=== PATIENT | female | born 1950 | race Hispanic/Latino ===

== ENCOUNTER 2018-02-08 16:35 | Emergency (ER) | payer MEDICARE, OTHER ==
[2018-02-08 16:35] VITALS: BMI 27.4
[2018-02-08] MEDS ORDERED: Albuterol-Ipratrop 3 mg / 0.5 (3 ml) UD IH STA (16:59)
--- NOTE | 2018-02-08 18:57 | ED PDOC ---
Arrival/HPI - General Chief Complaint: Shortness Of Breath Time Seen by Provider: 02/08/18 16:46 Historian: Patient - History of Present Illness Narrative History of Present Illness (Text): 02/08/18 18:57 67yo female with Past medical history of Asthma, seizure and legal blind who was bib by her environmental studies faculty member for complaint of wheezing and cough. the respiratory care program director noted history of sensation al allergy that consist of cough. States she was on Sammie until recently when the PMD stopped the medication to see how she will do without it. The respiratory care program director states she started wheezing 2days ago. States she uses Nebulizer at home and she started wheezing while she was at her daycare today. She came to Emergency department from the daycare. She denies fever, chills, nausea, vomiting, abdominal pain, sick contact. she is not steroid dependent. Never admitted for Asthma and never intubated. Past Medical History - Provider Review Nursing Documentation Reviewed: Yes - Infectious Disease Hx of Infectious Diseases: None - Tetanus Immunization Tetanus Immunization: Unknown - Cardiac Hx Cardiac Disorders: Yes Hx Hypertension: Yes - Pulmonary Hx Respiratory Disorders: Yes Hx Asthma: Yes Hx Chronic Obstructive Pulmonary Disease (COPD): Yes - Neurological Hx Neurological Disorder: Yes Hx Seizures: Yes - HEENT Hx HEENT Disorder: Yes Hx Blind: Yes - Renal Hx Renal Disorder: No - Endocrine/Metabolic Hx Endocrine Disorders: No - Hematological/Oncological Hx Blood Disorders: No - Integumentary Hx Dermatological Disorder: No - Musculoskeletal/Rheumatological Hx Falls: No - Gastrointestinal Hx Gastrointestinal Disorders: Yes Hx Gastroesophageal Reflux: Yes - Genitourinary/Gynecological Hx Genitourinary Disorders: Yes Hx Incontinence: Yes - Psychiatric Hx Psychophysiologic Disorder: Yes Hx Anxiety: Yes Hx Depression: Yes Hx Substance Use: No - Past Surgical History Past Surgical History: Unable to Obtain - Suicidal Assessment Feels Threatened In Home Enviroment: No Family/Social History - Physician Review Nursing Documentation Reviewed: Yes Family/Social History: Unknown Family HX Smoking Status: Never Smoked Hx Alcohol Use: No Hx Substance Use: No Allergies/Home Meds Allergies/Adverse Reactions: Allergies carbamazepine [From Tegretol] Allergy (Verified 02/08/18 16:41) SHORTNESS OF BREATH Home Medications: Home Meds Medication Instructions Recorded Confirmed Albuterol 0.083% [Albuterol 0.083%] 2.5 mg INH Q8 12/16/13 02/08/18 Budesonide [Budesonide] 0.5 mg INH BID 12/16/13 02/08/18 Clonazepam [Clonazepam] 0.5 mg PO Q12 12/16/13 02/08/18 Escitalopram [Lexapro] 10 mg PO DAILY 12/16/13 02/08/18 Fexofenadine Hydrochloride 180 mg PO DAILY 12/16/13 02/08/18 [Fexofenadine] Gabapentin [Gabapentin] 300 mg PO Q12 12/16/13 02/08/18 Omeprazole [Omeprazole] 10 mg PO DAILY 12/16/13 02/08/18 Divalproex [Depakote ER(ONCE 500 mg PO DAILY 02/08/18 02/08/18 DAILY)] Review of Systems - Physician Review All systems were reviewed & negative as marked: Yes - Review of Systems Constitutional: Normal Eyes: Normal ENT: Normal Respiratory: Cough, Wheezing. absent: SOB, Sputum Cardiovascular: Normal Gastrointestinal: Normal Genitourinary Female: Normal Musculoskeletal: Normal Skin: Normal Neurological: Normal Endocrine: Normal Hemo/Lymphatic: Normal Psychiatric: Normal Physical Exam Vital Signs Reviewed: Yes Vital Signs Temp Pulse Resp BP Pulse Ox 02/08/18 19:23 98.2 F 77 16 127/64 97 02/08/18 17:13 16 02/08/18 17:06 71 18 70 L Temperature: Afebrile Blood Pressure: Normal Pulse: Regular Respiratory Rate: Normal Appearance: Positive for: Well-Appearing, Non-Toxic, Comfortable Pain Distress: None Mental Status: Positive for: Alert and Oriented X 3 - Systems Exam Head: Present: Atraumatic, Normocephalic Pupils: Present: PERRL Extroacular Muscles: Present: EOMI Conjunctiva: Present: Normal Mouth: Present: Moist Mucous Membranes Neck: Present: Normal Range of Motion Respiratory/Chest: Present: Clear to Auscultation, Good Air Exchange, Wheezes ( Diffuse expiratory wheeze at the bases). No: Respiratory Distress, Accessory Muscle Use, Decreased Breath Sounds, Rales, Retracting, Rhonchi Cardiovascular: Present: Regular Rate and Rhythm, Normal S1, S2. No: Murmurs Abdomen: No: Tenderness, Distention, Peritoneal Signs Back: Present: Normal Inspection Upper Extremity: Present: Normal Inspection. No: Cyanosis, Edema Lower Extremity: Present: Normal Inspection. No: Edema Neurological: Present: GCS=15, CN II-XII Intact, Speech Normal Skin: Present: Warm, Dry, Normal Color. No: Rashes Psychiatric: Present: Alert, Oriented x 3, Normal Insight, Normal Concentration Medical Decision Making ED Course and Treatment: 02/09/18 00:26 PT was comfortable in Emergency department. On re evaluation her lung was CTA b /l. she was talking in full sentence and ambulatory without distress. She was DC home with Prednisone and Tessalon perles. Referred to her PMD - Medication Orders Current Medication Orders: Discontinued Medications Albuterol/Ipratropium (Duoneb 3 Mg/0.5 Mg (3 Ml) Ud) 3 ml IH Q15M STA Stop: 02/08/18 17:00 Last Admin: 02/08/18 17:42 Dose: 3 ml Prednisone (Prednisone Tab) 40 mg PO STAT STA Stop: 02/08/18 17:07 Last Admin: 02/08/18 17:42 Dose: 40 mg Disposition/Present on Arrival - Present on Arrival Any Indicators Present on Arrival: No History of DVT/PE: No History of Uncontrolled Diabetes: No Urinary Catheter: No History of Decub. Ulcer: No History Surgical Site Infection Following: None - Disposition Have Diagnosis and Disposition been Completed?: Yes Diagnosis: Acute asthma Disposition: HOME/ ROUTINE Disposition Time: 19:15 Patient Plan: Discharge Condition: IMPROVED Discharge Instructions (ExitCare): Asthma in Adults Additional Instructions: Follow up with your Doctor Return to Emergency department for any new or worsening symptoms Prescriptions: Benzonatate [Tessalon Perle] 100 mg PO TID #20 capsule predniSONE [Prednisone] 20 mg PO DAILY #4 tab Referrals: Sierra NEELY,Arabella Kessler MD [Primary Care Provider] - Follow up with primary Forms: [email or web address] (Kinyarwanda)
[2018-02-08 19:20] VITALS: RESP 16
[2018-02-08 19:23] VITALS: BP 127/64; PULSE 77; TEMP 98.2; O2SAT 97
== END 2018-02-08 19:30 | disposition home or self-care (01) ==
LOC: ED 16:35
DX: J45.909 Unspecified asthma, uncomplicated (principal)

== ENCOUNTER 2018-05-16 13:50 | Inpatient (IN) | payer MEDICARE, OTHER ==
[2018-05-16 14:09] VITALS: BMI 43.6
--- NOTE | 2018-05-16 14:37 | ED PDOC ---
Arrival/HPI - General Chief Complaint: Abnormal Skin Integrity Time Seen by Provider: 05/16/18 14:00 Historian: Patient, Caregiver, Fdc - History of Present Illness Narrative History of Present Illness (Text): 05/16/18 14:36 This 67 yo female with Past medical history of Asthma, seizure and legal blind who was bib by her industrial real estate agent for complaint of b/l lower leg cellulitis x 2 weeks. Caregiver stated patient developed a small kan skin infection x 2 weeks. Caregiver stated patient was taken to [facility] ED who Dx. cellulitis, and patient Rx. Augmentin. Patient followed up with her PMD x 7 days ago. PMD prescribed patient Bactrim DS, and Keflex, and recommended to have patient see [facility]. Patient was sent to Dr. Linda Mackenzie, associate professor of physics, who recommended patient/caregiver to come to [facility] for IV antibiotic for leg cellulitis, and failure out-patient treatment. Denies other complains. Caregiver stated patient had a negative Venous Doppler x 2 weeks ago. Time/Duration: Other (see hpi) Context: Home Past Medical History - Provider Review Nursing Documentation Reviewed: Yes - Infectious Disease Hx of Infectious Diseases: None - Tetanus Immunization Tetanus Immunization: Unknown - Reproductive Menopause: Yes - Cardiac Hx Cardiac Disorders: Yes Hx Hypertension: Yes - Pulmonary Hx Respiratory Disorders: Yes Hx Asthma: Yes Hx Chronic Obstructive Pulmonary Disease (COPD): Yes - Neurological Hx Neurological Disorder: Yes Hx Seizures: Yes - HEENT Hx HEENT Disorder: Yes Hx Blind: Yes - Renal Hx Renal Disorder: No - Endocrine/Metabolic Hx Endocrine Disorders: No - Hematological/Oncological Hx Blood Disorders: No - Integumentary Hx Dermatological Disorder: No - Musculoskeletal/Rheumatological Hx Falls: No - Gastrointestinal Hx Gastrointestinal Disorders: Yes Hx Gastroesophageal Reflux: Yes - Genitourinary/Gynecological Hx Genitourinary Disorders: Yes Hx Incontinence: Yes - Psychiatric Hx Psychophysiologic Disorder: Yes Hx Anxiety: Yes Hx Depression: Yes Hx Substance Use: No - Past Surgical History Past Surgical History: Unable to Obtain - Suicidal Assessment Feels Threatened In Home Enviroment: No Family/Social History - Physician Review Nursing Documentation Reviewed: Yes Family/Social History: Other (noncontributory) Smoking Status: Never Smoked Hx Alcohol Use: No Hx Substance Use: No Allergies/Home Meds Allergies/Adverse Reactions: Allergies carbamazepine [From Tegretol] Allergy (Verified 05/16/18 14:22) SHORTNESS OF BREATH Home Medications: Home Meds Medication Instructions Recorded Confirmed Albuterol 0.083% [Albuterol 0.083%] 2.5 mg INH Q8 12/16/13 05/16/18 Escitalopram [Lexapro] 10 mg PO DAILY 12/16/13 05/16/18 Divalproex [Depakote ER(ONCE 500 mg PO BID 02/08/18 05/16/18 DAILY)] Budesonide [Pulmicort Respules] 0.5 mg IH BID 05/16/18 05/16/18 Cephalexin [cephalexin] 500 mg PO BID 05/16/18 05/16/18 Clonazepam [Klonopin] 1 mg PO BID 05/16/18 05/16/18 Gabapentin [Neurontin] 300 mg PO TID 05/16/18 05/16/18 Levetiracetam [Keppra] 1,000 mg PO BID 05/16/18 05/16/18 Sulfamethoxazole/Trimethoprim 1 tab PO BID 05/16/18 05/16/18 [Bactrim DS 800 mg-160 mg] Review of Systems - Review of Systems Constitutional: Normal. absent: Fatigue, Weight Change, Fevers, Night Sweats Eyes: Normal ENT: Normal Respiratory: Normal. absent: SOB, Cough Cardiovascular: Normal. absent: Chest Pain, Palpitations Gastrointestinal: Normal. absent: Abdominal Pain, Nausea, Vomiting Genitourinary Female: Normal Musculoskeletal: Normal Skin: Cellulitis Neurological: Normal Endocrine: Normal Hemo/Lymphatic: Normal Psychiatric: Normal Physical Exam Vital Signs Temp Pulse Resp BP Pulse Ox 05/16/18 14:16 97.8 F 81 18 106/47 L 100 Temperature: Afebrile Blood Pressure: Normal Pulse: Regular Respiratory Rate: Normal Appearance: Positive for: Well-Appearing, Non-Toxic, Comfortable Pain Distress: None - Systems Exam Head: Present: Atraumatic, Normocephalic Pupils: Present: PERRL Extroacular Muscles: Present: EOMI Conjunctiva: Present: Normal Mouth: Present: Moist Mucous Membranes Neck: Present: Normal Range of Motion Respiratory/Chest: Present: Clear to Auscultation, Good Air Exchange. No: Respiratory Distress, Accessory Muscle Use Cardiovascular: Present: Regular Rate and Rhythm, Normal S1, S2. No: Murmurs Abdomen: No: Tenderness, Distention, Peritoneal Signs Back: Present: Normal Inspection Upper Extremity: Present: Normal Inspection. No: Cyanosis, Edema Lower Extremity: Present: NORMAL PULSES, Normal ROM, Erythema, Temperature Abnormalties, Neurovascularly Intact, Capillary Refill < 2 s, Other ((+) right lower leg worse than left). No: Edema, CALF TENDERNESS, Cyanosis, Yony's Sign , Tenderness, Swelling, Deformity Neurological: Present: GCS=15, CN II-XII Intact, Speech Normal, Motor Func Grossly Intact, Normal Sensory Function, Normal Cerebellar Funct, Gait Normal Skin: Present: Warm, Dry, Normal Color. No: Rashes Psychiatric: Present: Alert, Normal Insight, Normal Concentration Medical Decision Making ED Course and Treatment: 05/16/18 16:[address] Horn, medical service regarding Hx. of lower leg cellulitis. Patient fell out-patient treatment, worsening of cellulitis. We reviewed labs, and associate professor of physics recommendation for admission. He agreed with plan for admission. Re-evaluation Time: 16:41 Reassessment Condition: Re-examined, Improving,but remains with symptoms - Lab Interpretations Lab Results: 05/16/18 14:30 05/16/18 14:30 Lab Results 05/16/18 14:30: Sodium 138, Chloride 103, Potassium 4.7, Carbon Dioxide 24, Anion Gap 15, BUN 22 H, Creatinine 1.3 H, Est GFR ( Amer) 49, Est GFR ( Non-Af Amer) 41, Random Glucose 98, Calcium 8.2 L, Phosphorus 4.0, Magnesium 2.2 , Total Bilirubin 0.4, AST 30, ALT 42, Alkaline Phosphatase 65, Lactate Dehydrogenase 457, Total Creatine Kinase 41, Troponin I < 0.01, NT-Pro-B Natriuret Pep 664 H, Total Protein 6.3, Albumin 3.4, Globulin 2.9, Albumin/ Globulin Ratio 1.2 05/16/18 14:30: pO2 74 H, VBG pH 7.38, VBG pCO2 42.0, VBG HCO3 24.8, VBG Total CO2 26.1, VBG O2 Sat (Calc) 96.5 H, VBG Base Excess -0.4 L, VBG Potassium 4.7, Sodium 136.0, Chloride 105.0, Glucose 95, Lactate 1.7, FiO2 21.0, Venous Blood Potassium 4.7 05/16/18 14:30: PT 12.1, INR 1.06, APTT 30.0 05/16/18 14:30: WBC 5.6, RBC 3.44 L, Hgb 10.3 L, Hct 31.2 L, MCV 90.7, MCH 29.9 , MCHC 33.0, RDW 14.7 H, Plt Count 187, MPV 10.5, Gran % 59.7, Lymph % (Auto) 18.1 L, [place] % (Auto) 17.2 H, Eos % (Auto) 4.6, Baso % (Auto) 0.4, Gran # 3.36, Lymph # (Auto) 1.0 L, [place] # (Auto) 1.0 H, Eos # (Auto) 0.3, Baso # (Auto) 0.02 , ESR 37 H I have reviewed the lab results: Yes Interpretation: No sign. chg./baseline - RAD Interpretation Narrative RAD Interpretations (Text): 05/16/18 15:55 Patient Name / ID : TA DAMICO / [id number] Exam Date : 05/16/2018 15:06:17 ( Approved ) Study Comment : Sex / Age : F / 67Y Creator : Adrián Harkins MD Dictator : Adrián Harkins MD Government Affairs Specialist : Courtesy Van Driver : Adrián Harkins MD Approver2 : Report Date : 05/16/2018 15:20:44 My Comment : Date of service: 05/16/2018 HISTORY: admission COMPARISON: 12/16/2013 FINDINGS: LUNGS: No active pulmonary disease. PLEURA: No significant pleural effusion identified, no pneumothorax apparent. CARDIOVASCULAR: Normal. OSSEOUS STRUCTURES: No significant abnormalities. VISUALIZED UPPER ABDOMEN: Normal. OTHER FINDINGS: None. IMPRESSION: No active disease. Radiology Orders: 05/16/18 14:45 CHEST PORTABLE [RAD] Stat 05/16/18 14:50 DUPLEX LOWER EXTRM VEIN BILAT [US] Stat - Medication Orders Current Medication Orders: Discontinued Medications Sodium Chloride (Sodium Chloride 0.9%) 500 mls @ 999 mls/hr IV .Q31M STA Stop: 05/16/18 15:20 Last Admin: 05/16/18 15:19 Dose: 999 mls/hr eMAR Start Stop Document 05/16/18 15:19 [facility] (Rec: 05/16/18 15:19 [facility] [id number]) Intravenous Solution Start Date 05/16/18 Start Time 15:19 End Date 05/16/18 End time 15:50 Total Infusion Time 31 Vancomycin HCl (Vancomycin 1gm) 1 gm in 250 mls @ 167 mls/hr IVPB STAT STA PRN Reason: Protocol Stop: 05/16/18 16:18 Piperacillin Sod/Tazobactam Sod (Zosyn 4.5 Gm In Ns 100ml) 4.5 gm in 100 mls @ 200 mls/hr IVPB STAT STA PRN Reason: Protocol Stop: 05/16/18 15:14 Last Admin: 05/16/18 15:17 Dose: 200 mls/hr eMAR Start Stop Document 05/16/18 15:17 [facility] (Rec: 05/16/18 15:17 [facility] [id number]) Intravenous Solution Start Date 05/16/18 Start Time 15:17 End Date 05/16/18 End time 15:20 Total Infusion Time 3 Disposition/Present on Arrival - Present on Arrival Any Indicators Present on Arrival: No History of DVT/PE: No History of Uncontrolled Diabetes: No Urinary Catheter: No History of Decub. Ulcer: No History Surgical Site Infection Following: None - Disposition Have Diagnosis and Disposition been Completed?: Yes Diagnosis: Cellulitis, Failure of outpatient treatment Disposition: HOSPITALIZED Disposition Time: 16:43 Patient Plan: Admission Condition: STABLE Discharge Instructions (ExitCare): Cellulitis (ED) Referrals: Sierra NEELY,Arabella Kessler MD [Primary Care Provider] - Follow up with primary Forms: [employer] (Romanian)
[2018-05-16] MEDS ORDERED: Piperacill/Tazo 4.5gm in NS 4.5 GM/100 ML BAG IVPB STA (14:45)
[2018-05-16] MEDS ORDERED: Vancomycin 1gm in NS 250ml 1 GM/250 ML BAG IVPB STA (14:49)
[2018-05-16] MEDS ORDERED: Sodium Chloride 0.9% 500 ML IV STA (14:50)
[2018-05-16 14:58] LABS: VENOUS BLOOD GAS BASE EXCESS -0.4 mmol/L (0.0-2.0); VENOUS BLOOD GAS PO2 74 mm/Hg (30-55); VENOUS BLOOD PH 7.38 (7.32-7.43)
[2018-05-16 14:59] LABS: BASO # 0.02 K/mm3 (0.0-2.0); BASO % 0.4 % (0.0-3.0); EOS # 0.3 (0.0-0.7); EOS % 4.6 % (1.5-5.0); GRAN # 3.36 (1.4-6.5); GRAN % 59.7 % (50.0-68.0); HEMOGLOBIN 10.3 g/dL (12.0-16.0); LYMPH % 18.1 % (22.0-35.0); MEAN CELL VOLUME 90.7 fl (80.0-105.0); MEAN CORPUSCULAR HEMOGLOBIN 29.9 pg (25.0-35.0); MEAN PLATELET VOLUME 10.5 fl (7.0-11.0); MONO % 17.2 % (1.0-6.0); RBC 3.44 10^6/uL (3.5-6.1); RED CELL DISTRIBUTION WIDTH 14.7 % (11.5-14.5); WHITE BLOOD COUNT 5.6 10^3/ul (4.5-11.0)
[2018-05-16 15:11] LABS: ALB/GLOB RATIO 1.2 (1.1-1.8); ALBUMIN 3.4 g/dL (3.0-4.8); ALT/SGPT 42 U/L (7-56); AST/SGOT 30 U/L (14-36); BLOOD UREA NITROGEN 22 mg/dL (7-21); CALCIUM 8.2 mg/dL (8.4-10.5); GFR AFRICAN-AMERICAN 49; GFR NON-AFRICAN AMERICAN 41
[2018-05-16 15:21] LABS: B-TYPE NATRIURETIC PEPTIDE 664 pg/mL (0-450); TROPONIN I < 0.01 ng/mL
--- NOTE | 2018-05-16 15:22 | RAD ---
Date of service: 05/16/2018 HISTORY: admission COMPARISON: 12/16/2013 FINDINGS: LUNGS: No active pulmonary disease. PLEURA: No significant pleural effusion identified, no pneumothorax apparent. CARDIOVASCULAR: Normal. OSSEOUS STRUCTURES: No significant abnormalities. VISUALIZED UPPER ABDOMEN: Normal. OTHER FINDINGS: None. IMPRESSION: No active disease.
[2018-05-16 15:28] LABS: INR 1.06 (0.93-1.08); PROTHROMBIN TIME 12.1 SECONDS (9.4-12.5)
[2018-05-16] MEDS ORDERED: Sodium Chloride 0.9% 1,000 ML IV SCH (17:15)
--- NOTE | 2018-05-16 17:41 | CP.PCM.HP ---
<Joel Gan - Last Filed: 05/16/18 18:21> History of Present Illness - History of Present Illness History of Present Illness: Joel Gan DO PGY-1, Systems Manager Medicine History and Physical 67 y o female PMhx asthma, seizure, legally blind, autism, mood disorder, who presented to the ED brought in by her caregiver for b/l lower leg cellulitis that has been occurring for 2 weeks. Caregiver states that she noticed the area appear warm and erythematous on the R anterior and posterior kan. Caregiver brought pt to [facility] ED who diagnosed her with cellulitis and prescribed Bactrim PO x 7 d. On day 5 of therapy, caregiver brought pt to PCP stating that cellulitis was not improving. PCP agreed with this as per caregiver and placed pt on additional 7 day course of Bactrim and added Keflex for therapy. Caregiver states that cellultis spread to other anterior kan, and both sides had cellulitis migrating down to ankles and up to knees over the past several days. Caregiver was concerned about this and thus brought pt to ED today. States that pt has been having decreased PO intake for the last week and a half. States pt has been having watery, non-bloody diarrhea for several days, was given Immodium with relief at home, no reported liquid stools in the past 24 hrs. Caregiver was unable to take pt's temperature at home. Denies pt having chest pain, shortness of breath, nausea, vomiting, urinary complaints, or other symptoms. Unable to obtain ROS from patient, but pt appears in pain with movement of both lower extremities. PMhx: asthma, seizure, legally blind, autism, mood disorder, HTN PSurgHx: none Allergies: Carbamezepine (reaction unknown as per caregiver) Meds: Escitalopram 10 mg daily, Valsartan 40 mg daily, Clonazepam 1 mg daily, Clonazepam 0.5 mg daily, Montelukast 10 mg daily, Divalproex 500 mg bid, Levetiracetam 100 mg bid, Budesonide inhaler 0.5/2ml neb bid, Gabapentin 300 mg tid, Albuterol 2.5/3 ml solution q 8 h Family hx: unknown Social hx: denies smoking, alcohol or illicit drug use Present on Admission - Present on Admission Any Indicators Present on Admission: No Review of Systems - Constitutional Constitutional: As Per HPI - Integumentary Integumentary: Erythema, Swelling, Unusual Bruising Past Patient History - Infectious Disease Hx of Infectious Diseases: None - Tetanus Immunizations Tetanus Immunization: Unknown - Past Social History Smoking Status: Never Smoked - CARDIAC Hx Cardiac Disorders: Yes Hx Hypertension: Yes - PULMONARY Hx Respiratory Disorders: Yes Hx Asthma: Yes Hx Chronic Obstructive Pulmonary Disease (COPD): Yes - NEUROLOGICAL Hx Neurological Disorder: Yes Hx Seizures: Yes - HEENT Hx HEENT Problems: Yes Hx Blind: Yes - RENAL Hx Chronic Kidney Disease: No - ENDOCRINE/METABOLIC Hx Endocrine Disorders: No - HEMATOLOGICAL/ONCOLOGICAL Hx Blood Disorders: No - INTEGUMENTARY Hx Dermatological Problems: No - MUSCULOSKELETAL/RHEUMATOLOGICAL Hx Falls: No - GASTROINTESTINAL Hx Gastrointestinal Disorders: Yes Hx Gastroesophageal Reflux: Yes - GENITOURINARY/GYNECOLOGICAL Hx Genitourinary Disorders: Yes Hx Incontinence: Yes - PSYCHIATRIC Hx Psychophysiologic Disorder: Yes Hx Anxiety: Yes Hx Depression: Yes Hx Substance Use: No - SURGICAL HISTORY Hx Surgeries: No Meds Home Medications: Home Medication List Medication Instructions Recorded Confirmed Type Heparin 5,000 units SC Q8 vial 05/18/18 Rx Ondansetron [Zofran Inj] 4 mg IVP Q6H PRN vial 05/18/18 Rx Pantoprazole [Protonix EC Tab] 40 mg PO DAILY ect 05/18/18 Rx Vancomycin [Vancomycin Inj] 1.5 gm IVPB DAILY vial 05/18/18 Rx Allergies/Adverse Reactions: Allergies Allergy/AdvReac Type Severity Reaction Status Date / Time carbamazepine [From Tegretol] Allergy SHORTNESS Verified 05/16/18 17:58 OF BREATH Physical Exam - Constitutional Appears: No Acute Distress, Chronically Ill - Head Exam Head Exam: ATRAUMATIC, NORMAL INSPECTION, NORMOCEPHALIC - Eye Exam Eye Exam: EOMI, Normal appearance, PERRL - ENT Exam ENT Exam: Mucous Membranes Moist, TM's Normal Bilaterally - Neck Exam Neck exam: Positive for: Full Rom, Normal Inspection - Respiratory Exam Respiratory Exam: Clear to Auscultation Bilateral, NORMAL BREATHING PATTERN - Cardiovascular Exam Cardiovascular Exam: REGULAR RHYTHM, +S1, +S2 - GI/Abdominal Exam GI & Abdominal Exam: Normal Bowel Sounds, Soft Additional comments: Non-tender, non-distended - Extremities Exam Extremities exam: Positive for: normal capillary refill, tenderness, pedal pulses present Additional comments: Non-pitting edema b/l; erythematous and warm to palpation of anterior and posterior shins b/l, extending down to ankles and to patient's knees; no fluid- filled vesicles noted on exam - Back Exam Back exam: FULL ROM, NORMAL INSPECTION - Neurological Exam Neurological exam: Alert, CN II-XII Intact, Oriented x3 - Psychiatric Exam Psychiatric exam: Normal Affect, Normal Mood - Skin Skin Exam: Warm Additional comments: As noted in extremity exam; Petechiae present on upper R thigh and R lower back Results - Vital Signs Recent Vital Signs: Last Vital Signs Temp 97.8 F 05/16/18 14:16 Pulse 79 05/16/18 16:30 Resp 18 05/16/18 16:30 BP 118/70 05/16/18 16:30 Pulse Ox 97 05/16/18 16:30 - Labs Result Diagrams: 05/16/18 14:30 05/16/18 14:30 Assessment & Plan - Assessment and Plan (Free Text) Assessment: 67 y o female PMhx asthma, HTN, seizure, legally blind, autism, mood disorder, who was brought in to the ED by her caregiver for b/l lower leg cellulitis and failure of outpatient antibiotic treatment. Plan: Cellulitis/Failure of outpatient antibiotic therapy Vanco/zosyn for broad-spectrum coverage, renally dosed due to low GFR WBC wnl, continue to trend Pt afebrile, VSS Lactate wnl IVF: 0.9% NaCl @ 100 cc/hr Pending urine and blood cxs Pending procalcitonin, CRP Regular diet ID consulted, recs appreciated LE doppler study neg for DVT b/l Pt may need further imaging if clinical status does not improve Elevated Cr Cr 1.3 on admission Pt not having any decreased urine output as per caregiver Continue to trend Hx HTN C/w valsartan 40 mg daily Hx seizures C/w Keppra, divalproex C/w neurontin Hx unspecified mood disorder C/w escitalopram, clonazepam Hx asthma C/w montelukast, albuterol, budesonide GI/DVT ppx: Protonix PO daily, Heparin 5000 U q 8 h Pt seen, examined with, and plan d/w Dr. Horn, attending Joel Gan DO PGY-1, Systems Manager Pager #[phone] <Deann Horn - Last Filed: 05/19/18 11:26> Results - Vital Signs Recent Vital Signs: Last Vital Signs Temp 97.3 F L 05/18/18 22:00 Pulse 67 05/18/18 22:00 Resp 18 05/18/18 22:00 BP 121/72 05/18/18 22:00 Pulse Ox 94 L 05/18/18 22:00 - Labs Result Diagrams: 05/18/18 06:00 05/18/18 05:30 Attending/Attestation - Attestation I have personally seen and examined this patient.: Yes I have fully participated in the care of the patient.: Yes I have reviewed all pertinent clinical information: Yes Notes (Text): 05/19/18 11:18 Medical record note made by the resident after discussion with my direction and input after the patient was personally seen and examined by me. I have reviewed the chart and agree that the record accurately reflects by personal performance of the history, physical exam, data review, and medical decision-making, in the course for the patient. I have also personally directed the plan of care. 67 yrs old female PMhx asthma, HTN, seizure, legally blind, autism, mood disorder, who was brought in to the ED by her caregiver for b/l lower leg cellulitis and failure of outpatient antibiotic treatment.We will start patient on IV antibiotics vancomycin and zosyn. We will follow up cultures.We will get ID evaluation. 05/19/18 11:26
--- NOTE | 2018-05-16 18:05 | CP.PCM.CON ---
History of Present Illness - History of Present Illness History of Present Illness: Infectious Disease Consultation: May 16, 2018 67 yo female with history of Asthma, Seizures, Legal Blindness, and Autism presenting with two week history of worsening bilateral leg edema and cellulitis. 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 The patient first started with blister in the anterior left lower leg as per the patient's adult daycare coordinator. The patient currently has +2-3 edema of both legs. The patient is unable to give any history. The patient has been on Augmentin, Bactrim BS, and Keflex. PMHx: Asthma, Seizures, Legal Blindness, COPD, CAD, HTN, and Autism PSHx: none given Allergies: Carbamazepine Social Hx: No tobacco, EtOH, or illicit drug use Active Medications Albuterol Sulfate (Albuterol 0.083% Inhal Brittney (2.5 Mg/3 Ml) Ud) 2.5 mg INH Q8 [facility] Budesonide (Pulmicort Respules) 0.5 mg IH BID AN[facility] Clonazepam (Klonopin) 1 mg PO BID [facility] PRN Reason: Protocol Divalproex Sodium (Depakote Er(Once Daily)) 500 mg PO BID [facility] PRN Reason: Protocol Escitalopram Oxalate (Lexapro) 10 mg PO DAILY [facility] Gabapentin (Neurontin) 300 mg PO TID [facility] PRN Reason: Protocol Heparin Sodium (Porcine) (Heparin) 5,000 units SC Q8 AN[facility] PRN Reason: Protocol Piperacillin Sod/Tazobactam Sod (Zosyn 3.375 In Ns 100ml) 100 mls @ 200 mls/hr IVPB Q6 [facility] PRN Reason: Protocol Stop: 05/17/18 06:29 Sodium Chloride (Sodium Chloride 0.9%) 1,000 mls @ 100 mls/hr IV .Q10H [facility] Vancomycin HCl 1.5 gm/ Sodium (Chloride) 500 mls @ 167 mls/hr IVPB DAILY [facility] Levetiracetam (Keppra) 1,000 mg PO BID ANNE MARIE Family Hx: Unable to Obtain ROS: Unable to Obtain Past Patient History - Infectious Disease Hx of Infectious Diseases: None - Tetanus Immunizations Tetanus Immunization: Unknown - Past Social History Smoking Status: Never Smoked - CARDIAC Hx Cardiac Disorders: Yes Hx Hypertension: Yes - PULMONARY Hx Respiratory Disorders: Yes Hx Asthma: Yes Hx Chronic Obstructive Pulmonary Disease (COPD): Yes - NEUROLOGICAL Hx Neurological Disorder: Yes Hx Seizures: Yes - HEENT Hx HEENT Problems: Yes Hx Blind: Yes - RENAL Hx Chronic Kidney Disease: No - ENDOCRINE/METABOLIC Hx Endocrine Disorders: No - HEMATOLOGICAL/ONCOLOGICAL Hx Blood Disorders: No - INTEGUMENTARY Hx Dermatological Problems: No - MUSCULOSKELETAL/RHEUMATOLOGICAL Hx Falls: No - GASTROINTESTINAL Hx Gastrointestinal Disorders: Yes Hx Gastroesophageal Reflux: Yes - GENITOURINARY/GYNECOLOGICAL Hx Genitourinary Disorders: Yes Hx Incontinence: Yes - PSYCHIATRIC Hx Psychophysiologic Disorder: Yes Hx Anxiety: Yes Hx Depression: Yes Hx Substance Use: No - SURGICAL HISTORY Hx Surgeries: No Meds Allergies/Adverse Reactions: Allergies Allergy/AdvReac Type Severity Reaction Status Date / Time carbamazepine [From Tegretol] Allergy SHORTNESS Verified 05/16/18 17:58 OF BREATH - Medications Medications: Current Medications Albuterol Sulfate (Albuterol 0.083% Inhal Brittney (2.5 Mg/3 Ml) Ud) 2.5 mg INH Q8 ANNE MARIE Budesonide (Pulmicort Respules) 0.5 mg IH BID ANNE MARIE Clonazepam (Klonopin) 1 mg PO BID ANNE [facility]IE PRN Reason: Protocol Divalproex Sodium (Depakote Er(Once Daily)) 500 mg PO BID AN[facility] MARIE PRN Reason: Protocol Escitalopram Oxalate (Lexapro) 10 mg PO DAILY AN[facility] Gabapentin (Neurontin) 300 mg PO TID ANNE MARIE PRN Reason: Protocol Heparin Sodium (Porcine) (Heparin) 5,000 units SC Q8 ANNE MARIE PRN Reason: Protocol Piperacillin Sod/Tazobactam Sod (Zosyn 3.375 In Ns 100ml) 100 mls @ 200 mls/hr IVPB Q6 ANNE MARIE PRN Reason: Protocol Stop: 05/17/18 06:29 Sodium Chloride (Sodium Chloride 0.9%) 1,000 mls @ 100 mls/hr IV .Q10H [facility] Levetiracetam (Keppra) 1,000 mg PO BID ANNE MARIE Vancomycin HCl (Vancomycin Inj) 1,500 mg 15 mg/kg (1500 mg) IVPB DAILY ANNE MARIE PRN Reason: Protocol Physical Exam - Constitutional Appears: Non-toxic, No Acute Distress, Chronically Ill - Head Exam Head Exam: ATRAUMATIC, NORMOCEPHALIC - Eye Exam Eye Exam: EOMI, PERRL Pupil Exam: NORMAL ACCOMODATION, PERRL - ENT Exam ENT Exam: Mucous Membranes Moist, Normal External Ear Exam, TM's Normal Bilaterally - Neck Exam Neck exam: Positive for: Full Rom, Normal Inspection - Respiratory Exam Respiratory Exam: Clear to Auscultation Bilateral, NORMAL BREATHING PATTERN. absent: Rales, Rhonchi, Wheezes - Cardiovascular Exam Cardiovascular Exam: REGULAR RHYTHM, RRR, +S1, +S2 - GI/Abdominal Exam GI & Abdominal Exam: Normal Bowel Sounds, Soft. absent: Distended, Tenderness - Extremities Exam Extremities exam: Positive for: full ROM, normal inspection - Neurological Exam Neurological exam: Alert, CN II-XII Intact, Oriented x3 - Psychiatric Exam Additional comments: Autism - Skin Skin Exam: Erythema, Warm Additional comments: +2-3 edema of the bilateral legs with erythema of the legs below the knees. The patient has sloughing of the skin of the left lower leg. Results - Vital Signs Recent Vital Signs: Last Vital Signs Temp 97.8 F 05/16/18 14:16 Pulse 79 05/16/18 16:30 Resp 18 05/16/18 16:30 BP 118/70 05/16/18 16:30 Pulse Ox 97 05/16/18 16:30 - Labs Result Diagrams: 05/16/18 14:30 05/16/18 14:30 Assessment & Plan - Assessment and Plan (Free Text) Assessment: 67 yo female with bilateral leg edema and erythema with left leg worse than right. The patient has Autism and adult daycare coordinator gives the patient's history. Started on IV Vancomycin and Zosyn for antibiotic care. Supportive care. Can check ESR and C-reactive protein. Difficult to assess patient as she has no understanding of medical issues before her. Currently Afebrile and without leukocytosis. Case discussed with Dr. Horn Thank you for allowing me to participate in the care of the patient, we will follow with you.
[2018-05-16] MEDS: Divalproex 500 mg ER (ONCE DAILY formulation) PO SCH (19:02)
[2018-05-16] MEDS: Sodium Chloride 0.9% 1,000 ML IV SCH (19:04)
[2018-05-16] MEDS: Albuterol 0.083% Inhal Sol (2.5 mg/3 mL) UD INH SCH ×2 (19:22→22:00)
[2018-05-16] MEDS: Budesonide 0.5 mg/2 ml Inhal Susp UD IH SCH (19:22)
--- NOTE | 2018-05-16 19:55 | CARD ---
APPROVED REPORT Date of service: 05/16/2018 EKG Measurement Heart [id number] [id number] <Conclusion> Normal sinus rhythm Low voltage QRS Borderline ECG
[2018-05-16] MEDS ORDERED: Piperacillin/Tazobact 3.375 gm 100 ML IVPB SCH (22:00)
[2018-05-16] MEDS: Piperacillin/Tazobact 2.25gm 2.25 GM/100 ML BAG IVPB SCH (23:20)
[2018-05-16] MEDS ORDERED: Pneumococcal 23-Valent Vaccine IM ONE (23:43)
[2018-05-17] MEDS: Piperacillin/Tazobact 2.25gm 2.25 GM/100 ML BAG IVPB SCH (06:35)
[2018-05-17] MEDS: Albuterol 0.083% Inhal Sol (2.5 mg/3 mL) UD INH SCH ×3 (07:35→19:51)
[2018-05-17] MEDS: Budesonide 0.5 mg/2 ml Inhal Susp UD IH SCH ×3 (07:35→19:52)
[2018-05-17 08:27] LABS: ALB/GLOB RATIO 1.1 (1.1-1.8); CALCIUM 8.3 mg/dL (8.4-10.5)
[2018-05-17 08:45] LABS: BASO # 0.02 K/mm3 (0.0-2.0); BASO % 0.4 % (0.0-3.0); EOS # 0.3 (0.0-0.7); EOS % 5.7 % (1.5-5.0); GRAN # 2.99 (1.4-6.5); GRAN % 54.8 % (50.0-68.0); HEMOGLOBIN 9.9 g/dL (12.0-16.0); LYMPH # 1.2 (1.2-3.4); LYMPH % 21.1 % (22.0-35.0); MEAN CELL VOLUME 91.2 fl (80.0-105.0); MEAN CORPUSCULAR HEMOGLOBIN 30.1 pg (25.0-35.0); MEAN PLATELET VOLUME 10.2 fl (7.0-11.0); RBC 3.29 10^6/uL (3.5-6.1); RED CELL DISTRIBUTION WIDTH 14.6 % (11.5-14.5); WHITE BLOOD COUNT 5.5 10^3/ul (4.5-11.0)
[2018-05-17] MEDS ORDERED: Vancomycin 500 mg Inj IVPB SCH (10:00)
[2018-05-17] MEDS: Sodium Chloride 0.9% 1,000 ML IV SCH (10:26)
[2018-05-17] MEDS: Pantoprazole 40 mg EC Tab PO SCH (10:27)
[2018-05-17] MEDS: Divalproex 500 mg ER (ONCE DAILY formulation) PO SCH ×3 (10:27→19:52)
[2018-05-17] MEDS: Vancomycin 1.5 GM in Sodium Chloride 0.9% 500 ML IVPB SCH (10:28)
--- NOTE | 2018-05-17 14:07 | CP.PCM.PN ---
<Joel Gan - Last Filed: 05/17/18 14:04> Subjective - Date & Time of Evaluation Date of Evaluation: 05/17/18 Time of Evaluation: 09:45 - Subjective Subjective: Joel Gan DO PGY-1, Surgical Assistant Medicine Progress Note Pt seen and examined at bedside. Unable to obtain review of systems, pt unaware of why she is here in the hospital. States she has no pain in her legs b/l. States she slept well last night. Appears comfortable on exam, asks when she can have lunch. Objective - Vital Signs/Intake and Output Vital Signs (last 24 hours): Temp Pulse Resp BP Pulse Ox 97.8 F 78 18 120/76 97 05/16/18 23:18 05/16/18 23:18 05/16/18 23:18 05/16/18 23:18 05/16/18 17:52 Intake and Output: 05/17/18 05/17/18 06:59 18:59 Intake Total 1620 Balance 1620 - Medications Medications: Current Medications Albuterol Sulfate (Albuterol 0.083% Inhal Brittney (2.5 Mg/3 Ml) Ud) 2.5 mg INH Q8 ANNE MARIE Last Admin: 05/17/18 07:35 Dose: 2.5 mg Budesonide (Pulmicort Respules) 0.5 mg IH BID ANNE MARIE Last Admin: 05/17/18 07:35 Dose: 0.5 mg Clonazepam (Klonopin) 1 mg PO BID ANNE MARIE PRN Reason: Protocol Last Admin: 05/17/18 10:27 Dose: 1 mg Divalproex Sodium (Depakote Er(Once Daily)) 500 mg PO BID ANNE MARIE PRN Reason: Protocol Last Admin: 05/17/18 10:27 Dose: 500 mg Escitalopram Oxalate (Lexapro) 10 mg PO DAILY ANNE MARIE Last Admin: 05/17/18 10:27 Dose: 10 mg Gabapentin (Neurontin) 300 mg PO TID ANNE MARIE PRN Reason: Protocol Last Admin: 05/17/18 10:27 Dose: 300 mg Heparin Sodium (Porcine) (Heparin) 5,000 units SC Q8 ANNE MARIE PRN Reason: Protocol Last Admin: 05/17/18 06:35 Dose: 5,000 units Sodium Chloride (Sodium Chloride 0.9%) 1,000 mls @ 100 mls/hr IV .Q10H ANNE MARIE Last Admin: 05/17/18 10:26 Dose: 100 mls/hr Vancomycin HCl 1.5 gm/ Sodium (Chloride) 500 mls @ 167 mls/hr IVPB DAILY [facility] Last Admin: 05/17/18 10:28 Dose: 167 mls/hr Levetiracetam (Keppra) 1,000 mg PO BID [facility] Last Admin: 05/17/18 10:27 Dose: 1,000 mg Pantoprazole Sodium (Protonix Ec Tab) 40 mg PO DAILY [facility] Last Admin: 05/17/18 10:27 Dose: 40 mg - Labs Labs: 05/17/18 08:30 05/17/18 07:30 PT 12.1 SECONDS (9.4-12.5) 05/16/18 14:30 INR 1.06 (0.93-1.08) 05/16/18 14:30 APTT 30.0 Seconds (25.1-36.5) 05/16/18 14:30 - Constitutional Appears: Non-toxic, No Acute Distress - Head Exam Head Exam: ATRAUMATIC, NORMAL INSPECTION, NORMOCEPHALIC - Eye Exam Eye Exam: EOMI, Normal appearance, PERRL - ENT Exam ENT Exam: Mucous Membranes Moist, Normal Oropharynx - Neck Exam Neck Exam: Full ROM, Normal Inspection - Respiratory Exam Respiratory Exam: Clear to Ausculation Bilateral, NORMAL BREATHING PATTERN - Cardiovascular Exam Cardiovascular Exam: REGULAR RHYTHM, +S1, +S2 - GI/Abdominal Exam GI & Abdominal Exam: Soft, Normal Bowel Sounds - Extremities Exam Extremities Exam: Full ROM, Normal Capillary Refill, Normal Inspection Additional comments: Improving erythema b/l on L lower legs, no tenderness to palpation - Neurological Exam Neurological Exam: Alert, Awake Additional comments: Oriented x2 - Psychiatric Exam Psychiatric exam: Normal Affect, Normal Mood - Skin Skin Exam: Dry, Intact, Normal Color, Warm Assessment and Plan - Assessment and Plan (Free Text) Assessment: 67 y o female PMhx asthma, HTN, seizure, legally blind, autism, mood disorder, who was brought in to the ED by her caregiver for b/l lower leg cellulitis and failure of outpatient antibiotic treatment. Plan: Cellulitis/Failure of outpatient antibiotic therapy Vanco/zosyn for broad-spectrum coverage, renally dosed due to low GFR WBC wnl, continue to trend Pt afebrile, VSS Lactate wnl IVF: 0.9% NaCl @ 100 cc/hr Pending urine and blood cxs Procalcitonin low, CRP elevated Regular diet ID consulted, recs appreciated LE doppler study neg for DVT b/l Pt may need further imaging if clinical status does not improve Elevated Cr Cr stable Pt not having any decreased urine output Continue to trend Hx HTN C/w valsartan 40 mg daily Hx seizures C/w Keppra, divalproex C/w neurontin Hx unspecified mood disorder C/w escitalopram, clonazepam Hx asthma C/w montelukast, albuterol, budesonide GI/DVT ppx: Protonix PO daily, Heparin 5000 U q 8 h Pt seen, examined with, and plan d/w Dr. Horn, attending Joel Gan DO PGY-1, Surgical Assistant Pager #[phone] <Deann Horn - Last Filed: 05/19/18 11:29> Objective - Vital Signs/Intake and Output Vital Signs (last 24 hours): Temp Pulse Resp BP Pulse Ox 97.3 F L 67 18 121/72 94 L 05/18/18 22:00 05/18/18 22:00 05/18/18 22:00 05/18/18 22:00 05/18/18 22:00 Intake and Output: 05/19/18 05/19/18 06:59 18:59 Intake Total 240 Balance 240 - Medications Medications: Current Medications Albuterol Sulfate (Albuterol 0.083% Inhal Brittney (2.5 Mg/3 Ml) Ud) 2.5 mg INH 0730 ,1530,2330 AN[facility]IE Last Admin: 05/19/18 07:28 Dose: Not Given Budesonide (Pulmicort Respules) 0.5 mg IH BIDRESP ANNE MARIE Last Admin: 05/19/18 07:28 Dose: Not Given Clonazepam (Klonopin) 1 mg PO BID ANNE MARIE PRN Reason: Protocol Last Admin: 05/19/18 10:18 Dose: 1 mg Divalproex Sodium (Depakote Er(Once Daily)) 500 mg PO BID ANNE MARIE PRN Reason: Protocol Last Admin: 05/19/18 10:18 Dose: 500 mg Escitalopram Oxalate (Lexapro) 10 mg PO DAILY ANNE [facility]IE Last Admin: 05/19/18 10:18 Dose: 10 mg Gabapentin (Neurontin) 300 mg PO TID ANNE MARIE PRN Reason: Protocol Last Admin: 05/19/18 10:19 Dose: 300 mg Heparin Sodium (Porcine) (Heparin) 5,000 units SC Q8 ANNE MARIE PRN Reason: Protocol Last Admin: 05/19/18 06:13 Dose: Not Given Vancomycin HCl 1.5 gm/ Sodium (Chloride) 500 mls @ 167 mls/hr IVPB DAILY [facility] Last Admin: 05/19/18 10:20 Dose: 167 mls/hr Levetiracetam (Keppra) 1,000 mg PO BID [facility] Last Admin: 05/19/18 10:19 Dose: 1,000 mg Ondansetron HCl (Zofran Inj) 4 mg IVP Q6H PRN PRN Reason: Nausea/Vomiting Last Admin: 05/17/18 18:47 Dose: 4 mg Pantoprazole Sodium (Protonix Ec Tab) 40 mg PO DAILY [facility] Last Admin: 05/19/18 10:19 Dose: 40 mg - Labs Labs: 05/18/18 06:00 05/18/18 05:30 PT 12.1 SECONDS (9.4-12.5) 05/16/18 14:30 INR 1.06 (0.93-1.08) 05/16/18 14:30 APTT 30.0 Seconds (25.1-36.5) 05/16/18 14:30 Attending/Attestation - Attestation I have personally seen and examined this patient.: Yes I have fully participated in the care of the patient.: Yes I have reviewed all pertinent clinical information, including history, physical exam and plan: Yes Notes (Text): 05/19/18 11:27 Medical record note made by the resident after discussion with my direction and input after the patient was personally seen and examined by me. I have reviewed the chart and agree that the record accurately reflects by personal performance of the history, physical exam, data review, and medical decision-making, in the course for the patient. I have also personally directed the plan of care. Patient is afebrile, redness and swelling of leg is improving.Patient cultures are negative for any growth. Continue IV vancomycin and zosyn as per ID. HTN. Blood pressure is stable. DVT Prophylaxis with lovenox.
--- NOTE | 2018-05-17 15:28 | US ---
HISTORY: Leg pain and swelling. Evaluate for DVT PHYSICIAN(S): Dawood Strange MD. TECHNIQUE: Duplex sonography and color-flow Doppler with graded compression were used to evaluate the deep venous systems of both lower extremities. The exam is very limited by body habitus and edema P FINDINGS: The visualized deep venous systems of both lower extremities are sonographically normal and compressible. Normal wave forms and augmentation are seen. There is no sonographic evidence for deep venous thrombosis in the visualized segments of both lower extremities. IMPRESSION: No sonographic evidence for deep venous thrombosis in the visualized segments of both lower extremities. Very limited study.
[2018-05-17] MEDS ORDERED: Divalproex 500 mg ER (ONCE DAILY formulation) PO ONE (18:23)
--- NOTE | 2018-05-17 18:31 | CP.PCM.PN ---
Subjective - Date & Time of Evaluation Date of Evaluation: 05/17/18 Time of Evaluation: 17:00 - Subjective Subjective: Infectious Disease Follow Up: May 17, 2018 67 yo female with history of Asthma, Seizures, Legal Blindness, and Autism presenting with two week history of worsening bilateral leg edema and cellulitis. 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 The patient first started with blister in the anterior left lower leg as per the patient's director regulatory compliance. The patient currently has +2-3 edema of both legs. The patient is unable to give any history. The patient has been on Augmentin, Bactrim BS, and Keflex. On Zosyn and IV Vancomycin. Lower extremities appear to be slowly improving. Objective - Vital Signs/Intake and Output Vital Signs (last 24 hours): Temp Pulse Resp BP Pulse Ox 97.6 F 91 H 21 96/69 L 96 05/17/18 14:00 05/17/18 14:00 05/17/18 14:00 05/17/18 14:00 05/17/18 14:00 Intake and Output: 05/17/18 05/17/18 06:59 18:59 Intake Total 1620 Balance 1620 - Medications Medications: Current Medications Albuterol Sulfate (Albuterol 0.083% Inhal Brittney (2.5 Mg/3 Ml) Ud) 2.5 mg INH Q8 [facility] Last Admin: 05/17/18 16:00 Dose: 2.5 mg Budesonide (Pulmicort Respules) 0.5 mg IH BID [facility] Last Admin: 05/17/18 16:01 Dose: Not Given Clonazepam (Klonopin) 1 mg PO BID ANNE MARIE PRN Reason: Protocol Last Admin: 05/17/18 17:52 Dose: 1 mg Divalproex Sodium (Depakote Er(Once Daily)) 500 mg PO BID ANNE MARIE PRN Reason: Protocol Last Admin: 05/17/18 17:52 Dose: 500 mg Escitalopram Oxalate (Lexapro) 10 mg PO DAILY [facility] Last Admin: 05/17/18 10:27 Dose: 10 mg Gabapentin (Neurontin) 300 mg PO TID ANNE MARIE PRN Reason: Protocol Last Admin: 05/17/18 17:52 Dose: 300 mg Heparin Sodium (Porcine) (Heparin) 5,000 units SC Q8 ANNE MARIE PRN Reason: Protocol Last Admin: 05/17/18 15:04 Dose: 5,000 units Sodium Chloride (Sodium Chloride 0.9%) 1,000 mls @ 100 mls/hr IV .Q10H [facility] Last Admin: 05/17/18 10:26 Dose: 100 mls/hr Vancomycin HCl 1.5 gm/ Sodium (Chloride) 500 mls @ 167 mls/hr IVPB DAILY [facility] Last Admin: 05/17/18 10:28 Dose: 167 mls/hr Levetiracetam (Keppra) 1,000 mg PO BID [facility] Last Admin: 05/17/18 17:52 Dose: 1,000 mg Ondansetron HCl (Zofran Inj) 4 mg IVP Q6H PRN PRN Reason: Nausea/Vomiting Pantoprazole Sodium (Protonix Ec Tab) 40 mg PO DAILY [facility] Last Admin: 05/17/18 10:27 Dose: 40 mg - Labs Labs: 05/17/18 08:30 05/17/18 07:30 PT 12.1 SECONDS (9.4-12.5) 05/16/18 14:30 INR 1.06 (0.93-1.08) 05/16/18 14:30 APTT 30.0 Seconds (25.1-36.5) 05/16/18 14:30 - Constitutional Appears: Non-toxic, No Acute Distress, Chronically Ill - Head Exam Head Exam: ATRAUMATIC, NORMOCEPHALIC - Eye Exam Eye Exam: EOMI, PERRL Pupil Exam: NORMAL ACCOMODATION, PERRL - ENT Exam ENT Exam: Mucous Membranes Moist, Normal External Ear Exam, TM's Normal Bilaterally - Neck Exam Neck Exam: Full ROM, Normal Inspection - Respiratory Exam Respiratory Exam: Clear to Ausculation Bilateral, NORMAL BREATHING PATTERN. absent: Rales, Rhonchi, Wheezes - Cardiovascular Exam Cardiovascular Exam: REGULAR RHYTHM, RRR, +S1, +S2 - GI/Abdominal Exam GI & Abdominal Exam: Soft, Normal Bowel Sounds. absent: Distended, Tenderness - Extremities Exam Extremities Exam: Full ROM, Normal Inspection - Neurological Exam Neurological Exam: Alert, Awake, CN II-XII Intact, Oriented x3 - Psychiatric Exam Additional comments: Autism - Skin Skin Exam: Erythema, Warm Additional comments: +2-3 edema of the bilateral legs with erythema of the legs below the knees. The patient has sloughing of the skin of the left lower leg. Assessment and Plan - Assessment and Plan (Free Text) Assessment: 67 yo female with bilateral leg edema and erythema with left leg worse than right. The patient has Autism and director regulatory compliance gives the patient's history. Started on IV Vancomycin and Zosyn for antibiotic care. Supportive care. Can check ESR and C-reactive protein. Difficult to assess patient as she has no understanding of medical issues before her. Currently Afebrile and without leukocytosis. Lower leg appear to be improved compared to yesterday. Case discussed with Dr. Horn Thank you for allowing me to participate in the care of the patient, we will follow with you.
--- NOTE | 2018-05-17 19:00 | CARD ---
APPROVED REPORT Date of service: 05/17/2018 EXAM: Two-dimensional and M-mode echocardiogram with Doppler and color Doppler. INDICATION Chest Pain LVFX 2D DIMENSIONS Left Atrium (2D)3.8 (1.6-4.0cm)IVSd0.9 (0.7-1.1cm) LVDd4.5 (3.9-5.9cm)PWd1.0 (0.7-1.1cm) LVDs2.7 (2.5-4.0cm)FS (%) 39.2 % LVEF (%)69.8 (>50%) M-Mode DIMENSIONS Aortic Root2.80 (2.2-3.7cm)Aortic Cusp Exc.1.60 (1.5-2.0cm) Aortic Valve AoV Peak Ggtkdrsy024.0cm/Rosalva Peak GR.16mmHg Mitral Valve MV E Xqpsdelm81.7cm/sMV A Mgckfbvu00.0cm/sE/A ratio1.3 TDI Lateral E' Peak V17.40cm/sMedial E' Peak V12.50cm/sE/Lateral E'5.7 E/Medial E'8.0 Pulmonary Valve PV Peak Aryemvsg60.5cm/sPV Peak Grad.3mmHg Tricuspid Valve TR Peak Wggltrqg885tu/sRAP [id number] Peak Gr.31mmHg [id number] LEFT VENTRICLE The left ventricle is normal size. There is normal left ventricular wall thickness. The left ventricular function is normal. The left ventricular ejection fraction is within the normal range. There is normal LV segmental wall motion. Transmitral Doppler flow pattern is Grade II-pseudonormal filling dynamics. RIGHT VENTRICLE The right ventricle is normal size. There is normal right ventricular wall thickness. The right ventricular systolic function is normal. ATRIA The left atrium size is normal. The right atrium size is normal. AORTIC VALVE The aortic valve is not well visualized. No aortic regurgitation is present. There is no aortic valvular stenosis. MITRAL VALVE The mitral valve is not well visualized. There is no mitral valve regurgitation noted. There is no mitral valve stenosis. TRICUSPID VALVE The tricuspid valve is normal in structure. There is mild tricuspid regurgitation. There is mild pulmonary hypertension. PULMONIC VALVE The pulmonary valve is normal in structure. There is no pulmonic valvular regurgitation. GREAT VESSELS The aortic root is normal in size. PERICARDIAL EFFUSION There is no pericardial effusion. <Conclusion> The left ventricle is normal size. There is normal left ventricular wall thickness. The left ventricular function is normal. The left ventricular ejection fraction is within the normal range. There is normal LV segmental wall motion. There is mild tricuspid regurgitation. There is mild pulmonary hypertension.
[2018-05-17] MEDS ORDERED: levETIRAcetam Solution 100 MG/ML BOTTLE PO ONE (20:04)
[2018-05-18] MEDS: Albuterol 0.083% Inhal Sol (2.5 mg/3 mL) UD INH SCH ×3 (01:23→13:18)
[2018-05-18 06:47] LABS: ALBUMIN 3.1 g/dL (3.0-4.8); CALCIUM 8.3 mg/dL (8.4-10.5)
[2018-05-18 07:11] LABS: BASO # 0.03 K/mm3 (0.0-2.0); BASO % 0.6 % (0.0-3.0); EOS # 0.3 (0.0-0.7); EOS % 6.1 % (1.5-5.0); GRAN # 2.12 (1.4-6.5); GRAN % 44.3 % (50.0-68.0); LYMPH # 1.6 (1.2-3.4); LYMPH % 33.3 % (22.0-35.0); MEAN CELL VOLUME 92.6 fl (80.0-105.0); MEAN CORPUSCULAR HEMOGLOBIN 29.7 pg (25.0-35.0); MEAN CORPUSCULAR HGB CONC 32.1 g/dl (31.0-37.0); MEAN PLATELET VOLUME 10.4 fl (7.0-11.0); MONO # 0.8 (0.1-0.6); MONO % 15.7 % (1.0-6.0); RBC 3.37 10^6/uL (3.5-6.1); RED CELL DISTRIBUTION WIDTH 14.9 % (11.5-14.5); WHITE BLOOD COUNT 4.8 10^3/ul (4.5-11.0)
[2018-05-18] MEDS: Budesonide 0.5 mg/2 ml Inhal Susp UD IH SCH (07:32)
[2018-05-18] MEDS: Vancomycin 1.5 GM in Sodium Chloride 0.9% 500 ML IVPB SCH (09:25)
[2018-05-18] MEDS: Divalproex 500 mg ER (ONCE DAILY formulation) PO SCH ×2 (09:25→18:38)
[2018-05-18] MEDS: Pantoprazole 40 mg EC Tab PO SCH (09:26)
[2018-05-18] MEDS: Piperacillin/Tazobact 3.375 gm 100 ML IVPB SCH ×2 (14:24→18:38)
--- NOTE | 2018-05-18 15:29 | CP.PCM.PN ---
Subjective - Date & Time of Evaluation Date of Evaluation: 05/18/18 Time of Evaluation: 14:30 - Subjective Subjective: Infectious Disease Follow Up: May 18, 2018 67 yo female with history of Asthma, Seizures, Legal Blindness, and Autism presenting with two week history of worsening bilateral leg edema and cellulitis. The patient was seen by several doctors including her PMD and insurance collector. The patient first started with blister in the anterior left lower leg as per the patient's artificial plastic eye maker. The patient currently has +2-3 edema of both legs. The patient is unable to give any history. The patient has been on Augmentin, Bactrim BS, and Keflex. On Zosyn and IV Vancomycin. Lower extremities appear to be slowly improving. Erythema has significantly improved. Edema is the same. Objective - Vital Signs/Intake and Output Vital Signs (last 24 hours): Temp Pulse Resp BP Pulse Ox 98.5 F 68 20 131/76 98 05/18/18 06:00 05/18/18 06:00 05/18/18 06:00 05/18/18 06:00 05/18/18 06:00 Intake and Output: 05/18/18 05/18/18 06:59 18:59 Intake Total 300 Balance 300 - Medications Medications: Current Medications Albuterol Sulfate (Albuterol 0.083% Inhal Brittney (2.5 Mg/3 Ml) Ud) 2.5 mg INH Q8 ANNE MARIE Last Admin: 05/18/18 13:18 Dose: Not Given Budesonide (Pulmicort Respules) 0.5 mg IH BID ANNE MARIE Last Admin: 05/18/18 07:32 Dose: 0.5 mg Clonazepam (Klonopin) 1 mg PO BID ANNE MARIE PRN Reason: Protocol Last Admin: 05/18/18 09:26 Dose: 1 mg Divalproex Sodium (Depakote Er(Once Daily)) 500 mg PO BID ANNE MARIE PRN Reason: Protocol Last Admin: 05/18/18 09:25 Dose: 500 mg Escitalopram Oxalate (Lexapro) 10 mg PO DAILY AN[facility] MARIE Last Admin: 05/18/18 09:25 Dose: 10 mg Gabapentin (Neurontin) 300 mg PO TID ANNE MARIE PRN Reason: Protocol Last Admin: 05/18/18 14:05 Dose: 300 mg Heparin Sodium (Porcine) (Heparin) 5,000 units SC Q8 ANNE MARIE PRN Reason: Protocol Last Admin: 05/18/18 14:25 Dose: 5,000 units Sodium Chloride (Sodium Chloride 0.9%) 1,000 mls @ 100 mls/hr IV .Q10H ANNE MARIE Last Admin: 05/17/18 10:26 Dose: 100 mls/hr Vancomycin HCl 1.5 gm/ Sodium (Chloride) 500 mls @ 167 mls/hr IVPB DAILY ANNE MARIE Last Admin: 05/18/18 09:25 Dose: 167 mls/hr Piperacillin Sod/Tazobactam Sod (Zosyn 3.375 In Ns 100ml) 100 mls @ 200 mls/hr IVPB Q6 ANNE MARIE PRN Reason: Protocol Stop: 05/18/18 18:29 Last Admin: 05/18/18 14:24 Dose: 200 mls/hr Levetiracetam (Keppra) 1,000 mg PO BID [facility] Last Admin: 05/18/18 09:26 Dose: 1,000 mg Ondansetron HCl (Zofran Inj) 4 mg IVP Q6H PRN PRN Reason: Nausea/Vomiting Last Admin: 05/17/18 18:47 Dose: 4 mg Pantoprazole Sodium (Protonix Ec Tab) 40 mg PO DAILY [facility] Last Admin: 05/18/18 09:26 Dose: 40 mg - Labs Labs: 05/18/18 06:00 05/18/18 05:30 PT 12.1 SECONDS (9.4-12.5) 05/16/18 14:30 INR 1.06 (0.93-1.08) 05/16/18 14:30 APTT 30.0 Seconds (25.1-36.5) 05/16/18 14:30 - Constitutional Appears: Non-toxic, No Acute Distress, Chronically Ill - Head Exam Head Exam: ATRAUMATIC, NORMOCEPHALIC - Eye Exam Eye Exam: EOMI, PERRL Pupil Exam: NORMAL ACCOMODATION, PERRL - ENT Exam ENT Exam: Mucous Membranes Moist, Normal External Ear Exam, TM's Normal Bilaterally - Neck Exam Neck Exam: Full ROM, Normal Inspection - Respiratory Exam Respiratory Exam: Clear to Ausculation Bilateral, NORMAL BREATHING PATTERN. absent: Rales, Rhonchi, Wheezes - Cardiovascular Exam Cardiovascular Exam: REGULAR RHYTHM, RRR, +S1, +S2 - GI/Abdominal Exam GI & Abdominal Exam: Soft, Normal Bowel Sounds. absent: Distended, Tenderness - Extremities Exam Extremities Exam: Full ROM, Normal Inspection - Neurological Exam Neurological Exam: Alert, Awake, CN II-XII Intact, Oriented x3 - Psychiatric Exam Psychiatric exam: Agitated Additional comments: Autism - Skin Skin Exam: Warm Additional comments: +2-3 edema of the bilateral legs with erythema of the legs below the knees. The patient has sloughing of the skin of the left lower leg. Assessment and Plan - Assessment and Plan (Free Text) Assessment: 67 yo female with bilateral leg edema and erythema with left leg worse than right. The patient has Autism and artificial plastic eye maker gives the patient's history. Started on IV Vancomycin and Zosyn for antibiotic care. Supportive care. Can check ESR and C-reactive protein. Difficult to assess patient as she has no understanding of medical issues before her. Currently Afebrile and without leukocytosis. Lower leg erythema has improved compared to admission although edema is the same. Case discussed with Dr. Horn Thank you for allowing me to participate in the care of the patient, we will follow with you.
[2018-05-18] MEDS ORDERED: Albuterol 0.083% Inhal Sol (2.5 mg/3 mL) UD INH SCH (15:47)
[2018-05-18] MEDS ORDERED: Budesonide 0.5 mg/2 ml Inhal Susp UD IH SCH (15:47)
[2018-05-18 16:35] VITALS: RESP 18
[2018-05-18] MEDS ORDERED: Divalproex 500 mg ER (ONCE DAILY formulation) PO ONE (18:23)
[2018-05-18] MEDS ORDERED: levETIRAcetam Solution 100 MG/ML BOTTLE PO ONE (18:24)
--- NOTE | 2018-05-18 19:45 | CP.PCM.PN ---
<Joel Gan - Last Filed: 05/18/18 19:42> Subjective - Date & Time of Evaluation Date of Evaluation: 05/18/18 Time of Evaluation: 11:05 - Subjective Subjective: Joel Gan DO PGY-1, [employer] Medicine Progress Note Pt seen and examined at bedside. Pt not reporting pain in her legs b/l. Denies any acute complaints. Asking when she is going to have lunch. Objective - Vital Signs/Intake and Output Vital Signs (last 24 hours): Temp Pulse Resp BP Pulse Ox 98.0 F 79 18 125/62 96 05/18/18 14:00 05/18/18 14:00 05/18/18 14:00 05/18/18 14:00 05/18/18 14:00 - Medications Medications: Current Medications Albuterol Sulfate (Albuterol 0.083% Inhal Brittney (2.5 Mg/3 Ml) Ud) 2.5 mg INH 0730 ,1530,2330 ANNE MARIE Budesonide (Pulmicort Respules) 0.5 mg IH BIDRESP ANNE MARIE Clonazepam (Klonopin) 1 mg PO BID [facility] MAR[facility] PRN Reason: Protocol Last Admin: 05/18/18 18:50 Dose: 1 mg Divalproex Sodium (Depakote Er(Once Daily)) 500 mg PO BID AN[facility] MARIE PRN Reason: Protocol Last Admin: 05/18/18 18:38 Dose: 500 mg Escitalopram Oxalate (Lexapro) 10 mg PO DAILY [facility] MARIE Last Admin: 05/18/18 09:25 Dose: 10 mg Gabapentin (Neurontin) 300 mg PO TID ANNE MARIE PRN Reason: Protocol Last Admin: 05/18/18 18:39 Dose: 300 mg Heparin Sodium (Porcine) (Heparin) 5,000 units SC Q8 ANNE MARIE PRN Reason: Protocol Last Admin: 05/18/18 14:25 Dose: 5,000 units Sodium Chloride (Sodium Chloride 0.9%) 1,000 mls @ 100 mls/hr IV .Q10H ANNE MARIE Last Admin: 05/17/18 10:26 Dose: 100 mls/hr Vancomycin HCl 1.5 gm/ Sodium (Chloride) 500 mls @ 167 mls/hr IVPB DAILY ANNE MARIE Last Admin: 05/18/18 09:25 Dose: 167 mls/hr Levetiracetam (Keppra) 1,000 mg PO BID ANNE MAREI Last Admin: 05/18/18 18:38 Dose: 1,000 mg Ondansetron HCl (Zofran Inj) 4 mg IVP Q6H PRN PRN Reason: Nausea/Vomiting Last Admin: 05/17/18 18:47 Dose: 4 mg Pantoprazole Sodium (Protonix Ec Tab) 40 mg PO DAILY [facility] Last Admin: 05/18/18 09:26 Dose: 40 mg - Labs Labs: 05/18/18 06:00 05/18/18 05:30 PT 12.1 SECONDS (9.4-12.5) 05/16/18 14:30 INR 1.06 (0.93-1.08) 05/16/18 14:30 APTT 30.0 Seconds (25.1-36.5) 05/16/18 14:30 - Constitutional Appears: Well, Non-toxic, No Acute Distress - Head Exam Head Exam: ATRAUMATIC, NORMAL INSPECTION, NORMOCEPHALIC - Eye Exam Eye Exam: EOMI, Normal appearance - ENT Exam ENT Exam: Mucous Membranes Moist, Normal Oropharynx - Neck Exam Neck Exam: Full ROM, Normal Inspection - Respiratory Exam Respiratory Exam: Clear to Ausculation Bilateral, NORMAL BREATHING PATTERN - Cardiovascular Exam Cardiovascular Exam: REGULAR RHYTHM, +S1, +S2 - GI/Abdominal Exam GI & Abdominal Exam: Soft, Normal Bowel Sounds - Extremities Exam Extremities Exam: Full ROM, Normal Capillary Refill, Normal Inspection Additional comments: Decreased erythema in lower extremities b/l - Neurological Exam Neurological Exam: Alert, Awake - Psychiatric Exam Psychiatric exam: Normal Affect, Normal Mood - Skin Skin Exam: Dry, Intact, Normal Color, Warm Assessment and Plan - Assessment and Plan (Free Text) Assessment: 67 y o female PMhx asthma, HTN, seizure, legally blind, autism, mood disorder, who was brought in to the ED by her caregiver for b/l lower leg cellulitis and failure of outpatient antibiotic treatment. Plan: Cellulitis/Failure of outpatient antibiotic therapy Vanco for broad-spectrum coverage, renally dosed due to low GFR Zosyn d/c'd as per ID WBC wnl, continue to trend Pt afebrile, VSS Lactate wnl IVF: 0.9% NaCl @ 100 cc/hr Pending urine and blood cxs Procalcitonin low, CRP elevated Regular diet ID consulted, recs appreciated LE doppler study neg for DVT b/l Erythema improving Elevated Cr Cr stable Pt not having any decreased urine output Continue to trend Hx HTN C/w valsartan 40 mg daily Hx seizures C/w Keppra, divalproex C/w neurontin Hx unspecified mood disorder C/w escitalopram, clonazepam Hx asthma C/w montelukast, albuterol, budesonide GI/DVT ppx: Protonix PO daily, Heparin 5000 U q 8 h Dispo: Pt accepted to TCU, to begin on 05/19/18 Pt seen, examined with, and plan d/w Dr. Horn, attending Joel Gan DO PGY-1, [employer] Pager #[phone] <Deann Horn - Last Filed: 05/19/18 11:33> Objective - Vital Signs/Intake and Output Vital Signs (last 24 hours): Temp Pulse Resp BP Pulse Ox 97.3 F L 67 18 121/72 94 L 05/18/18 22:00 05/18/18 22:00 05/18/18 22:00 05/18/18 22:00 05/18/18 22:00 Intake and Output: 05/19/18 05/19/18 06:59 18:59 Intake Total 240 Balance 240 - Medications Medications: Current Medications Albuterol Sulfate (Albuterol 0.083% Inhal Brittney (2.5 Mg/3 Ml) Ud) 2.5 mg INH 0730 ,1530,2330 ANNE MARIE Last Admin: 05/19/18 07:28 Dose: Not Given Budesonide (Pulmicort Respules) 0.5 mg IH BIDRESP ANNE MARIE Last Admin: 05/19/18 07:28 Dose: Not Given Clonazepam (Klonopin) 1 mg PO BID ANNE MARIE PRN Reason: Protocol Last Admin: 05/19/18 10:18 Dose: 1 mg Divalproex Sodium (Depakote Er(Once Daily)) 500 mg PO BID ANNE MARIE PRN Reason: Protocol Last Admin: 05/19/18 10:18 Dose: 500 mg Escitalopram Oxalate (Lexapro) 10 mg PO DAILY [facility] MARIE Last Admin: 05/19/18 10:18 Dose: 10 mg Gabapentin (Neurontin) 300 mg PO TID ANNE MARIE PRN Reason: Protocol Last Admin: 05/19/18 10:19 Dose: 300 mg Heparin Sodium (Porcine) (Heparin) 5,000 units SC Q8 ANNE MARIE PRN Reason: Protocol Last Admin: 05/19/18 06:13 Dose: Not Given Vancomycin HCl 1.5 gm/ Sodium (Chloride) 500 mls @ 167 mls/hr IVPB DAILY [facility] Last Admin: 05/19/18 10:20 Dose: 167 mls/hr Levetiracetam (Keppra) 1,000 mg PO BID [facility] Last Admin: 05/19/18 10:19 Dose: 1,000 mg Ondansetron HCl (Zofran Inj) 4 mg IVP Q6H PRN PRN Reason: Nausea/Vomiting Last Admin: 05/17/18 18:47 Dose: 4 mg Pantoprazole Sodium (Protonix Ec Tab) 40 mg PO DAILY [facility] Last Admin: 05/19/18 10:19 Dose: 40 mg - Labs Labs: 05/18/18 06:00 05/18/18 05:30 PT 12.1 SECONDS (9.4-12.5) 05/16/18 14:30 INR 1.06 (0.93-1.08) 05/16/18 14:30 APTT 30.0 Seconds (25.1-36.5) 05/16/18 14:30 Attending/Attestation - Attestation I have personally seen and examined this patient.: Yes I have fully participated in the care of the patient.: Yes I have reviewed all pertinent clinical information, including history, physical exam and plan: Yes Notes (Text): 05/19/18 11:31 Medical record note made by the resident after discussion with my direction and input after the patient was personally seen and examined by me. I have reviewed the chart and agree that the record accurately reflects by personal performance of the history, physical exam, data review, and medical decision-making, in the course for the patient. I have also personally directed the plan of care. 67 yrs old female PMhx asthma, HTN, seizure, legally blind, autism, mood disorder, who was brought in to the ED by her caregiver for b/l lower leg cellulitis and failure of outpatient antibiotic treatment, patient has been treated with IV antibiotics vancomycin and zosyn.Redness and swelling has improved. Case was discussed with ID, we will stop zosyn, we will continue IV vancomycin.As this patient has failed out patient Bactrim and Keflex, will need IV vancomycin for full treatment of cellulitis as per ID.TCU evaluation is requested.
[2018-05-18 22:31] VITALS: BP 121/72; PULSE 67; TEMP 97.3; O2SAT 94
[2018-05-19] MEDS: Divalproex 500 mg ER (ONCE DAILY formulation) PO SCH (10:18)
[2018-05-19] MEDS: Pantoprazole 40 mg EC Tab PO SCH (10:19)
[2018-05-19] MEDS: Vancomycin 1.5 GM in Sodium Chloride 0.9% 500 ML IVPB SCH (10:20)
--- NOTE | 2018-05-19 11:06 | CP.PCM.DIS ---
<Nestor Morel - Last Filed: 05/19/18 11:39> Provider - Provider Date of Admission: 05/16/18 16:38 Attending physician: Deann Horn MD Primary care physician: Arabella Esquivel MD Consults: Infectious Disease - Dr. Mccray Time Spent in preparation of Discharge (in minutes): 40 Diagnosis - Discharge Diagnosis (1) Cellulitis Status: Acute (2) CKD (chronic kidney disease) stage 3, GFR 30-59 ml/min Status: Acute (3) HTN (hypertension) Status: Acute (4) Seizure Status: Acute (5) Mood disorder Status: Acute (6) Asthma Status: Acute Hospital Course - Lab Results Lab Results: Most Recent Lab Values WBC 4.8 10^3/ul (4.5-11.0) 05/18/18 06:00 RBC 3.37 10^6/uL (3.5-6.1) L 05/18/18 06:00 Hgb 10.0 g/dL (12.0-16.0) L 05/18/18 06:00 Hct 31.2 % (36.0-48.0) L 05/18/18 06:00 MCV 92.6 fl (80.0-105.0) 05/18/18 06:00 MCH 29.7 pg (25.0-35.0) 05/18/18 06:00 MCHC 32.1 g/dl (31.0-37.0) 05/18/18 06:00 RDW 14.9 % (11.5-14.5) H 05/18/18 06:00 Plt Count 170 10^3/uL (120.0-450.0) 05/18/18 06:00 MPV 10.4 fl (7.0-11.0) 05/18/18 06:00 Gran % 44.3 % (50.0-68.0) L 05/18/18 06:00 Lymph % (Auto) 33.3 % (22.0-35.0) 05/18/18 06:00 Brule % (Auto) 15.7 % (1.0-6.0) H 05/18/18 06:00 Eos % (Auto) 6.1 % (1.5-5.0) H 05/18/18 06:00 Baso % (Auto) 0.6 % (0.0-3.0) 05/18/18 06:00 Gran # 2.12 (1.4-6.5) 05/18/18 06:00 Lymph # (Auto) 1.6 (1.2-3.4) 05/18/18 06:00 Brule # (Auto) 0.8 (0.1-0.6) H 05/18/18 06:00 Eos # (Auto) 0.3 (0.0-0.7) 05/18/18 06:00 Baso # (Auto) 0.03 K/mm3 (0.0-2.0) 05/18/18 06:00 ESR 37 mm/hr (0.0-20.0) H 05/16/18 14:30 PT 12.1 SECONDS (9.4-12.5) 05/16/18 14:30 INR 1.06 (0.93-1.08) 05/16/18 14:30 APTT 30.0 Seconds (25.1-36.5) 05/16/18 14:30 pO2 74 mm/Hg (30-55) H 05/16/18 14:30 VBG pH 7.38 (7.32-7.43) 05/16/18 14:30 VBG pCO2 42.0 (40-60) 05/16/18 14:30 VBG HCO3 24.8 mmol/l (21-28) 05/16/18 14:30 VBG Total CO2 26.1 mmol.L (22-28) 05/16/18 14:30 VBG O2 Sat (Calc) 96.5 % (40-65) H 05/16/18 14:30 VBG Base Excess -0.4 mmol/L (0.0-2.0) L 05/16/18 14:30 VBG Potassium 4.7 mmol/L (3.6-5.2) 05/16/18 14:30 Sodium 136.0 mmol/L (132-148) 05/16/18 14:30 Chloride 105.0 mmol/L (98-107) 05/16/18 14:30 Glucose 95 mg/dl (65-105) 05/16/18 14:30 Lactate 1.7 mmol/L (0.7-2.1) 05/16/18 14:30 FiO2 21.0 % 05/16/18 14:30 Sodium 145 mmol/L (132-148) 05/18/18 05:30 Potassium 4.9 mmol/L (3.6-5.0) 05/18/18 05:30 Chloride 111 mmol/L (98-107) H 05/18/18 05:30 Carbon Dioxide 24 mmol/L (21-33) 05/18/18 05:30 Anion Gap 14 (10-20) 05/18/18 05:30 BUN 15 mg/dL (7-21) 05/18/18 05:30 Creatinine 1.1 mg/dl (0.7-1.2) 05/18/18 05:30 Est GFR ( Amer) 60 05/18/18 05:30 Est GFR (Non-Af Amer) 50 05/18/18 05:30 Random Glucose 69 mg/dL (70-110) L 05/18/18 05:30 Calcium 8.3 mg/dL (8.4-10.5) L 05/18/18 05:30 Phosphorus 4.0 mg/dL (2.5-4.5) 05/16/18 14:30 Magnesium 2.2 mg/dL (1.7-2.2) 05/16/18 14:30 Total Bilirubin 0.3 mg/dL (0.2-1.3) 05/18/18 05:30 AST 31 U/L (14-36) 05/18/18 05:30 ALT 35 U/L (7-56) 05/18/18 05:30 Alkaline Phosphatase 72 U/L (38-126) 05/18/18 05:30 Lactate Dehydrogenase 457 U/L (333-699) 05/16/18 14:30 Total Creatine Kinase 41 U/L (35-230) 05/16/18 14:30 Troponin I < 0.01 ng/mL 05/16/18 14:30 C-React Prot High Sens > 15.00 mg/L (1.00-3.00) H 05/16/18 14:30 NT-Pro-B Natriuret Pep 664 pg/mL (0-450) H 05/16/18 14:30 Total Protein 6.2 g/dL (5.8-8.3) 05/18/18 05:30 Albumin 3.1 g/dL (3.0-4.8) 05/18/18 05:30 Globulin 3.0 gm/dL 05/18/18 05:30 Albumin/Globulin Ratio 1.0 (1.1-1.8) L 05/18/18 05:30 Procalcitonin 0.15 NG/ML (0.19-0.49) L 05/16/18 14:30 Venous Blood Potassium 4.7 mmol/L (3.6-5.2) 05/16/18 14:30 - Hospital Course Hospital Course: Nestor Morel DO - 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 Prior to presentation at [facility] on 05/16, Caregiver brought pt to [facility] ED who diagnosed her with cellulitis and prescribed Bactrim PO x 7 d. On day 5 of therapy, caregiver brought pt to PCP stating that cellulitis was not improving. PCP agreed with this as per caregiver and placed pt on additional 7 day course of Bactrim and added Keflex for therapy. Upon presentation in ED caregiver stated that cellulitis had spread to both legs, and pt. has had decreased PO intake. Given failure of outpt therapy, pt. was admitted for infectious disease evaluation. ID started pt. on vancomycin and zosyn at renal dosing given CKD/low GFR. Throughout her hospital course, patient appeared to remain at mental baseline; no acute events reported throughout hospital course. She has remained afebrile, VSS, WBC stable. LE Doppler study was unremarkable She was noted to have an elevated CRP, and a increase pro-BNP. Her Cr was elevated 0.1 from baseline on admission however unremarkable otherwise. She has tolerated IV Abx well. Pt's HTN was controlled w / valsartan 40 QD, Seizure hx was adressed w/ home keppra and depakote, Hx of ashtma was mainted w/ home montelukast, and PRN albuterol/ budesonide. Pt. was seen and evaluated this morning. She appeared to be at baseline. Was not indicating any issue at time of evaluation; only asking about lunch. Pt. to be transferred to tcu as per PT eval for deconditioning/ unsteadiness on feet as well as IV Abx. Pt. is stable for transfer at this time. - Date & Time of H&P Date of H&P: 05/16/18 Time of H&P: 19:42 Discharge Exam - Head Exam Head Exam: ATRAUMATIC, NORMAL INSPECTION, NORMOCEPHALIC - Eye Exam Eye Exam: EOMI, Normal appearance - ENT Exam ENT Exam: Mucous Membranes Moist, Normal Oropharynx - Neck Exam Neck exam: Full Rom, Normal Inspection - Respiratory Exam Respiratory Exam: Clear to PA & Lateral, NORMAL BREATHING PATTERN - Cardiovascular Exam Cardiovascular Exam: REGULAR RHYTHM, +S1, +S2 - GI/Abdominal Exam GI & Abdominal Exam: Normal Bowel Sounds, Soft. absent: Tenderness - Extremities Exam Additional comments: BL LE erythema erythema w/o discharge or excoriation appreciated around Anterior /posterior shins. - Neurological Exam Neurological exam: Alert - Psychiatric Exam Additional comments: At baseline - Skin Skin Exam: Dry, Warm Discharge Plan - Follow Up Plan Condition: GOOD Disposition: REHAB FACILITY/REHAB UNIT Instructions: Autism Spectrum Disorder, Preventing Falls in the Older Adult, Swelling, Cellulitis (Skin Infection), Adult (DC), Cellulitis (DC) Additional Instructions: Please follow guidelines of TCU Continue with Vancomycin for antibiotics, discontinue Zosyn Referrals: Sierra NEELY,Arabella Kessler MD [Primary Care Provider] - Vipul Mccray MD [Staff Provider] - <Deann Horn - Last Filed: 05/20/18 12:04> Provider - Provider Date of Admission: 05/16/18 16:38 Attending physician: Deann Horn MD Primary care physician: Arabella Esquivel MD Hospital Course - Lab Results Lab Results: Most Recent Lab Values WBC 4.8 10^3/ul (4.5-11.0) 05/18/18 06:00 RBC 3.37 10^6/uL (3.5-6.1) L 05/18/18 06:00 Hgb 10.0 g/dL (12.0-16.0) L 05/18/18 06:00 Hct 31.2 % (36.0-48.0) L 05/18/18 06:00 MCV 92.6 fl (80.0-105.0) 05/18/18 06:00 MCH 29.7 pg (25.0-35.0) 05/18/18 06:00 MCHC 32.1 g/dl (31.0-37.0) 05/18/18 06:00 RDW 14.9 % (11.5-14.5) H 05/18/18 06:00 Plt Count 170 10^3/uL (120.0-450.0) 05/18/18 06:00 MPV 10.4 fl (7.0-11.0) 05/18/18 06:00 Gran % 44.3 % (50.0-68.0) L 05/18/18 06:00 Lymph % (Auto) 33.3 % (22.0-35.0) 05/18/18 06:00 Brule % (Auto) 15.7 % (1.0-6.0) H 05/18/18 06:00 Eos % (Auto) 6.1 % (1.5-5.0) H 05/18/18 06:00 Baso % (Auto) 0.6 % (0.0-3.0) 05/18/18 06:00 Gran # 2.12 (1.4-6.5) 05/18/18 06:00 Lymph # (Auto) 1.6 (1.2-3.4) 05/18/18 06:00 Brule # (Auto) 0.8 (0.1-0.6) H 05/18/18 06:00 Eos # (Auto) 0.3 (0.0-0.7) 05/18/18 06:00 Baso # (Auto) 0.03 K/mm3 (0.0-2.0) 05/18/18 06:00 ESR 37 mm/hr (0.0-20.0) H 05/16/18 14:30 PT 12.1 SECONDS (9.4-12.5) 05/16/18 14:30 INR 1.06 (0.93-1.08) 05/16/18 14:30 APTT 30.0 Seconds (25.1-36.5) 05/16/18 14:30 pO2 74 mm/Hg (30-55) H 05/16/18 14:30 VBG pH 7.38 (7.32-7.43) 05/16/18 14:30 VBG pCO2 42.0 (40-60) 05/16/18 14:30 VBG HCO3 24.8 mmol/l (21-28) 05/16/18 14:30 VBG Total CO2 26.1 mmol.L (22-28) 05/16/18 14:30 VBG O2 Sat (Calc) 96.5 % (40-65) H 05/16/18 14:30 VBG Base Excess -0.4 mmol/L (0.0-2.0) L 05/16/18 14:30 VBG Potassium 4.7 mmol/L (3.6-5.2) 05/16/18 14:30 Sodium 136.0 mmol/L (132-148) 05/16/18 14:30 Chloride 105.0 mmol/L (98-107) 05/16/18 14:30 Glucose 95 mg/dl (65-105) 05/16/18 14:30 Lactate 1.7 mmol/L (0.7-2.1) 05/16/18 14:30 FiO2 21.0 % 05/16/18 14:30 Sodium 145 mmol/L (132-148) 05/18/18 05:30 Potassium 4.9 mmol/L (3.6-5.0) 05/18/18 05:30 Chloride 111 mmol/L (98-107) H 05/18/18 05:30 Carbon Dioxide 24 mmol/L (21-33) 05/18/18 05:30 Anion Gap 14 (10-20) 05/18/18 05:30 BUN 15 mg/dL (7-21) 05/18/18 05:30 Creatinine 1.1 mg/dl (0.7-1.2) 05/18/18 05:30 Est GFR ( Amer) 60 05/18/18 05:30 Est GFR (Non-Af Amer) 50 05/18/18 05:30 Random Glucose 69 mg/dL (70-110) L 05/18/18 05:30 Calcium 8.3 mg/dL (8.4-10.5) L 05/18/18 05:30 Phosphorus 4.0 mg/dL (2.5-4.5) 05/16/18 14:30 Magnesium 2.2 mg/dL (1.7-2.2) 05/16/18 14:30 Total Bilirubin 0.3 mg/dL (0.2-1.3) 05/18/18 05:30 AST 31 U/L (14-36) 05/18/18 05:30 ALT 35 U/L (7-56) 05/18/18 05:30 Alkaline Phosphatase 72 U/L (38-126) 05/18/18 05:30 Lactate Dehydrogenase 457 U/L (333-699) 05/16/18 14:30 Total Creatine Kinase 41 U/L (35-230) 05/16/18 14:30 Troponin I < 0.01 ng/mL 05/16/18 14:30 C-React Prot High Sens > 15.00 mg/L (1.00-3.00) H 05/16/18 14:30 NT-Pro-B Natriuret Pep 664 pg/mL (0-450) H 05/16/18 14:30 Total Protein 6.2 g/dL (5.8-8.3) 05/18/18 05:30 Albumin 3.1 g/dL (3.0-4.8) 05/18/18 05:30 Globulin 3.0 gm/dL 05/18/18 05:30 Albumin/Globulin Ratio 1.0 (1.1-1.8) L 05/18/18 05:30 Procalcitonin 0.15 NG/ML (0.19-0.49) L 05/16/18 14:30 Venous Blood Potassium 4.7 mmol/L (3.6-5.2) 05/16/18 14:30 Attending/Attestation - Attestation I have personally seen and examined this patient.: Yes I have fully participated in the care of the patient.: Yes I have reviewed all pertinent clinical information, including history, physical exam and plan: Yes Notes (Text): 05/20/18 12:03 Medical record note made by the resident after discussion with my direction and input after the patient was personally seen and examined by me. I have reviewed the chart and agree that the record accurately reflects by personal performance of the history, physical exam, data review, and medical decision-making, in the course for the patient. I have also personally directed the plan of care. 67 yrs old female with PMh pf asthma, HTN, seizure, legally blind, autism, mood disorder, who was brought in to the ED by her caregiver for bilateral lower leg cellulitis and failure of outpatient antibiotic treatment, patient has been treated with IV antibiotics vancomycin and zosyn.Redness and swelling has improved. Case was discussed with ID, we will stop zosyn, we will continue IV vancomycin.As this patient has failed out patient Bactrim and Keflex, will need IV vancomycin for full treatment of cellulitis as per ID.Patient will be discharged and will be transfered to TCU.
--- NOTE | 2018-05-19 17:36 | CP.PCM.PN ---
Subjective - Date & Time of Evaluation Date of Evaluation: 05/19/18 Time of Evaluation: 09:45 - Subjective Subjective: Infectious Disease Follow Up: May 19, 2018 67 yo female with history of Asthma, Seizures, Legal Blindness, and Autism presenting with two week history of worsening bilateral leg edema and cellulitis. The patient was seen by several doctors including her PMD and cardiac monitor technician. The patient first started with blister in the anterior left lower leg as per the patient's screen printing paster. The patient currently has +2-3 edema of both legs. The patient is unable to give any history. The patient has been on Augmentin, Bactrim BS, and Keflex. On Zosyn and IV Vancomycin. Lower extremities appear to be slowly improving. Erythema has significantly improved. Edema is the same. Patient unable to care for herself in any capacity. For transfer to TCU. Objective - Vital Signs/Intake and Output Vital Signs (last 24 hours): Temp Pulse Resp BP Pulse Ox 97.3 F L 67 18 121/72 94 L 05/18/18 22:00 05/18/18 22:00 05/18/18 22:00 05/18/18 22:00 05/18/18 22:00 Intake and Output: 05/19/18 05/19/18 06:59 18:59 Intake Total 240 Balance 240 - Labs Labs: 05/18/18 06:00 05/18/18 05:30 PT 12.1 SECONDS (9.4-12.5) 05/16/18 14:30 INR 1.06 (0.93-1.08) 05/16/18 14:30 APTT 30.0 Seconds (25.1-36.5) 05/16/18 14:30 - Constitutional Appears: Non-toxic, No Acute Distress, Chronically Ill - Head Exam Head Exam: ATRAUMATIC, NORMOCEPHALIC - Eye Exam Eye Exam: EOMI, PERRL Pupil Exam: NORMAL ACCOMODATION, PERRL - ENT Exam ENT Exam: Mucous Membranes Moist, Normal External Ear Exam, TM's Normal Bilaterally - Neck Exam Neck Exam: Full ROM, Normal Inspection - Respiratory Exam Respiratory Exam: Clear to Ausculation Bilateral, NORMAL BREATHING PATTERN. absent: Rales, Rhonchi, Wheezes - Cardiovascular Exam Cardiovascular Exam: REGULAR RHYTHM, RRR, +S1, +S2 - GI/Abdominal Exam GI & Abdominal Exam: Soft, Normal Bowel Sounds. absent: Distended, Tenderness - Extremities Exam Extremities Exam: Full ROM, Normal Inspection - Neurological Exam Neurological Exam: Alert, Awake, CN II-XII Intact, Oriented x3 - Psychiatric Exam Psychiatric exam: Agitated Additional comments: Autism - Skin Skin Exam: Warm Additional comments: +2-3 edema of the bilateral legs with erythema of the legs below the knees. The patient has sloughing of the skin of the left lower leg. Assessment and Plan - Assessment and Plan (Free Text) Assessment: 67 yo female with bilateral leg edema and erythema with left leg worse than right. The patient has Autism and screen printing paster gives the patient's history. Started on IV Vancomycin and Zosyn for antibiotic care. Supportive care. Can check ESR and C-reactive protein. Difficult to assess patient as she has no understanding of medical issues before her. Currently Afebrile and without leukocytosis. Lower leg erythema has improved and is mostly resolved compared to admission although edema remains the same. Case discussed with Dr. Horn. For transfer to TCU. Thank you for allowing me to participate in the care of the patient, we will follow with you.
== END 2018-05-19 12:12 | DRG 603 ==
LOC: ED 13:50 → ERH 16:38 → 5RSO 18:16
PROVIDERS: ADMIT Internal Medicine; ATTEND Internal Medicine
DX: L03.116 Cellulitis of left lower limb (principal); F84.0 Autistic disorder; L03.115 Cellulitis of right lower limb; N18.3 Chronic kidney disease, stage 3 (moderate); I12.9 Hypertensive chronic kidney disease with stage 1 through stage 4 chronic kidney disease, or unspecified chronic kidney disease; H54.8 Legal blindness, as defined in USA; I25.10 Atherosclerotic heart disease of native coronary artery without angina pectoris; J44.9 Chronic obstructive pulmonary disease, unspecified; F39 Unspecified mood [affective] disorder; Z79.899 Other long term (current) drug therapy; R56.9 Unspecified convulsions

== ENCOUNTER 2018-05-19 12:17 | Inpatient (IN) | payer OTHER ==
[2018-05-19] MEDS: Albuterol 0.083% Inhal Sol (2.5 mg/3 mL) UD INH SCH (13:16)
[2018-05-19] MEDS: Divalproex 500 mg DR(BID formulation) PO SCH (17:55)
[2018-05-19] MEDS: Budesonide 0.5 mg/2 ml Inhal Susp UD IH SCH (19:29)
[2018-05-19 20:44] VITALS: BMI 48.7
[2018-05-19] MEDS ORDERED: Pneumococcal 23-Valent Vaccine IM ONE (20:44)
[2018-05-20] MEDS: Albuterol 0.083% Inhal Sol (2.5 mg/3 mL) UD INH SCH ×5 (01:34→19:45)
[2018-05-20] MEDS: Pantoprazole 40 mg EC Tab PO SCH ×2 (05:32→09:08)
[2018-05-20] MEDS: Vancomycin 1.5 GM in Sodium Chloride 0.9% 500 ML IVPB SCH (05:32)
[2018-05-20] MEDS ORDERED: Vancomycin 1 g Inj IVPB SCH (06:00)
[2018-05-20] MEDS: Budesonide 0.5 mg/2 ml Inhal Susp UD IH SCH ×2 (07:14→19:35)
[2018-05-20] MEDS: Divalproex 500 mg DR(BID formulation) PO SCH ×2 (09:08→17:01)
--- NOTE | 2018-05-20 13:36 | CP.PCM.CON ---
History of Present Illness - History of Present Illness History of Present Illness: Infectious Disease Consultation/Follow Up: May 20, 2018 67 yo female with history of Asthma, Seizures, Legal Blindness, and Autism presenting with two week history of worsening bilateral leg edema and cellulitis. The patient was seen by several doctors including her PMD and broaching machine set up operator. The patient first started with blister in the anterior left lower leg as per the patient's production control analyst. The patient currently has +2-3 edema of both legs. The patient is unable to give any history. The patient has been on Augmentin, Bactrim BS, and Keflex. On Zosyn and IV Vancomycin. Lower extremities appear to be slowly improving. Erythema has significantly improved. Edema is the same. Patient unable to care for herself in any capacity. Transfered to TCU. PMHx: Asthma, Seizures, Legal Blindness, COPD, CAD, HTN, and Autism PSHx: none given Allergies: Carbamazepine Social Hx: No tobacco, EtOH, or illicit drug use Family Hx: Unable to Obtain ROS: Unable to Obtain Active Medications Albuterol Sulfate (Albuterol 0.083% Inhal Brittney (2.5 Mg/3 Ml) Ud) 2.5 mg INH Q8 ANNE MARIE PRN Reason: Protocol Last Admin: 05/20/18 07:14 Dose: 2.5 mg Budesonide (Pulmicort Respules) 0.5 mg IH BIDRESP ANNE MARIE PRN Reason: Protocol Last Admin: 05/20/18 07:14 Dose: 0.5 mg Clonazepam (Klonopin) 1 mg PO BID ANNE MARIE PRN Reason: Protocol Last Admin: 05/20/18 09:08 Dose: 1 mg Divalproex Sodium (Depakote Dr(*Bid*)) 500 mg PO BID ANNE MARIE PRN Reason: Protocol Last Admin: 05/20/18 09:08 Dose: 500 mg Escitalopram Oxalate (Lexapro) 10 mg PO DAILY ANNE MARIE PRN Reason: Protocol Last Admin: 05/20/18 09:08 Dose: 10 mg Gabapentin (Neurontin) 300 mg PO TID ANNE MARIE PRN Reason: Protocol Last Admin: 05/20/18 09:09 Dose: 300 mg Heparin Sodium (Porcine) (Heparin) 5,000 units SC Q8 ANNE MARIE PRN Reason: Protocol Last Admin: 05/20/18 05:31 Dose: 5,000 units Vancomycin HCl 1.5 gm/ Sodium (Chloride) 500 mls @ 167 mls/hr IVPB 0600 ANNE MARIE Last Admin: 05/20/18 05:32 Dose: 167 mls/hr Levetiracetam (Keppra) 1,000 mg PO BID ANNE MARIE PRN Reason: Protocol Last Admin: 05/20/18 09:08 Dose: 1,000 mg Ondansetron HCl (Zofran Inj) 4 mg IVP Q6H PRN; Protocol PRN Reason: Nausea/Vomiting Pantoprazole Sodium (Protonix Ec Tab) 40 mg PO DAILY ANNE MARIE PRN Reason: Protocol Last Admin: 05/20/18 09:08 Dose: 40 mg Past Patient History - Infectious Disease Hx of Infectious Diseases: None - Tetanus Immunizations Tetanus Immunization: Unknown - Past Social History Smoking Status: Never Smoked - CARDIAC Hx Cardiac Disorders: Yes Hx Hypercholesterolemia: Yes Hx Hypertension: Yes - PULMONARY Hx Chronic Obstructive Pulmonary Disease (COPD): Yes - NEUROLOGICAL Hx Neurological Disorder: Yes (NEUROPATHY) Hx Seizures: Yes - HEENT Hx HEENT Problems: Yes Hx Blind: Yes - RENAL Hx Chronic Kidney Disease: No - ENDOCRINE/METABOLIC Hx Endocrine Disorders: No - HEMATOLOGICAL/ONCOLOGICAL Hx Blood Disorders: No - INTEGUMENTARY Hx Dermatological Problems: Yes Other/Comment: 05-16-18 BILATERAL LEG CELLULITIS,REDNESS,WARMTH SWELLING UP TO HER RIGHT THIGH WITH SLIGHT HEMATOMA. - MUSCULOSKELETAL/RHEUMATOLOGICAL Hx Falls: No - GASTROINTESTINAL Hx Gastrointestinal Disorders: Yes (reflux) - GENITOURINARY/GYNECOLOGICAL Hx Reproductive Disorders: No - PSYCHIATRIC Hx Psychophysiologic Disorder: Yes Hx Anxiety: Yes Hx Depression: Yes Hx Substance Use: No - SURGICAL HISTORY Hx Surgeries: No Meds Allergies/Adverse Reactions: Allergies Allergy/AdvReac Type Severity Reaction Status Date / Time carbamazepine [From Tegretol] Allergy SHORTNESS Verified 05/19/18 12:31 OF BREATH - Medications Medications: Current Medications Albuterol Sulfate (Albuterol 0.083% Inhal Brittney (2.5 Mg/3 Ml) Ud) 2.5 mg INH Q8 ANNE MARIE PRN Reason: Protocol Last Admin: 05/20/18 07:14 Dose: 2.5 mg Budesonide (Pulmicort Respules) 0.5 mg IH BIDRESP ANNE MARIE PRN Reason: Protocol Last Admin: 05/20/18 07:14 Dose: 0.5 mg Clonazepam (Klonopin) 1 mg PO BID ANNE MARIE PRN Reason: Protocol Last Admin: 05/20/18 09:08 Dose: 1 mg Divalproex Sodium (Depakote Dr(*Bid*)) 500 mg PO BID ANNE MARIE PRN Reason: Protocol Last Admin: 05/20/18 09:08 Dose: 500 mg Escitalopram Oxalate (Lexapro) 10 mg PO DAILY ANNE MARIE PRN Reason: Protocol Last Admin: 05/20/18 09:08 Dose: 10 mg Gabapentin (Neurontin) 300 mg PO TID ANNE MARIE PRN Reason: Protocol Last Admin: 05/20/18 09:09 Dose: 300 mg Heparin Sodium (Porcine) (Heparin) 5,000 units SC Q8 ANNE MARIE PRN Reason: Protocol Last Admin: 05/20/18 05:31 Dose: 5,000 units Vancomycin HCl 1.5 gm/ Sodium (Chloride) 500 mls @ 167 mls/hr IVPB 0600 [facility] Last Admin: 05/20/18 05:32 Dose: 167 mls/hr Levetiracetam (Keppra) 1,000 mg PO BID [facility] PRN Reason: Protocol Last Admin: 05/20/18 09:08 Dose: 1,000 mg Ondansetron HCl (Zofran Inj) 4 mg IVP Q6H PRN; Protocol PRN Reason: Nausea/Vomiting Pantoprazole Sodium (Protonix Ec Tab) 40 mg PO DAILY [facility] PRN Reason: Protocol Last Admin: 05/20/18 09:08 Dose: 40 mg Physical Exam - Constitutional Appears: Non-toxic, No Acute Distress, Chronically Ill - Head Exam Head Exam: ATRAUMATIC, NORMOCEPHALIC - Eye Exam Eye Exam: EOMI, PERRL Pupil Exam: NORMAL ACCOMODATION, PERRL - ENT Exam ENT Exam: Mucous Membranes Moist, Normal External Ear Exam, TM's Normal Bilaterally - Neck Exam Neck exam: Positive for: Full Rom, Normal Inspection - Respiratory Exam Respiratory Exam: Clear to Auscultation Bilateral, NORMAL BREATHING PATTERN. absent: Rales, Rhonchi, Wheezes - Cardiovascular Exam Cardiovascular Exam: REGULAR RHYTHM, RRR, +S1, +S2 - GI/Abdominal Exam GI & Abdominal Exam: Normal Bowel Sounds, Soft. absent: Distended, Tenderness - Extremities Exam Extremities exam: Positive for: joint swelling, pedal edema Additional comments: +2-3 edema of the bilateral legs with erythema of the legs below the knees. The patient has sloughing of the skin of the left lower leg. - Neurological Exam Neurological exam: Alert, CN II-XII Intact Additional comments: Autism. Limited Mental Exam. - Psychiatric Exam Psychiatric exam: Agitated Additional comments: Autism - Skin Skin Exam: Warm Additional comments: +2-3 edema of the bilateral legs with erythema of the legs below the knees. The patient has sloughing of the skin of the left lower leg. Results - Vital Signs Recent Vital Signs: Last Vital Signs Temp 97 F L 05/19/18 20:33 Pulse 76 05/19/18 20:33 Resp 20 05/19/18 20:33 BP 143/72 05/19/18 20:33 Pulse Ox Assessment & Plan - Assessment and Plan (Free Text) Assessment: 67 yo female with bilateral leg edema and erythema with left leg worse than right. The patient has Autism and production control analyst gives the patient's history. Started on IV Vancomycin and Zosyn for antibiotic care. Supportive care. Can check ESR and C-reactive protein. Difficult to assess patient as she has no understanding of medical issues before her. Currently Afebrile and without leukocytosis. Lower leg erythema has improved and is mostly resolved compared to admission although edema remains the same. Case discussed with Dr. Horn. Transfered to TCU. Continue on IV Vancomycin alone for 10-14 day course of therapy. Thank you for allowing me to participate in the care of the patient, we will follow with you.
--- NOTE | 2018-05-20 16:40 | CP.PCM.HP ---
<Nestor Morel - Last Filed: 05/20/18 16:37> History of Present Illness - History of Present Illness History of Present Illness: 67 F w/ pmh asthma, seizure, legally blind, autism, mood disorder, presented to [facility] ED on 05/16, brought in by caregiver for worsening of b/l lower leg cellulitis worsening x2 weeks. Prior to presentation at [facility] on 05/16, Caregiver brought pt to [facility] ED who diagnosed her with cellulitis and prescribed Bactrim PO x 7 d. On day 5 of therapy, caregiver brought pt to PCP stating that cellulitis was not improving. PCP agreed with this as per caregiver and placed pt on additional 7 day course of Bactrim and added Keflex for therapy. Upon presentation in ED caregiver stated that cellulitis had spread to both legs, and pt. has had decreased PO intake. Given failure of outpt therapy, pt. was admitted for infectious disease evaluation. ID started pt. on vancomycin and zosyn at renal dosing given CKD/low GFR. Throughout her hospital course, patient appeared to remain at mental baseline; no acute events reported throughout hospital course. She has remained afebrile, VSS, WBC stable. LE Doppler study was unremarkable She was noted to have an elevated CRP, and a increase pro-BNP. Her Cr was elevated 0.1 from baseline on admission however unremarkable otherwise. She has tolerated IV Abx well. Pt's HTN was controlled w / valsartan 40 QD, Seizure hx was adressed w/ home keppra and depakote, Hx of ashtma was mainted w/ home montelukast, and PRN albuterol/ budesonide. Pt. was seen this AM at bedside in TCU. She does not appear to be in any clinical distress or have any sort of clinical issue at this time. She did not appear agitated upon examination. Overnight nursing did not report any changes in patient from baseline. She was alert and active asking us who we were and when lunch would be served. ROS unattainable due to patient's baseline mentation. Present on Admission - Present on Admission Any Indicators Present on Admission: No Review of Systems - Review of Systems Systems not reviewed;Unavailable: Other (Baseline mentation) Past Patient History - Infectious Disease Hx of Infectious Diseases: None - Tetanus Immunizations Tetanus Immunization: Unknown - Past Medical History & Family History Past Medical History?: Yes - Past Social History Smoking Status: Never Smoked Alcohol: None - CARDIAC Hx Cardiac Disorders: Yes Hx Hypercholesterolemia: Yes Hx Hypertension: Yes - PULMONARY Hx Asthma: Yes - NEUROLOGICAL Hx Neurological Disorder: Yes (Cognitive disorder/ Developmental disability) Hx Seizures: Yes - HEENT Hx HEENT Problems: Yes Hx Blind: Yes - RENAL Hx Chronic Kidney Disease: Yes (Stage 3) - ENDOCRINE/METABOLIC Hx Endocrine Disorders: No - HEMATOLOGICAL/ONCOLOGICAL Hx Blood Disorders: No - INTEGUMENTARY Hx Dermatological Problems: Yes Other/Comment: 05-16-18 BILATERAL LEG CELLULITIS,REDNESS,WARMTH SWELLING UP TO HER RIGHT THIGH WITH SLIGHT HEMATOMA. - MUSCULOSKELETAL/RHEUMATOLOGICAL Hx Falls: No - GASTROINTESTINAL Hx Gastrointestinal Disorders: Yes (reflux) - GENITOURINARY/GYNECOLOGICAL Hx Reproductive Disorders: No - PSYCHIATRIC Hx Psychophysiologic Disorder: Yes Hx Anxiety: Yes Hx Depression: Yes Hx Substance Use: No - SURGICAL HISTORY Hx Surgeries: No Meds Allergies/Adverse Reactions: Allergies Allergy/AdvReac Type Severity Reaction Status Date / Time carbamazepine [From Tegretol] Allergy SHORTNESS Verified 05/19/18 12:31 OF BREATH Physical Exam - Head Exam Head Exam: NORMOCEPHALIC - Eye Exam Eye Exam: EOMI, Normal appearance - ENT Exam ENT Exam: Mucous Membranes Moist, Normal Oropharynx - Respiratory Exam Respiratory Exam: Clear to Auscultation Bilateral. absent: Rhonchi, Wheezes, Respiratory Distress - Cardiovascular Exam Cardiovascular Exam: REGULAR RHYTHM, RRR, +S1, +S2 - GI/Abdominal Exam GI & Abdominal Exam: Normal Bowel Sounds, Soft. absent: Tenderness - Extremities Exam Additional comments: BL LE ertythema w/o discharge or excoriation; some what swollen; non tender to palpation. - Neurological Exam Neurological exam: Alert - Psychiatric Exam Additional comments: At baseline - Skin Skin Exam: Dry, Intact, Warm Results - Vital Signs Recent Vital Signs: Last Vital Signs Temp 97 F L 05/19/18 20:33 Pulse 76 05/19/18 20:33 Resp 20 05/19/18 20:33 BP 143/72 05/19/18 20:33 Pulse Ox Assessment & Plan - Assessment and Plan (Free Text) Assessment: 67 yrs old female with PMh pf asthma, HTN, seizure, legally blind, autism, mood disorder, who was brought in to the ED by her caregiver for bilateral lower leg cellulitis and failure of outpatient antibiotic treatment, patient has been treated with IV antibiotics vancomycin and zosyn.Redness and swelling has improved. Pt. stable w/ no complaints on examination; discharged from hospital floor on and transferred to transitional care unit on 05/20. Medicine team and Infectious disease team will continue to follow. Plan: Cellulitis/Failure of outpatient antibiotic therapy Lower extremeity erythema is improving; but some edema still remains. Overall improvement from time of admission Continue Pt. on IV Vanco w/ renal dosing at this time. WBC wnl prior to step down to TCU, continue to monitor Pt afebrile, VSS Lactate wnl Blood cx 2/2 negative for growth after 4 days Procalcitonin low, CRP elevated Regular diet ID consulted, appreciate reccs LE doppler study neg for DVT b/l Chronic Kidney Disease - Stage 3 Cr at baseline Pt not having any decreased urine output Continue to monitor Cr and any clinical complaints Hx HTN Cont valsartan 40 mg daily Continue monitoring blood pressures Hx seizures Cont Keppra, divalproex Cont neurontin Hx unspecified mood disorder Cont escitalopram, clonazepam Hx asthma C/w montelukast, albuterol, budesonide GI/DVT ppx: Protonix PO daily, Heparin 5000 U q 8 h - Date & Time Date: 05/20/18 Time: 16:57 Decision To Admit - Pt Status Changed To: Hospital Disposition Of: Extended Recovery/Post Procedure <Deann Horn - Last Filed: 05/21/18 17:04> Results - Vital Signs Recent Vital Signs: Last Vital Signs Temp 98.3 F 05/21/18 16:00 Pulse 83 05/21/18 16:00 Resp 18 05/21/18 16:00 BP 96/54 L 05/21/18 16:00 Pulse Ox 100 05/21/18 16:00 Attending/Attestation - Attestation I have personally seen and examined this patient.: Yes I have fully participated in the care of the patient.: Yes I have reviewed all pertinent clinical information: Yes Notes (Text): 05/21/18 17:02 Medical record note made by the resident after discussion with my direction and input after the patient was personally seen and examined by me. I have reviewed the chart and agree that the record accurately reflects by personal performance of the history, physical exam, data review, and medical decision-making, in the course for the patient. I have also personally directed the plan of care. 67 yrs old female with PMh pf asthma, HTN, seizure, legally blind, autism, mood disorder, who was brought in to the ED by her caregiver for bilateral lower leg cellulitis and failure of outpatient antibiotic treatment, patient has been treated with IV antibiotics vancomycin and zosyn.Redness and swelling has improved. Patient will be transfered to TCU to complete IV vancomycin for cellulitis as this patient has failed outpatient Bactrim and Keflex to TCU.
[2018-05-21] MEDS: Vancomycin 1.5 GM in Sodium Chloride 0.9% 500 ML IVPB SCH (05:36)
[2018-05-21] MEDS: Budesonide 0.5 mg/2 ml Inhal Susp UD IH SCH ×2 (07:24→19:54)
[2018-05-21] MEDS: Albuterol 0.083% Inhal Sol (2.5 mg/3 mL) UD INH SCH ×3 (07:24→13:32)
[2018-05-21] MEDS: Divalproex 500 mg DR(BID formulation) PO SCH ×2 (11:15→18:01)
[2018-05-21] MEDS: Pantoprazole 40 mg EC Tab PO SCH (11:17)
--- NOTE | 2018-05-21 19:38 | CP.PCM.PN ---
Subjective - Date & Time of Evaluation Date of Evaluation: 05/21/18 Time of Evaluation: 18:30 - Subjective Subjective: Infectious Disease Follow Up: May 21, 2018 67 yo female with history of Asthma, Seizures, Legal Blindness, and Autism presenting with two week history of worsening bilateral leg edema and cellulitis. The patient was seen by several doctors including her PMD and transportation technician. The patient first started with blister in the anterior left lower leg as per the patient's nurse transition. The patient currently has +2-3 edema of both legs. The patient is unable to give any history. The patient has been on Augmentin, Bactrim BS, and Keflex. On Zosyn and IV Vancomycin. Lower extremities appear to be slowly improving. Erythema has significantly improved. Edema is the same. Patient unable to care for herself in any capacity. Transfered to TCU on 2017. Patient making no new complaints. Objective - Vital Signs/Intake and Output Vital Signs (last 24 hours): Temp Pulse Resp BP Pulse Ox 98.3 F 83 18 96/54 L 100 05/21/18 16:00 05/21/18 16:00 05/21/18 16:00 05/21/18 16:00 05/21/18 16:00 - Medications Medications: Current Medications Albuterol Sulfate (Albuterol 0.083% Inhal Brittney (2.5 Mg/3 Ml) Ud) 2.5 mg INH Q8 ANNE MARIE PRN Reason: Protocol Last Admin: 05/21/18 13:32 Dose: 2.5 mg Budesonide (Pulmicort Respules) 0.5 mg IH BIDRESP ANNE MARIE PRN Reason: Protocol Last Admin: 05/21/18 07:24 Dose: 0.5 mg Clonazepam (Klonopin) 1 mg PO BID ANNE MARIE PRN Reason: Protocol Last Admin: 05/21/18 18:02 Dose: 1 mg Divalproex Sodium (Depakote Dr(*Bid*)) 500 mg PO BID ANNE MARIE PRN Reason: Protocol Last Admin: 05/21/18 18:01 Dose: 500 mg Escitalopram Oxalate (Lexapro) 10 mg PO DAILY ANNE MARIE PRN Reason: Protocol Last Admin: 05/21/18 11:16 Dose: 10 mg Gabapentin (Neurontin) 300 mg PO TID ANNE MARIE PRN Reason: Protocol Last Admin: 05/21/18 18:03 Dose: 300 mg Heparin Sodium (Porcine) (Heparin) 5,000 units SC Q8 ANNE MARIE PRN Reason: Protocol Last Admin: 05/21/18 14:36 Dose: 5,000 units Vancomycin HCl 1.5 gm/ Sodium (Chloride) 500 mls @ 167 mls/hr IVPB 0600 [facility] Last Admin: 05/21/18 05:36 Dose: 167 mls/hr Levetiracetam (Keppra) 1,000 mg PO BID ANNE MARIE PRN Reason: Protocol Last Admin: 05/21/18 18:01 Dose: 1,000 mg Ondansetron HCl (Zofran Inj) 4 mg IVP Q6H PRN; Protocol PRN Reason: Nausea/Vomiting Pantoprazole Sodium (Protonix Ec Tab) 40 mg PO DAILY ANNE MARIE PRN Reason: Protocol Last Admin: 05/21/18 11:17 Dose: 40 mg - Constitutional Appears: Non-toxic, No Acute Distress, Chronically Ill - Head Exam Head Exam: ATRAUMATIC, NORMOCEPHALIC - Eye Exam Eye Exam: EOMI, PERRL Pupil Exam: NORMAL ACCOMODATION, PERRL - ENT Exam ENT Exam: Mucous Membranes Moist, Normal External Ear Exam, TM's Normal Bilaterally - Neck Exam Neck Exam: Full ROM, Tenderness - Respiratory Exam Respiratory Exam: Clear to Ausculation Bilateral, NORMAL BREATHING PATTERN. absent: Rales, Rhonchi, Wheezes - GI/Abdominal Exam GI & Abdominal Exam: Soft, Normal Bowel Sounds. absent: Distended, Tenderness - Extremities Exam Extremities Exam: Joint Swelling, Pedal Edema Additional comments: +2-3 edema of the bilateral legs with erythema of the legs below the knees. The patient has sloughing of the skin of the left lower leg. - Neurological Exam Neurological Exam: Alert, Awake, CN II-XII Intact Additional comments: Autism. Limited Mental Exam. - Psychiatric Exam Psychiatric exam: Agitated Additional comments: Autism - Skin Skin Exam: Normal Color Additional comments: +2-3 edema of the bilateral legs with erythema of the legs below the knees. The patient has sloughing of the skin of the left lower leg. Assessment and Plan - Assessment and Plan (Free Text) Assessment: 67 yo female with bilateral leg edema and erythema with left leg worse than right. The patient has Autism and nurse transition gives the patient's history. Started on IV Vancomycin and Zosyn for antibiotic care. Supportive care. Can check ESR and C-reactive protein. Difficult to assess patient as she has no understanding of medical issues before her. Currently Afebrile and without leukocytosis. Lower leg erythema has improved and is mostly resolved compared to admission although edema remains the same. Case discussed with Dr. Horn. Transfered to TCU. Continue on IV Vancomycin alone for 10-14 day course of therapy. Very slow improvement to the edema of the legs. Thank you for allowing me to participate in the care of the patient, we will follow with you.
[2018-05-22] MEDS: Albuterol 0.083% Inhal Sol (2.5 mg/3 mL) UD INH SCH ×3 (02:22→14:49)
[2018-05-22] MEDS: Vancomycin 1.5 GM in Sodium Chloride 0.9% 500 ML IVPB SCH (06:59)
[2018-05-22] MEDS: Budesonide 0.5 mg/2 ml Inhal Susp UD IH SCH ×2 (07:14→20:14)
[2018-05-22] MEDS: Divalproex 500 mg DR(BID formulation) PO SCH ×2 (10:18→17:49)
[2018-05-22] MEDS: Pantoprazole 40 mg EC Tab PO SCH (10:22)
--- NOTE | 2018-05-22 13:13 | CP.PCM.PN ---
<Joel Gan - Last Filed: 05/22/18 13:22> Subjective - Date & Time of Evaluation Date of Evaluation: 05/22/18 Time of Evaluation: 10:45 - Subjective Subjective: Joel Gan DO PGY-1, Industrial Engineering Medicine Progress Note Pt seen and examined at bedside. Per RN report IV fell out overnight and pt refused to have it replaced until this am. Pt missed vancomycin dose at 06:00. Pt denies any acute complaints this am, states she slept overnight and is tolerating PO diet well. ROS otherwise unobtainable due to pt's current mental status. Objective - Vital Signs/Intake and Output Vital Signs (last 24 hours): Temp Pulse Resp BP Pulse Ox 98.3 F 83 18 96/54 L 100 05/21/18 16:00 05/21/18 16:00 05/21/18 16:00 05/21/18 16:00 05/21/18 16:00 - Medications Medications: Current Medications Albuterol Sulfate (Albuterol 0.083% Inhal Brittney (2.5 Mg/3 Ml) Ud) 2.5 mg INH Q8 ANNE MARIE PRN Reason: Protocol Last Admin: 05/22/18 07:14 Dose: Not Given Budesonide (Pulmicort Respules) 0.5 mg IH BIDRESP ANNE MARIE PRN Reason: Protocol Last Admin: 05/22/18 07:14 Dose: Not Given Clonazepam (Klonopin) 1 mg PO BID ANNE MARIE PRN Reason: Protocol Last Admin: 05/22/18 10:20 Dose: 1 mg Divalproex Sodium (Depakote Dr(*Bid*)) 500 mg PO BID ANNE MARIE PRN Reason: Protocol Last Admin: 05/22/18 10:18 Dose: 500 mg Escitalopram Oxalate (Lexapro) 10 mg PO DAILY ANNE MARIE PRN Reason: Protocol Last Admin: 05/22/18 10:21 Dose: 10 mg Gabapentin (Neurontin) 300 mg PO TID ANNE MARIE PRN Reason: Protocol Last Admin: 05/22/18 10:22 Dose: 300 mg Heparin Sodium (Porcine) (Heparin) 5,000 units SC Q8 ANNE MARIE PRN Reason: Protocol Last Admin: 05/22/18 05:51 Dose: 5,000 units Vancomycin HCl 1.5 gm/ Sodium (Chloride) 500 mls @ 167 mls/hr IVPB 0600 ANNE MARIE Last Admin: 05/22/18 06:59 Dose: Not Given Levetiracetam (Keppra) 1,000 mg PO BID ANNE MARIE PRN Reason: Protocol Last Admin: 05/22/18 10:19 Dose: 1,000 mg Ondansetron HCl (Zofran Inj) 4 mg IVP Q6H PRN; Protocol PRN Reason: Nausea/Vomiting Pantoprazole Sodium (Protonix Ec Tab) 40 mg PO DAILY ANNE MARIE PRN Reason: Protocol Last Admin: 05/22/18 10:22 Dose: 40 mg - Constitutional Appears: Well, Non-toxic, No Acute Distress - Head Exam Head Exam: ATRAUMATIC, NORMAL INSPECTION, NORMOCEPHALIC - Eye Exam Eye Exam: EOMI, Normal appearance, PERRL - ENT Exam ENT Exam: Mucous Membranes Moist, Normal Oropharynx - Neck Exam Neck Exam: Full ROM, Normal Inspection - Respiratory Exam Respiratory Exam: Clear to Ausculation Bilateral, NORMAL BREATHING PATTERN - Cardiovascular Exam Cardiovascular Exam: REGULAR RHYTHM, +S1, +S2 - GI/Abdominal Exam GI & Abdominal Exam: Soft, Normal Bowel Sounds - Extremities Exam Extremities Exam: Full ROM, Normal Capillary Refill Additional comments: Improving erythema in exts b/l - Neurological Exam Neurological Exam: Alert, Awake, CN II-XII Intact - Psychiatric Exam Psychiatric exam: Normal Affect, Normal Mood - Skin Skin Exam: Dry, Intact, Warm Additional comments: Erythema in b/l lower exts improving Assessment and Plan - Assessment and Plan (Free Text) Assessment: 67 yrs old female PMhx asthma, HTN, seizure, legally blind, autism, mood disorder, who was brought in to the ED by her caregiver for bilateral lower leg cellulitis and failure of outpatient antibiotic treatment. Patient has been treated with IV antibiotics, currently on vancomycin. Redness and swelling has improved. Pt stable w/ no complaints on examination; discharged from hospital floor on 05/19 and transferred to transitional care unit on 05/20. Medicine team and infectious disease team following. Plan: Cellulitis/Failure of outpatient antibiotic therapy Lower extremity erythema improvement since admission C/w IV Vanco day #6 w/ renal dosing at this time, to be completed for 10-14 d as per ID WBC wnl Pt afebrile, VSS Lactate wnl Blood cx 2/2 negative for growth after days Procalcitonin low, CRP elevated Regular diet ID consulted, appreciate recs LE doppler study neg for DVT b/l Chronic Kidney Disease - Stage 3 Cr at baseline Pt not having any decreased urine output Continue to monitor Cr and any clinical complaints Hx HTN Cont valsartan 40 mg daily Continue monitoring blood pressures Hx seizures Cont Keppra, divalproex Cont neurontin Hx unspecified mood disorder Cont escitalopram, clonazepam Hx asthma C/w montelukast, albuterol, budesonide GI/DVT ppx: Protonix PO daily, Heparin 5000 U q 8 h Pt seen, examined with, and plan discussed with Dr. David, attending Joel Gan DO PGY-1, Industrial Engineering Pager #[phone] <Lambert David - Last Filed: 05/22/18 17:44> Objective - Vital Signs/Intake and Output Vital Signs (last 24 hours): Temp Pulse Resp BP Pulse Ox 98.2 F 74 18 137/71 95 05/22/18 16:00 05/22/18 16:00 05/22/18 16:00 05/22/18 16:00 05/22/18 16:00 - Medications Medications: Current Medications Albuterol Sulfate (Albuterol 0.083% Inhal Brittney (2.5 Mg/3 Ml) Ud) 2.5 mg INH Q8 ANNE MARIE PRN Reason: Protocol Last Admin: 05/22/18 07:14 Dose: Not Given Budesonide (Pulmicort Respules) 0.5 mg IH BIDRESP ANNE MARIE PRN Reason: Protocol Last Admin: 05/22/18 07:14 Dose: Not Given Clonazepam (Klonopin) 1 mg PO BID ANNE MARIE PRN Reason: Protocol Last Admin: 05/22/18 10:20 Dose: 1 mg Divalproex Sodium (Depakote Dr(*Bid*)) 500 mg PO BID ANNE MARIE PRN Reason: Protocol Last Admin: 05/22/18 10:18 Dose: 500 mg Escitalopram Oxalate (Lexapro) 10 mg PO DAILY ANNE MARIE PRN Reason: Protocol Last Admin: 05/22/18 10:21 Dose: 10 mg Gabapentin (Neurontin) 300 mg PO TID ANNE MARIE PRN Reason: Protocol Last Admin: 05/22/18 14:51 Dose: 300 mg Heparin Sodium (Porcine) (Heparin) 5,000 units SC Q8 ANNE MARIE PRN Reason: Protocol Last Admin: 05/22/18 14:50 Dose: 5,000 units Vancomycin HCl 1.5 gm/ Sodium (Chloride) 500 mls @ 167 mls/hr IVPB 0600 [facility] Last Admin: 05/22/18 06:59 Dose: Not Given Levetiracetam (Keppra) 1,000 mg PO BID ANNE MARIE PRN Reason: Protocol Last Admin: 05/22/18 10:19 Dose: 1,000 mg Ondansetron HCl (Zofran Inj) 4 mg IVP Q6H PRN; Protocol PRN Reason: Nausea/Vomiting Pantoprazole Sodium (Protonix Ec Tab) 40 mg PO DAILY ANNE MARIE PRN Reason: Protocol Last Admin: 05/22/18 10:22 Dose: 40 mg Attending/Attestation - Attestation I have personally seen and examined this patient.: Yes I have fully participated in the care of the patient.: Yes I have reviewed all pertinent clinical information, including history, physical exam and plan: Yes Notes (Text): 05/22/18 17:38 67 year old female with past medical history of asthma, hypertension, legally blind, autism and seizure disorder who presented with bilateral lower leg cellulitis with failed outpatient treatment. She is currently on iv vancomycin. She missed today's dose because her heplock came out and she refused re-insertion this morning. I spoke with her and she agreed for re- insertion later today. ID is following. Labs this morning were also pending. Lambert David MD Hospitalist.
--- NOTE | 2018-05-22 17:01 | CP.PCM.PN ---
Subjective - Date & Time of Evaluation Date of Evaluation: 05/22/18 Time of Evaluation: 16:00 - Subjective Subjective: Infectious Disease Follow Up: May 22, 2018 67 yo female with history of Asthma, Seizures, Legal Blindness, and Autism presenting with two week history of worsening bilateral leg edema and cellulitis. The patient was seen by several doctors including her PMD and tutoring manager. The patient first started with blister in the anterior left lower leg as per the patient's plating equipment tender. The patient currently has +2-3 edema of both legs. The patient is unable to give any history. The patient has been on Augmentin, Bactrim BS, and Keflex. On Zosyn and IV Vancomycin. Lower extremities appear to be slowly improving. Erythema has significantly improved. Edema is the same. Patient unable to care for herself in any capacity. Transfered to TCU on 2017. Patient making no new complaints. Noted loss of IV overnight leading to missing a dose of IV Vancomycin last night. Objective - Vital Signs/Intake and Output Vital Signs (last 24 hours): Temp Pulse Resp BP Pulse Ox 98.3 F 83 18 96/54 L 100 05/21/18 16:00 05/21/18 16:00 05/21/18 16:00 05/21/18 16:00 05/21/18 16:00 - Medications Medications: Current Medications Albuterol Sulfate (Albuterol 0.083% Inhal Brittney (2.5 Mg/3 Ml) Ud) 2.5 mg INH Q8 ANNE MARIE PRN Reason: Protocol Last Admin: 05/22/18 07:14 Dose: Not Given Budesonide (Pulmicort Respules) 0.5 mg IH BIDRESP ANNE MARIE PRN Reason: Protocol Last Admin: 05/22/18 07:14 Dose: Not Given Clonazepam (Klonopin) 1 mg PO BID ANNE MARIE PRN Reason: Protocol Last Admin: 05/22/18 10:20 Dose: 1 mg Divalproex Sodium (Depakote Dr(*Bid*)) 500 mg PO BID ANNE MARIE PRN Reason: Protocol Last Admin: 05/22/18 10:18 Dose: 500 mg Escitalopram Oxalate (Lexapro) 10 mg PO DAILY ANNE MARIE PRN Reason: Protocol Last Admin: 05/22/18 10:21 Dose: 10 mg Gabapentin (Neurontin) 300 mg PO TID ANNE MARIE PRN Reason: Protocol Last Admin: 05/22/18 14:51 Dose: 300 mg Heparin Sodium (Porcine) (Heparin) 5,000 units SC Q8 ANNE MARIE PRN Reason: Protocol Last Admin: 05/22/18 14:50 Dose: 5,000 units Vancomycin HCl 1.5 gm/ Sodium (Chloride) 500 mls @ 167 mls/hr IVPB 0600 [facility] Last Admin: 05/22/18 06:59 Dose: Not Given Levetiracetam (Keppra) 1,000 mg PO BID ANNE MARIE PRN Reason: Protocol Last Admin: 05/22/18 10:19 Dose: 1,000 mg Ondansetron HCl (Zofran Inj) 4 mg IVP Q6H PRN; Protocol PRN Reason: Nausea/Vomiting Pantoprazole Sodium (Protonix Ec Tab) 40 mg PO DAILY ANNE MARIE PRN Reason: Protocol Last Admin: 05/22/18 10:22 Dose: 40 mg - Constitutional Appears: Non-toxic, No Acute Distress, Chronically Ill - Head Exam Head Exam: ATRAUMATIC, NORMOCEPHALIC - Eye Exam Eye Exam: EOMI, PERRL Pupil Exam: NORMAL ACCOMODATION, PERRL - ENT Exam ENT Exam: Mucous Membranes Moist, Normal External Ear Exam, TM's Normal Bilaterally - Neck Exam Neck Exam: Full ROM, Normal Inspection - Respiratory Exam Respiratory Exam: Clear to Ausculation Bilateral, NORMAL BREATHING PATTERN. absent: Rales, Rhonchi, Wheezes - Cardiovascular Exam Cardiovascular Exam: REGULAR RHYTHM, RRR, +S1, +S2 - GI/Abdominal Exam GI & Abdominal Exam: Soft, Normal Bowel Sounds. absent: Distended, Tenderness - Extremities Exam Extremities Exam: Joint Swelling, Pedal Edema Additional comments: +2-3 edema of the bilateral legs with erythema of the legs below the knees. The patient has sloughing of the skin of the left lower leg. - Neurological Exam Neurological Exam: Alert, Awake, CN II-XII Intact Additional comments: Autism. Limited Mental Exam. - Psychiatric Exam Additional comments: Autism. Limited Mental Exam. - Skin Skin Exam: Normal Color Additional comments: +2-3 edema of the bilateral legs with erythema of the legs below the knees. The patient has sloughing of the skin of the left lower leg. Erythema improving. Assessment and Plan - Assessment and Plan (Free Text) Assessment: 67 yo female with bilateral leg edema and erythema with left leg worse than right. The patient has Autism and plating equipment tender gives the patient's history. Started on IV Vancomycin and Zosyn for antibiotic care. Supportive care. Can check ESR and C-reactive protein. Difficult to assess patient as she has no understanding of medical issues before her. Currently Afebrile and without leukocytosis. Lower leg erythema has improved and is mostly resolved compared to admission although edema remains the same. Transfered to TCU. Continue on IV Vancomycin alone for 10-14 day course of therapy. Very slow improvement to the edema of the legs. Still +3 edema of both lower extremities. Thank you for allowing me to participate in the care of the patient, we will follow with you.
[2018-05-23] MEDS: Albuterol 0.083% Inhal Sol (2.5 mg/3 mL) UD INH SCH ×4 (00:58→21:03)
[2018-05-23] MEDS: Vancomycin 1.5 GM in Sodium Chloride 0.9% 500 ML IVPB SCH (05:42)
[2018-05-23 07:57] LABS: BASO # 0.04 K/mm3 (0.0-2.0); BASO % 0.8 % (0.0-3.0); EOS # 0.3 (0.0-0.7); EOS % 6.4 % (1.5-5.0); GRAN # 2.29 (1.4-6.5); GRAN % 45.9 % (50.0-68.0); HEMOGLOBIN 10.3 g/dL (12.0-16.0); LYMPH # 1.8 (1.2-3.4); LYMPH % 35.9 % (22.0-35.0); MEAN CELL VOLUME 93.7 fl (80.0-105.0); MEAN CORPUSCULAR HEMOGLOBIN 29.7 pg (25.0-35.0); MEAN CORPUSCULAR HGB CONC 31.7 g/dl (31.0-37.0); MEAN PLATELET VOLUME 9.5 fl (7.0-11.0); MONO # 0.6 (0.1-0.6); RBC 3.47 10^6/uL (3.5-6.1)
[2018-05-23] MEDS: Budesonide 0.5 mg/2 ml Inhal Susp UD IH SCH ×2 (08:06→21:03)
[2018-05-23 08:15] LABS: ALBUMIN 2.8 g/dL (3.0-4.8); ALT/SGPT 45 U/L (7-56); AST/SGOT 39 U/L (14-36); BLOOD UREA NITROGEN 22 mg/dL (7-21); CALCIUM 8.2 mg/dL (8.4-10.5); GFR AFRICAN-AMERICAN > 60; GFR NON-AFRICAN AMERICAN > 60
[2018-05-23] MEDS: Pantoprazole 40 mg EC Tab PO SCH (10:42)
[2018-05-23] MEDS: Divalproex 500 mg DR(BID formulation) PO SCH ×2 (10:42→18:19)
--- NOTE | 2018-05-23 13:36 | CP.PCM.PN ---
Subjective - Date & Time of Evaluation Date of Evaluation: 05/23/18 Time of Evaluation: 13:30 - Subjective Subjective: Infectious Disease Follow Up: May 23, 2018 67 yo female with history of Asthma, Seizures, Legal Blindness, and Autism presenting with two week history of worsening bilateral leg edema and cellulitis. The patient was seen by several doctors including her PMD and plate grinder. The patient first started with blister in the anterior left lower leg as per the patient's bobbin sorter. The patient currently has +2-3 edema of both legs. The patient is unable to give any history. The patient has been on Augmentin, Bactrim BS, and Keflex. On Zosyn and IV Vancomycin. Lower extremities appear to be slowly improving. Erythema has significantly improved. Edema is the same. Patient unable to care for herself in any capacity. Transfered to TCU on 2017. Patient making no new complaints. Noted loss of IV overnight leading to missing a dose of IV Vancomycin two nights ago. Objective - Vital Signs/Intake and Output Vital Signs (last 24 hours): Temp Pulse Resp BP Pulse Ox 98.2 F 74 18 137/71 95 05/22/18 16:00 05/22/18 16:00 05/22/18 16:00 05/22/18 16:00 05/22/18 16:00 - Medications Medications: Current Medications Albuterol Sulfate (Albuterol 0.083% Inhal Brittney (2.5 Mg/3 Ml) Ud) 2.5 mg INH Q8 ANNE MARIE PRN Reason: Protocol Last Admin: 05/23/18 13:08 Dose: Not Given Budesonide (Pulmicort Respules) 0.5 mg IH BIDRESP ANNE MARIE PRN Reason: Protocol Last Admin: 05/23/18 08:06 Dose: Not Given Clonazepam (Klonopin) 1 mg PO BID ANNE MARIE PRN Reason: Protocol Last Admin: 05/23/18 10:45 Dose: 1 mg Divalproex Sodium (Depakote Dr(*Bid*)) 500 mg PO BID ANNE MARIE PRN Reason: Protocol Last Admin: 05/23/18 10:42 Dose: 500 mg Escitalopram Oxalate (Lexapro) 10 mg PO DAILY ANNE MARIE PRN Reason: Protocol Last Admin: 05/23/18 10:43 Dose: 10 mg Gabapentin (Neurontin) 300 mg PO TID ANNE MARIE PRN Reason: Protocol Last Admin: 05/23/18 10:41 Dose: 300 mg Heparin Sodium (Porcine) (Heparin) 5,000 units SC Q8 ANNE MARIE PRN Reason: Protocol Last Admin: 05/23/18 05:42 Dose: 5,000 units Vancomycin HCl 1.5 gm/ Sodium (Chloride) 500 mls @ 167 mls/hr IVPB 0600 [facility] Last Admin: 05/23/18 05:42 Dose: 167 mls/hr Levetiracetam (Keppra) 1,000 mg PO BID ANNE MARIE PRN Reason: Protocol Last Admin: 05/23/18 10:48 Dose: 1,000 mg Ondansetron HCl (Zofran Inj) 4 mg IVP Q6H PRN; Protocol PRN Reason: Nausea/Vomiting Pantoprazole Sodium (Protonix Ec Tab) 40 mg PO DAILY ANNE MARIE PRN Reason: Protocol Last Admin: 05/23/18 10:42 Dose: 40 mg - Labs Labs: 05/23/18 07:30 05/23/18 07:30 - Constitutional Appears: Non-toxic, No Acute Distress, Chronically Ill - Head Exam Head Exam: ATRAUMATIC, NORMOCEPHALIC - Eye Exam Eye Exam: EOMI, PERRL Pupil Exam: NORMAL ACCOMODATION, PERRL - ENT Exam ENT Exam: Mucous Membranes Moist, Normal External Ear Exam, TM's Normal Bilaterally - Neck Exam Neck Exam: Full ROM, Normal Inspection - Respiratory Exam Respiratory Exam: Clear to Ausculation Bilateral, NORMAL BREATHING PATTERN. absent: Rales, Rhonchi, Wheezes - Cardiovascular Exam Cardiovascular Exam: REGULAR RHYTHM, RRR, +S1, +S2 - GI/Abdominal Exam GI & Abdominal Exam: Soft, Normal Bowel Sounds. absent: Distended, Tenderness - Extremities Exam Extremities Exam: Joint Swelling, Pedal Edema Additional comments: +2-3 edema of the bilateral legs with erythema of the legs below the knees. The patient has sloughing of the skin of the left lower leg. - Neurological Exam Neurological Exam: Alert, Awake, CN II-XII Intact Additional comments: Autism. Limited Mental Exam. - Psychiatric Exam Additional comments: Autism. Limited Mental Exam. - Skin Skin Exam: Normal Color Additional comments: +2-3 edema of the bilateral legs with erythema of the legs below the knees. The patient has sloughing of the skin of the left lower leg. Erythema improving. Assessment and Plan - Assessment and Plan (Free Text) Assessment: 67 yo female with bilateral leg edema and erythema with left leg worse than right. The patient has Autism and bobbin sorter gives the patient's history. Started on IV Vancomycin and Zosyn for antibiotic care. Supportive care. Can check ESR and C-reactive protein. Difficult to assess patient as she has no understanding of medical issues before her. Currently Afebrile and without leukocytosis. Lower leg erythema has improved and is mostly resolved compared to admission although edema remains the same. Transfered to TCU. Continue on IV Vancomycin alone for 10-14 day course of therapy. Very slow improvement to the edema of the legs. Still +2-3 edema of both lower extremities. Thank you for allowing me to participate in the care of the patient, we will follow with you.
[2018-05-24] MEDS: Vancomycin 1.5 GM in Sodium Chloride 0.9% 500 ML IVPB SCH (05:16)
[2018-05-24] MEDS: Albuterol 0.083% Inhal Sol (2.5 mg/3 mL) UD INH SCH ×3 (07:13→22:49)
[2018-05-24] MEDS: Budesonide 0.5 mg/2 ml Inhal Susp UD IH SCH ×2 (07:13→20:08)
[2018-05-24] MEDS: Divalproex 500 mg DR(BID formulation) PO SCH ×2 (09:58→17:35)
[2018-05-24] MEDS: Pantoprazole 40 mg EC Tab PO SCH (10:01)
--- NOTE | 2018-05-24 12:48 | CP.PCM.PN ---
<MalikGrabiela - Last Filed: 05/24/18 13:29> Subjective - Date & Time of Evaluation Date of Evaluation: 05/24/18 Time of Evaluation: 07:45 - Subjective Subjective: Joel Gan DO PGY-1, Senior [employer]i U[employer] Designer Medicine Progress Note Pt seen and examined at bedside. States she slept well overnight. Asking for when her next meal is. ROS otherwise unobtainable due to pt's current mental status. No acute events reported overnight. Objective - Vital Signs/Intake and Output Vital Signs (last 24 hours): Temp Pulse Resp BP Pulse Ox 97.8 F 71 18 125/69 97 05/24/18 10:00 05/24/18 10:00 05/24/18 10:00 05/24/18 10:00 05/23/18 16:08 - Medications Medications: Current Medications Albuterol Sulfate (Albuterol 0.083% Inhal Brittney (2.5 Mg/3 Ml) Ud) 2.5 mg INH Q8 ANNE MARIE PRN Reason: Protocol Last Admin: 05/24/18 07:13 Dose: 2.5 mg Budesonide (Pulmicort Respules) 0.5 mg IH BIDRESP ANNE MARIE PRN Reason: Protocol Last Admin: 05/24/18 07:13 Dose: 0.5 mg Clonazepam (Klonopin) 1 mg PO BID ANNE MARIE PRN Reason: Protocol Last Admin: 05/24/18 10:00 Dose: 1 mg Divalproex Sodium (Depakote Dr(*Bid*)) 500 mg PO BID ANNE MARIE PRN Reason: Protocol Last Admin: 05/24/18 09:58 Dose: 500 mg Escitalopram Oxalate (Lexapro) 10 mg PO DAILY ANNE MARIE PRN Reason: Protocol Last Admin: 05/24/18 10:01 Dose: 10 mg Gabapentin (Neurontin) 300 mg PO TID ANNE MARIE PRN Reason: Protocol Last Admin: 05/24/18 10:01 Dose: 300 mg Heparin Sodium (Porcine) (Heparin) 5,000 units SC Q8 ANNE MARIE PRN Reason: Protocol Last Admin: 05/24/18 05:17 Dose: 5,000 units Vancomycin HCl 1.5 gm/ Sodium (Chloride) 500 mls @ 167 mls/hr IVPB 0600 [facility] Last Admin: 05/24/18 05:16 Dose: 167 mls/hr Levetiracetam (Keppra) 1,000 mg PO BID ANNE MARIE PRN Reason: Protocol Last Admin: 05/24/18 09:59 Dose: 1,000 mg Ondansetron HCl (Zofran Inj) 4 mg IVP Q6H PRN; Protocol PRN Reason: Nausea/Vomiting Pantoprazole Sodium (Protonix Ec Tab) 40 mg PO DAILY ANNE MARIE PRN Reason: Protocol Last Admin: 05/24/18 10:01 Dose: 40 mg - Labs Labs: 05/23/18 07:30 05/23/18 07:30 - Constitutional Appears: Non-toxic, No Acute Distress - Head Exam Head Exam: ATRAUMATIC, NORMAL INSPECTION, NORMOCEPHALIC - Eye Exam Eye Exam: EOMI, Normal appearance, PERRL - ENT Exam ENT Exam: Mucous Membranes Moist, Normal Oropharynx - Neck Exam Neck Exam: Full ROM, Normal Inspection - Respiratory Exam Respiratory Exam: Clear to Ausculation Bilateral, NORMAL BREATHING PATTERN - Cardiovascular Exam Cardiovascular Exam: REGULAR RHYTHM, +S1, +S2 - GI/Abdominal Exam GI & Abdominal Exam: Soft, Normal Bowel Sounds - Extremities Exam Extremities Exam: Full ROM, Normal Capillary Refill Additional comments: Improving erythema in lower extremities b/l - Back Exam Back Exam: Full ROM, NORMAL INSPECTION - Neurological Exam Neurological Exam: Alert, Awake, CN II-XII Intact, Oriented x3 - Psychiatric Exam Psychiatric exam: Normal Affect, Normal Mood - Skin Skin Exam: Dry, Intact, Warm Assessment and Plan - Assessment and Plan (Free Text) Assessment: 67 yrs old female PMhx asthma, HTN, seizure, legally blind, autism, mood disorder, who was brought in to the ED by her caregiver for bilateral lower leg cellulitis and failure of outpatient antibiotic treatment. Patient has been treated with IV antibiotics, currently on vancomycin. Redness and swelling has improved. Pt stable w/ no complaints on examination; discharged from hospital floor on 05/19 and transferred to transitional care unit on 05/20. Medicine team and infectious disease team following. Plan: Cellulitis/Failure of outpatient antibiotic therapy Lower extremity erythema improvement since admission C/w IV Vanco day #7 w/ renal dosing at this time, to be completed for 10 d as per ID WBC wnl Pt afebrile, VSS Lactate wnl Blood cx 2/2 negative for growth Procalcitonin low, CRP elevated Regular diet ID consulted, appreciate recs LE doppler study neg for DVT b/l Chronic Kidney Disease - Stage 3 Cr at baseline Pt not having any decreased urine output Continue to monitor Cr and any clinical complaints Hx HTN Cont valsartan 40 mg daily Continue monitoring blood pressures Hx seizures Cont Keppra, divalproex Cont neurontin Hx unspecified mood disorder Cont escitalopram, clonazepam Hx asthma C/w montelukast, albuterol, budesonide GI/DVT ppx: Protonix PO daily, Heparin 5000 U q 8 h Pt seen, examined with, and plan discussed with Dr. David, attending. Joel Gan DO PGY-1, Senior Ui U[employer] Designer Pager #[phone] <Lambert David - Last Filed: 05/24/18 17:37> Objective - Vital Signs/Intake and Output Vital Signs (last 24 hours): Temp Pulse Resp BP Pulse Ox 97.8 F 71 18 125/69 97 05/24/18 10:00 05/24/18 10:00 05/24/18 10:00 05/24/18 10:00 05/23/18 16:08 - Medications Medications: Current Medications Albuterol Sulfate (Albuterol 0.083% Inhal Brittney (2.5 Mg/3 Ml) Ud) 2.5 mg INH Q8 ANNE MARIE PRN Reason: Protocol Last Admin: 05/24/18 13:25 Dose: 2.5 mg Budesonide (Pulmicort Respules) 0.5 mg IH BIDRESP ANNE MARIE PRN Reason: Protocol Last Admin: 05/24/18 07:13 Dose: 0.5 mg Clonazepam (Klonopin) 1 mg PO BID ANNE MARIE PRN Reason: Protocol Last Admin: 05/24/18 10:00 Dose: 1 mg Divalproex Sodium (Depakote Dr(*Bid*)) 500 mg PO BID ANNE MARIE PRN Reason: Protocol Last Admin: 05/24/18 09:58 Dose: 500 mg Escitalopram Oxalate (Lexapro) 10 mg PO DAILY ANNE MARIE PRN Reason: Protocol Last Admin: 05/24/18 10:01 Dose: 10 mg Gabapentin (Neurontin) 300 mg PO TID ANNE MARIE PRN Reason: Protocol Last Admin: 05/24/18 13:39 Dose: 300 mg Heparin Sodium (Porcine) (Heparin) 5,000 units SC Q8 ANNE MARIE PRN Reason: Protocol Last Admin: 05/24/18 13:37 Dose: 5,000 units Vancomycin HCl 1.5 gm/ Sodium (Chloride) 500 mls @ 167 mls/hr IVPB 0600 [facility] Last Admin: 05/24/18 05:16 Dose: 167 mls/hr Levetiracetam (Keppra) 1,000 mg PO BID ANNE MARIE PRN Reason: Protocol Last Admin: 05/24/18 09:59 Dose: 1,000 mg Ondansetron HCl (Zofran Inj) 4 mg IVP Q6H PRN; Protocol PRN Reason: Nausea/Vomiting Pantoprazole Sodium (Protonix Ec Tab) 40 mg PO DAILY ANNE MARIE PRN Reason: Protocol Last Admin: 05/24/18 10:01 Dose: 40 mg - Labs Labs: 05/23/18 07:30 05/23/18 07:30 Attending/Attestation - Attestation I have personally seen and examined this patient.: Yes I have fully participated in the care of the patient.: Yes I have reviewed all pertinent clinical information, including history, physical exam and plan: Yes Notes (Text): 05/24/18 17:36 67 year old female with past medical history of asthma, hypertension, legally blind, autism and seizure disorder who presented with bilateral lower leg cellulitis with failed outpatient treatment. She is currently on iv vancomycin. ID is following. She is comfortable this morning without any news complaints. Lambert David MD Hospitalist.
[2018-05-25] MEDS: Vancomycin 1.5 GM in Sodium Chloride 0.9% 500 ML IVPB SCH (05:23)
[2018-05-25 06:33] LABS: BASO # 0.04 K/mm3 (0.0-2.0); BASO % 0.7 % (0.0-3.0); EOS # 0.4 (0.0-0.7); EOS % 6.7 % (1.5-5.0); GRAN # 3.31 (1.4-6.5); GRAN % 56.8 % (50.0-68.0); HEMOGLOBIN 10.7 g/dL (12.0-16.0); LYMPH # 1.2 (1.2-3.4); LYMPH % 19.8 % (22.0-35.0); MEAN CELL VOLUME 93.6 fl (80.0-105.0); MEAN CORPUSCULAR HEMOGLOBIN 29.6 pg (25.0-35.0); MEAN CORPUSCULAR HGB CONC 31.6 g/dl (31.0-37.0); MEAN PLATELET VOLUME 10.2 fl (7.0-11.0); MONO # 0.9 (0.1-0.6); RBC 3.62 10^6/uL (3.5-6.1); RED CELL DISTRIBUTION WIDTH 15.3 % (11.5-14.5); WHITE BLOOD COUNT 5.8 10^3/ul (4.5-11.0)
[2018-05-25] MEDS: Albuterol 0.083% Inhal Sol (2.5 mg/3 mL) UD INH SCH ×4 (07:19→23:01)
[2018-05-25] MEDS: Budesonide 0.5 mg/2 ml Inhal Susp UD IH SCH ×2 (07:19→20:51)
[2018-05-25] MEDS ORDERED: Vancomycin 1.5 GM in Sodium Chloride 0.9% 500 ML IVPB ONE (08:52)
[2018-05-25] MEDS: Divalproex 500 mg DR(BID formulation) PO SCH ×2 (09:57→17:46)
[2018-05-25] MEDS: Pantoprazole 40 mg EC Tab PO SCH (09:58)
--- NOTE | 2018-05-25 15:32 | CP.PCM.PN ---
Subjective - Date & Time of Evaluation Date of Evaluation: 05/25/18 Time of Evaluation: 15:00 - Subjective Subjective: Infectious Disease Follow Up: May 25, 2018 67 yo female with history of Asthma, Seizures, Legal Blindness, and Autism presenting with two week history of worsening bilateral leg edema and cellulitis. The patient was seen by several doctors including her PMD and multi site leasing consultant. The patient first started with blister in the anterior left lower leg as per the patient's drilling inspector. The patient currently has +2-3 edema of both legs. The patient is unable to give any history. The patient has been on Augmentin, Bactrim BS, and Keflex. On Zosyn and IV Vancomycin. Lower extremities appear to be slowly improving. Erythema has significantly improved. Edema is the same. Patient unable to care for herself in any capacity. Transfered to TCU on 2017. Patient making no new complaints. Noted loss of IV overnight leading to missing a dose of IV Vancomycin four nights ago. Objective - Vital Signs/Intake and Output Vital Signs (last 24 hours): Temp Pulse Resp BP Pulse Ox 97.8 F 71 18 125/69 97 05/24/18 10:00 05/24/18 10:00 05/24/18 10:00 05/24/18 10:00 05/23/18 16:08 - Medications Medications: Current Medications Albuterol Sulfate (Albuterol 0.083% Inhal Brittney (2.5 Mg/3 Ml) Ud) 2.5 mg INH Q8 ANNE MARIE PRN Reason: Protocol Last Admin: 05/25/18 13:08 Dose: Not Given Budesonide (Pulmicort Respules) 0.5 mg IH BIDRESP ANNE MARIE PRN Reason: Protocol Last Admin: 05/25/18 07:19 Dose: Not Given Clonazepam (Klonopin) 1 mg PO BID ANNE MARIE PRN Reason: Protocol Last Admin: 05/25/18 09:57 Dose: 1 mg Divalproex Sodium (Depakote Dr(*Bid*)) 500 mg PO BID ANNE MARIE PRN Reason: Protocol Last Admin: 05/25/18 09:57 Dose: 500 mg Escitalopram Oxalate (Lexapro) 10 mg PO DAILY ANNE MARIE PRN Reason: Protocol Last Admin: 05/25/18 09:58 Dose: 10 mg Gabapentin (Neurontin) 300 mg PO TID ANNE MARIE PRN Reason: Protocol Last Admin: 05/25/18 13:15 Dose: 300 mg Heparin Sodium (Porcine) (Heparin) 5,000 units SC Q8 ANNE MARIE PRN Reason: Protocol Last Admin: 05/25/18 13:15 Dose: 5,000 units Levetiracetam (Keppra) 1,000 mg PO BID ANNE MARIE PRN Reason: Protocol Last Admin: 05/25/18 09:57 Dose: 1,000 mg Ondansetron HCl (Zofran Inj) 4 mg IVP Q6H PRN; Protocol PRN Reason: Nausea/Vomiting Pantoprazole Sodium (Protonix Ec Tab) 40 mg PO DAILY ANNE MARIE PRN Reason: Protocol Last Admin: 05/25/18 09:58 Dose: 40 mg - Labs Labs: 05/25/18 05:45 05/23/18 07:30 - Constitutional Appears: Non-toxic, No Acute Distress, Chronically Ill - Head Exam Head Exam: ATRAUMATIC, NORMOCEPHALIC - Eye Exam Eye Exam: EOMI, PERRL Pupil Exam: NORMAL ACCOMODATION, PERRL - ENT Exam ENT Exam: Mucous Membranes Moist, Normal External Ear Exam, TM's Normal Bilaterally - Neck Exam Neck Exam: Full ROM, Normal Inspection - Respiratory Exam Respiratory Exam: Clear to Ausculation Bilateral, NORMAL BREATHING PATTERN. absent: Rales, Rhonchi, Wheezes - Cardiovascular Exam Cardiovascular Exam: REGULAR RHYTHM, RRR, +S1, +S2 - GI/Abdominal Exam GI & Abdominal Exam: Soft, Normal Bowel Sounds. absent: Distended, Tenderness - Extremities Exam Extremities Exam: Joint Swelling, Pedal Edema Additional comments: +2-3 edema of the bilateral legs with erythema of the legs below the knees. The patient has sloughing of the skin of the left lower leg. - Neurological Exam Neurological Exam: Alert, Awake, CN II-XII Intact Additional comments: Autism. Limited Mental Exam. - Psychiatric Exam Additional comments: Autism. Limited Mental Exam. - Skin Skin Exam: Normal Color Additional comments: +2-3 edema of the bilateral legs with erythema of the legs below the knees. The patient has sloughing of the skin of the left lower leg. Erythema improving. Assessment and Plan - Assessment and Plan (Free Text) Assessment: 67 yo female with bilateral leg edema and erythema with left leg worse than right. The patient has Autism and drilling inspector gives the patient's history. Started on IV Vancomycin and Zosyn for antibiotic care. Supportive care. Can check ESR and C-reactive protein. Difficult to assess patient as she has no understanding of medical issues before her. Currently Afebrile and without leukocytosis. Lower leg erythema has improved and is mostly resolved compared to admission although edema remains the same. Transfered to TCU. Continue on IV Vancomycin alone for 10-14 day course of therapy. Slow improvement to the edema of the legs. Still +2-3 edema of both lower extremities. Thank you for allowing me to participate in the care of the patient, we will follow with you.
[2018-05-25] MEDS ORDERED: Vancomycin 1.5 GM in Sodium Chloride 0.9% 500 ML IVPB SCH (16:15)
[2018-05-25 16:43] VITALS: RESP 20; TEMP 98.2
[2018-05-26] MEDS: Vancomycin 1.5 GM in Sodium Chloride 0.9% 500 ML IVPB SCH ×2 (06:05→17:51)
[2018-05-26] MEDS: Albuterol 0.083% Inhal Sol (2.5 mg/3 mL) UD INH SCH ×2 (07:13→13:39)
[2018-05-26] MEDS: Budesonide 0.5 mg/2 ml Inhal Susp UD IH SCH (07:14)
[2018-05-26 08:37] VITALS: BP 121/77; PULSE 70; O2SAT 94
[2018-05-26] MEDS: Divalproex 500 mg DR(BID formulation) PO SCH ×2 (09:26→17:50)
[2018-05-26] MEDS: Pantoprazole 40 mg EC Tab PO SCH (09:28)
--- NOTE | 2018-05-26 13:06 | CP.PCM.PN ---
Subjective - Date & Time of Evaluation Date of Evaluation: 05/26/18 Time of Evaluation: 13:00 - Subjective Subjective: Infectious Disease Follow Up: May 26, 2018 67 yo female with history of Asthma, Seizures, Legal Blindness, and Autism presenting with two week history of worsening bilateral leg edema and cellulitis. The patient was seen by several doctors including her PMD and sales development consultant. 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 The patient currently has +2-3 edema of both legs. The patient is unable to give any history. The patient has been on Augmentin, Bactrim BS, and Keflex. On Zosyn and IV Vancomycin. Lower extremities appear to be slowly improving. Erythema has significantly improved. Edema is the same. Patient unable to care for herself in any capacity. Transfered to TCU on 2017. Patient making no new complaints. Noted loss of IV overnight leading to missing a dose of IV Vancomycin five nights ago. Possible discharge Monday. Objective - Vital Signs/Intake and Output Vital Signs (last 24 hours): Temp Pulse Resp BP Pulse Ox 98.2 F 70 20 121/77 94 L 05/26/18 06:00 05/26/18 06:00 05/26/18 06:00 05/26/18 06:00 05/26/18 06:00 - Medications Medications: Current Medications Albuterol Sulfate (Albuterol 0.083% Inhal Brittney (2.5 Mg/3 Ml) Ud) 2.5 mg INH Q8 ANNE MARIE PRN Reason: Protocol Last Admin: 05/26/18 07:13 Dose: Not Given Budesonide (Pulmicort Respules) 0.5 mg IH BIDRESP ANNE MARIE PRN Reason: Protocol Last Admin: 05/26/18 07:14 Dose: Not Given Clonazepam (Klonopin) 1 mg PO BID ANNE MARIE PRN Reason: Protocol Last Admin: 05/26/18 09:26 Dose: 1 mg Divalproex Sodium (Depakote Dr(*Bid*)) 500 mg PO BID ANNE MARIE PRN Reason: Protocol Last Admin: 05/26/18 09:26 Dose: 500 mg Escitalopram Oxalate (Lexapro) 10 mg PO DAILY ANNE MARIE PRN Reason: Protocol Last Admin: 05/26/18 09:28 Dose: 10 mg Gabapentin (Neurontin) 300 mg PO TID ANNE MARIE PRN Reason: Protocol Last Admin: 05/26/18 09:28 Dose: 300 mg Heparin Sodium (Porcine) (Heparin) 5,000 units SC Q8 ANNE MARIE PRN Reason: Protocol Last Admin: 05/26/18 06:05 Dose: 5,000 units Vancomycin HCl 1.5 gm/ Sodium (Chloride) 500 mls @ 167 mls/hr IVPB Q12H ANNE MARIE PRN Reason: Protocol Stop: 05/29/18 06:01 Last Admin: 05/26/18 06:05 Dose: 167 mls/hr Levetiracetam (Keppra) 1,000 mg PO BID ANNE MARIE PRN Reason: Protocol Last Admin: 05/26/18 09:27 Dose: 1,000 mg Ondansetron HCl (Zofran Inj) 4 mg IVP Q6H PRN; Protocol PRN Reason: Nausea/Vomiting Pantoprazole Sodium (Protonix Ec Tab) 40 mg PO 0600 ANNE MARIE PRN Reason: Protocol - Labs Labs: 05/25/18 05:45 05/23/18 07:30 - Constitutional Appears: Non-toxic, No Acute Distress, Chronically Ill - Head Exam Head Exam: ATRAUMATIC, NORMOCEPHALIC - Eye Exam Eye Exam: EOMI, PERRL Pupil Exam: NORMAL ACCOMODATION, PERRL - ENT Exam ENT Exam: Mucous Membranes Moist, Normal External Ear Exam, TM's Normal Bilaterally - Neck Exam Neck Exam: Full ROM, Normal Inspection - Respiratory Exam Respiratory Exam: Clear to Ausculation Bilateral, NORMAL BREATHING PATTERN. absent: Rales, Rhonchi, Wheezes - Cardiovascular Exam Cardiovascular Exam: REGULAR RHYTHM, RRR, +S1, +S2 - GI/Abdominal Exam GI & Abdominal Exam: Soft, Normal Bowel Sounds. absent: Distended, Tenderness - Extremities Exam Extremities Exam: Joint Swelling, Pedal Edema Additional comments: +2-3 edema of the bilateral legs with erythema of the legs below the knees. The patient has sloughing of the skin of the left lower leg. - Neurological Exam Neurological Exam: Alert, Awake, CN II-XII Intact Additional comments: Autism. Limited Mental Exam. - Psychiatric Exam Additional comments: Autism. Limited Mental Exam. - Skin Skin Exam: Normal Color Additional comments: +2-3 edema of the bilateral legs with erythema of the legs below the knees. The patient has sloughing of the skin of the left lower leg. Erythema improving. Assessment and Plan - Assessment and Plan (Free Text) Assessment: 67 yo female with bilateral leg edema and erythema with left leg worse than right. 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 Started on IV Vancomycin and Zosyn for antibiotic care. Supportive care. Can check ESR and C-reactive protein. Difficult to assess patient as she has no understanding of medical issues before her. Currently Afebrile and without leukocytosis. Lower leg erythema has improved and is mostly resolved compared to admission although edema remains the same to slight improvement. Transfered and remains in TCU. Continue on IV Vancomycin alone for 10-14 day course of therapy. Slow improvement to the edema of the legs. Still +2-3 edema of both lower extremities. Thank you for allowing me to participate in the care of the patient, we will follow with you.
--- NOTE | 2018-05-26 14:28 | CP.PCM.PN ---
<Philip Quigley - Last Filed: 05/26/18 14:56> Subjective - Date & Time of Evaluation Date of Evaluation: 05/26/18 Time of Evaluation: 12:30 - Subjective Subjective: Patient seen and evaluated at bedside. Patient eating lunch comfortably. No events overnight. Objective - Vital Signs/Intake and Output Vital Signs (last 24 hours): Temp Pulse Resp BP Pulse Ox 98.2 F 70 20 121/77 94 L 05/26/18 06:00 05/26/18 06:00 05/26/18 06:00 05/26/18 06:00 05/26/18 06:00 - Medications Medications: Current Medications Albuterol Sulfate (Albuterol 0.083% Inhal Brittney (2.5 Mg/3 Ml) Ud) 2.5 mg INH Q8 ANNE MARIE PRN Reason: Protocol Last Admin: 05/26/18 13:39 Dose: Not Given Budesonide (Pulmicort Respules) 0.5 mg IH BIDRESP ANNE MARIE PRN Reason: Protocol Last Admin: 05/26/18 07:14 Dose: Not Given Clonazepam (Klonopin) 1 mg PO BID ANNE MARIE PRN Reason: Protocol Last Admin: 05/26/18 09:26 Dose: 1 mg Divalproex Sodium (Depakote Dr(*Bid*)) 500 mg PO BID ANNE MARIE PRN Reason: Protocol Last Admin: 05/26/18 09:26 Dose: 500 mg Escitalopram Oxalate (Lexapro) 10 mg PO DAILY ANNE MARIE PRN Reason: Protocol Last Admin: 05/26/18 09:28 Dose: 10 mg Gabapentin (Neurontin) 300 mg PO TID ANNE MARIE PRN Reason: Protocol Last Admin: 05/26/18 14:10 Dose: Not Given Heparin Sodium (Porcine) (Heparin) 5,000 units SC Q8 ANNE MARIE PRN Reason: Protocol Last Admin: 05/26/18 06:05 Dose: 5,000 units Vancomycin HCl 1.5 gm/ Sodium (Chloride) 500 mls @ 167 mls/hr IVPB Q12H ANNE MARIE PRN Reason: Protocol Stop: 05/29/18 06:01 Last Admin: 05/26/18 06:05 Dose: 167 mls/hr Levetiracetam (Keppra) 1,000 mg PO BID ANNE MARIE PRN Reason: Protocol Last Admin: 05/26/18 09:27 Dose: 1,000 mg Ondansetron HCl (Zofran Inj) 4 mg IVP Q6H PRN; Protocol PRN Reason: Nausea/Vomiting Pantoprazole Sodium (Protonix Ec Tab) 40 mg PO 0600 ANNE MARIE PRN Reason: Protocol - Labs Labs: 05/25/18 05:45 05/23/18 07:30 - Head Exam Head Exam: ATRAUMATIC, NORMOCEPHALIC - Eye Exam Eye Exam: absent: Normal appearance - ENT Exam ENT Exam: Mucous Membranes Dry - Neck Exam Neck Exam: Full ROM - Respiratory Exam Respiratory Exam: Clear to Ausculation Bilateral, NORMAL BREATHING PATTERN - Cardiovascular Exam Cardiovascular Exam: RRR, +S1, +S2 - GI/Abdominal Exam GI & Abdominal Exam: Soft, Normal Bowel Sounds. absent: Tenderness, Hyperactive Bowel Sounds, Pulsatile Mass, Rebound - Neurological Exam Neurological Exam: Alert, Awake - Skin Skin Exam: Warm Assessment and Plan - Assessment and Plan (Free Text) Assessment: 67 yrs old female PMhx asthma, HTN, seizure, legally blind, autism, mood disorder, who was brought in to the ED by her caregiver for bilateral lower leg cellulitis and failure of outpatient antibiotic treatment. Patient has been treated with IV antibiotics, currently on vancomycin. Redness and swelling has improved. Pt stable w/ no complaints on examination; discharged from hospital floor on 05/19 and transferred to transitional care unit on 05/20. Medicine team and infectious disease team following. Plan: Cellulitis/Failure of outpatient antibiotic therapy Lower extremity erythema improvement since admission C/w IV Vanco day #7 w/ renal dosing at this time, to be completed for 10 d as per ID. Will order CRP and ESR weekly. WBC wnl Pt afebrile, VSS Blood cx 2/2 negative for growth Procalcitonin low, CRP elevated Regular diet LE doppler study neg for DVT b/l Chronic Kidney Disease - Stage 3 Cr at baseline Pt not having any decreased urine output Continue to monitor Cr and any clinical complaints Hx HTN Continue monitoring blood pressures Hx Seizures Cont Keppra, divalproex Cont neurontin Hx unspecified mood disorder Cont escitalopram, clonazepam Hx asthma C/w montelukast, albuterol, budesonide GI/DVT ppx: Protonix PO daily, renewed Heparin 5000 U q 8 h Patient seen, examined, and plan agreed upon with Dr. David. Philip Quigley, PGY-1 <Lambert David - Last Filed: 05/26/18 16:19> Objective - Vital Signs/Intake and Output Vital Signs (last 24 hours): Temp Pulse Resp BP Pulse Ox 98.2 F 70 20 121/77 94 L 05/26/18 06:00 05/26/18 06:00 05/26/18 06:00 05/26/18 06:00 05/26/18 06:00 - Medications Medications: Current Medications Albuterol Sulfate (Albuterol 0.083% Inhal Brittney (2.5 Mg/3 Ml) Ud) 2.5 mg INH Q8 ANNE MARIE PRN Reason: Protocol Last Admin: 05/26/18 13:39 Dose: Not Given Budesonide (Pulmicort Respules) 0.5 mg IH BIDRESP ANNE MARIE PRN Reason: Protocol Last Admin: 05/26/18 07:14 Dose: Not Given Clonazepam (Klonopin) 1 mg PO BID ANNE MARIE PRN Reason: Protocol Last Admin: 05/26/18 09:26 Dose: 1 mg Divalproex Sodium (Depakote Dr(*Bid*)) 500 mg PO BID ANNE MARIE PRN Reason: Protocol Last Admin: 05/26/18 09:26 Dose: 500 mg Escitalopram Oxalate (Lexapro) 10 mg PO DAILY ANNE MARIE PRN Reason: Protocol Last Admin: 05/26/18 09:28 Dose: 10 mg Gabapentin (Neurontin) 300 mg PO TID ANNE MARIE PRN Reason: Protocol Last Admin: 05/26/18 14:10 Dose: Not Given Heparin Sodium (Porcine) (Heparin) 5,000 units SC Q8 ANNE MARIE PRN Reason: Protocol Last Admin: 05/26/18 14:38 Dose: 5,000 units Vancomycin HCl 1.5 gm/ Sodium (Chloride) 500 mls @ 167 mls/hr IVPB Q12H ANNE MARIE PRN Reason: Protocol Stop: 05/29/18 06:01 Last Admin: 05/26/18 06:05 Dose: 167 mls/hr Levetiracetam (Keppra) 1,000 mg PO BID ANNE MARIE PRN Reason: Protocol Last Admin: 05/26/18 09:27 Dose: 1,000 mg Ondansetron HCl (Zofran Inj) 4 mg IVP Q6H PRN; Protocol PRN Reason: Nausea/Vomiting Pantoprazole Sodium (Protonix Ec Tab) 40 mg PO 0600 ANNE MARIE PRN Reason: Protocol - Labs Labs: 05/25/18 05:45 05/23/18 07:30 Attending/Attestation - Attestation I have personally seen and examined this patient.: Yes I have fully participated in the care of the patient.: Yes I have reviewed all pertinent clinical information, including history, physical exam and plan: Yes Notes (Text): 05/26/18 16:17 67 year old female with past medical history of asthma, hypertension, legally blind, autism and seizure disorder who presented with bilateral lower leg cellulitis with failed outpatient treatment. She is currently on iv vancomycin. ID is following. Possible d/c planning early next week Lambert David MD Hospitalist.
[2018-05-27] MEDS: Albuterol 0.083% Inhal Sol (2.5 mg/3 mL) UD INH SCH ×3 (01:52→14:00)
[2018-05-27] MEDS: Budesonide 0.5 mg/2 ml Inhal Susp UD IH SCH ×3 (01:52→20:04)
[2018-05-27] MEDS: Pantoprazole 40 mg EC Tab PO SCH (06:21)
[2018-05-27] MEDS: Vancomycin 1.5 GM in Sodium Chloride 0.9% 500 ML IVPB SCH ×2 (06:21→18:16)
[2018-05-27] MEDS: Divalproex 500 mg DR(BID formulation) PO SCH ×2 (11:10→18:12)
[2018-05-28] MEDS: Pantoprazole 40 mg EC Tab PO SCH (05:30)
[2018-05-28] MEDS: Vancomycin 1.5 GM in Sodium Chloride 0.9% 500 ML IVPB SCH (05:46)
[2018-05-28] MEDS: Budesonide 0.5 mg/2 ml Inhal Susp UD IH SCH (07:35)
[2018-05-28] MEDS: Albuterol 0.083% Inhal Sol (2.5 mg/3 mL) UD INH SCH (07:36)
[2018-05-28] MEDS: Divalproex 500 mg DR(BID formulation) PO SCH (09:21)
--- NOTE | 2018-05-28 13:22 | CP.PCM.DIS ---
<Joel Gan - Last Filed: 05/28/18 13:18> Provider - Provider Date of Admission: 05/19/18 12:17 Attending physician: Lambert David MD Primary care physician: Arabella Esquivel MD Consults: CRESCENCIO - Dr. Nunes Time Spent in preparation of Discharge (in minutes): 45 Hospital Course - Lab Results Lab Results: Most Recent Lab Values WBC 5.8 10^3/ul (4.5-11.0) 05/25/18 05:45 RBC 3.62 10^6/uL (3.5-6.1) 05/25/18 05:45 Hgb 10.7 g/dL (12.0-16.0) L 05/25/18 05:45 Hct 33.9 % (36.0-48.0) L 05/25/18 05:45 MCV 93.6 fl (80.0-105.0) 05/25/18 05:45 MCH 29.6 pg (25.0-35.0) 05/25/18 05:45 MCHC 31.6 g/dl (31.0-37.0) 05/25/18 05:45 RDW 15.3 % (11.5-14.5) H 05/25/18 05:45 Plt Count 195 10^3/uL (120.0-450.0) 05/25/18 05:45 MPV 10.2 fl (7.0-11.0) 05/25/18 05:45 Gran % 56.8 % (50.0-68.0) 05/25/18 05:45 Lymph % (Auto) 19.8 % (22.0-35.0) L 05/25/18 05:45 Carver % (Auto) 16.0 % (1.0-6.0) H 05/25/18 05:45 Eos % (Auto) 6.7 % (1.5-5.0) H 05/25/18 05:45 Baso % (Auto) 0.7 % (0.0-3.0) 05/25/18 05:45 Gran # 3.31 (1.4-6.5) 05/25/18 05:45 Lymph # (Auto) 1.2 (1.2-3.4) 05/25/18 05:45 Carver # (Auto) 0.9 (0.1-0.6) H 05/25/18 05:45 Eos # (Auto) 0.4 (0.0-0.7) 05/25/18 05:45 Baso # (Auto) 0.04 K/mm3 (0.0-2.0) 05/25/18 05:45 Sodium 143 mmol/L (132-148) 05/23/18 07:30 Potassium 4.2 mmol/L (3.6-5.0) 05/23/18 07:30 Chloride 109 mmol/L (98-107) H 05/23/18 07:30 Carbon Dioxide 26 mmol/L (21-33) 05/23/18 07:30 Anion Gap 13 (10-20) 05/23/18 07:30 BUN 22 mg/dL (7-21) H 05/23/18 07:30 Creatinine 0.9 mg/dl (0.7-1.2) 05/23/18 07:30 Est GFR ( Amer) > 60 05/23/18 07:30 Est GFR (Non-Af Amer) > 60 05/23/18 07:30 Random Glucose 76 mg/dL (70-110) 05/23/18 07:30 Calcium 8.2 mg/dL (8.4-10.5) L 05/23/18 07:30 Total Bilirubin 0.2 mg/dL (0.2-1.3) 05/23/18 07:30 AST 39 U/L (14-36) H D 05/23/18 07:30 ALT 45 U/L (7-56) 05/23/18 07:30 Alkaline Phosphatase 58 U/L (38-126) 05/23/18 07:30 Total Protein 5.7 g/dL (5.8-8.3) L 05/23/18 07:30 Albumin 2.8 g/dL (3.0-4.8) L 05/23/18 07:30 Globulin 2.9 gm/dL 05/23/18 07:30 Albumin/Globulin Ratio 1.0 (1.1-1.8) L 05/23/18 07:30 - Hospital Course Hospital Course: Joel Gan DO PGY-1, Foreclosure Paralegal Medicine Discharge Summary This is a 67 y o f with PMhx asthma, seizure, legally blind, autism, mood disorder, who presented to [facility] ED on 05/16/18, brought in by caregiver for worsening of b/l lower leg cellulitis worsening x2 weeks. Prior to presentation at [facility] on 05/16/18, Caregiver brought pt to [facility] ED who diagnosed her with cellulitis and prescribed Bactrim PO x 7 d. On day 5 of therapy, caregiver brought pt to PCP stating that cellulitis was not improving. PCP agreed with this as per caregiver and placed pt on additional 7 day course of Bactrim and added Keflex for therapy. Upon presentation in ED caregiver stated that cellulitis had spread to both legs, and pt has had decreased PO intake. Given failure of outpt therapy, pt was admitted for infectious disease evaluation. ID started pt on vancomycin and zosyn at renal dosing given CKD/low GFR, and was thus deescalated to solely IV vancomycin. Throughout her hospital course, patient appeared to remain at mental baseline; no acute events reported throughout hospital course. She has remained afebrile, VSS, WBC stable. LE Doppler study was unremarkable She was noted to have an elevated CRP, and a increase pro-BNP. Her Cr was elevated 0.1 from baseline on admission however unremarkable otherwise. She has tolerated IV Abx well. Pt's HTN was controlled w / valsartan 40 QD, Seizure hx was adressed w/ home keppra and depakote, Hx of ashtma was mainted w/ home montelukast, and PRN albuterol/ budesonide. Pt was transferred to TCU from medical floor for completion of IV antibiotic therapy and physical therapy services. No acute events were reported during pt's stay in TCU, she improved clinically and cellulitis improved. She was discharged to home in stable condition on 05/28/18 to her half-way, with instructions to follow up with her PCP within 1 week of discharge. Pt's instructor looping was given instructions to resume home medications and follow up with pt's PCP. Discharge Exam - Head Exam Head Exam: ATRAUMATIC, NORMOCEPHALIC - Eye Exam Eye Exam: EOMI, Normal appearance, PERRL - ENT Exam ENT Exam: Mucous Membranes Moist, Normal Oropharynx - Neck Exam Neck exam: Full Rom, Normal Inspection - Respiratory Exam Respiratory Exam: Clear to PA & Lateral, NORMAL BREATHING PATTERN, UNREMARKABLE - Cardiovascular Exam Cardiovascular Exam: REGULAR RHYTHM, +S1, +S2 - GI/Abdominal Exam GI & Abdominal Exam: Normal Bowel Sounds, Soft, Unremarkable - Extremities Exam Extremities exam: full ROM, normal capillary refill, normal inspection, pedal pulses present - Neurological Exam Neurological exam: Alert, Normal Gait, Reflexes Normal Additional comments: Oriented x2 - Psychiatric Exam Psychiatric exam: Flat Affect - Skin Skin Exam: Dry, Intact, Normal Color, Warm Discharge Plan - Discharge Medications Prescriptions: Divalproex [Jeff RENEE(*BID*)] 500 mg PO BID #14 tcp - Follow Up Plan Condition: GOOD Disposition: HOME/ ROUTINE Instructions: Chronic Obstructive Pulmonary Disease (COPD), Including Emphysema , High Blood Pressure in Adults, Seizures, Adult (DC), Cellulitis (Skin Infection), Adult (DC), Cellulitis (DC), Cellulitis (GEN) Additional Instructions: Please follow-up with your PCP (Dr. Esquivel) within 1 week of discharge. Take home medications as prescribed. Should symptoms recur or worsen, please call your PCP or report to your nearest emergency department. Referrals: Sierra NEELY,Arabella Kessler MD [Primary Care Provider] - <Lambert David - Last Filed: 05/28/18 17:39> Provider - Provider Date of Admission: 05/19/18 12:17 Attending physician: Lambert David MD Primary care physician: Arabella Esquivel MD Hospital Course - Lab Results Lab Results: Most Recent Lab Values WBC 5.8 10^3/ul (4.5-11.0) 05/25/18 05:45 RBC 3.62 10^6/uL (3.5-6.1) 05/25/18 05:45 Hgb 10.7 g/dL (12.0-16.0) L 05/25/18 05:45 Hct 33.9 % (36.0-48.0) L 05/25/18 05:45 MCV 93.6 fl (80.0-105.0) 05/25/18 05:45 MCH 29.6 pg (25.0-35.0) 05/25/18 05:45 MCHC 31.6 g/dl (31.0-37.0) 05/25/18 05:45 RDW 15.3 % (11.5-14.5) H 05/25/18 05:45 Plt Count 195 10^3/uL (120.0-450.0) 05/25/18 05:45 MPV 10.2 fl (7.0-11.0) 05/25/18 05:45 Gran % 56.8 % (50.0-68.0) 05/25/18 05:45 Lymph % (Auto) 19.8 % (22.0-35.0) L 05/25/18 05:45 Carver % (Auto) 16.0 % (1.0-6.0) H 05/25/18 05:45 Eos % (Auto) 6.7 % (1.5-5.0) H 05/25/18 05:45 Baso % (Auto) 0.7 % (0.0-3.0) 05/25/18 05:45 Gran # 3.31 (1.4-6.5) 05/25/18 05:45 Lymph # (Auto) 1.2 (1.2-3.4) 05/25/18 05:45 Carver # (Auto) 0.9 (0.1-0.6) H 05/25/18 05:45 Eos # (Auto) 0.4 (0.0-0.7) 05/25/18 05:45 Baso # (Auto) 0.04 K/mm3 (0.0-2.0) 05/25/18 05:45 Sodium 143 mmol/L (132-148) 05/23/18 07:30 Potassium 4.2 mmol/L (3.6-5.0) 05/23/18 07:30 Chloride 109 mmol/L (98-107) H 05/23/18 07:30 Carbon Dioxide 26 mmol/L (21-33) 05/23/18 07:30 Anion Gap 13 (10-20) 05/23/18 07:30 BUN 22 mg/dL (7-21) H 05/23/18 07:30 Creatinine 0.9 mg/dl (0.7-1.2) 05/23/18 07:30 Est GFR ( Amer) > 60 05/23/18 07:30 Est GFR (Non-Af Amer) > 60 05/23/18 07:30 Random Glucose 76 mg/dL (70-110) 05/23/18 07:30 Calcium 8.2 mg/dL (8.4-10.5) L 05/23/18 07:30 Total Bilirubin 0.2 mg/dL (0.2-1.3) 05/23/18 07:30 AST 39 U/L (14-36) H D 05/23/18 07:30 ALT 45 U/L (7-56) 05/23/18 07:30 Alkaline Phosphatase 58 U/L (38-126) 05/23/18 07:30 Total Protein 5.7 g/dL (5.8-8.3) L 05/23/18 07:30 Albumin 2.8 g/dL (3.0-4.8) L 05/23/18 07:30 Globulin 2.9 gm/dL 05/23/18 07:30 Albumin/Globulin Ratio 1.0 (1.1-1.8) L 05/23/18 07:30 Attending/Attestation - Attestation I have personally seen and examined this patient.: Yes I have fully participated in the care of the patient.: Yes I have reviewed all pertinent clinical information, including history, physical exam and plan: Yes Notes (Text): 05/28/18 17:37 67 year old female with past medical history of asthma, hypertension, legally blind, autism and seizure disorder who presented with bilateral lower leg cellulitis with failed outpatient treatment. She was started on iv vancomycin with improvement of cellulitis. She is discharged to follow up with pmd. Lambert David MD Hospitalist.
== END 2018-05-28 11:31 | disposition home or self-care (01) | DRG 603 ==
LOC: TRCU 12:17
PROVIDERS: ADMIT Internal Medicine; ATTEND Internal Medicine
PROC: F07Z9FZ Gait Training/Functional Ambulation Treatment using Assistive, Adaptive, Supportive or Protective Equipment (ICD-10-PCS; principal; 2018-05-22)
PROC: F07Z5ZZ Bed Mobility Treatment (ICD-10-PCS; 2018-05-22)
PROC: F07Z8ZZ Transfer Training Treatment (ICD-10-PCS; 2018-05-22)
PROC: F08Z3ZZ Feeding/Eating Treatment (ICD-10-PCS; 2018-05-24)
DX: L03.115 Cellulitis of right lower limb (principal); F84.0 Autistic disorder; L03.116 Cellulitis of left lower limb; I12.9 Hypertensive chronic kidney disease with stage 1 through stage 4 chronic kidney disease, or unspecified chronic kidney disease; J44.9 Chronic obstructive pulmonary disease, unspecified; N18.3 Chronic kidney disease, stage 3 (moderate); I25.10 Atherosclerotic heart disease of native coronary artery without angina pectoris; E78.00 Pure hypercholesterolemia, unspecified; K21.9 Gastro-esophageal reflux disease without esophagitis; G40.909 Epilepsy, unspecified, not intractable, without status epilepticus; H54.8 Legal blindness, as defined in USA; F39 Unspecified mood [affective] disorder

== ENCOUNTER 2018-06-01 10:42 | Inpatient (IN) | payer MEDICARE, OTHER ==
--- NOTE | 2018-06-01 11:31 | ED PDOC ---
Arrival/HPI - General Chief Complaint: Abnormal Skin Integrity Time Seen by Provider: 06/01/18 11:16 Historian: Caregiver EM Caveat: Other (Autistic) - History of Present Illness Narrative History of Present Illness (Text): 06/01/18 11:27 A 67 year old female, whose past medical history includes asthma, seizure, legally blind, autism, mood disorder, presents to the emergency room for a complaint of worsening generalized rash. The patient notes that she was discharged 4 days ago after an admission for right lower extremity cellulitis. Patient reports that 3 days ago she began to notice that a rash on the left lower leg was becoming progressively worse. Today, she developed a generalized, erythematous, raised, itchy rash. The patient is autistic, unable to give her history and lives in a fpc. Her 2 caregivers gave the patient's history. Patient is a non-smoker/ non - drinker. The patient denies fevers, chills, headache, dizziness, URI, chest pain, shortness of breath, dyspnea on exertion, abdominal pain, nausea, vomiting, diarrhea, neck/back pain, urinary/bowel changes or any other complaint. PMD: Dr. Ga Time/Duration: Other (Few Days) Symptom Onset: Sudden Symptom Course: Unchanged Activities at Onset: Rest, Light Context: Home Associated Symptoms (Text): 06/01/18 12:11 Patient was recently admitted for right lower extremity cellulitis and discharge 4 days ago. 3 days ago she developed a left lower extremity cellulitis which has been continually worsening. She was not discharged on any antibiotics. Today she developed a generalized erythematous raised rash consistent with a drug rash. The patient is autistic and unable to give any history. History is obtained from live in aide. No fever. No vomiting or diarrhea. Past Medical History - Provider Review Nursing Documentation Reviewed: Yes - Infectious Disease Hx of Infectious Diseases: None - Tetanus Immunization Tetanus Immunization: Unknown - Cardiac Hx Cardiac Disorders: Yes Hx Hypertension: Yes - Pulmonary Hx Asthma: Yes - Neurological Hx Neurological Disorder: Yes Hx Seizures: Yes - HEENT Hx HEENT Disorder: Yes Hx Blind: Yes - Renal Hx Renal Disorder: Yes - Endocrine/Metabolic Hx Endocrine Disorders: No - Hematological/Oncological Hx Blood Disorders: No - Integumentary Hx Dermatological Disorder: Yes Hx Cellulitis: Yes - Musculoskeletal/Rheumatological Hx Falls: No - Gastrointestinal Hx Gastrointestinal Disorders: Yes Hx Gastroesophageal Reflux: Yes - Genitourinary/Gynecological Hx Genitourinary Disorders: No - Psychiatric Hx Psychophysiologic Disorder: Yes Hx Anxiety: Yes Hx Depression: Yes Hx Substance Use: No - Past Surgical History Past Surgical History: Unable to Obtain - Suicidal Assessment Feels Threatened In Home Enviroment: No Family/Social History - Physician Review Nursing Documentation Reviewed: Yes Family/Social History: No Known Family HX Smoking Status: Never Smoked Hx Alcohol Use: No Hx Substance Use: No Allergies/Home Meds Allergies/Adverse Reactions: Allergies carbamazepine [From Tegretol] Allergy (Verified 06/01/18 10:44) SHORTNESS OF BREATH Home Medications: Home Meds Medication Instructions Recorded Confirmed Albuterol 0.083% [Albuterol 0.083% 2.5 mg INH Q8 12/16/13 06/01/18 Inhal Brittney (2.5 mg/3 ml) UD] Escitalopram [Lexapro] 10 mg PO DAILY 12/16/13 06/01/18 Divalproex [Depakote ER(ONCE 500 mg PO BID 02/08/18 06/01/18 DAILY)] Budesonide [Pulmicort Respules] 0.5 mg IH BID 05/16/18 06/01/18 Clonazepam [Klonopin] 1 mg PO BID 05/16/18 06/01/18 Gabapentin [Neurontin] 300 mg PO TID 05/16/18 06/01/18 Levetiracetam [Keppra] 1,000 mg PO BID 05/16/18 06/01/18 Review of Systems - Physician Review All systems were reviewed & negative as marked: Yes - Review of Systems Systems not reviewed;Unavailable: Other (Autistic) Skin: Rash (Generalized rash, erythematous, raised. ), Cellulitis (Cellulitis right lower leg. ) Physical Exam Vital Signs Reviewed: Yes Vital Signs Temp Pulse Resp BP Pulse Ox 06/01/18 15:06 99 F 76 18 148/83 100 06/01/18 15:03 148/83 06/01/18 14:48 99.0 F 73 20 130/79 99 06/01/18 10:49 97.6 F 79 18 120/82 96 Temperature: Afebrile Blood Pressure: Normal Pulse: Regular Respiratory Rate: Normal Appearance: Positive for: Well-Appearing, Non-Toxic, Comfortable Pain Distress: None Mental Status: Positive for: Alert and Oriented X 3 - Systems Exam Head: Present: Atraumatic, Normocephalic Pupils: Present: PERRL Extroacular Muscles: Present: EOMI Conjunctiva: Present: Normal Mouth: Present: Moist Mucous Membranes Pharnyx: No: ERYTHEMA, EXUDATE, TONSILS ENLARGED Neck: Present: Normal Range of Motion Respiratory/Chest: Present: Clear to Auscultation, Good Air Exchange. No: Respiratory Distress, Accessory Muscle Use Cardiovascular: Present: Regular Rate and Rhythm, Normal S1, S2. No: Murmurs Abdomen: Present: Other (Obese). No: Tenderness, Distention, Peritoneal Signs Back: Present: Normal Inspection Upper Extremity: Present: Normal Inspection. No: Cyanosis, Edema Lower Extremity: Present: Normal Inspection. No: Edema Neurological: Present: GCS=15, CN II-XII Intact, Speech Normal Skin: Present: Warm, Rashes (Generalized erythematous, blanching, raised rash. Consistent with drug rash. ), Erythematous, Other (Cellulitis to left lower extremity erythematous, blanching, tender, warm.) Psychiatric: Present: Alert Medical Decision Making ED Course and Treatment: 06/01/18 11:41 Impression: A 67 year old female presents to the emergency room with a complaint of generalized rash that developed today. Plan: -- EKG -- Chest X-ray -- Labs -- Blood Culture -- Urinalysis -- SOLU-Medrol and Vancomycin -- Reassess and disposition Prior Visits: Notes and results from previous visits were reviewed. On 05/16/18 was seen in the emergency room with a complaint of bilateral lower extremity cellulitis. Patient was hospitalized. Progress Notes: Chest X-ray Dictator : Adrián Harkins MD Report Date : 06/01/2018 12:44:59 IMPRESSION: No active disease. - Lab Interpretations Lab Results: 06/01/18 13:24 06/01/18 13:24 Lab Results 06/01/18 13:24: Sodium 139, Chloride 101, Potassium 4.5, Carbon Dioxide 28, Anion Gap 15, BUN 27 H, Creatinine 1.0, Est GFR ( Amer) > 60, Est GFR ( Non-Af Amer) 55, Random Glucose 97, Calcium 8.4, Phosphorus 4.0, Magnesium 2.4 H , Total Bilirubin 0.5, AST 29, ALT 41, Alkaline Phosphatase 75, Total Protein 6.3, Albumin 3.3, Globulin 3.0, Albumin/Globulin Ratio 1.1 06/01/18 13:24: pO2 47, VBG pH 7.35, VBG pCO2 56.0, VBG HCO3 30.9 H, VBG Total CO2 32.6 H, VBG O2 Sat (Calc) 82.4 H, VBG Base Excess 3.8 H, VBG Potassium 4.5, Sodium 138.0, Chloride 106.0, Glucose 98, Lactate 1.4, FiO2 21.0, Venous Blood Potassium 4.5 06/01/18 13:24: WBC 3.9 L D, RBC 3.40 L, Hgb 10.3 L, Hct 31.8 L, MCV 93.5, MCH 30.3, MCHC 32.4, RDW 14.9 H, Plt Count 148, MPV 10.8, Gran % 56.7, Lymph % (Auto ) 19.4 L, Jones % (Auto) 12.2 H, Eos % (Auto) 10.9 H, Baso % (Auto) 0.8, Gran # 2.19, Lymph # (Auto) 0.8 L, Jones # (Auto) 0.5, Eos # (Auto) 0.4, Baso # (Auto) 0.03 - RAD Interpretation Radiology Orders: 06/01/18 12:13 CHEST PORTABLE [RAD] Stat - Medication Orders Current Medication Orders: Albuterol Sulfate (Albuterol 0.083% Inhal Brittney (2.5 Mg/3 Ml) Ud) 2.5 mg INH Q8 [facility] Last Admin: 06/01/18 21:41 Dose: Not Given Non-Admin Reason: Patient Refused Budesonide (Pulmicort Respules) 0.5 mg IH BID [facility] Last Admin: 06/01/18 21:41 Dose: Not Given Non-Admin Reason: Patient Refused Clonazepam (Klonopin) 1 mg PO BID [facility] PRN Reason: Protocol Last Admin: 06/01/18 17:43 Dose: 1 mg Behavioural Document 06/01/18 17:43 TAV (Rec: 06/01/18 17:43 TAV [id number]) Maintenance Maintenance Dose Yes Nonmedicinal Nonmedicinal Interventions Redirect Behavior Behavior for Medication: Anxiety Diphenhydramine HCl (Benadryl) 25 mg IVP Q4H PRN PRN Reason: Allergy symptoms Divalproex Sodium (Depakote Dr(*Bid*)) 500 mg PO BID AN[facility]IE PRN Reason: Protocol Last Admin: 06/01/18 17:42 Dose: 500 mg Behavioural Document 06/01/18 17:42 TAV (Rec: 06/01/18 17:42 TAV [id number]) Maintenance Maintenance Dose Yes Nonmedicinal Nonmedicinal Interventions Redirect Behavior Behavior for Medication: Anxiety Enoxaparin Sodium (Lovenox) 40 mg SC DAILY ANNE MARIE PRN Reason: Protocol Escitalopram Oxalate (Lexapro) 10 mg PO DAILY ANNE MARIE Furosemide (Lasix) 20 mg IVP DAILY AN[facility]IE Last Admin: 06/01/18 15:03 Dose: 20 mg MAR Blood Pressure Document 06/01/18 15:03 LA (Rec: 06/01/18 15:06 LA [id number]) Blood Pressure Blood Pressure (100/60-150/90) 148/83 IVP Administration Document 06/01/18 15:03 LA (Rec: 06/01/18 15:06 LA [id number]) Charges for Administration # of IVP Administrations 1 Gabapentin (Neurontin) 300 mg PO TID ANNE MARIE PRN Reason: Protocol Last Admin: 06/01/18 17:43 Dose: 300 mg Behavioural Document 06/01/18 17:43 TAV (Rec: 06/01/18 17:43 TAV [id number]) Maintenance Maintenance Dose Yes Nonmedicinal Nonmedicinal Interventions Redirect Behavior Behavior for Medication: Anxiety Cefepime HCl (Maxipime 1gm) 1 gm in 100 mls @ 100 mls/hr IVPB Q12 ANNE MARIE PRN Reason: Protocol Levetiracetam (Keppra) 1,000 mg PO BID [facility] MARIE Last Admin: 06/01/18 17:43 Dose: 1,000 mg Pantoprazole Sodium (Protonix Ec Tab) 40 mg PO 0600 ANNE MARIE Discontinued Medications Diphenhydramine HCl (Benadryl) 25 mg IVP STAT STA Stop: 06/01/18 14:21 Last Admin: 06/01/18 15:03 Dose: 25 mg IVP Administration Document 06/01/18 15:03 LA (Rec: 06/01/18 15:03 LA [id number]) Charges for Administration # of IVP Administrations 1 Vancomycin HCl (Vancomycin 1gm) 1 gm in 250 mls @ 167 mls/hr IVPB STAT STA PRN Reason: Protocol Stop: 06/01/18 13:42 Last Admin: 06/01/18 13:28 Dose: 167 mls/hr eMAR Start Stop Document 06/01/18 13:28 LA (Rec: 06/01/18 13:28 LA [id number]) Intravenous Solution Start Date 06/01/18 Start Time 13:28 End Date 06/01/18 End time 14:58 Total Infusion Time 90 Methylprednisolone (Solu-Medrol) 125 mg IVP ONCE ONE Stop: 06/01/18 12:16 Last Admin: 06/01/18 13:28 Dose: 125 mg IVP Administration Document 06/01/18 13:28 LA (Rec: 06/01/18 13:28 ERROL [id number]) Charges for Administration # of IVP Administrations 1 - Scribe Statement The provider has reviewed the documentation as recorded by the Chalino Carrera Provider Scribe Attestation: All medical record entries made by the Scribe were at my direction and personally dictated by me. I have reviewed the chart and agree that the record accurately reflects my personal performance of the history, physical exam, medical decision making, and the department course for this patient. I have also personally directed, reviewed, and agree with the discharge instructions and disposition. Disposition/Present on Arrival - Present on Arrival Any Indicators Present on Arrival: No History of DVT/PE: No History of Uncontrolled Diabetes: No Urinary Catheter: No History of Decub. Ulcer: No History Surgical Site Infection Following: None - Disposition Have Diagnosis and Disposition been Completed?: Yes Diagnosis: Cellulitis, Drug reaction Disposition: HOSPITALIZED Disposition Time: 14:07 Patient Plan: Admission Patient Problems: Current Active Problems Problem Status Onset Cellulitis Acute Drug reaction Acute Condition: GOOD
[2018-06-01] MEDS ORDERED: Vancomycin 1gm in NS 250ml 1 GM/250 ML BAG IVPB STA (12:13)
--- NOTE | 2018-06-01 12:46 | RAD ---
Date of service: 06/01/2018 HISTORY: Sepsis Patient COMPARISON: 05/16/2018 FINDINGS: LUNGS: No active pulmonary disease. PLEURA: No significant pleural effusion identified, no pneumothorax apparent. CARDIOVASCULAR: Normal. OSSEOUS STRUCTURES: No significant abnormalities. VISUALIZED UPPER ABDOMEN: Normal. OTHER FINDINGS: None. IMPRESSION: No active disease.
[2018-06-01 13:47] LABS: VENOUS BLOOD GAS BASE EXCESS 3.8 mmol/L (0.0-2.0); VENOUS BLOOD GAS PO2 47 mm/Hg (30-55); VENOUS BLOOD PH 7.35 (7.32-7.43)
[2018-06-01 14:01] LABS: BASO # 0.03 K/mm3 (0.0-2.0); BASO % 0.8 % (0.0-3.0); EOS # 0.4 (0.0-0.7); EOS % 10.9 % (1.5-5.0); GRAN # 2.19 (1.4-6.5); GRAN % 56.7 % (50.0-68.0); HEMOGLOBIN 10.3 g/dL (12.0-16.0); LYMPH # 0.8 (1.2-3.4); LYMPH % 19.4 % (22.0-35.0); MEAN CELL VOLUME 93.5 fl (80.0-105.0); MEAN CORPUSCULAR HEMOGLOBIN 30.3 pg (25.0-35.0); MEAN CORPUSCULAR HGB CONC 32.4 g/dl (31.0-37.0); MEAN PLATELET VOLUME 10.8 fl (7.0-11.0); MONO # 0.5 (0.1-0.6); MONO % 12.2 % (1.0-6.0); RBC 3.4 10^6/uL (3.5-6.1); RED CELL DISTRIBUTION WIDTH 14.9 % (11.5-14.5); WHITE BLOOD COUNT 3.9 10^3/ul (4.5-11.0)
[2018-06-01 14:13] LABS: ALB/GLOB RATIO 1.1 (1.1-1.8); ALBUMIN 3.3 g/dL (3.0-4.8); BLOOD UREA NITROGEN 27 mg/dL (7-21); CALCIUM 8.4 mg/dL (8.4-10.5); GFR AFRICAN-AMERICAN > 60; GFR NON-AFRICAN AMERICAN 55
[2018-06-01 14:14] LABS: ALT/SGPT 41 U/L (7-56); AST/SGOT 29 U/L (14-36)
[2018-06-01] MEDS ORDERED: DiphenhydrAMINE 50 mg/ml Inj IVP STA (14:20)
--- NOTE | 2018-06-01 15:06 | CP.PCM.CON ---
History of Present Illness - History of Present Illness History of Present Illness: Infectious Disease Consultation: June 01, 2018 67 yo female with history of Asthma, Seizures, Legal Blindness, and Autism presenting with rash in the left lower leg now. The patient was just recently released for [facility] for two week history of worsening bilateral leg edema and cellulitis. The patient was seen by several doctors including her PMD and aerospace medicine physician. The patient first started with blister in the anterior left lower leg as per the patient's setter up. The patient currently has +2-3 edema of both legs. The patient is unable to give any history. The patient has been on Augmentin, Bactrim BS, and Keflex. Patient's caretakers give the patient's history. On Cefepime and IV Vancomycin. Patient unable to care for herself in any capacity. PMHx: Asthma, Seizures, Legal Blindness, COPD, CAD, HTN, and Autism PSHx: none given Allergies: Carbamazepine Social Hx: No tobacco, EtOH, or illicit drug use Family Hx: Unable to Obtain ROS: Unable to Obtain Active Medications Albuterol Sulfate (Albuterol 0.083% Inhal Brittney (2.5 Mg/3 Ml) Ud) 2.5 mg INH Q8 ANNE MARIE Budesonide (Pulmicort Respules) 0.5 mg IH BID [facility] Clonazepam (Klonopin) 1 mg PO BID [facility]NE MARIE PRN Reason: Protocol Divalproex Sodium (Depakote Dr(*Bid*)) 500 mg PO BID [facility]IE PRN Reason: Protocol Enoxaparin Sodium (Lovenox) 40 mg SC DAILY ANNE MARIE PRN Reason: Protocol Escitalopram Oxalate (Lexapro) 10 mg PO DAILY [facility]IE Furosemide (Lasix) 20 mg IVP DAILY ANNE MARIE Gabapentin (Neurontin) 300 mg PO TID [facility] MARIE PRN Reason: Protocol Cefepime HCl (Maxipime 1gm) 1 gm in 100 mls @ 100 mls/hr IVPB Q12 ANNE MARIE PRN Reason: Protocol Levetiracetam (Keppra) 1,000 mg PO BID [facility]IE Pantoprazole Sodium (Protonix Ec Tab) 40 mg PO 0600 ANNE MARIE Past Patient History - Infectious Disease Hx of Infectious Diseases: None - Tetanus Immunizations Tetanus Immunization: Unknown - Past Medical History & Family History Past Medical History?: Yes - Past Social History Smoking Status: Never Smoked - CARDIAC Hx Cardiac Disorders: Yes Hx Hypertension: Yes - PULMONARY Hx Asthma: Yes - NEUROLOGICAL Hx Neurological Disorder: Yes Hx Seizures: Yes - HEENT Hx HEENT Problems: Yes Hx Blind: Yes - RENAL Hx Chronic Kidney Disease: Yes - ENDOCRINE/METABOLIC Hx Endocrine Disorders: No - HEMATOLOGICAL/ONCOLOGICAL Hx Blood Disorders: No - INTEGUMENTARY Hx Dermatological Problems: Yes Hx Cellulitis: Yes - MUSCULOSKELETAL/RHEUMATOLOGICAL Hx Falls: No - GASTROINTESTINAL Hx Gastrointestinal Disorders: Yes Hx Gastroesophageal Reflux: Yes - GENITOURINARY/GYNECOLOGICAL Hx Genitourinary Disorders: No - PSYCHIATRIC Hx Psychophysiologic Disorder: Yes Hx Anxiety: Yes Hx Depression: Yes Hx Substance Use: No - SURGICAL HISTORY Hx Surgeries: No Meds Allergies/Adverse Reactions: Allergies Allergy/AdvReac Type Severity Reaction Status Date / Time carbamazepine [From Tegretol] Allergy SHORTNESS Verified 06/01/18 10:44 OF BREATH - Medications Medications: Current Medications Albuterol Sulfate (Albuterol 0.083% Inhal Brittney (2.5 Mg/3 Ml) Ud) 2.5 mg INH Q8 AN[facility] MARIE Budesonide (Pulmicort Respules) 0.5 mg IH BID [facility] MARIE Clonazepam (Klonopin) 1 mg PO BID ANNE MARIE PRN Reason: Protocol Divalproex Sodium (Depakote Dr(*Bid*)) 500 mg PO BID ANNE MARIE PRN Reason: Protocol Enoxaparin Sodium (Lovenox) 40 mg SC DAILY ANNE MARIE PRN Reason: Protocol Escitalopram Oxalate (Lexapro) 10 mg PO DAILY AN[facility] MARIE Furosemide (Lasix) 20 mg IVP DAILY AN[facility] MARIE Gabapentin (Neurontin) 300 mg PO TID ANNE MARIE PRN Reason: Protocol Cefepime HCl (Maxipime 1gm) 1 gm in 100 mls @ 100 mls/hr IVPB Q12 ANNE MARIE PRN Reason: Protocol Levetiracetam (Keppra) 1,000 mg PO BID AN[facility] MARIE Pantoprazole Sodium (Protonix Ec Tab) 40 mg PO 0600 ANNE MARIE Physical Exam - Constitutional Appears: Non-toxic, No Acute Distress, Chronically Ill - Head Exam Head Exam: ATRAUMATIC, NORMOCEPHALIC - Eye Exam Eye Exam: EOMI, PERRL Pupil Exam: NORMAL ACCOMODATION, PERRL - ENT Exam ENT Exam: Mucous Membranes Moist, Normal External Ear Exam, TM's Normal Bilaterally - Neck Exam Neck exam: Positive for: Full Rom, Normal Inspection - Respiratory Exam Respiratory Exam: Clear to Auscultation Bilateral, NORMAL BREATHING PATTERN. absent: Rales, Rhonchi, Wheezes - Cardiovascular Exam Cardiovascular Exam: REGULAR RHYTHM, RRR, +S1, +S2 - GI/Abdominal Exam GI & Abdominal Exam: Normal Bowel Sounds, Soft. absent: Distended, Tenderness - Extremities Exam Extremities exam: Positive for: joint swelling, pedal edema Additional comments: +2 edema of the bilateral legs with erythema of the legs below the knees. The patient has sloughing of the skin of the left lower leg. - Neurological Exam Neurological exam: Alert, CN II-XII Intact Additional comments: Autism. Limited Mental Exam. - Psychiatric Exam Additional comments: Autism. Limited Mental Exam. - Skin Skin Exam: Normal Color Additional comments: +2-3 edema of the bilateral legs with erythema of the legs below the knees. The patient has sloughing of the skin of the left lower leg. Results - Vital Signs Recent Vital Signs: Last Vital Signs Temp 99.0 F 06/01/18 14:48 Pulse 73 06/01/18 14:48 Resp 20 06/01/18 14:48 BP 130/79 06/01/18 14:48 Pulse Ox 99 06/01/18 14:48 - Labs Result Diagrams: 06/01/18 13:24 06/01/18 13:24 Assessment & Plan - Assessment and Plan (Free Text) Assessment: 67 yo female with left leg edema and erythema. The patient has Autism and setter up gives the patient's history. Started on IV Vancomycin and Cefepime for antibiotic care. Supportive care. Can check ESR and C-reactive protein. Difficult to assess patient as she has no understanding of medical issues before her. Currently Afebrile and without leukocytosis. Recently discharged from [facility]. Thank you for allowing me to participate in the care of the patient, we will follow with you.
[2018-06-01 15:47] LABS: URINE BILIRUBIN NEGATIVE (NEGATIVE); URINE BLOOD SMALL (NEGATIVE); URINE COLOR LIGHT YELLOW (YELLOW); URINE GLUCOSE (UA) NEGATIVE (NEGATIVE); URINE LEUKOCYTE ESTERASE TRACE Leu/uL (NEGATIVE); URINE PROTEIN NEGATIVE mg/dL (<30 mg/dL); URINE UROBILINOGEN 0.2 E.U./dL (<1 E.U./dL)
[2018-06-01 15:48] LABS: URINE APPEARANCE CLEAR (CLEAR)
[2018-06-01 15:52] LABS: URINE EPITHELIAL CELLS 0 - 2 /hpf (0-5); URINE RBC 0 - 2 /hpf (0-2); URINE WBC 0 - 2 /hpf (0-6)
[2018-06-01] MEDS ORDERED: DiphenhydrAMINE 50 mg/ml Inj IVP PRN (16:44)
--- NOTE | 2018-06-01 16:54 | CP.PCM.HP ---
<GuillerminaSaumyaClarence Ezio - Last Filed: 06/01/18 16:49> History of Present Illness - History of Present Illness History of Present Illness: Medicine H/P for Dr. Horn: Guillermina, PGY - 2, IM Chief Complaint: Cellulitis HPI: 67 F w/ pmh asthma, seizure, legally blind, autism, mood disorder, presented to [facility] ED on 05/16, brought in by caregiver for worsening of b/l lower leg cellulitis worsening x2 weeks. Prior to presentation at [facility] on 05/16, Caregiver brought pt to [facility] ED who diagnosed her with cellulitis , but patient failed out=patient therapy and was admitted to [facility] for IV Antibiotics. Patient was given Vancomycin for 8 days, completed her course in TCU. At that time she also had an ALONA so was unable to get both Vanc and Zosyn. On this admission, patient's mixing machine attendant states that she has worsening cellulitis now bilaterally, without fevers, chills, or systemic complaints including nausea vomiting or diarrhea. She also has a new rash on her b/l upper extremities as well as bilateral lower extremities which mixing machine attendant describes as itchy, bumpy, and red. Patient herself denies complaints but history is limited 2/2 to history of autism. Review of Systems: 12 point ROS obtained and negative except as per HPI PMhx: Asthma, seizure, legally blind, autism, mood disorder, HTN PSurgHx: None Allergies: Carbamezepine (reaction unknown as per caregiver) Meds: Escitalopram 10 mg daily, Valsartan 40 mg daily, Clonazepam 1 mg daily, Clonazepam 0.5 mg daily, Montelukast 10 mg daily, Divalproex 500 mg bid, Levetiracetam 100 mg bid, Budesonide inhaler 0.5 /2ml neb bid, Gabapentin 300 mg tid, Albuterol 2.5/3 ml solution q 8 h Family hx: Unknown Social hx: Denies smoking, alcohol or illicit drug use Present on Admission - Present on Admission Any Indicators Present on Admission: No Past Patient History - Infectious Disease Hx of Infectious Diseases: None - Tetanus Immunizations Tetanus Immunization: Unknown - Past Medical History & Family History Past Medical History?: Yes - Past Social History Smoking Status: Never Smoked - CARDIAC Hx Cardiac Disorders: Yes Hx Hypertension: Yes - PULMONARY Hx Asthma: Yes - NEUROLOGICAL Hx Neurological Disorder: Yes Hx Seizures: Yes - HEENT Hx HEENT Problems: Yes Hx Blind: Yes - RENAL Hx Chronic Kidney Disease: Yes - ENDOCRINE/METABOLIC Hx Endocrine Disorders: No - HEMATOLOGICAL/ONCOLOGICAL Hx Blood Disorders: No - INTEGUMENTARY Hx Dermatological Problems: Yes Hx Cellulitis: Yes - MUSCULOSKELETAL/RHEUMATOLOGICAL Hx Falls: No - GASTROINTESTINAL Hx Gastrointestinal Disorders: Yes Hx Gastroesophageal Reflux: Yes - GENITOURINARY/GYNECOLOGICAL Hx Genitourinary Disorders: No - PSYCHIATRIC Hx Psychophysiologic Disorder: Yes Hx Anxiety: Yes Hx Depression: Yes Hx Substance Use: No - SURGICAL HISTORY Hx Surgeries: No Meds Allergies/Adverse Reactions: Allergies Allergy/AdvReac Type Severity Reaction Status Date / Time carbamazepine [From Tegretol] Allergy SHORTNESS Verified 06/01/18 10:44 OF BREATH Physical Exam - Constitutional Appears: Well Additional comments: morbid obesity - Head Exam Head Exam: ATRAUMATIC, NORMAL INSPECTION, NORMOCEPHALIC - Eye Exam Eye Exam: EOMI, Normal appearance, PERRL Pupil Exam: NORMAL ACCOMODATION, PERRL - ENT Exam ENT Exam: Mucous Membranes Moist, Normal Exam - Neck Exam Neck exam: Positive for: Normal Inspection - Respiratory Exam Respiratory Exam: Clear to Auscultation Bilateral, NORMAL BREATHING PATTERN - Cardiovascular Exam Cardiovascular Exam: REGULAR RHYTHM - GI/Abdominal Exam GI & Abdominal Exam: Normal Bowel Sounds, Soft. absent: Tenderness - Extremities Exam Additional comments: increased warmth, erythema, and swelling in bilateral lower extremities bilateral upper extremities and lower extremities have macular red rash - Back Exam Back exam: NORMAL INSPECTION - Neurological Exam Neurological exam: Alert, CN II-XII Intact, Normal Gait, Reflexes Normal Additional comments: Patient is at baseline, which is delayed 2/2 autism - Psychiatric Exam Psychiatric exam: Normal Affect, Normal Mood - Skin Skin Exam: Dry, Intact, Normal Color, Warm Results - Vital Signs Recent Vital Signs: Last Vital Signs Temp 99 F 06/01/18 15:49 Pulse 74 06/01/18 15:49 Resp 18 06/01/18 15:49 BP 140/80 06/01/18 15:49 Pulse Ox 98 06/01/18 15:49 - Labs Result Diagrams: 06/01/18 13:24 06/01/18 13:24 Labs: Laboratory Results - last 24 hr 06/01/18 15:30 Urine Color Light yellow Urine Appearance Clear Urine pH 6.0 Ur Specific [place] 1.010 Urine Protein Negative Urine Glucose (UA) Negative Urine Ketones Negative Urine Blood Small H Urine Nitrate Negative Urine Bilirubin Negative Urine Urobilinogen 0.2 Ur Leukocyte Esterase Trace H Urine RBC 0 - 2 Urine WBC 0 - 2 Ur Epithelial Cells 0 - 2 Urine Bacteria None Assessment & Plan - Assessment and Plan (Free Text) Assessment: 67 yrs old female with PMh of asthma, HTN, seizure, legally blind, autism, mood disorder, who was brought in to the ED by her caregiver for bilateral lower leg cellulitis and failure of outpatient antibiotic treatment, patient has been treated with IV antibiotics vancomycin and zosyn. Patient has now been readmitted for worsening cellulitis with onset of new rash. There are no signs of sepsis, as patient has only one SIRS criteria of leukopenia < 4.5. Patient had ALONA on last admission, but creatinine and BUN are both fine right now. Plan: LE Cellulitis - Started patient on Vanc/Cefepime; one dose of Vanc in ED already - ID Consult - Dr. Mccray - No procal needed, as patient is not septic - Blood cultures ordered - HH, finely chopped diet Chronic Kidney Disease - Stage 3 - Cr at baseline - Pt not having any decreased urine output - Avoid nephrotoxic agents New Rash, likely allergic - Benadryl PRN Hx Asthma - Continue home Pulmicort, Albuterol Hx HTN - Cont home Lasix Hx Seizures - Cont Keppra, divalproex Hx Pain - Cont neurontin Hx Unspecified mood disorder Cont escitalopram, clonazepam Hx asthma C/w montelukast, albuterol, budesonide GI/DVT ppx: Protonix PO daily, Lovenox S/E/D/W Dr. Horn <Deann Horn - Last Filed: 06/02/18 15:36> Results - Vital Signs Recent Vital Signs: Last Vital Signs Temp 98 F 06/02/18 06:00 Pulse 66 06/02/18 06:00 Resp 18 06/02/18 06:00 BP 127/62 06/02/18 10:56 Pulse Ox 96 06/02/18 06:00 - Labs Result Diagrams: 06/02/18 12:50 06/02/18 12:50 Labs: Laboratory Results - last 24 hr 06/01/18 06/02/18 06/02/18 15:30 12:50 12:50 WBC 4.6 RBC 3.60 Hgb 10.8 L Hct 33.5 L MCV 93.1 MCH 30.0 MCHC 32.2 RDW 14.4 Plt Count 167 MPV 10.9 Gran % 66.5 Lymph % (Auto) 18.4 L Cooke % (Auto) 14.0 H Eos % (Auto) 0.0 L Baso % (Auto) 1.1 Gran # 3.08 Lymph # (Auto) 0.9 L Cooke # (Auto) 0.7 H Eos # (Auto) 0.0 Baso # (Auto) 0.05 Sodium 143 Potassium 4.1 Chloride 105 Carbon Dioxide 28 Anion Gap 14 BUN 23 H Creatinine 0.9 Est GFR ( Amer) > 60 Est GFR (Non-Af Amer) > 60 Random Glucose 119 H Calcium 8.7 Phosphorus 4.0 Magnesium 2.2 Total Bilirubin 0.5 AST 22 ALT 32 Alkaline Phosphatase 62 Total Protein 6.4 Albumin 3.2 Globulin 3.2 Albumin/Globulin Ratio 1.0 L Urine Color Light yellow Urine Appearance Clear Urine pH 6.0 Ur Specific [place] 1.010 Urine Protein Negative Urine Glucose (UA) Negative Urine Ketones Negative Urine Blood Small H Urine Nitrate Negative Urine Bilirubin Negative Urine Urobilinogen 0.2 Ur Leukocyte Esterase Trace H Urine RBC 0 - 2 Urine WBC 0 - 2 Ur Epithelial Cells 0 - 2 Urine Bacteria None Attending/Attestation - Attestation I have personally seen and examined this patient.: Yes I have fully participated in the care of the patient.: Yes I have reviewed all pertinent clinical information: Yes Notes (Text): 06/02/18 15:33 Medical record note made by the resident after discussion with my direction and input after the patient was personally seen and examined by me. I have reviewed the chart and agree that the record accurately reflects by personal performance of the history, physical exam, data review, and medical decision-making, in the course for the patient. I have also personally directed the plan of care. 67 yrs old female with PMh pf asthma, HTN, seizure, legally blind, autism, mood disorder, who was recently treated for right leg cellulitis is brought in to the ED by her caregiver for bilateral lower leg cellulitis more on left side than left.We will start patient IV antibiotics vancomycin and cefepime.We will follow up blood cultures.We will also get ID evaluation..We will also check CRP.
--- NOTE | 2018-06-01 17:28 | CARD ---
APPROVED REPORT Date of service: 06/01/2018 EKG Measurement Heart [id number] <Conclusion> Normal sinus rhythm Nonspecific T wave abnormality Abnormal ECG
[2018-06-01] MEDS: Divalproex 500 mg DR(BID formulation) PO SCH (17:42)
[2018-06-01] MEDS: Albuterol 0.083% Inhal Sol (2.5 mg/3 mL) UD INH SCH ×2 (21:19→21:41)
[2018-06-01] MEDS: Budesonide 0.5 mg/2 ml Inhal Susp UD IH SCH ×2 (21:19→21:41)
[2018-06-01] MEDS: Cefepime 1gm in NS 100ml 1 GM/100 ML BAG IVPB SCH (22:28)
[2018-06-01 23:25] VITALS: BMI 48.6
[2018-06-01] MEDS ORDERED: Pneumococcal 23-Valent Vaccine IM ONE (23:26)
[2018-06-02] MEDS: Albuterol 0.083% Inhal Sol (2.5 mg/3 mL) UD INH SCH ×3 (05:00→21:27)
[2018-06-02] MEDS: Pantoprazole 40 mg EC Tab PO SCH (06:03)
[2018-06-02] MEDS: Budesonide 0.5 mg/2 ml Inhal Susp UD IH SCH ×2 (07:30→21:27)
[2018-06-02] MEDS: Divalproex 500 mg DR(BID formulation) PO SCH ×2 (10:55→17:57)
[2018-06-02] MEDS: Cefepime 1gm in NS 100ml 1 GM/100 ML BAG IVPB SCH ×2 (10:56→21:21)
[2018-06-02] MEDS: Enoxaparin 40 mg Syringe SC SCH (10:56)
[2018-06-02] MEDS: Clobetasol 0.05% Cream(30 gm) TOP SCH ×2 (11:03→17:57)
--- NOTE | 2018-06-02 12:53 | CP.PCM.PN ---
<Joel Gan - Last Filed: 06/02/18 13:14> Subjective - Date & Time of Evaluation Date of Evaluation: 06/02/18 Time of Evaluation: 08:40 - Subjective Subjective: Joel Gan DO PGY-1, Business Functional Analyst Medicine Progress Note Pt seen and examined at bedside. States she slept well overnight. Refusing exam of upper extremities b/l. No acute events reported overnight. Objective - Vital Signs/Intake and Output Vital Signs (last 24 hours): Temp Pulse Resp BP Pulse Ox 98 F 66 18 127/62 96 06/02/18 06:00 06/02/18 06:00 06/02/18 06:00 06/02/18 10:56 06/02/18 06:00 - Medications Medications: Current Medications Albuterol Sulfate (Albuterol 0.083% Inhal Brittney (2.5 Mg/3 Ml) Ud) 2.5 mg INH Q8 [facility] Last Admin: 06/02/18 05:00 Dose: Not Given Budesonide (Pulmicort Respules) 0.5 mg IH BID [facility] Last Admin: 06/02/18 07:30 Dose: Not Given Clobetasol Propionate (Temovate 0.05%) 0 gm TOP BID [facility] Last Admin: 06/02/18 11:03 Dose: 1 gm Clonazepam (Klonopin) 1 mg PO BID [facility] PRN Reason: Protocol Last Admin: 06/02/18 10:55 Dose: 1 mg Diphenhydramine HCl (Benadryl) 25 mg IVP Q4H PRN PRN Reason: Allergy symptoms Divalproex Sodium (Depakote Dr(*Bid*)) 500 mg PO BID [facility] PRN Reason: Protocol Last Admin: 06/02/18 10:55 Dose: 500 mg Enoxaparin Sodium (Lovenox) 40 mg SC DAILY [facility] PRN Reason: Protocol Last Admin: 06/02/18 10:56 Dose: 40 mg Escitalopram Oxalate (Lexapro) 10 mg PO DAILY [facility] Last Admin: 06/02/18 10:55 Dose: 10 mg Furosemide (Lasix) 20 mg IVP DAILY [facility] Last Admin: 06/02/18 10:56 Dose: 20 mg Gabapentin (Neurontin) 300 mg PO TID [facility] PRN Reason: Protocol Last Admin: 06/02/18 10:55 Dose: 300 mg Cefepime HCl (Maxipime 1gm) 1 gm in 100 mls @ 100 mls/hr IVPB Q12 [facility] PRN Reason: Protocol Last Admin: 06/02/18 10:56 Dose: 100 mls/hr Levetiracetam (Keppra) 1,000 mg PO BID [facility] Last Admin: 06/02/18 10:55 Dose: 1,000 mg Pantoprazole Sodium (Protonix Ec Tab) 40 mg PO 0600 [facility] Last Admin: 06/02/18 06:03 Dose: 40 mg - Constitutional Appears: Non-toxic, No Acute Distress - Head Exam Head Exam: ATRAUMATIC, NORMAL INSPECTION, NORMOCEPHALIC - Eye Exam Eye Exam: EOMI, Normal appearance, PERRL - ENT Exam ENT Exam: Mucous Membranes Moist, Normal Oropharynx - Neck Exam Neck Exam: Full ROM, Normal Inspection - Respiratory Exam Respiratory Exam: Clear to Ausculation Bilateral, NORMAL BREATHING PATTERN - Cardiovascular Exam Cardiovascular Exam: REGULAR RHYTHM, +S1, +S2 - GI/Abdominal Exam GI & Abdominal Exam: Soft, Normal Bowel Sounds - Extremities Exam Extremities Exam: Normal Capillary Refill Additional comments: Erythema present on b/l lower extremities distal to knees, no bullae, no abnormal discharge - Back Exam Back Exam: Full ROM, NORMAL INSPECTION - Neurological Exam Neurological Exam: Alert, Awake Additional comments: Oriented x2 - Psychiatric Exam Psychiatric exam: Flat Affect - Skin Skin Exam: Dry, Intact, Warm Assessment and Plan - Assessment and Plan (Free Text) Assessment: 67 yrs old female with PMh of asthma, HTN, seizure, legally blind, autism, mood disorder, who was brought in to the ED by her caregiver for bilateral lower leg cellulitis and failure of outpatient antibiotic treatment, now on IV antibiotics vanco/cefepime. Patient has now been readmitted for worsening cellulitis with onset of new rash. ID consulted. Plan: LE Cellulitis - C/w Vanc/Cefepime day #2 - ID Consult - Dr. Mccray - No procal needed, as patient is not septic - Blood cultures ordered - HH, finely chopped diet Chronic Kidney Disease - Stage 3 - Cr at baseline - Pt not having any decreased urine output - Avoid nephrotoxic agents New Rash on upper extremities b/l, erythematous, likely allergic - Benadryl PRN - Added clobetasol prn Hx Asthma - Continue home Pulmicort, Albuterol Hx HTN - Cont home Lasix Hx Seizures - Cont Keppra, divalproex Hx Chronic Pain - Cont neurontin Hx Unspecified mood disorder Cont escitalopram, clonazepam Hx asthma C/w montelukast, albuterol, budesonide GI/DVT ppx: Protonix PO daily, Lovenox Pt seen, examined with, and plan discussed with Dr. Horn, attending. Joel Gan DO PGY-1, Business Functional Analyst Pager #[phone] <Deann Horn - Last Filed: 06/02/18 15:39> Objective - Vital Signs/Intake and Output Vital Signs (last 24 hours): Temp Pulse Resp BP Pulse Ox 98 F 66 18 127/62 96 06/02/18 06:00 06/02/18 06:00 06/02/18 06:00 06/02/18 10:56 06/02/18 06:00 Intake and Output: 06/02/18 06/02/18 06:59 18:59 Intake Total 620 Balance 620 - Medications Medications: Current Medications Albuterol Sulfate (Albuterol 0.083% Inhal Brittney (2.5 Mg/3 Ml) Ud) 2.5 mg INH Q8 [facility] Last Admin: 06/02/18 05:00 Dose: Not Given Budesonide (Pulmicort Respules) 0.5 mg IH BID [facility] Last Admin: 06/02/18 07:30 Dose: Not Given Clobetasol Propionate (Temovate 0.05%) 0 gm TOP BID [facility] Last Admin: 06/02/18 11:03 Dose: 1 gm Clonazepam (Klonopin) 1 mg PO BID [facility] PRN Reason: Protocol Last Admin: 06/02/18 10:55 Dose: 1 mg Diphenhydramine HCl (Benadryl) 25 mg IVP Q4H PRN PRN Reason: Allergy symptoms Divalproex Sodium (Depakote Dr(*Bid*)) 500 mg PO BID [facility] PRN Reason: Protocol Last Admin: 06/02/18 10:55 Dose: 500 mg Enoxaparin Sodium (Lovenox) 40 mg SC DAILY [facility] PRN Reason: Protocol Last Admin: 06/02/18 10:56 Dose: 40 mg Escitalopram Oxalate (Lexapro) 10 mg PO DAILY [facility] Last Admin: 06/02/18 10:55 Dose: 10 mg Furosemide (Lasix) 20 mg IVP DAILY [facility] Last Admin: 06/02/18 10:56 Dose: 20 mg Gabapentin (Neurontin) 300 mg PO TID [facility] PRN Reason: Protocol Last Admin: 06/02/18 14:05 Dose: 300 mg Cefepime HCl (Maxipime 1gm) 1 gm in 100 mls @ 100 mls/hr IVPB Q12 [facility] PRN Reason: Protocol Last Admin: 06/02/18 10:56 Dose: 100 mls/hr Levetiracetam (Keppra) 1,000 mg PO BID [facility] Last Admin: 06/02/18 10:55 Dose: 1,000 mg Pantoprazole Sodium (Protonix Ec Tab) 40 mg PO 0600 [facility] Last Admin: 06/02/18 06:03 Dose: 40 mg - Labs Labs: 06/02/18 12:50 06/02/18 12:50 Attending/Attestation - Attestation I have personally seen and examined this patient.: Yes I have fully participated in the care of the patient.: Yes I have reviewed all pertinent clinical information, including history, physical exam and plan: Yes Notes (Text): 06/02/18 15:36 Medical record note made by the resident after discussion with my direction and input after the patient was personally seen and examined by me. I have reviewed the chart and agree that the record accurately reflects by personal performance of the history, physical exam, data review, and medical decision-making, in the course for the patient. I have also personally directed the plan of care. 67 yrs old female with PMh pf asthma, HTN, seizure, legally blind, autism, mood disorder and chronic venous stasis who was recently treated for right leg cellulitis is brought in to the ED by her caregiver for bilateral lower leg cellulitis more on left side than left.on IV antibiotics vancomycin and cefepime.Redness and swelling is slightly better.We will continue IV antibiotics.ID is following.
[2018-06-02 13:02] LABS: BASO # 0.05 K/mm3 (0.0-2.0); BASO % 1.1 % (0.0-3.0); GRAN # 3.08 (1.4-6.5); GRAN % 66.5 % (50.0-68.0); HEMOGLOBIN 10.8 g/dL (12.0-16.0); LYMPH # 0.9 (1.2-3.4); LYMPH % 18.4 % (22.0-35.0); MEAN CELL VOLUME 93.1 fl (80.0-105.0); MEAN CORPUSCULAR HGB CONC 32.2 g/dl (31.0-37.0); MEAN PLATELET VOLUME 10.9 fl (7.0-11.0); MONO # 0.7 (0.1-0.6); RBC 3.6 10^6/uL (3.5-6.1); RED CELL DISTRIBUTION WIDTH 14.4 % (11.5-14.5); WHITE BLOOD COUNT 4.6 10^3/ul (4.5-11.0)
[2018-06-02 13:21] LABS: ALBUMIN 3.2 g/dL (3.0-4.8); BLOOD UREA NITROGEN 23 mg/dL (7-21); CALCIUM 8.7 mg/dL (8.4-10.5); GFR AFRICAN-AMERICAN > 60; GFR NON-AFRICAN AMERICAN > 60
[2018-06-02 13:22] LABS: ALT/SGPT 32 U/L (7-56); AST/SGOT 22 U/L (14-36)
--- NOTE | 2018-06-02 15:50 | CP.PCM.PN ---
Subjective - Date & Time of Evaluation Date of Evaluation: 06/02/18 Time of Evaluation: 14:45 - Subjective Subjective: Infectious Disease Follow Up: June 02, 2018 67 yo female with history of Asthma, Seizures, Legal Blindness, and Autism presenting with rash in the left lower leg now. The patient was just recently released for [facility] for two week history of worsening bilateral leg edema and cellulitis. The patient was seen by several doctors including her PMD and information technology coordinator. 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 The patient currently has +2-3 edema of both legs. The patient is unable to give any history. The patient has been on Augmentin, Bactrim BS, and Keflex. Patient's caretakers give the patient's history. On Cefepime and IV Vancomycin. Patient unable to care for herself in any capacity. Fine lacy and erythematous rash on the neck, chest, arms, and legs. Cellulitis of the lower legs with left much worse than right. Objective - Vital Signs/Intake and Output Vital Signs (last 24 hours): Temp Pulse Resp BP Pulse Ox 98 F 66 18 127/62 96 06/02/18 06:00 06/02/18 06:00 06/02/18 06:00 06/02/18 10:56 06/02/18 06:00 Intake and Output: 06/02/18 06/02/18 06:59 18:59 Intake Total 620 Balance 620 - Medications Medications: Current Medications Albuterol Sulfate (Albuterol 0.083% Inhal Brittney (2.5 Mg/3 Ml) Ud) 2.5 mg INH Q8 [facility] Last Admin: 06/02/18 05:00 Dose: Not Given Budesonide (Pulmicort Respules) 0.5 mg IH BID [facility] Last Admin: 06/02/18 07:30 Dose: Not Given Clobetasol Propionate (Temovate 0.05%) 0 gm TOP BID [facility] Last Admin: 06/02/18 11:03 Dose: 1 gm Clonazepam (Klonopin) 1 mg PO BID [facility] PRN Reason: Protocol Last Admin: 06/02/18 10:55 Dose: 1 mg Diphenhydramine HCl (Benadryl) 25 mg IVP Q4H PRN PRN Reason: Allergy symptoms Divalproex Sodium (Jeff Erazo(*Bid*)) 500 mg PO BID [facility] PRN Reason: Protocol Last Admin: 06/02/18 10:55 Dose: 500 mg Enoxaparin Sodium (Lovenox) 40 mg SC DAILY [facility] PRN Reason: Protocol Last Admin: 06/02/18 10:56 Dose: 40 mg Escitalopram Oxalate (Lexapro) 10 mg PO DAILY [facility] Last Admin: 06/02/18 10:55 Dose: 10 mg Furosemide (Lasix) 20 mg IVP DAILY [facility] Last Admin: 06/02/18 10:56 Dose: 20 mg Gabapentin (Neurontin) 300 mg PO TID [facility] PRN Reason: Protocol Last Admin: 06/02/18 14:05 Dose: 300 mg Cefepime HCl (Maxipime 1gm) 1 gm in 100 mls @ 100 mls/hr IVPB Q12 [facility] PRN Reason: Protocol Last Admin: 06/02/18 10:56 Dose: 100 mls/hr Levetiracetam (Keppra) 1,000 mg PO BID [facility] Last Admin: 06/02/18 10:55 Dose: 1,000 mg Pantoprazole Sodium (Protonix Ec Tab) 40 mg PO 0600 [facility] Last Admin: 06/02/18 06:03 Dose: 40 mg - Labs Labs: 06/02/18 12:50 06/02/18 12:50 - Constitutional Appears: Non-toxic, No Acute Distress, Chronically Ill - Head Exam Head Exam: ATRAUMATIC, NORMOCEPHALIC - Eye Exam Eye Exam: EOMI, PERRL Pupil Exam: NORMAL ACCOMODATION, PERRL - ENT Exam ENT Exam: Mucous Membranes Moist, Normal External Ear Exam, TM's Normal Bilaterally - Neck Exam Neck Exam: Full ROM, Normal Inspection - Respiratory Exam Respiratory Exam: Clear to Ausculation Bilateral, NORMAL BREATHING PATTERN. absent: Rales, Rhonchi, Wheezes - Cardiovascular Exam Cardiovascular Exam: REGULAR RHYTHM, RRR, +S1, +S2 - GI/Abdominal Exam GI & Abdominal Exam: Soft, Normal Bowel Sounds. absent: Distended, Tenderness - Extremities Exam Extremities Exam: Joint Swelling, Pedal Edema Additional comments: +2 edema of the bilateral legs with erythema of the legs below the knees. The patient has sloughing of the skin of the left lower leg. - Neurological Exam Neurological Exam: Alert, Awake, CN II-XII Intact Additional comments: Autism. Limited Mental Exam. - Psychiatric Exam Additional comments: Autism. Limited Mental Exam. - Skin Skin Exam: Normal Color Additional comments: +2-3 edema of the bilateral legs with erythema of the legs below the knees. The patient has sloughing of the skin of the left lower leg. Assessment and Plan - Assessment and Plan (Free Text) Assessment: 67 yo female with left leg edema and erythema. The patient has Autism and cad cam programmer gives the patient's history. Started on IV Vancomycin and Cefepime for antibiotic care. Supportive care. Can check ESR and C-reactive protein. Difficult to assess patient as she has no understanding of medical issues before her. Currently Afebrile and without leukocytosis. Recently discharged from [facility]. Reappearance of cellulitis primarily to left lower leg. Fine lacy rash to multiple areas of the body especially neck, chest, arms, and upper legs. This appears to be viral in origin and should resolve in time. Thank you for allowing me to participate in the care of the patient, we will follow with you.
[2018-06-03] MEDS: Albuterol 0.083% Inhal Sol (2.5 mg/3 mL) UD INH SCH ×3 (07:15→23:40)
[2018-06-03] MEDS: Budesonide 0.5 mg/2 ml Inhal Susp UD IH SCH ×2 (07:15→20:26)
[2018-06-03] MEDS: Enoxaparin 40 mg Syringe SC SCH (09:49)
[2018-06-03] MEDS: Vancomycin 1gm in NS 250ml 1 GM/250 ML BAG IVPB SCH ×3 (09:49→22:16)
[2018-06-03] MEDS: Cefepime 1gm in NS 100ml 1 GM/100 ML BAG IVPB SCH ×2 (09:50→21:27)
[2018-06-03] MEDS: Divalproex 500 mg DR(BID formulation) PO SCH ×2 (09:50→17:11)
[2018-06-03] MEDS: Pantoprazole 40 mg EC Tab PO SCH (09:51)
[2018-06-03] MEDS ORDERED: Vancomycin 500 mg Inj IVPB SCH (10:00)
[2018-06-03] MEDS: Clobetasol 0.05% Cream(30 gm) TOP SCH ×2 (12:13→17:12)
--- NOTE | 2018-06-03 12:40 | CP.PCM.PN ---
<Devyn Cast - Last Filed: 06/03/18 12:37> Subjective - Date & Time of Evaluation Date of Evaluation: 06/03/18 Time of Evaluation: 08:00 - Subjective Subjective: Progress note for hospitalist Dr. Justina Cast PGY2 Patient seen and examined at bedside. Patient is autistic, ROS limited due to patient not being fully aware of current condition. However patient denies pain , itching, burning sensations at site of rash. As per overnight nurse, patient was refusing antibiotics and pulled out IV. Objective - Vital Signs/Intake and Output Vital Signs (last 24 hours): Temp Pulse Resp BP Pulse Ox 97.8 F 76 18 148/75 93 L 06/02/18 22:18 06/02/18 22:18 06/02/18 22:18 06/03/18 09:51 06/02/18 22:18 Intake and Output: 06/03/18 06/03/18 06:59 18:59 Intake Total 480 Balance 480 - Medications Medications: Current Medications Albuterol Sulfate (Albuterol 0.083% Inhal Brittney (2.5 Mg/3 Ml) Ud) 2.5 mg INH Q8 [facility] Last Admin: 06/02/18 21:27 Dose: Not Given Budesonide (Pulmicort Respules) 0.5 mg IH BID [facility] Last Admin: 06/02/18 21:27 Dose: Not Given Clobetasol Propionate (Temovate 0.05%) 0 gm TOP BID [facility] Last Admin: 06/03/18 12:13 Dose: 1 applic Clonazepam (Klonopin) 1 mg PO BID [facility] PRN Reason: Protocol Last Admin: 06/03/18 09:51 Dose: 1 mg Diphenhydramine HCl (Benadryl) 25 mg IVP Q4H PRN PRN Reason: Allergy symptoms Divalproex Sodium (Depakote Dr(*Bid*)) 500 mg PO BID [facility] PRN Reason: Protocol Last Admin: 06/03/18 09:50 Dose: 500 mg Enoxaparin Sodium (Lovenox) 40 mg SC DAILY [facility] PRN Reason: Protocol Last Admin: 06/03/18 09:49 Dose: 40 mg Escitalopram Oxalate (Lexapro) 10 mg PO DAILY [facility] Last Admin: 06/03/18 09:51 Dose: 10 mg Furosemide (Lasix) 20 mg IVP DAILY [facility] Last Admin: 06/03/18 09:51 Dose: 20 mg Gabapentin (Neurontin) 300 mg PO TID [facility] PRN Reason: Protocol Last Admin: 06/03/18 09:51 Dose: 300 mg Hydrocortisone (Cortizone 1% Oint) 1 gm TOP BID [facility] Last Admin: 06/03/18 11:43 Dose: 1 applic Cefepime HCl (Maxipime 1gm) 1 gm in 100 mls @ 100 mls/hr IVPB Q12 [facility] PRN Reason: Protocol Last Admin: 06/03/18 09:50 Dose: 100 mls/hr Vancomycin HCl (Vancomycin 1gm) 1 gm in 250 mls @ 166.667 mls/hr IVPB Q12 [facility] Last Admin: 06/03/18 09:49 Dose: 166.667 mls/hr Levetiracetam (Keppra) 1,000 mg PO BID [facility] Last Admin: 06/03/18 09:51 Dose: 1,000 mg Loratadine (Claritin) 10 mg PO DAILY [facility] Last Admin: 06/03/18 10:07 Dose: 10 mg Pantoprazole Sodium (Protonix Ec Tab) 40 mg PO 0600 [facility] Last Admin: 06/03/18 09:51 Dose: 40 mg - Labs Labs: 06/02/18 12:50 06/02/18 12:50 - Constitutional Appears: Non-toxic, No Acute Distress - Head Exam Head Exam: ATRAUMATIC, NORMAL INSPECTION, NORMOCEPHALIC - Eye Exam Eye Exam: EOMI, Normal appearance - ENT Exam ENT Exam: Mucous Membranes Moist. absent: Normal Exam Additional comments: ulcerations of oral mucosa on lower lip - Neck Exam Neck Exam: Normal Inspection - Respiratory Exam Respiratory Exam: Clear to Ausculation Bilateral, NORMAL BREATHING PATTERN. absent: Rhonchi, Wheezes - Cardiovascular Exam Cardiovascular Exam: REGULAR RHYTHM, +S1, +S2 - GI/Abdominal Exam GI & Abdominal Exam: Soft, Normal Bowel Sounds - Extremities Exam Extremities Exam: absent: Normal Inspection Additional comments: rash on feet bilaterally - Neurological Exam Neurological Exam: Alert, Awake - Psychiatric Exam Psychiatric exam: Normal Affect, Normal Mood - Skin Skin Exam: Erythema (on upper extremities and feet bilaterally. Cellulitic rash on lower extremities resolved, edema still present. ) Assessment and Plan - Assessment and Plan (Free Text) Assessment: 67 yrs old female with PMh of asthma, HTN, seizure, legally blind, autism, mood disorder, who was brought in to the ED by her caregiver for bilateral lower leg cellulitis and failure of outpatient antibiotic treatment, now on IV antibiotics vanco/cefepime. Patient has now been readmitted for worsening cellulitis with onset of new rash. ID consulted. Plan: LE Cellulitis - C/w Cefepime day #3, Vanc day #2 - ID Consult - Dr. Mccray - No procal needed, as patient is not septic - Blood cultures ordered; no growth after 24 hours - HH, finely chopped diet - Claritin and Steroid topical added for rash patient has due to possible drug reaction - Patient can be discharged tomorrow on doxycycline Chronic Kidney Disease - Stage 3 - Cr at baseline - Pt not having any decreased urine output - Avoid nephrotoxic agents New Rash on upper extremities b/l, erythematous, likely allergic - Benadryl PRN - Added clobetasol prn Hx Asthma - Continue home Pulmicort, Albuterol Hx HTN - Cont home Lasix Hx Seizures - Cont Keppra, divalproex Hx Chronic Pain - Cont neurontin Hx Unspecified mood disorder Cont escitalopram, clonazepam Hx asthma C/w montelukast, albuterol, budesonide GI/DVT ppx: Protonix PO daily, Lovenox Disposition plan: D/C patient with doxycycline, claritin, hydrocortisone topical and remaining medications patient takes for other comorbidities. Pt seen, examined with, and plan discussed with Dr. Horn, attending. <Deann Horn - Last Filed: 06/03/18 14:08> Objective - Vital Signs/Intake and Output Vital Signs (last 24 hours): Temp Pulse Resp BP Pulse Ox 97.8 F 70 18 119/62 98 06/03/18 13:52 06/03/18 13:52 06/03/18 13:52 06/03/18 13:52 06/03/18 13:52 Intake and Output: 06/03/18 06/03/18 06:59 18:59 Intake Total 480 Balance 480 - Medications Medications: Current Medications Albuterol Sulfate (Albuterol 0.083% Inhal Brittney (2.5 Mg/3 Ml) Ud) 2.5 mg INH Q8 [facility] Last Admin: 06/03/18 13:04 Dose: Not Given Budesonide (Pulmicort Respules) 0.5 mg IH BID [facility] Last Admin: 06/03/18 07:15 Dose: Not Given Clobetasol Propionate (Temovate 0.05%) 0 gm TOP BID [facility] Last Admin: 06/03/18 12:13 Dose: 1 applic Clonazepam (Klonopin) 1 mg PO BID [facility] PRN Reason: Protocol Last Admin: 06/03/18 09:51 Dose: 1 mg Diphenhydramine HCl (Benadryl) 25 mg IVP Q4H PRN PRN Reason: Allergy symptoms Divalproex Sodium (Depakote Dr(*Bid*)) 500 mg PO BID [facility] PRN Reason: Protocol Last Admin: 06/03/18 09:50 Dose: 500 mg Enoxaparin Sodium (Lovenox) 40 mg SC DAILY [facility] PRN Reason: Protocol Last Admin: 06/03/18 09:49 Dose: 40 mg Escitalopram Oxalate (Lexapro) 10 mg PO DAILY [facility] Last Admin: 06/03/18 09:51 Dose: 10 mg Furosemide (Lasix) 20 mg IVP DAILY [facility] Last Admin: 06/03/18 09:51 Dose: 20 mg Gabapentin (Neurontin) 300 mg PO TID [facility] PRN Reason: Protocol Last Admin: 06/03/18 09:51 Dose: 300 mg Hydrocortisone (Cortizone 1% Oint) 1 gm TOP BID [facility] Last Admin: 06/03/18 11:43 Dose: 1 applic Cefepime HCl (Maxipime 1gm) 1 gm in 100 mls @ 100 mls/hr IVPB Q12 [facility] PRN Reason: Protocol Last Admin: 06/03/18 09:50 Dose: 100 mls/hr Vancomycin HCl (Vancomycin 1gm) 1 gm in 250 mls @ 166.667 mls/hr IVPB Q12 [facility] Last Admin: 06/03/18 09:49 Dose: 166.667 mls/hr Levetiracetam (Keppra) 1,000 mg PO BID [facility] Last Admin: 06/03/18 09:51 Dose: 1,000 mg Loratadine (Claritin) 10 mg PO DAILY [facility] Last Admin: 06/03/18 10:07 Dose: 10 mg Pantoprazole Sodium (Protonix Ec Tab) 40 mg PO 0600 [facility] Last Admin: 06/03/18 09:51 Dose: 40 mg - Labs Labs: 06/02/18 12:50 06/02/18 12:50 Attending/Attestation - Attestation I have personally seen and examined this patient.: Yes I have fully participated in the care of the patient.: Yes I have reviewed all pertinent clinical information, including history, physical exam and plan: Yes Notes (Text): 06/03/18 14:07 Medical record note made by the resident after discussion with my direction and input after the patient was personally seen and examined by me. I have reviewed the chart and agree that the record accurately reflects by personal performance of the history, physical exam, data review, and medical decision-making, in the course for the patient. I have also personally directed the plan of care. 67 yrs old female with PMh pf asthma, HTN, seizure, legally blind, autism, mood disorder and chronic venous stasis who was recently treated for right leg cellulitis is brought in to the ED by her caregiver for bilateral lower leg cellulitis more on left side than left.on IV antibiotics vancomycin and cefepime.Redness and swelling is significantly improved..We will continue IV antibiotics.ID is following.
--- NOTE | 2018-06-03 17:36 | CP.PCM.PN ---
Subjective - Date & Time of Evaluation Date of Evaluation: 06/03/18 Time of Evaluation: 17:30 - Subjective Subjective: Infectious Disease Follow Up: June 03, 2018 67 yo female with history of Asthma, Seizures, Legal Blindness, and Autism presenting with rash in the left lower leg now. The patient was just recently [place] [facility] history of worsening bilateral leg edema and cellulitis. The patient was seen by several doctors including her PMD and loader operator. The patient first started with blister in the anterior left lower leg as per the patient's command and control systems integrator. The patient currently has +2-3 edema of both legs. The patient is unable to give any history. The patient has been on Augmentin, Bactrim BS, and Keflex. Patient's caretakers give the patient's history. On Cefepime and IV Vancomycin. Patient unable to care for herself in any capacity. Fine lacy and erythematous rash on the neck, chest, arms, and legs slowly resolving. Cellulitis of the lower legs with left much worse than right. Objective - Vital Signs/Intake and Output Vital Signs (last 24 hours): Temp Pulse Resp BP Pulse Ox 97.8 F 70 18 119/62 98 06/03/18 13:52 06/03/18 13:52 06/03/18 13:52 06/03/18 13:52 06/03/18 13:52 Intake and Output: 06/03/18 06/03/18 06:59 18:59 Intake Total 480 Balance 480 - Medications Medications: Current Medications Albuterol Sulfate (Albuterol 0.083% Inhal Brittney (2.5 Mg/3 Ml) Ud) 2.5 mg INH Q8 [facility] Last Admin: 06/03/18 13:04 Dose: Not Given Budesonide (Pulmicort Respules) 0.5 mg IH BID [facility] Last Admin: 06/03/18 07:15 Dose: Not Given Clobetasol Propionate (Temovate 0.05%) 0 gm TOP BID [facility] Last Admin: 06/03/18 17:12 Dose: 1 applic Clonazepam (Klonopin) 1 mg PO BID [facility] PRN Reason: Protocol Last Admin: 06/03/18 17:12 Dose: 1 mg Diphenhydramine HCl (Benadryl) 25 mg IVP Q4H PRN PRN Reason: Allergy symptoms Divalproex Sodium (Depakote Dr(*Bid*)) 500 mg PO BID [facility] PRN Reason: Protocol Last Admin: 06/03/18 17:11 Dose: 500 mg Enoxaparin Sodium (Lovenox) 40 mg SC DAILY [facility] PRN Reason: Protocol Last Admin: 06/03/18 09:49 Dose: 40 mg Escitalopram Oxalate (Lexapro) 10 mg PO DAILY [facility] Last Admin: 06/03/18 09:51 Dose: 10 mg Furosemide (Lasix) 20 mg IVP DAILY [facility] Last Admin: 06/03/18 09:51 Dose: 20 mg Gabapentin (Neurontin) 300 mg PO TID [facility] PRN Reason: Protocol Last Admin: 06/03/18 17:11 Dose: 300 mg Hydrocortisone (Cortizone 1% Oint) 1 gm TOP BID [facility] Last Admin: 06/03/18 17:13 Dose: 1 applic Cefepime HCl (Maxipime 1gm) 1 gm in 100 mls @ 100 mls/hr IVPB Q12 [facility] PRN Reason: Protocol Last Admin: 06/03/18 09:50 Dose: 100 mls/hr Vancomycin HCl (Vancomycin 1gm) 1 gm in 250 mls @ 166.667 mls/hr IVPB Q12 [facility] Last Admin: 06/03/18 09:49 Dose: 166.667 mls/hr Levetiracetam (Keppra) 1,000 mg PO BID [facility] Last Admin: 06/03/18 17:12 Dose: 1,000 mg Loratadine (Claritin) 10 mg PO DAILY [facility] Last Admin: 06/03/18 10:07 Dose: 10 mg Pantoprazole Sodium (Protonix Ec Tab) 40 mg PO 0600 [facility] Last Admin: 06/03/18 09:51 Dose: 40 mg - Labs Labs: 06/02/18 12:50 06/02/18 12:50 - Constitutional Appears: Non-toxic, No Acute Distress, Chronically Ill - Head Exam Head Exam: ATRAUMATIC, NORMOCEPHALIC - Eye Exam Eye Exam: EOMI, PERRL Pupil Exam: NORMAL ACCOMODATION, PERRL - ENT Exam ENT Exam: Mucous Membranes Moist, Normal External Ear Exam, TM's Normal Bilaterally - Neck Exam Neck Exam: Full ROM, Normal Inspection - Respiratory Exam Respiratory Exam: Clear to Ausculation Bilateral, NORMAL BREATHING PATTERN. absent: Rales, Rhonchi, Wheezes - Cardiovascular Exam Cardiovascular Exam: REGULAR RHYTHM, RRR, +S1, +S2 - GI/Abdominal Exam GI & Abdominal Exam: Soft, Normal Bowel Sounds. absent: Distended, Tenderness - Extremities Exam Extremities Exam: Joint Swelling, Pedal Edema Additional comments: +2 edema of the bilateral legs with erythema of the legs below the knees. The patient has sloughing of the skin of the left lower leg. - Neurological Exam Neurological Exam: Alert, Awake, CN II-XII Intact, Oriented x3 Additional comments: Autism. Limited Mental Exam. - Psychiatric Exam Additional comments: Autism. Limited Mental Exam. - Skin Skin Exam: Normal Color Additional comments: +2-3 edema of the bilateral legs with erythema of the legs below the knees. The patient has sloughing of the skin of the left lower leg. Assessment and Plan - Assessment and Plan (Free Text) Assessment: 67 yo female with left leg edema and erythema. The patient has Autism and command and control systems integrator gives the patient's history. Started on IV Vancomycin and Cefepime for antibiotic care. Supportive care. Can check ESR and C-reactive protein. Difficult to assess patient as she has no understanding of medical issues before her. Currently Afebrile and without leukocytosis. [place] [facility] Reappearance of cellulitis primarily to left lower leg. Fine lacy rash to multiple areas of the body especially neck, chest, arms, and upper legs. This appears to be viral in origin and should resolve in time. It is slowly improving. Thank you for allowing me to participate in the care of the patient, we will follow with you.
[2018-06-03 22:42] LABS: BASO # 0.02 K/mm3 (0.0-2.0); BASO % 0.6 % (0.0-3.0); EOS # 0.5 (0.0-0.7); EOS % 13.6 % (1.5-5.0); GRAN # 1.86 (1.4-6.5); GRAN % 51.5 % (50.0-68.0); HEMOGLOBIN 11.6 g/dL (12.0-16.0); LYMPH # 0.6 (1.2-3.4); LYMPH % 17.7 % (22.0-35.0); MEAN CELL VOLUME 92.9 fl (80.0-105.0); MEAN CORPUSCULAR HEMOGLOBIN 29.5 pg (25.0-35.0); MEAN CORPUSCULAR HGB CONC 31.8 g/dl (31.0-37.0); MEAN PLATELET VOLUME 10.6 fl (7.0-11.0); MONO # 0.6 (0.1-0.6); MONO % 16.6 % (1.0-6.0); RBC 3.93 10^6/uL (3.5-6.1); RED CELL DISTRIBUTION WIDTH 14.4 % (11.5-14.5); WHITE BLOOD COUNT 3.6 10^3/ul (4.5-11.0)
[2018-06-03] MEDS ORDERED: DiphenhydrAMINE 50 mg/ml Inj IVP STA (23:26)
[2018-06-04] MEDS: Pantoprazole 40 mg EC Tab PO SCH (06:34)
[2018-06-04 07:13] LABS: BASO # 0.03 K/mm3 (0.0-2.0); BASO % 1.4 % (0.0-3.0); EOS % 1.8 % (1.5-5.0); GRAN # 1.51 (1.4-6.5); GRAN % 69.2 % (50.0-68.0); HEMOGLOBIN 11.8 g/dL (12.0-16.0); LYMPH # 0.5 (1.2-3.4); LYMPH % 23.9 % (22.0-35.0); MEAN CELL VOLUME 92.6 fl (80.0-105.0); MEAN CORPUSCULAR HEMOGLOBIN 29.3 pg (25.0-35.0); MEAN CORPUSCULAR HGB CONC 31.6 g/dl (31.0-37.0); MEAN PLATELET VOLUME 10.5 fl (7.0-11.0); MONO # 0.1 (0.1-0.6); MONO % 3.7 % (1.0-6.0); RBC 4.03 10^6/uL (3.5-6.1); RED CELL DISTRIBUTION WIDTH 14.2 % (11.5-14.5)
[2018-06-04] MEDS: Budesonide 0.5 mg/2 ml Inhal Susp UD IH SCH ×2 (07:15→23:23)
[2018-06-04 07:29] LABS: ALB/GLOB RATIO 1.1 (1.1-1.8); ALBUMIN 3.4 g/dL (3.0-4.8); CALCIUM 8.4 mg/dL (8.4-10.5)
[2018-06-04 07:39] LABS: WHITE BLOOD COUNT 2.2 10^3/ul (4.5-11.0)
--- NOTE | 2018-06-04 08:24 | CP.PCM.PN ---
<Nestor Morel - Last Filed: 06/04/18 18:12> Subjective - Date & Time of Evaluation Date of Evaluation: 06/04/18 Time of Evaluation: 08:22 - Subjective Subjective: Nesotr Morel DO PGY1 Internal Medicine Flask Maker - Hospital Progress note Pt. seen this AM at bedside; Overnight patient developed rash; given solumedrol , benadryl, and pepcid. Vancomycin held last night. Per nursing report rash on upper extremities have improved. Febrile last night tmax 101.1 rectal. Given 650mg tylenol; afebrile this AM. 12 system ROS unobtainable due to patient's baseline mentation. Objective - Vital Signs/Intake and Output Vital Signs (last 24 hours): Temp Pulse Resp BP Pulse Ox 98.3 F 64 18 115/81 96 06/04/18 06:00 06/04/18 06:00 06/04/18 06:00 06/04/18 06:00 06/04/18 06:00 - Medications Medications: Current Medications Acetaminophen (Tylenol 325mg Tab) 650 mg PO Q6H PRN PRN Reason: Fever >100.4 F Last Admin: 06/03/18 22:06 Dose: 650 mg Albuterol Sulfate (Albuterol 0.083% Inhal Brittney (2.5 Mg/3 Ml) Ud) 2.5 mg INH Q8 [facility] Last Admin: 06/03/18 23:40 Dose: Not Given Budesonide (Pulmicort Respules) 0.5 mg IH BID [facility] Last Admin: 06/03/18 20:26 Dose: Not Given Clobetasol Propionate (Temovate 0.05%) 0 gm TOP BID [facility] Last Admin: 06/03/18 17:12 Dose: 1 applic Clonazepam (Klonopin) 1 mg PO BID [facility] PRN Reason: Protocol Last Admin: 06/03/18 17:12 Dose: 1 mg Diphenhydramine HCl (Benadryl) 25 mg IVP Q4H PRN PRN Reason: Allergy symptoms Divalproex Sodium (Depakote Dr(*Bid*)) 500 mg PO BID [facility] PRN Reason: Protocol Last Admin: 06/03/18 17:11 Dose: 500 mg Enoxaparin Sodium (Lovenox) 40 mg SC DAILY [facility] PRN Reason: Protocol Last Admin: 06/03/18 09:49 Dose: 40 mg Escitalopram Oxalate (Lexapro) 10 mg PO DAILY [facility] Last Admin: 06/03/18 09:51 Dose: 10 mg Furosemide (Lasix) 20 mg IVP DAILY [facility] Last Admin: 06/03/18 09:51 Dose: 20 mg Gabapentin (Neurontin) 300 mg PO TID [facility] PRN Reason: Protocol Last Admin: 06/03/18 17:11 Dose: 300 mg Hydrocortisone (Cortizone 1% Oint) 1 gm TOP BID [facility] Last Admin: 06/03/18 17:13 Dose: 1 applic Cefepime HCl (Maxipime 1gm) 1 gm in 100 mls @ 100 mls/hr IVPB Q12 [facility] PRN Reason: Protocol Last Admin: 06/03/18 21:27 Dose: 100 mls/hr Vancomycin HCl (Vancomycin 1gm) 1 gm in 250 mls @ 166.667 mls/hr IVPB Q12 [facility] Last Admin: 06/03/18 22:16 Dose: Not Given Levetiracetam (Keppra) 1,000 mg PO BID [facility] Last Admin: 06/03/18 17:12 Dose: 1,000 mg Loratadine (Claritin) 10 mg PO DAILY [facility] Last Admin: 06/03/18 10:07 Dose: 10 mg Pantoprazole Sodium (Protonix Ec Tab) 40 mg PO 0600 [facility] Last Admin: 06/04/18 06:34 Dose: 40 mg - Labs Labs: 06/04/18 06:55 06/04/18 06:55 - Constitutional Appears: Non-toxic, No Acute Distress - Head Exam Head Exam: ATRAUMATIC, NORMAL INSPECTION, NORMOCEPHALIC - Eye Exam Eye Exam: EOMI, Normal appearance - ENT Exam ENT Exam: Unable to assess this AM - Neck Exam Neck Exam: Normal Inspection - Respiratory Exam Respiratory Exam: Clear to Ausculation Bilateral, NORMAL BREATHING PATTERN. absent: Rhonchi, Wheezes - Cardiovascular Exam Cardiovascular Exam: REGULAR RHYTHM, +S1, +S2 - GI/Abdominal Exam GI & Abdominal Exam: Soft, Normal Bowel Sounds - Extremities Exam Extremities Exam: Left lower extremity w/ diminished cellulitic changes; On BL upper extremities can appreciate diffuse patchy erythematous macules w/ nail/ scratch jauregui; - Neurological Exam Neurological Exam: Alert, Awake - Psychiatric Exam Psychiatric exam: Patient appears to be at baseline; - Skin Skin Exam: Erythema (on upper extremities and feet bilaterally. Cellulitic rash on lower extremities resolved, edema still present. ) Assessment and Plan - Assessment and Plan (Free Text) Assessment: 67 yrs old female with PMh of asthma, HTN, seizure, legally blind, autism, mood disorder, who was brought in to the ED by her caregiver for bilateral lower leg cellulitis and failure of outpatient antibiotic treatment, now on IV antibiotics vanco/cefepime. Patient has now been readmitted for worsening cellulitis with onset of new rash. ID consulted. Plan: LE Cellulitis - DC Cefepime day #4, Vanc day #3 - Started Clindamycin 450mg PO Q8 Abx Day #4 as per ID; 2/2 patient pulling out line - ID Consult - Dr. Mccray - No procal needed, as patient is not septic - Blood cultures ordered; no growth after 24 hours - HH, - Claritin and Steroid topical added for rash patient has due to possible drug reaction - Continue monitoring response to clinda Fever - Patient febrile w/ tmax 101.1 overnight - Urine/ Blood cultures pending Acute on Chronic Kidney Disease - Stage 3 - Cr elevated this AM 1.3 - Pt keeps pulling IV; will encourage PO hydration - Avoid nephrotoxic agents - Consider Nephro workup if ALONA does not resolve New Rash on upper extremities b/l, erythematous, likely allergic - Benadryl PRN - Added clobetasol prn Hx Asthma - Continue home Pulmicort, Albuterol Hx HTN -Holding home Lasix Hx Seizures - Cont Keppra, divalproex Hx Chronic Pain - Cont neurontin Hx Unspecified mood disorder Cont escitalopram, clonazepam Hx asthma C/w montelukast, albuterol, budesonide GI/DVT ppx: Protonix PO daily, Lovenox Disposition plan: Continue management of cellulitis; monitor new antibiotic regimen Pt. seen, examined, and case discussed w/ attending physician Dr. Joann Morel DO PGY1 Internal Medicine Flask Maker - Pager [phone] <Lambert David - Last Filed: 06/05/18 07:49> Objective - Vital Signs/Intake and Output Vital Signs (last 24 hours): Temp Pulse Resp BP Pulse Ox 97.5 F L 68 18 139/77 95 06/05/18 07:38 06/05/18 07:38 06/05/18 07:38 06/05/18 07:38 06/05/18 07:38 Intake and Output: 06/05/18 06/05/18 06:59 18:59 Intake Total 240 Balance 240 - Medications Medications: Current Medications Acetaminophen (Tylenol 325mg Tab) 650 mg PO Q6H PRN PRN Reason: Fever >100.4 F Last Admin: 06/03/18 22:06 Dose: 650 mg Albuterol Sulfate (Albuterol 0.083% Inhal Brittney (2.5 Mg/3 Ml) Ud) 2.5 mg INH Q8 [facility] Last Admin: 06/05/18 07:19 Dose: Not Given Budesonide (Pulmicort Respules) 0.5 mg IH BID [facility] Last Admin: 06/04/18 23:23 Dose: Not Given Clindamycin HCl (Cleocin) 450 mg PO Q8 [facility] PRN Reason: Protocol Last Admin: 06/05/18 05:37 Dose: 450 mg Clobetasol Propionate (Temovate 0.05%) 0 gm TOP BID [facility] Last Admin: 06/04/18 18:19 Dose: 1 applic Clonazepam (Klonopin) 1 mg PO BID [facility] PRN Reason: Protocol Last Admin: 06/04/18 18:20 Dose: 1 mg Diphenhydramine HCl (Benadryl) 25 mg IVP Q4H PRN PRN Reason: Allergy symptoms Divalproex Sodium (Depakote Dr(*Bid*)) 500 mg PO BID [facility] PRN Reason: Protocol Last Admin: 06/04/18 18:19 Dose: 500 mg Enoxaparin Sodium (Lovenox) 30 mg SC DAILY [facility] PRN Reason: Protocol Escitalopram Oxalate (Lexapro) 10 mg PO DAILY [facility] Last Admin: 06/04/18 10:34 Dose: 10 mg Furosemide (Lasix) 20 mg IVP DAILY [facility] Last Admin: 06/04/18 10:34 Dose: 20 mg Gabapentin (Neurontin) 300 mg PO TID [facility] PRN Reason: Protocol Last Admin: 06/04/18 18:20 Dose: 300 mg Hydrocortisone (Cortizone 1% Oint) 1 gm TOP BID [facility] Last Admin: 06/04/18 18:19 Dose: 1 applic Cefepime HCl (Maxipime 1gm) 1 gm in 100 mls @ 100 mls/hr IVPB Q12 [facility] PRN Reason: Protocol Last Admin: 06/04/18 22:46 Dose: Not Given Vancomycin HCl (Vancomycin 1gm) 1 gm in 250 mls @ 166.667 mls/hr IVPB Q12 [facility] Last Admin: 06/03/18 22:16 Dose: Not Given Lactobacillus Acidophilus (Bacid Acidophilus) 1 cap PO BID [facility] Levetiracetam (Keppra) 1,000 mg PO BID [facility] Last Admin: 06/04/18 18:19 Dose: 1,000 mg Loratadine (Claritin) 10 mg PO DAILY [facility] Last Admin: 06/04/18 10:34 Dose: 10 mg Pantoprazole Sodium (Protonix Ec Tab) 40 mg PO 0600 [facility] Last Admin: 06/05/18 05:37 Dose: 40 mg - Labs Labs: 06/04/18 06:55 06/04/18 06:55 Attending/Attestation - Attestation I have personally seen and examined this patient.: Yes I have fully participated in the care of the patient.: Yes I have reviewed all pertinent clinical information, including history, physical exam and plan: Yes Notes (Text): 06/04/18 67 year old female with past medical history of asthma, hypertension, legally blind, autism, mood disorder and seizure who was recently treated for lower extremity cellulitis returned with rash and recurrent cellulitis. Overnight she had fever 101.1 and worsening rash. Vancomycin was held. She is on cefepime however removed iv line and is refusing re-insertion. Antibiotic switched to cleocin for now. Will follow up on repeat cultures. Monitor leukopenia. Monitor rash. Mild ALONA today and she was started on fluids. However as above she removed iv line. Encouraged hydration. Will monitor creatinine. Lambert David MD Hospitalist.
[2018-06-04] MEDS: Albuterol 0.083% Inhal Sol (2.5 mg/3 mL) UD INH SCH ×2 (08:29→23:23)
[2018-06-04] MEDS: Enoxaparin 40 mg Syringe SC SCH (10:33)
[2018-06-04] MEDS: Divalproex 500 mg DR(BID formulation) PO SCH ×2 (10:34→18:19)
[2018-06-04] MEDS: Cefepime 1gm in NS 100ml 1 GM/100 ML BAG IVPB SCH ×2 (10:36→22:46)
[2018-06-04] MEDS ORDERED: Sodium Chloride 0.9% 1,000 ML IV SCH (12:00)
[2018-06-04] MEDS: Clobetasol 0.05% Cream(30 gm) TOP SCH ×2 (13:11→18:19)
[2018-06-04] MEDS ORDERED: Enoxaparin 30 mg Syringe SC SCH (13:13)
--- NOTE | 2018-06-04 18:23 | CP.PCM.PN ---
Subjective - Date & Time of Evaluation Date of Evaluation: 06/04/18 Time of Evaluation: 17:00 - Subjective Subjective: Infectious Disease Follow Up: June 04, 2018 67 yo female with history of Asthma, Seizures, Legal Blindness, and Autism presenting with rash in the left lower leg now. The patient was just recently released for [facility] for two week history of worsening bilateral leg edema and cellulitis. The patient was seen by several doctors including her PMD and pearl glue drier. 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 The patient currently has +2-3 edema of both legs. The patient is unable to give any history. The patient has been on Augmentin, Bactrim BS, and Keflex. Patient's caretakers give the patient's history. Was on Cefepime and IV Vancomycin. Patient unable to care for herself in any capacity. Fine lacy and erythematous rash on the neck, chest, arms, and legs slowly resolving... convalescence of the rash. Cellulitis of the lower legs with left much worse than right on this presentation but the cellulitis is resolving. Fevers up to 101.1 F last night. Patient refusing IV line (removed IV line again today.) Objective - Vital Signs/Intake and Output Vital Signs (last 24 hours): Temp Pulse Resp BP Pulse Ox 98 F 75 18 117/77 98 06/04/18 14:00 06/04/18 14:00 06/04/18 14:00 06/04/18 14:00 06/04/18 14:00 - Medications Medications: Current Medications Acetaminophen (Tylenol 325mg Tab) 650 mg PO Q6H PRN PRN Reason: Fever >100.4 F Last Admin: 06/03/18 22:06 Dose: 650 mg Albuterol Sulfate (Albuterol 0.083% Inhal Brittney (2.5 Mg/3 Ml) Ud) 2.5 mg INH Q8 [facility] Last Admin: 06/04/18 08:29 Dose: Not Given Budesonide (Pulmicort Respules) 0.5 mg IH BID [facility] Last Admin: 06/04/18 07:15 Dose: Not Given Clindamycin HCl (Cleocin) 450 mg PO Q8 [facility] PRN Reason: Protocol Last Admin: 06/04/18 15:22 Dose: 450 mg Clobetasol Propionate (Temovate 0.05%) 0 gm TOP BID [facility] Last Admin: 06/04/18 13:11 Dose: Not Given Clonazepam (Klonopin) 1 mg PO BID [facility] PRN Reason: Protocol Last Admin: 06/04/18 10:34 Dose: 1 mg Diphenhydramine HCl (Benadryl) 25 mg IVP Q4H PRN PRN Reason: Allergy symptoms Divalproex Sodium (Depakote Dr(*Bid*)) 500 mg PO BID [facility] PRN Reason: Protocol Last Admin: 06/04/18 10:34 Dose: 500 mg Enoxaparin Sodium (Lovenox) 30 mg SC DAILY [facility] PRN Reason: Protocol Escitalopram Oxalate (Lexapro) 10 mg PO DAILY [facility] Last Admin: 06/04/18 10:34 Dose: 10 mg Furosemide (Lasix) 20 mg IVP DAILY [facility] Last Admin: 06/04/18 10:34 Dose: 20 mg Gabapentin (Neurontin) 300 mg PO TID [facility] PRN Reason: Protocol Last Admin: 06/04/18 15:23 Dose: Not Given Hydrocortisone (Cortizone 1% Oint) 1 gm TOP BID [facility] Last Admin: 06/04/18 13:11 Dose: Not Given Cefepime HCl (Maxipime 1gm) 1 gm in 100 mls @ 100 mls/hr IVPB Q12 [facility] PRN Reason: Protocol Last Admin: 06/04/18 10:36 Dose: 100 mls/hr Vancomycin HCl (Vancomycin 1gm) 1 gm in 250 mls @ 166.667 mls/hr IVPB Q12 [facility] Last Admin: 06/03/18 22:16 Dose: Not Given Levetiracetam (Keppra) 1,000 mg PO BID [facility] Last Admin: 06/04/18 10:33 Dose: 1,000 mg Loratadine (Claritin) 10 mg PO DAILY [facility] Last Admin: 06/04/18 10:34 Dose: 10 mg Pantoprazole Sodium (Protonix Ec Tab) 40 mg PO 0600 [facility] Last Admin: 06/04/18 06:34 Dose: 40 mg - Labs Labs: 06/04/18 06:55 06/04/18 06:55 - Constitutional Appears: Non-toxic, No Acute Distress, Chronically Ill - Head Exam Head Exam: ATRAUMATIC, NORMOCEPHALIC - Eye Exam Eye Exam: EOMI, PERRL Pupil Exam: NORMAL ACCOMODATION, PERRL - ENT Exam ENT Exam: Mucous Membranes Moist, Normal External Ear Exam, TM's Normal Bilaterally - Neck Exam Neck Exam: Full ROM, Normal Inspection - Respiratory Exam Respiratory Exam: Clear to Ausculation Bilateral, NORMAL BREATHING PATTERN. absent: Rales, Rhonchi, Wheezes - Cardiovascular Exam Cardiovascular Exam: REGULAR RHYTHM, RRR, +S1, +S2 - GI/Abdominal Exam GI & Abdominal Exam: Soft, Normal Bowel Sounds. absent: Distended, Tenderness - Extremities Exam Extremities Exam: Joint Swelling, Pedal Edema Additional comments: +2 edema of the bilateral legs with erythema of the legs below the knees. The patient has sloughing of the skin of the left lower leg. - Neurological Exam Neurological Exam: Alert, Awake, CN II-XII Intact, Oriented x3 Additional comments: Autism. Limited Mental Exam. - Psychiatric Exam Additional comments: Autism. Limited Mental Exam. - Skin Additional comments: +2-3 edema of the bilateral legs with erythema of the legs below the knees. The patient has sloughing of the skin of the left lower leg. Assessment and Plan - Assessment and Plan (Free Text) Assessment: 67 yo female with left leg edema and erythema. The patient has Autism and associate professor of automation gives the patient's history. Started on IV Vancomycin and Cefepime for antibiotic care. Supportive care. Can check ESR and C-reactive protein. Difficult to assess patient as she has no understanding of medical issues before her. Currently Afebrile and without leukocytosis. Recently discharged from [facility]. Reappearance of cellulitis primarily to left lower leg. Fine lacy rash to multiple areas of the body especially neck, chest, arms, and upper legs... rash is convalescing. This appears to be viral in origin and should resolve in time. It is slowly improving. There was some concerns on whether the rash was worsening secondary to Vancomycin administration... to me the rash appears to be to convalescing. Thank you for allowing me to participate in the care of the patient, we will follow with you.
[2018-06-05] MEDS: Pantoprazole 40 mg EC Tab PO SCH (05:37)
[2018-06-05] MEDS: Albuterol 0.083% Inhal Sol (2.5 mg/3 mL) UD INH SCH ×2 (07:19→13:57)
[2018-06-05 07:20] LABS: BASO # 0.04 K/mm3 (0.0-2.0); BASO % 0.7 % (0.0-3.0); EOS # 0.1 (0.0-0.7); EOS % 1.5 % (1.5-5.0); GRAN # 3.05 (1.4-6.5); GRAN % 57.1 % (50.0-68.0); HEMOGLOBIN 11.7 g/dL (12.0-16.0); LYMPH # 1.5 (1.2-3.4); MEAN CELL VOLUME 92.6 fl (80.0-105.0); MEAN CORPUSCULAR HGB CONC 32.4 g/dl (31.0-37.0); MEAN PLATELET VOLUME 11.4 fl (7.0-11.0); MONO # 0.7 (0.1-0.6); MONO % 12.7 % (1.0-6.0); RBC 3.9 10^6/uL (3.5-6.1); WHITE BLOOD COUNT 5.4 10^3/ul (4.5-11.0)
[2018-06-05 07:50] LABS: ALBUMIN 3.2 g/dL (3.0-4.8); ALT/SGPT 20 U/L (7-56); AST/SGOT 19 U/L (14-36); BLOOD UREA NITROGEN 32 mg/dL (7-21); CALCIUM 8.9 mg/dL (8.4-10.5); GFR AFRICAN-AMERICAN > 60; GFR NON-AFRICAN AMERICAN 55
[2018-06-05] MEDS: Cefepime 1gm in NS 100ml 1 GM/100 ML BAG IVPB SCH (10:00)
[2018-06-05] MEDS: Budesonide 0.5 mg/2 ml Inhal Susp UD IH SCH (11:00)
[2018-06-05] MEDS: Divalproex 500 mg DR(BID formulation) PO SCH ×2 (11:37→19:08)
[2018-06-05] MEDS: Lactobacillus Acidophilus 500 MU Cap PO SCH ×2 (11:45→19:08)
[2018-06-05 15:56] VITALS: RESP 20
--- NOTE | 2018-06-05 17:17 | CP.PCM.PN ---
Subjective - Date & Time of Evaluation Date of Evaluation: 06/05/18 Time of Evaluation: 16:00 - Subjective Subjective: Infectious Disease Follow Up: June 05, 2018 67 yo female with history of Asthma, Seizures, Legal Blindness, and Autism presenting with rash in the left lower leg now. The patient was just recently released for [facility] [place] for two week history of worsening bilateral leg edema and cellulitis. The patient was seen by several doctors including her PMD and paper bundler. 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 The patient currently has +2-3 edema of both legs. The patient is unable to give any history. The patient has been on Augmentin, Bactrim BS, and Keflex. Patient's caretakers give the patient's history. Was on Cefepime and IV Vancomycin. Patient unable to care for herself in any capacity. Fine lacy and erythematous rash on the neck, chest, arms, and legs slowly resolving... convalescence of the rash. Cellulitis of the lower legs with left much worse than right on this presentation but the cellulitis is resolving. Fevers up to 101.1 F last night. Patient refusing IV line (removed IV line again today.) With no IV access, Clindamycin 450 mg PO q8hrs started on the patient. May need to consider probiotics to decrease risk of C. Diff. Objective - Vital Signs/Intake and Output Vital Signs (last 24 hours): Temp Pulse Resp BP Pulse Ox 97.8 F 63 20 129/77 98 06/05/18 14:00 06/05/18 14:00 06/05/18 14:00 06/05/18 14:00 06/05/18 14:00 Intake and Output: 06/05/18 06/05/18 06:59 18:59 Intake Total 240 720 Balance 240 720 - Medications Medications: Current Medications Acetaminophen (Tylenol 325mg Tab) 650 mg PO Q6H PRN PRN Reason: Fever >100.4 F Last Admin: 06/03/18 22:06 Dose: 650 mg Albuterol Sulfate (Albuterol 0.083% Inhal Brittney (2.5 Mg/3 Ml) Ud) 2.5 mg INH Q8 [facility] Last Admin: 06/05/18 13:57 Dose: Not Given Budesonide (Pulmicort Respules) 0.5 mg IH BID [facility] Last Admin: 06/05/18 11:00 Dose: Not Given Clindamycin HCl (Cleocin) 450 mg PO Q8 [facility] PRN Reason: Protocol Last Admin: 06/05/18 05:37 Dose: 450 mg Clobetasol Propionate (Temovate 0.05%) 0 gm TOP BID [facility] Last Admin: 06/04/18 18:19 Dose: 1 applic Clonazepam (Klonopin) 1 mg PO BID [facility] PRN Reason: Protocol Last Admin: 06/05/18 11:38 Dose: 1 mg Diphenhydramine HCl (Benadryl) 25 mg IVP Q4H PRN PRN Reason: Allergy symptoms Divalproex Sodium (Depakote Dr(*Bid*)) 500 mg PO BID [facility] PRN Reason: Protocol Last Admin: 06/05/18 11:37 Dose: 500 mg Enoxaparin Sodium (Lovenox) 30 mg SC DAILY [facility] PRN Reason: Protocol Last Admin: 06/05/18 11:37 Dose: 30 mg Escitalopram Oxalate (Lexapro) 10 mg PO DAILY [facility] Last Admin: 06/05/18 11:37 Dose: 10 mg Furosemide (Lasix) 20 mg IVP DAILY [facility] Last Admin: 06/04/18 10:34 Dose: 20 mg Gabapentin (Neurontin) 300 mg PO TID [facility] PRN Reason: Protocol Last Admin: 06/04/18 18:20 Dose: 300 mg Hydrocortisone (Cortizone 1% Oint) 1 gm TOP BID [facility] Last Admin: 06/05/18 11:45 Dose: 1 applic Vancomycin HCl (Vancomycin 1gm) 1 gm in 250 mls @ 166.667 mls/hr IVPB Q12 [facility] Last Admin: 06/03/18 22:16 Dose: Not Given Lactobacillus Acidophilus (Bacid Acidophilus) 1 cap PO BID [facility] Last Admin: 06/05/18 11:45 Dose: 1 cap Levetiracetam (Keppra) 1,000 mg PO BID [facility] Last Admin: 06/05/18 11:45 Dose: 1,000 mg Loratadine (Claritin) 10 mg PO DAILY [facility] Last Admin: 06/05/18 11:45 Dose: 10 mg Pantoprazole Sodium (Protonix Ec Tab) 40 mg PO 0600 [facility] Last Admin: 06/05/18 05:37 Dose: 40 mg - Labs Labs: 06/05/18 06:30 06/05/18 06:30 - Constitutional Appears: Non-toxic, No Acute Distress, Chronically Ill - Head Exam Head Exam: ATRAUMATIC, NORMOCEPHALIC - Eye Exam Eye Exam: EOMI, PERRL Pupil Exam: NORMAL ACCOMODATION, PERRL - ENT Exam ENT Exam: Mucous Membranes Moist, Normal External Ear Exam, TM's Normal Bilaterally - Neck Exam Neck Exam: Full ROM, Normal Inspection - Respiratory Exam Respiratory Exam: Clear to Ausculation Bilateral, NORMAL BREATHING PATTERN. absent: Rales, Rhonchi, Wheezes - Cardiovascular Exam Cardiovascular Exam: REGULAR RHYTHM, RRR, +S1, +S2 - GI/Abdominal Exam GI & Abdominal Exam: Soft, Normal Bowel Sounds. absent: Distended, Tenderness - Extremities Exam Extremities Exam: Joint Swelling, Pedal Edema Additional comments: +2 edema of the bilateral legs with erythema of the legs below the knees. The patient has sloughing of the skin of the left lower leg. - Neurological Exam Neurological Exam: Alert, Awake, CN II-XII Intact Additional comments: Autism. Limited Mental Exam. - Psychiatric Exam Additional comments: Autism. Limited Mental Exam. - Skin Additional comments: +2 edema of the lower extremities. diffuse mildly erythematous rash present that appears to be convalescing. Assessment and Plan - Assessment and Plan (Free Text) Assessment: 67 yo female with left leg edema and erythema. The patient has Autism and pilot plant operator gives the patient's history. Started on IV Vancomycin and Cefepime for antibiotic care. Supportive care. Can check ESR and C-reactive protein. Difficult to assess patient as she has no understanding of medical issues before her. Currently Afebrile and without leukocytosis. Recently discharged from [facility] [place]. Reappearance of cellulitis primarily to left lower leg. This is resolving. Patient refusing IV line... tore out her last one. On Clindamycin PO 450 mg q8hrs for antibiotic treatment. Consider 7-10 days of total antibiotic treatment. Fine lacy rash to multiple areas of the body especially neck, chest, arms, and upper legs... rash is convalescing. This appears to be viral in origin and should resolve in time. It is slowly improving. There was some concerns on whether the rash was worsening secondary to Vancomycin administration... to me the rash appears to be to convalescing. Thank you for allowing me to participate in the care of the patient, we will follow with you.
--- NOTE | 2018-06-05 17:30 | CP.PCM.PN ---
<Nestor Morel - Last Filed: 06/05/18 17:23> Subjective - Date & Time of Evaluation Date of Evaluation: 06/05/18 Time of Evaluation: 17:32 - Subjective Subjective: Nestor Morel DO PGY1 Internal Medicine [employer] [facility] - [facility] Progress NOte Pt. seen this AM at bedside; appears to be at baseline. Does not appear toxic. Nursing reported patient pulled her IV line yesterday evening; ID subsequently switched Abx to PO. Pt. tolerating new abx regimen well; will continue to monitor for signs of diarrhea; started pt. on probiotic today. 12 system ROS unable to be obtained due to pt. baseline mentation. Objective - Vital Signs/Intake and Output Vital Signs (last 24 hours): Temp Pulse Resp BP Pulse Ox 97.8 F 63 20 129/77 98 06/05/18 14:00 06/05/18 14:00 06/05/18 14:00 06/05/18 14:00 06/05/18 14:00 Intake and Output: 06/05/18 06/05/18 06:59 18:59 Intake Total 240 720 Balance 240 720 - Medications Medications: Current Medications Acetaminophen (Tylenol 325mg Tab) 650 mg PO Q6H PRN PRN Reason: Fever >100.4 F Last Admin: 06/03/18 22:06 Dose: 650 mg Albuterol Sulfate (Albuterol 0.083% Inhal Brittney (2.5 Mg/3 Ml) Ud) 2.5 mg INH Q8 [facility] Last Admin: 06/05/18 13:57 Dose: Not Given Budesonide (Pulmicort Respules) 0.5 mg IH BID [facility] Last Admin: 06/05/18 11:00 Dose: Not Given Clindamycin HCl (Cleocin) 450 mg PO Q8 [facility] PRN Reason: Protocol Last Admin: 06/05/18 05:37 Dose: 450 mg Clobetasol Propionate (Temovate 0.05%) 0 gm TOP BID [facility] Last Admin: 06/04/18 18:19 Dose: 1 applic Clonazepam (Klonopin) 1 mg PO BID [facility] PRN Reason: Protocol Last Admin: 06/05/18 11:38 Dose: 1 mg Diphenhydramine HCl (Benadryl) 25 mg IVP Q4H PRN PRN Reason: Allergy symptoms Divalproex Sodium (Depakote Dr(*Bid*)) 500 mg PO BID [facility] PRN Reason: Protocol Last Admin: 06/05/18 11:37 Dose: 500 mg Enoxaparin Sodium (Lovenox) 30 mg SC DAILY [facility] PRN Reason: Protocol Last Admin: 06/05/18 11:37 Dose: 30 mg Escitalopram Oxalate (Lexapro) 10 mg PO DAILY [facility] Last Admin: 06/05/18 11:37 Dose: 10 mg Furosemide (Lasix) 20 mg IVP DAILY [facility] Last Admin: 06/04/18 10:34 Dose: 20 mg Gabapentin (Neurontin) 300 mg PO TID [facility] PRN Reason: Protocol Last Admin: 06/04/18 18:20 Dose: 300 mg Hydrocortisone (Cortizone 1% Oint) 1 gm TOP BID [facility] Last Admin: 06/05/18 11:45 Dose: 1 applic Vancomycin HCl (Vancomycin 1gm) 1 gm in 250 mls @ 166.667 mls/hr IVPB Q12 [facility] Last Admin: 06/03/18 22:16 Dose: Not Given Lactobacillus Acidophilus (Bacid Acidophilus) 1 cap PO BID [facility] Last Admin: 06/05/18 11:45 Dose: 1 cap Levetiracetam (Keppra) 1,000 mg PO BID [facility] Last Admin: 06/05/18 11:45 Dose: 1,000 mg Loratadine (Claritin) 10 mg PO DAILY [facility] Last Admin: 06/05/18 11:45 Dose: 10 mg Pantoprazole Sodium (Protonix Ec Tab) 40 mg PO 0600 [facility] Last Admin: 06/05/18 05:37 Dose: 40 mg - Labs Labs: 06/05/18 06:30 06/05/18 06:30 Physical Exam - Constitutional Appears: Non-toxic, No Acute Distress - Head Exam Head Exam: ATRAUMATIC, NORMAL INSPECTION, NORMOCEPHALIC - Eye Exam Eye Exam: EOMI, Normal appearance - ENT Exam ENT Exam: Unable to assess this AM - Neck Exam Neck Exam: Normal Inspection - Respiratory Exam Respiratory Exam: Clear to Ausculation Bilateral, NORMAL BREATHING PATTERN. absent: Rhonchi, Wheezes - Cardiovascular Exam Cardiovascular Exam: REGULAR RHYTHM, +S1, +S2 - GI/Abdominal Exam GI & Abdominal Exam: Soft, Normal Bowel Sounds - Extremities Exam Extremities Exam: Left lower extremity w/ diminished cellulitic changes more prominent on posterior aspect of L foot; On BL upper extremities; diffuse patchy erythematous macules w/ nail/ scratch jauregui unchanged from day prior; - Neurological Exam Neurological Exam: Alert, Awake - Psychiatric Exam Psychiatric exam: Patient appears to be at mental baseline; - Skin Skin Exam: Erythema (on upper extremities and feet bilaterally. Cellulitic rash on lower extremities resolved, edema still present. ) Assessment and Plan - Assessment and Plan (Free Text) Assessment: 67 yrs old female with PMh of asthma, HTN, seizure, legally blind, autism, mood disorder, who was brought in to the ED by her caregiver for bilateral lower leg cellulitis and failure of outpatient antibiotic treatment, now on IV antibiotics vanco/cefepime. Patient has now been readmitted for worsening cellulitis with onset of new rash. ID consulted. Plan: New Rash on upper extremities b/l, erythematous/macular - Rash to be viral in origin per ID; will resolve w/ supportive care - Benadryl PRN - Clobetasol prn LE Cellulitis - C/w Clindamycin 450mg PO Q8 Abx Day #5 of 7-10 as per ID; 2/2 patient pulling out line - Started patient on probiotic - ID Consult - Dr. Mccray - No procal needed, as patient is not septic - Blood cultures ordered; no growth after 24 hours - HH, - Claritin and Steroid topical added for rash patient has due to possible drug reaction - Continue monitoring response to clinda Fever - Patient remained afebrile throughout day today; continue to monitor - Blood Cx x2 - no growth after 24 Hours Acute on Chronic Kidney Disease - Stage 3 - Cr back to baseline today - Continue to encourage PO hydration - Continue to Avoid nephrotoxic agents Hx Asthma - Continue home Pulmicort, Albuterol Hx HTN -Holding home Lasix; will resume if patient becomes further edematous or hypertensive Hx Seizures - Cont Keppra, divalproex Hx Chronic Pain - Cont neurontin Hx Unspecified mood disorder Cont escitalopram, clonazepam Hx asthma C/w montelukast, albuterol, budesonide GI/DVT ppx: Protonix PO daily, Lovenox Disposition plan: Continue management of cellulitis; monitor new antibiotic regimen Pt. seen, examined, and case discussed w/ attending physician Dr. Joann Morel DO PGY1 Internal Medicine [employer] - Pager [phone] <Lambert David - Last Filed: 06/05/18 17:43> Objective - Vital Signs/Intake and Output Vital Signs (last 24 hours): Temp Pulse Resp BP Pulse Ox 97.8 F 63 20 129/77 98 06/05/18 14:00 06/05/18 14:00 06/05/18 14:00 06/05/18 14:00 06/05/18 14:00 Intake and Output: 06/05/18 06/05/18 06:59 18:59 Intake Total 240 720 Balance 240 720 - Medications Medications: Current Medications Acetaminophen (Tylenol 325mg Tab) 650 mg PO Q6H PRN PRN Reason: Fever >100.4 F Last Admin: 06/03/18 22:06 Dose: 650 mg Albuterol Sulfate (Albuterol 0.083% Inhal Brittney (2.5 Mg/3 Ml) Ud) 2.5 mg INH Q8 [facility] Last Admin: 06/05/18 13:57 Dose: Not Given Budesonide (Pulmicort Respules) 0.5 mg IH BID [facility] Last Admin: 06/05/18 11:00 Dose: Not Given Clindamycin HCl (Cleocin) 450 mg PO Q8 [facility] PRN Reason: Protocol Last Admin: 06/05/18 05:37 Dose: 450 mg Clobetasol Propionate (Temovate 0.05%) 0 gm TOP BID [facility] Last Admin: 06/04/18 18:19 Dose: 1 applic Clonazepam (Klonopin) 1 mg PO BID [facility] PRN Reason: Protocol Last Admin: 06/05/18 11:38 Dose: 1 mg Diphenhydramine HCl (Benadryl) 25 mg IVP Q4H PRN PRN Reason: Allergy symptoms Divalproex Sodium (Depakote Dr(*Bid*)) 500 mg PO BID [facility] PRN Reason: Protocol Last Admin: 06/05/18 11:37 Dose: 500 mg Enoxaparin Sodium (Lovenox) 30 mg SC DAILY [facility] PRN Reason: Protocol Last Admin: 06/05/18 11:37 Dose: 30 mg Escitalopram Oxalate (Lexapro) 10 mg PO DAILY [facility] Last Admin: 06/05/18 11:37 Dose: 10 mg Furosemide (Lasix) 20 mg IVP DAILY [facility] Last Admin: 06/04/18 10:34 Dose: 20 mg Gabapentin (Neurontin) 300 mg PO TID [facility] PRN Reason: Protocol Last Admin: 06/04/18 18:20 Dose: 300 mg Hydrocortisone (Cortizone 1% Oint) 1 gm TOP BID [facility] Last Admin: 06/05/18 11:45 Dose: 1 applic Vancomycin HCl (Vancomycin 1gm) 1 gm in 250 mls @ 166.667 mls/hr IVPB Q12 [facility] Last Admin: 06/03/18 22:16 Dose: Not Given Lactobacillus Acidophilus (Bacid Acidophilus) 1 cap PO BID [facility] Last Admin: 06/05/18 11:45 Dose: 1 cap Levetiracetam (Keppra) 1,000 mg PO BID [facility] Last Admin: 06/05/18 11:45 Dose: 1,000 mg Loratadine (Claritin) 10 mg PO DAILY [facility] Last Admin: 06/05/18 11:45 Dose: 10 mg Pantoprazole Sodium (Protonix Ec Tab) 40 mg PO 0600 [facility] Last Admin: 06/05/18 05:37 Dose: 40 mg - Labs Labs: 06/05/18 06:30 06/05/18 06:30 Attending/Attestation - Attestation I have personally seen and examined this patient.: Yes I have fully participated in the care of the patient.: Yes I have reviewed all pertinent clinical information, including history, physical exam and plan: Yes Notes (Text): 06/05/18 17:41 67 year old female with past medical history of asthma, hypertension, legally blind, autism, mood disorder and seizure who was recently treated for lower extremity cellulitis returned with rash and recurrent cellulitis. She had fever two nights prior but now has been afebrile x 36 hrs. Vancomycin was held. She was on cefepime however removed iv line and refused re-insertion since. Antibiotic switched to cleocin for now. Probiotic was added. Will follow up on repeat cultures. Leukopenia has improved. ALONA has resolved. Continue to monitor rash. Lambert David MD Hospitalist.
[2018-06-06 07:07] LABS: BASO # 0.07 K/mm3 (0.0-2.0); BASO % 1.6 % (0.0-3.0); EOS # 0.5 (0.0-0.7); EOS % 12.1 % (1.5-5.0); GRAN # 1.37 (1.4-6.5); GRAN % 31.8 % (50.0-68.0); HEMOGLOBIN 11.4 g/dL (12.0-16.0); LYMPH # 1.7 (1.2-3.4); LYMPH % 39.4 % (22.0-35.0); MEAN CELL VOLUME 92.5 fl (80.0-105.0); MEAN CORPUSCULAR HEMOGLOBIN 29.5 pg (25.0-35.0); MEAN CORPUSCULAR HGB CONC 31.8 g/dl (31.0-37.0); MEAN PLATELET VOLUME 9.9 fl (7.0-11.0); MONO # 0.7 (0.1-0.6); MONO % 15.1 % (1.0-6.0); RBC 3.87 10^6/uL (3.5-6.1); RED CELL DISTRIBUTION WIDTH 14.4 % (11.5-14.5); WHITE BLOOD COUNT 4.3 10^3/ul (4.5-11.0)
[2018-06-06] MEDS: Albuterol 0.083% Inhal Sol (2.5 mg/3 mL) UD INH SCH ×2 (07:11→13:44)
[2018-06-06 07:28] VITALS: BP 128/82; PULSE 65; TEMP 98.2; O2SAT 96
[2018-06-06 07:30] LABS: CALCIUM 8.5 mg/dL (8.4-10.5)
[2018-06-06] MEDS: Pantoprazole 40 mg EC Tab PO SCH (11:39)
[2018-06-06] MEDS: Divalproex 500 mg DR(BID formulation) PO SCH (11:40)
[2018-06-06] MEDS: Clobetasol 0.05% Cream(30 gm) TOP SCH (11:41)
[2018-06-06] MEDS: Lactobacillus Acidophilus 500 MU Cap PO SCH (11:42)
[2018-06-06] MEDS: Budesonide 0.5 mg/2 ml Inhal Susp UD IH SCH (13:44)
--- NOTE | 2018-06-06 15:45 | CP.PCM.PN ---
Subjective - Date & Time of Evaluation Date of Evaluation: 06/06/18 Time of Evaluation: 14:00 - Subjective Subjective: Infectious Disease Follow Up: June 06, 2018 67 yo female with history of Asthma, Seizures, Legal Blindness, and Autism presenting with rash in the left lower leg now. The patient was just recently released [place] [facility] [place] two week history of worsening bilateral leg edema and cellulitis. The patient was seen by several doctors including her PMD and garbage person. 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 The patient currently has +2-3 edema of both legs. The patient is unable to give any history. The patient has been on Augmentin, Bactrim BS, and Keflex. Patient's caretakers give the patient's history. Was on Cefepime and IV Vancomycin. Patient unable to care for herself in any capacity. Fine lacy and erythematous rash on the neck, chest, arms, and legs slowly resolving... convalescence of the rash. Cellulitis of the lower legs with left much worse than right on this presentation but the cellulitis is resolving. Afebrile. Patient refusing IV line (removed IV line again today.) With no IV access, Clindamycin 450 mg PO q8hrs started on the patient. May need to consider probiotics to decrease risk of C. Diff. Cellulitis of the legs appears to be resolving. Generalized rash is stable. Objective - Vital Signs/Intake and Output Vital Signs (last 24 hours): Temp Pulse Resp BP Pulse Ox 98.2 F 65 20 128/82 96 06/06/18 07:27 06/06/18 07:27 06/06/18 07:27 06/06/18 07:27 06/06/18 07:27 Intake and Output: 06/06/18 06/06/18 06:59 18:59 Intake Total 660 480 Balance 660 480 - Medications Medications: Current Medications Acetaminophen (Tylenol 325mg Tab) 650 mg PO Q6H PRN PRN Reason: Fever >100.4 F Last Admin: 06/03/18 22:06 Dose: 650 mg Albuterol Sulfate (Albuterol 0.083% Inhal Brittney (2.5 Mg/3 Ml) Ud) 2.5 mg INH Q8 ANNE MARIE Last Admin: 06/06/18 13:44 Dose: Not Given Budesonide (Pulmicort Respules) 0.5 mg IH BID [facility] Last Admin: 06/06/18 13:44 Dose: Not Given Clindamycin HCl (Cleocin) 450 mg PO Q8 ANNE MARIE PRN Reason: Protocol Last Admin: 06/06/18 05:00 Dose: 450 mg Clobetasol Propionate (Temovate 0.05%) 0 gm TOP BID [facility] Last Admin: 06/06/18 11:41 Dose: 1 applic Clonazepam (Klonopin) 1 mg PO BID ANNE MARIE PRN Reason: Protocol Last Admin: 06/06/18 11:40 Dose: 1 mg Diphenhydramine HCl (Benadryl) 25 mg IVP Q4H PRN PRN Reason: Allergy symptoms Divalproex Sodium (Depakote Dr(*Bid*)) 500 mg PO BID ANNE MARIE PRN Reason: Protocol Last Admin: 06/06/18 11:40 Dose: 500 mg Enoxaparin Sodium (Lovenox) 30 mg SC DAILY ANNE MARIE PRN Reason: Protocol Last Admin: 06/05/18 11:37 Dose: 30 mg Escitalopram Oxalate (Lexapro) 10 mg PO DAILY [facility] Last Admin: 06/06/18 11:42 Dose: 10 mg Furosemide (Lasix) 20 mg IVP DAILY [facility] Last Admin: 06/06/18 11:43 Dose: Not Given Gabapentin (Neurontin) 300 mg PO TID ANNE MARIE PRN Reason: Protocol Last Admin: 06/05/18 19:07 Dose: Not Given Hydrocortisone (Cortizone 1% Oint) 1 gm TOP BID [facility] Last Admin: 06/06/18 11:44 Dose: 1 applic Vancomycin HCl (Vancomycin 1gm) 1 gm in 250 mls @ 166.667 mls/hr IVPB Q12 [facility] Last Admin: 06/03/18 22:16 Dose: Not Given Lactobacillus Acidophilus (Bacid Acidophilus) 1 cap PO BID [facility] Last Admin: 06/06/18 11:42 Dose: 1 cap Levetiracetam (Keppra) 1,000 mg PO BID [facility] Last Admin: 06/06/18 11:44 Dose: 1,000 mg Loratadine (Claritin) 10 mg PO DAILY [facility] Last Admin: 06/06/18 11:42 Dose: 10 mg Pantoprazole Sodium (Protonix Ec Tab) 40 mg PO 0600 [facility] Last Admin: 06/06/18 11:39 Dose: 40 mg - Labs Labs: 06/06/18 06:30 06/06/18 06:30 - Constitutional Appears: Non-toxic, No Acute Distress, Chronically Ill - Head Exam Head Exam: ATRAUMATIC, NORMOCEPHALIC - Eye Exam Eye Exam: EOMI, PERRL Pupil Exam: NORMAL ACCOMODATION, PERRL - ENT Exam ENT Exam: Mucous Membranes Moist, Normal External Ear Exam, TM's Normal Bilaterally - Neck Exam Neck Exam: Full ROM, Normal Inspection - Respiratory Exam Respiratory Exam: Clear to Ausculation Bilateral, NORMAL BREATHING PATTERN. absent: Rales, Rhonchi, Wheezes - Cardiovascular Exam Cardiovascular Exam: REGULAR RHYTHM, RRR, +S1, +S2 - GI/Abdominal Exam GI & Abdominal Exam: Soft, Normal Bowel Sounds. absent: Distended, Tenderness - Extremities Exam Extremities Exam: Joint Swelling, Pedal Edema Additional comments: +2 edema of the bilateral legs with erythema of the legs below the knees. The patient has sloughing of the skin of the left lower leg. - Neurological Exam Neurological Exam: Alert, Awake, CN II-XII Intact Additional comments: Autism. Limited Mental Exam. - Psychiatric Exam Additional comments: Autism. Limited Mental Exam. - Skin Additional comments: +2 edema of the lower extremities. diffuse mildly erythematous rash present that appears to be convalescing. Assessment and Plan - Assessment and Plan (Free Text) Assessment: 67 yo female with left leg edema and erythema. 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 Started on IV Vancomycin and Cefepime for antibiotic care. Supportive care. Can check ESR and C-reactive protein. Difficult to assess patient as she has no understanding of medical issues before her. Currently Afebrile and without leukocytosis. Recently discharged [place] [facility]. Reappearance of cellulitis primarily to left lower leg. This is resolving. Patient refusing IV line... tore out her last one. On Clindamycin PO 450 mg q8hrs for antibiotic treatment. Consider 7-10 days of total antibiotic treatment. Fine lacy rash to multiple areas of the body especially neck, chest, arms, and upper legs... rash is convalescing. This appears to be viral in origin and should resolve in time. It is slowly improving. There was some concerns on whether the rash was worsening secondary to Vancomycin administration... to me the rash appears to be to convalescing. The rash has been stable so far. Thank you for allowing me to participate in the care of the patient, we will follow with you.
--- NOTE | 2018-06-06 16:18 | CP.PCM.DIS ---
<Nestor Morel - Last Filed: 06/06/18 16:15> Provider - Provider Date of Admission: 06/01/18 14:05 Attending physician: Lambert David MD Primary care physician: Dr. Ga Consults: Infectious Disease - Dr. Mccray Time Spent in preparation of Discharge (in minutes): 40 Diagnosis - Discharge Diagnosis (1) Cellulitis Status: Acute Priority: High (2) Failure of outpatient treatment Status: Acute Priority: High (3) Drug reaction Status: Acute Priority: Medium (4) Viral exanthem Status: Acute Priority: Medium (5) CKD (chronic kidney disease) stage 3, GFR 30-59 ml/min Status: Chronic Priority: Medium (6) Mood disorder Status: Chronic Priority: Medium (7) Asthma Status: Chronic Priority: Low (8) Seizure Status: Chronic Priority: Low (9) HTN (hypertension) Status: Chronic Priority: Low Hospital Course - Lab Results Lab Results: Micro Results 06/03/18 22:19 Blood Blood Culture - Preliminary NO GROWTH AFTER 48 HOURS 06/03/18 22:00 Blood Blood Culture - Preliminary NO GROWTH AFTER 48 HOURS 06/01/18 22:37 Urine,Clean Catch Urine Culture - Final 10-50,000 CFU/ML. MULTIPLE SPECIES. PROBABLE CONTAMINATION. Most Recent Lab Values WBC 4.3 10^3/ul (4.5-11.0) L D 06/06/18 06:30 RBC 3.87 10^6/uL (3.5-6.1) 06/06/18 06:30 Hgb 11.4 g/dL (12.0-16.0) L 06/06/18 06:30 Hct 35.8 % (36.0-48.0) L 06/06/18 06:30 MCV 92.5 fl (80.0-105.0) 06/06/18 06:30 MCH 29.5 pg (25.0-35.0) 06/06/18 06:30 MCHC 31.8 g/dl (31.0-37.0) 06/06/18 06:30 RDW 14.4 % (11.5-14.5) 06/06/18 06:30 Plt Count 202 10^3/uL (120.0-450.0) 06/06/18 06:30 MPV 9.9 fl (7.0-11.0) 06/06/18 06:30 Gran % 31.8 % (50.0-68.0) L 06/06/18 06:30 Lymph % (Auto) 39.4 % (22.0-35.0) H 06/06/18 06:30 Sierra % (Auto) 15.1 % (1.0-6.0) H 06/06/18 06:30 Eos % (Auto) 12.1 % (1.5-5.0) H 06/06/18 06:30 Baso % (Auto) 1.6 % (0.0-3.0) 06/06/18 06:30 Gran # 1.37 (1.4-6.5) L 06/06/18 06:30 Lymph # (Auto) 1.7 (1.2-3.4) 06/06/18 06:30 Sierra # (Auto) 0.7 (0.1-0.6) H 06/06/18 06:30 Eos # (Auto) 0.5 (0.0-0.7) 06/06/18 06:30 Baso # (Auto) 0.07 K/mm3 (0.0-2.0) 06/06/18 06:30 ESR 26 mm/hr (0.0-20.0) H 06/03/18 22:19 pO2 47 mm/Hg (30-55) 06/01/18 13:24 VBG pH 7.35 (7.32-7.43) 06/01/18 13:24 VBG pCO2 56.0 (40-60) 06/01/18 13:24 VBG HCO3 30.9 mmol/l (21-28) H 06/01/18 13:24 VBG Total CO2 32.6 mmol.L (22-28) H 06/01/18 13:24 VBG O2 Sat (Calc) 82.4 % (40-65) H 06/01/18 13:24 VBG Base Excess 3.8 mmol/L (0.0-2.0) H 06/01/18 13:24 VBG Potassium 4.5 mmol/L (3.6-5.2) 06/01/18 13:24 Sodium 138.0 mmol/L (132-148) 06/01/18 13:24 Chloride 106.0 mmol/L (98-107) 06/01/18 13:24 Glucose 98 mg/dl (65-105) 06/01/18 13:24 Lactate 1.4 mmol/L (0.7-2.1) 06/01/18 13:24 FiO2 21.0 % 06/01/18 13:24 Sodium 142 mmol/L (132-148) 06/06/18 06:30 Potassium 4.3 mmol/L (3.6-5.0) 06/06/18 06:30 Chloride 103 mmol/L (98-107) 06/06/18 06:30 Carbon Dioxide 31 mmol/L (21-33) 06/06/18 06:30 Anion Gap 13 (10-20) 06/06/18 06:30 BUN 31 mg/dL (7-21) H 06/06/18 06:30 Creatinine 1.1 mg/dl (0.7-1.2) 06/06/18 06:30 Est GFR ( Amer) 60 06/06/18 06:30 Est GFR (Non-Af Amer) 50 06/06/18 06:30 Random Glucose 76 mg/dL (70-110) 06/06/18 06:30 Calcium 8.5 mg/dL (8.4-10.5) 06/06/18 06:30 Phosphorus 4.5 mg/dL (2.5-4.5) 06/06/18 06:30 Magnesium 2.4 mg/dL (1.7-2.2) H 06/06/18 06:30 Total Bilirubin 0.3 mg/dL (0.2-1.3) 06/06/18 06:30 AST 28 U/L (14-36) 06/06/18 06:30 ALT 31 U/L (7-56) 06/06/18 06:30 Alkaline Phosphatase 58 U/L (38-126) 06/06/18 06:30 C-React Prot High Sens > 15.00 mg/L (1.00-3.00) H 06/03/18 22:19 Total Protein 5.9 g/dL (5.8-8.3) 06/06/18 06:30 Albumin 3.0 g/dL (3.0-4.8) 06/06/18 06:30 Globulin 2.9 gm/dL 06/06/18 06:30 Albumin/Globulin Ratio 1.0 (1.1-1.8) L 06/06/18 06:30 Venous Blood Potassium 4.5 mmol/L (3.6-5.2) 06/01/18 13:24 Urine Color Light yellow (YELLOW) 06/01/18 15:30 Urine Appearance Clear (CLEAR) 06/01/18 15:30 Urine pH 6.0 (4.7-8.0) 06/01/18 15:30 Ur Specific [place] 1.010 (1.005-1.035) 06/01/18 15:30 Urine Protein Negative mg/dL (<30 mg/dL) 06/01/18 15:30 Urine Glucose (UA) Negative mg/dL (NEGATIVE) 06/01/18 15:30 Urine Ketones Negative mg/dL (NEGATIVE) 06/01/18 15:30 Urine Blood Small (NEGATIVE) H 06/01/18 15:30 Urine Nitrate Negative (NEGATIVE) 06/01/18 15:30 Urine Bilirubin Negative (NEGATIVE) 06/01/18 15:30 Urine Urobilinogen 0.2 E.U./dL (<1 E.U./dL) 06/01/18 15:30 Ur Leukocyte Esterase Trace Filemon/uL (NEGATIVE) H 06/01/18 15:30 Urine RBC 0 - 2 /hpf (0-2) 06/01/18 15:30 Urine WBC 0 - 2 /hpf (0-6) 06/01/18 15:30 Ur Epithelial Cells 0 - 2 /hpf (0-5) 06/01/18 15:30 Urine Bacteria None (NEG) 06/01/18 15:30 - Hospital Course Hospital Course: Nestor Morel DO 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 Prior to presentation at [facility] on 06/01, Caregiver brought pt to [facility] ED who diagnosed her with cellulitis , but patient failed out-patient therapy and was admitted to [facility] on 05/16 for IV Antibiotics. Patient was previously given Vancomycin for 8 days, completed her course in TCU. At that time she also had an ALONA so was unable to get both Vanc and Zosyn. In ED, patient's public speaking instructor states that she has worsening cellulitis now bilaterally, without fevers, chills, or systemic complaints including nausea vomiting or diarrhea. She also has a new rash on her b/l upper extremities as well as bilateral lower extremities which public speaking instructor describes as itchy, bumpy, and red. Patient herself denies complaints but history is limited 2/2 to history of autism. There were no signs concerning for sepsis at time of admission, as patient has only one SIRS criteria of leukopenia < 4.5. ID Dr. Mccray was consulted, and patient was started on cefepime and vancomycin. Patient found to have some bullae in oral mucosa; lidocaine swish added. Pt. continued on cefepime and vancomycin; oral bullae and rash thought to be most likely viral in nature. On 06/03 PM, patient was noted to have worsening upper extremity rash w/ pruritus after vancomycin administration. Pt. was given diphenhydramine, solumedrol. Subsequently patient was febrile w/ Tmax 101.1, fever was broken with 650mg tylenol; remained afebrile for the rest of hospital course. For her upper extremity rash, topical hydrocortisone cream, clobetasol cream applied. Patient had a mild ALONA w/ Cr of 1.3; Her furosemide was DC'd, and IV hydration was attempted. Her cellulitis continued to improve throughout hospital course; however on 06/04 PM patient began pulling out lines and was subsequently switched to PO clindamycin. Pt. was observed on clindamycin, and given lactobacillus to dec. risk of CDiff infx. No diarrhea or fever reported; Pt. tolerated PO abx well. During her hospital course she was noted to have a leukopenia of 2.2; however by time of discharge this had resolved to 5.8; thought to be possibly due to Abx use. Pt. was seen this AM on 06/06 no complaints reported by nursing over night; Afebrile; VSS; CBC/CMP wnl. 12 system ROS unobtainable due to patient's baseline mentation. Pt. is medically optimized for discharge at this time. - Date & Time of H&P Date of H&P: 06/06/18 Time of H&P: 16:48 Discharge Exam - Head Exam Head Exam: ATRAUMATIC, NORMOCEPHALIC - Eye Exam Eye Exam: EOMI, PERRL. absent: Scleral icterus - ENT Exam ENT Exam: Mucous Membranes Moist - Respiratory Exam Respiratory Exam: Clear to PA & Lateral, NORMAL BREATHING PATTERN. absent: Rhonchi, Wheezes - Cardiovascular Exam Cardiovascular Exam: RRR, +S1, +S2 - GI/Abdominal Exam GI & Abdominal Exam: Normal Bowel Sounds, Unremarkable. absent: Tenderness - Extremities Exam Additional comments: BL LE rash improved; can appreciate some cellulitic changes prominent on the posterior aspect of the L foot; w/ some sparing. Similar presentation can be appreciated on the R foot and R thigh as well. These rashes are not indurated or tender. BL UE: diffuse patchy macules are appreciated around the upper arms and necks. No induration or tnederness appreciated. The rash does appear to be regressing from prior examinations. - Neurological Exam Additional comments: At baseline; Alert/Awake - Psychiatric Exam Additional comments: Appears to be at mental baseline. Is AAOx1 to self. - Skin Additional comments: Unaffected areas are warm, dry, and intact Discharge Plan - Discharge Medications Prescriptions: Clindamycin [Cleocin] 450 mg PO Q8 5 Days #15 cap Hydrocortisone 1% Oint [Cortizone 1% Oint] 1 gm TOP BID #1 tube Lactobacillus Acidophilus [Bacid Acidophilus] 1 cap PO BID 5 Days #10 cap - Follow Up Plan Condition: GOOD Disposition: HOME/ ROUTINE Instructions: Preventing Falls in the Older Adult, Preventing Falls, Cellulitis (DC), Cellulitis (GEN) Additional Instructions: 1. Patient is medically stable for discharge at this time 2. Patient is to follow up with PMD Jose Snider within 7 days of discharge 3. Continue taking Clindamyacin 450mg once a day for five more days along with probiotic supplement; monitor for signs/symptoms of diarrhea; contact PMD or go to emergency center if patient experiences diarrhea 4. Continue applying hydrocortisone cream to affected areas on upper extremities 5. Return to nearest ED if symptoms worsen 6. Patient is stable to return to day program 7. Resume taking all of your home medications. Referrals: Jose Ga MD [Family Provider] - <Lambert David - Last Filed: 06/06/18 17:34> Provider - Provider Date of Admission: 06/01/18 14:05 Attending physician: Lambert David MD Hospital Course - Lab Results Lab Results: Micro Results 06/03/18 22:19 Blood Blood Culture - Preliminary NO GROWTH AFTER 48 HOURS 06/03/18 22:00 Blood Blood Culture - Preliminary NO GROWTH AFTER 48 HOURS 06/01/18 22:37 Urine,Clean Catch Urine Culture - Final 10-50,000 CFU/ML. MULTIPLE SPECIES. PROBABLE CONTAMINATION. Most Recent Lab Values WBC 4.3 10^3/ul (4.5-11.0) L D 06/06/18 06:30 RBC 3.87 10^6/uL (3.5-6.1) 06/06/18 06:30 Hgb 11.4 g/dL (12.0-16.0) L 06/06/18 06:30 Hct 35.8 % (36.0-48.0) L 06/06/18 06:30 MCV 92.5 fl (80.0-105.0) 06/06/18 06:30 MCH 29.5 pg (25.0-35.0) 06/06/18 06:30 MCHC 31.8 g/dl (31.0-37.0) 06/06/18 06:30 RDW 14.4 % (11.5-14.5) 06/06/18 06:30 Plt Count 202 10^3/uL (120.0-450.0) 06/06/18 06:30 MPV 9.9 fl (7.0-11.0) 06/06/18 06:30 Gran % 31.8 % (50.0-68.0) L 06/06/18 06:30 Lymph % (Auto) 39.4 % (22.0-35.0) H 06/06/18 06:30 Sierra % (Auto) 15.1 % (1.0-6.0) H 06/06/18 06:30 Eos % (Auto) 12.1 % (1.5-5.0) H 06/06/18 06:30 Baso % (Auto) 1.6 % (0.0-3.0) 06/06/18 06:30 Gran # 1.37 (1.4-6.5) L 06/06/18 06:30 Lymph # (Auto) 1.7 (1.2-3.4) 06/06/18 06:30 Sierra # (Auto) 0.7 (0.1-0.6) H 06/06/18 06:30 Eos # (Auto) 0.5 (0.0-0.7) 06/06/18 06:30 Baso # (Auto) 0.07 K/mm3 (0.0-2.0) 06/06/18 06:30 ESR 26 mm/hr (0.0-20.0) H 06/03/18 22:19 pO2 47 mm/Hg (30-55) 06/01/18 13:24 VBG pH 7.35 (7.32-7.43) 06/01/18 13:24 VBG pCO2 56.0 (40-60) 06/01/18 13:24 VBG HCO3 30.9 mmol/l (21-28) H 06/01/18 13:24 VBG Total CO2 32.6 mmol.L (22-28) H 06/01/18 13:24 VBG O2 Sat (Calc) 82.4 % (40-65) H 06/01/18 13:24 VBG Base Excess 3.8 mmol/L (0.0-2.0) H 06/01/18 13:24 VBG Potassium 4.5 mmol/L (3.6-5.2) 06/01/18 13:24 Sodium 138.0 mmol/L (132-148) 06/01/18 13:24 Chloride 106.0 mmol/L (98-107) 06/01/18 13:24 Glucose 98 mg/dl (65-105) 06/01/18 13:24 Lactate 1.4 mmol/L (0.7-2.1) 06/01/18 13:24 FiO2 21.0 % 06/01/18 13:24 Sodium 142 mmol/L (132-148) 06/06/18 06:30 Potassium 4.3 mmol/L (3.6-5.0) 06/06/18 06:30 Chloride 103 mmol/L (98-107) 06/06/18 06:30 Carbon Dioxide 31 mmol/L (21-33) 06/06/18 06:30 Anion Gap 13 (10-20) 06/06/18 06:30 BUN 31 mg/dL (7-21) H 06/06/18 06:30 Creatinine 1.1 mg/dl (0.7-1.2) 06/06/18 06:30 Est GFR ( Amer) 60 06/06/18 06:30 Est GFR (Non-Af Amer) 50 06/06/18 06:30 Random Glucose 76 mg/dL (70-110) 06/06/18 06:30 Calcium 8.5 mg/dL (8.4-10.5) 06/06/18 06:30 Phosphorus 4.5 mg/dL (2.5-4.5) 06/06/18 06:30 Magnesium 2.4 mg/dL (1.7-2.2) H 06/06/18 06:30 Total Bilirubin 0.3 mg/dL (0.2-1.3) 06/06/18 06:30 AST 28 U/L (14-36) 06/06/18 06:30 ALT 31 U/L (7-56) 06/06/18 06:30 Alkaline Phosphatase 58 U/L (38-126) 06/06/18 06:30 C-React Prot High Sens > 15.00 mg/L (1.00-3.00) H 06/03/18 22:19 Total Protein 5.9 g/dL (5.8-8.3) 06/06/18 06:30 Albumin 3.0 g/dL (3.0-4.8) 06/06/18 06:30 Globulin 2.9 gm/dL 06/06/18 06:30 Albumin/Globulin Ratio 1.0 (1.1-1.8) L 06/06/18 06:30 Venous Blood Potassium 4.5 mmol/L (3.6-5.2) 06/01/18 13:24 Urine Color Light yellow (YELLOW) 06/01/18 15:30 Urine Appearance Clear (CLEAR) 06/01/18 15:30 Urine pH 6.0 (4.7-8.0) 06/01/18 15:30 Ur Specific [place] 1.010 (1.005-1.035) 06/01/18 15:30 Urine Protein Negative mg/dL (<30 mg/dL) 06/01/18 15:30 Urine Glucose (UA) Negative mg/dL (NEGATIVE) 06/01/18 15:30 Urine Ketones Negative mg/dL (NEGATIVE) 06/01/18 15:30 Urine Blood Small (NEGATIVE) H 06/01/18 15:30 Urine Nitrate Negative (NEGATIVE) 06/01/18 15:30 Urine Bilirubin Negative (NEGATIVE) 06/01/18 15:30 Urine Urobilinogen 0.2 E.U./dL (<1 E.U./dL) 06/01/18 15:30 Ur Leukocyte Esterase Trace Filemon/uL (NEGATIVE) H 06/01/18 15:30 Urine RBC 0 - 2 /hpf (0-2) 06/01/18 15:30 Urine WBC 0 - 2 /hpf (0-6) 06/01/18 15:30 Ur Epithelial Cells 0 - 2 /hpf (0-5) 06/01/18 15:30 Urine Bacteria None (NEG) 06/01/18 15:30 Attending/Attestation - Attestation I have personally seen and examined this patient.: Yes I have fully participated in the care of the patient.: Yes I have reviewed all pertinent clinical information, including history, physical exam and plan: Yes Notes (Text): 06/06/18 17:33 67 year old female with past medical history of asthma, hypertension, legally blind, autism, mood disorder and seizure who was recently treated for lower extremity cellulitis returned with rash and recurrent cellulitis. She had fever three nights prior but now has been afebrile. Cultures remained negative to date. Vancomycin was held. She was on cefepime however removed iv line and refused re-insertion since. Antibiotic switched to clindamycin and probiotic was added. She had leukopenia and ALONA which improved. Her cellulitis improved and rash is stable also with slow improvement. Patient is discharged to halfway on po antibiotics. Follow up with pmd. Lambert David MD Hospitalist.
== END 2018-06-06 18:15 | disposition home or self-care (01) | DRG 603 ==
LOC: ED 10:42 → ERH 14:05 → 5RNO 16:03
PROVIDERS: ADMIT Internal Medicine; ATTEND Internal Medicine
DX: L03.116 Cellulitis of left lower limb (principal); F84.0 Autistic disorder; N17.9 Acute kidney failure, unspecified; L03.115 Cellulitis of right lower limb; I12.9 Hypertensive chronic kidney disease with stage 1 through stage 4 chronic kidney disease, or unspecified chronic kidney disease; N18.3 Chronic kidney disease, stage 3 (moderate); K21.9 Gastro-esophageal reflux disease without esophagitis; J44.9 Chronic obstructive pulmonary disease, unspecified; I25.10 Atherosclerotic heart disease of native coronary artery without angina pectoris; H54.8 Legal blindness, as defined in USA; F39 Unspecified mood [affective] disorder; I87.8 Other specified disorders of veins; R56.9 Unspecified convulsions; D72.819 Decreased white blood cell count, unspecified; B09 Unspecified viral infection characterized by skin and mucous membrane lesions; T36.8X5A Adverse effect of other systemic antibiotics, initial encounter; R21 Rash and other nonspecific skin eruption; Z88.8 Allergy status to other drugs, medicaments and biological substances

== ENCOUNTER 2018-06-21 14:36 | Inpatient (IN) | payer MEDICARE, OTHER ==
--- NOTE | 2018-06-21 15:17 | ED PDOC ---
Arrival/HPI - General Chief Complaint: Abnormal Skin Integrity Time Seen by Provider: 06/21/18 14:45 Historian: Caregiver - History of Present Illness Narrative History of Present Illness (Text): 06/21/18 15:17 A 67 year old female, whose past medical history includes asthma, seizure, legally blind, autism, mood disorder, presents to the emergency room with caregiver for a complaint of left lower leg cellulitis x 2 days. Caregiver stated patient was admitted in this ED a couple weeks ago, and discharge to detention after a few days treatment with IV antibiotics. Caregiver stated a small redness over left ankle persist despite IV treatment. She stated redness started worsening last 2 days. Caregiver and patient denies sob, CP, chills, fever, abdominal pain, recent travel or sick contact. caregive stated she contacted PMD who recommended to go to hospital for IV treatment. Caregiver stated PO abx does not work for patient. Time/Duration: Other (see hpi) Context: Home Past Medical History - Provider Review Nursing Documentation Reviewed: Yes - Infectious Disease Hx of Infectious Diseases: None - Tetanus Immunization Tetanus Immunization: Unknown - Cardiac Hx Cardiac Disorders: Yes Hx Hypertension: Yes - Pulmonary Hx Chronic Obstructive Pulmonary Disease (COPD): Yes - Neurological Hx Neurological Disorder: Yes Hx Seizures: Yes - HEENT Hx HEENT Disorder: Yes Hx Blind: Yes - Renal Hx Renal Disorder: Yes - Endocrine/Metabolic Hx Endocrine Disorders: No - Hematological/Oncological Hx Blood Disorders: No - Integumentary Hx Dermatological Disorder: Yes Hx Cellulitis: Yes - Musculoskeletal/Rheumatological Hx Musculoskeletal Disorders: Yes Hx Falls: No Hx Unsteady Gait: Yes - Gastrointestinal Hx Gastrointestinal Disorders: Yes Hx Gastroesophageal Reflux: Yes - Genitourinary/Gynecological Hx Genitourinary Disorders: Yes Hx Incontinence: Yes - Psychiatric Hx Psychophysiologic Disorder: Yes Hx Anxiety: Yes Hx Depression: Yes Hx Substance Use: No - Past Surgical History Past Surgical History: Unable to Obtain - Suicidal Assessment Feels Threatened In Home Enviroment: No Family/Social History - Physician Review Nursing Documentation Reviewed: Yes Family/Social History: Other (noncontributory) Smoking Status: Never Smoked Hx Alcohol Use: No Hx Substance Use: No Allergies/Home Meds Allergies/Adverse Reactions: Allergies carbamazepine [From Tegretol] Allergy (Verified 06/21/18 14:39) SHORTNESS OF BREATH vancomycin Allergy (Verified 06/21/18 14:39) RASH Home Medications: Home Meds Medication Instructions Recorded Confirmed Albuterol 0.083% [Albuterol 0.083% 2.5 mg INH Q8 12/16/13 06/21/18 Inhal Brittney (2.5 mg/3 ml) UD] Escitalopram [Lexapro] 10 mg PO DAILY 12/16/13 06/21/18 Divalproex [Depakote ER(ONCE 500 mg PO BID 02/08/18 06/21/18 DAILY)] Budesonide [Pulmicort Respules] 0.5 mg IH BID 05/16/18 06/21/18 Clonazepam [Klonopin] 1 mg PO BID 05/16/18 06/21/18 Gabapentin [Neurontin] 300 mg PO TID 05/16/18 06/21/18 Levetiracetam [Keppra] 1,000 mg PO BID 05/16/18 06/21/18 Review of Systems - Review of Systems Constitutional: Normal. absent: Fatigue, Weight Change, Fevers Eyes: Normal ENT: Normal Respiratory: Normal Cardiovascular: Normal Gastrointestinal: Normal Genitourinary Female: Normal Musculoskeletal: Normal Skin: Cellulitis (left lower leg cellulitis) Neurological: Normal Endocrine: Normal Hemo/Lymphatic: Normal Psychiatric: Normal Physical Exam Vital Signs Temp Pulse Resp BP Pulse Ox 06/21/18 14:41 98.8 F 79 17 115/83 100 Temperature: Afebrile Blood Pressure: Normal Pulse: Regular Respiratory Rate: Normal Appearance: Positive for: Well-Appearing, Non-Toxic, Comfortable Pain Distress: None - Systems Exam Head: Present: Atraumatic, Normocephalic Mouth: Present: Moist Mucous Membranes Neck: Present: Normal Range of Motion, Trachea Midline. No: Meningeal Signs, MIDLINE TENDERNESS Respiratory/Chest: Present: Clear to Auscultation, Good Air Exchange. No: Respiratory Distress, Accessory Muscle Use, Wheezes, Decreased Breath Sounds, Rales, Retracting, Rhonchi Cardiovascular: Present: Regular Rate and Rhythm, Normal S1, S2. No: Murmurs Abdomen: Present: Normal Bowel Sounds. No: Tenderness, Distention, Peritoneal Signs, Rebound, Guarding Upper Extremity: Present: Normal Inspection, Normal ROM, NORMAL PULSES, Neurovascularly Intact, Capillary Refill < 2s. No: Cyanosis, Edema, Erythema Lower Extremity: Present: Edema, NORMAL PULSES, Normal ROM, Erythema, Temperature Abnormalties (Left lateral lower leg erythema, approx 6 cm. No abscess), Neurovascularly Intact, Capillary Refill < 2 s. No: CALF TENDERNESS, Yony's Sign, Tenderness, Deformity Neurological: Present: GCS=15, CN II-XII Intact Skin: Present: Warm, Dry, Normal Color. No: Rashes Psychiatric: Present: Alert Medical Decision Making ED Course and Treatment: 06/21/18 18:[address] Morel, hospitalist regarding left lower leg cellulitis, elevated lactic acid, and normal wbc. I recommended her that patient needs to be admitted for leg cellulitis. She agreed with plan for admission. Re-evaluation Time: 18:11 Reassessment Condition: Re-examined, Improving,but remains with symptoms - Lab Interpretations Lab Results: 06/21/18 17:05 06/21/18 17:05 Lab Results 06/21/18 17:05: Sodium 144, Chloride 106, Potassium 4.5, Carbon Dioxide 27, Anion Gap 15, BUN 26 H, Creatinine 0.9, Est GFR ( Amer) > 60, Est GFR ( Non-Af Amer) > 60, Random Glucose 123 H, Calcium 8.7, Phosphorus 4.2, Magnesium 2.2, Total Bilirubin 0.3, AST 27, ALT 31, Alkaline Phosphatase 66, Troponin I < 0.01, NT-Pro-B Natriuret Pep 500 H, Total Protein 5.8, Albumin 3.1, Globulin 2.7 , Albumin/Globulin Ratio 1.2 06/21/18 17:05: pO2 77 H, VBG pH 7.33, VBG pCO2 60.0, VBG HCO3 31.6 H, VBG Total CO2 33.4 H, VBG O2 Sat (Calc) 95.6 H, VBG Base Excess 4.0 H, VBG Potassium 6.7 H*, Sodium 140.0, Chloride 109.0 H, Glucose 130 H, Lactate 2.3 H, FiO2 21.0, Venous Blood Potassium 6.7 H* 06/21/18 17:05: PT 11.3, INR 0.99, APTT 30.8 06/21/18 17:05: WBC 4.0 L, RBC 3.47 L, Hgb 10.4 L, Hct 32.7 L, MCV 94.2, MCH 30.0, MCHC 31.8, RDW 14.2, Plt Count 172, MPV 11.1 H, Gran % 56.1, Lymph % (Auto ) 23.3, [place] % (Auto) 10.0 H, Eos % (Auto) 9.8 H, Baso % (Auto) 0.8, Gran # 2.25 , Lymph # (Auto) 0.9 L, [place] # (Auto) 0.4, Eos # (Auto) 0.4, Baso # (Auto) 0.03 , ESR Pending I have reviewed the lab results: Yes Interpretation: No sign. chg./baseline - RAD Interpretation Narrative RAD Interpretations (Text): 06/21/18 17:07 Date of service: FINDINGS: LUNGS: No active pulmonary disease. PLEURA: No significant pleural effusion identified, no pneumothorax apparent. CARDIOVASCULAR: Normal. OSSEOUS STRUCTURES: No significant abnormalities. VISUALIZED UPPER ABDOMEN: Normal. OTHER FINDINGS: None. IMPRESSION: No active disease. 06/21/18 17:50 HISTORY: Leg pain and swelling. Evaluate for DVT PHYSICIAN(S): Dawood Strange MD. TECHNIQUE: Duplex sonography and color-flow Doppler with graded compression were used to evaluate the deep venous systems of both lower extremities. The exam is limited by body habitus and edema along with the patient's inability to cooperate. FINDINGS: The visualized deep venous systems of both lower extremities are sonographically normal and compressible. Normal wave forms and augmentation are seen. There is no sonographic evidence for deep venous thrombosis in the visualized segments of both lower extremities. IMPRESSION: No sonographic evidence for deep venous thrombosis in the visualized segments of both lower extremities. Limited study Radiology Orders: 06/21/18 15:17 CHEST PORTABLE [RAD] Stat 06/21/18 15:25 DUPLEX LOWER EXTRM VEIN BILAT [US] Stat - EKG Interpretation Interpreted by ED Physician: Yes (NSR @ 80 bpm. Low voltage QRS. No ST changes ) Type: 12 lead EKG Comparison: Similar to previous EKG - Medication Orders Current Medication Orders: Sodium Chloride (Sodium Chloride 0.9%) 500 mls @ 999 mls/hr IV .Q31M STA Stop: 06/21/18 18:21 Piperacillin Sod/Tazobactam Sod (Zosyn 4.5 Gm In Ns 100ml) 4.5 gm in 100 mls @ 200 mls/hr IVPB STAT STA PRN Reason: Protocol Stop: 06/21/18 18:27 Disposition/Present on Arrival - Present on Arrival Any Indicators Present on Arrival: No History of DVT/PE: No History of Uncontrolled Diabetes: No Urinary Catheter: No History of Decub. Ulcer: No History Surgical Site Infection Following: None - Disposition Have Diagnosis and Disposition been Completed?: Yes Diagnosis: Left leg cellulitis Disposition: HOSPITALIZED Disposition Time: 18:16 Patient Plan: Admission Condition: STABLE Discharge Instructions (ExitCare): Cellulitis (ED) Forms: [employer] ([place])
--- NOTE | 2018-06-21 15:41 | RAD ---
Date of service: 06/21/2018 HISTORY: Sepsis Patient COMPARISON: 06/01/2018 FINDINGS: LUNGS: No active pulmonary disease. PLEURA: No significant pleural effusion identified, no pneumothorax apparent. CARDIOVASCULAR: Normal. OSSEOUS STRUCTURES: No significant abnormalities. VISUALIZED UPPER ABDOMEN: Normal. OTHER FINDINGS: None. IMPRESSION: No active disease.
[2018-06-21 17:16] LABS: BASO # 0.03 K/mm3 (0.0-2.0); BASO % 0.8 % (0.0-3.0); EOS # 0.4 (0.0-0.7); EOS % 9.8 % (1.5-5.0); GRAN # 2.25 (1.4-6.5); GRAN % 56.1 % (50.0-68.0); HEMOGLOBIN 10.4 g/dL (12.0-16.0); LYMPH # 0.9 (1.2-3.4); LYMPH % 23.3 % (22.0-35.0); MEAN CELL VOLUME 94.2 fl (80.0-105.0); MEAN CORPUSCULAR HGB CONC 31.8 g/dl (31.0-37.0); MEAN PLATELET VOLUME 11.1 fl (7.0-11.0); MONO # 0.4 (0.1-0.6); RBC 3.47 10^6/uL (3.5-6.1); RED CELL DISTRIBUTION WIDTH 14.2 % (11.5-14.5)
[2018-06-21 17:19] LABS: INR 0.99; PARTIAL THROMBOPLASTIN TIME 30.8 Seconds (25.1-36.5); PROTHROMBIN TIME 11.3 SECONDS (9.4-12.5); VENOUS BLOOD GAS PO2 77 mm/Hg (30-55); VENOUS BLOOD PH 7.33 (7.32-7.43)
[2018-06-21 17:25] LABS: ALB/GLOB RATIO 1.2 (1.1-1.8); ALBUMIN 3.1 g/dL (3.0-4.8); ALT/SGPT 31 U/L (7-56); AST/SGOT 27 U/L (14-36); BLOOD UREA NITROGEN 26 mg/dL (7-21); CALCIUM 8.7 mg/dL (8.4-10.5); GFR AFRICAN-AMERICAN > 60; GFR NON-AFRICAN AMERICAN > 60
--- NOTE | 2018-06-21 17:26 | US ---
HISTORY: Leg pain and swelling. Evaluate for DVT PHYSICIAN(S): Dawood Strange MD. TECHNIQUE: Duplex sonography and color-flow Doppler with graded compression were used to evaluate the deep venous systems of both lower extremities. The exam is limited by body habitus and edema along with the patient's inability to cooperate. FINDINGS: The visualized deep venous systems of both lower extremities are sonographically normal and compressible. Normal wave forms and augmentation are seen. There is no sonographic evidence for deep venous thrombosis in the visualized segments of both lower extremities. IMPRESSION: No sonographic evidence for deep venous thrombosis in the visualized segments of both lower extremities. Limited study
[2018-06-21 17:36] LABS: B-TYPE NATRIURETIC PEPTIDE 500 pg/mL (0-450); TROPONIN I < 0.01 ng/mL
[2018-06-21] MEDS ORDERED: Sodium Chloride 0.9% 500 ML IV STA (17:51)
[2018-06-21] MEDS ORDERED: Piperacill/Tazo 4.5gm in NS 4.5 GM/100 ML BAG IVPB STA (17:58)
[2018-06-21 18:46] LABS: URINE BILIRUBIN NEGATIVE (NEGATIVE); URINE BLOOD SMALL (NEGATIVE); URINE GLUCOSE (UA) NEGATIVE (NEGATIVE); URINE LEUKOCYTE ESTERASE NEGATIVE Leu/uL (NEGATIVE); URINE PROTEIN NEGATIVE mg/dL (<30 mg/dL); URINE UROBILINOGEN 0.2 E.U./dL (<1 E.U./dL)
[2018-06-21 18:47] LABS: URINE APPEARANCE SL CLOUDY (CLEAR); URINE COLOR YELLOW (YELLOW)
[2018-06-21 18:53] LABS: URINE EPITHELIAL CELLS 0 - 2 /hpf (0-5); URINE WBC NEGATIVE /hpf (0-6)
--- NOTE | 2018-06-21 20:33 | CP.PCM.HP ---
<Philip Quigley - Last Filed: 06/21/18 21:43> History of Present Illness - History of Present Illness History of Present Illness: Philip Quigley, PGY-1 History and Physical for Hospitalist Service CC: L leg cellulitis HPI: 67 F w/ pmh asthma, seizure, legally blind, autism, mood disorder, who presents with lower left leg redness and warmth over the last 2 days. Patient has been admitted for cellulitis in the past. She presented to [facility] ED on 05/16, brought in by caregiver for worsening of b/l lower leg cellulitis worsening x2 weeks. Prior to presentation at [facility] on 05/16, Caregiver brought pt to [facility] ED who diagnosed her with cellulitis , but patient failed out- patient therapy and was admitted to [facility] for IV Antibiotics. Patient was given Vancomycin for 8 days, completed her course in TCU. At that time she also had an ALONA so was unable to get both Vanc and Zosyn. On another admission 06/01/18-, patient's clerk rating states that she had worsening cellulitis bilaterally , without fevers, chills, or systemic complaints including nausea vomiting or diarrhea. She also had a new rash on her b/l upper extremities as well as bilateral lower extremities which clerk rating describes as itchy, bumpy, and red. Patient received Cefpime and Vancomycin which was converted to PO clindamycin. Patient's clerk rating reported that patient completed her 5 day course of PO Clindamycin after discharge on 06/06/18. Patient herself denied complaints but history is limited 2/2 to history of autism. Caregiver and patient denies SOB, cough, CP, chills, fever, abdominal pain, recent travel or sick contacts. In the ED, patient received Zosyn. Duplex of both LE did not reveal any evidence for DVT. CXR showed no active disease. Review of Systems: 12 point ROS obtained and negative except as per HPI PMhx: Asthma, seizure, legally blind, autism, mood disorder, HTN PSurgHx: None Allergies: Carbamezepine (SOB), Vancomycin (rash on previous admission while on vancomycin, likely due to viral infection at that time) Meds: Escitalopram 10 mg daily, Valsartan 40 mg daily, Clonazepam 0.5 mg daily, Montelukast 10 mg daily, Divalproex 500 mg bid, Levetiracetam 1000 mg bid, Budesonide inhaler 0.5/2ml neb bid, Gabapentin 300 mg tid, Albuterol 2.5/3 ml solution q 8 h Family hx: Unknown Social hx: Denies smoking, alcohol or illicit drug use. Lives in [facility] in [place] with clerk rating PMD: Dr. Ga Present on Admission - Present on Admission Any Indicators Present on Admission: No Review of Systems - Review of Systems All systems: reviewed and no additional remarkable complaints except (as described in HPI.) Past Patient History - Infectious Disease Hx of Infectious Diseases: None - Tetanus Immunizations Tetanus Immunization: Unknown - Past Medical History & Family History Past Medical History?: Yes - Past Social History Smoking Status: Never Smoked - CARDIAC Hx Cardiac Disorders: Yes Hx Hypertension: Yes - PULMONARY Hx Chronic Obstructive Pulmonary Disease (COPD): Yes - NEUROLOGICAL Hx Neurological Disorder: Yes Hx Seizures: Yes - HEENT Hx HEENT Problems: Yes Hx Blind: Yes - RENAL Hx Chronic Kidney Disease: Yes - ENDOCRINE/METABOLIC Hx Endocrine Disorders: No - HEMATOLOGICAL/ONCOLOGICAL Hx Blood Disorders: No - INTEGUMENTARY Hx Dermatological Problems: Yes Hx Cellulitis: Yes - MUSCULOSKELETAL/RHEUMATOLOGICAL Hx Musculoskeletal Disorders: Yes Hx Falls: No Hx Unsteady Gait: Yes - GASTROINTESTINAL Hx Gastrointestinal Disorders: Yes Hx Gastroesophageal Reflux: Yes - GENITOURINARY/GYNECOLOGICAL Hx Genitourinary Disorders: Yes Hx Incontinence: Yes - PSYCHIATRIC Hx Psychophysiologic Disorder: Yes Hx Anxiety: Yes Hx Depression: Yes Hx Substance Use: No - SURGICAL HISTORY Hx Surgeries: No Meds Allergies/Adverse Reactions: Allergies Allergy/AdvReac Type Severity Reaction Status Date / Time carbamazepine [From Tegretol] Allergy SHORTNESS Verified 06/21/18 14:39 OF BREATH vancomycin Allergy RASH Verified 06/21/18 14:39 Physical Exam - Additional Findings Additional findings: Physical Exam - Constitutional Appears: Well Additional comments: morbid obesity - Head Exam Head Exam: ATRAUMATIC, NORMAL INSPECTION, NORMOCEPHALIC - Eye Exam Eye Exam: EOMI, Normal appearance, PERRL Pupil Exam: NORMAL ACCOMODATION, PERRL - ENT Exam ENT Exam: Mucous Membranes Moist, Normal Exam - Neck Exam Neck exam: Positive for: Normal Inspection - Respiratory Exam Respiratory Exam: Clear to Auscultation Bilateral, NORMAL BREATHING PATTERN - Cardiovascular Exam Cardiovascular Exam: REGULAR RHYTHM - GI/Abdominal Exam GI & Abdominal Exam: Normal Bowel Sounds, Soft. absent: Tenderness - Extremities Exam Additional comments: increased warmth, erythema, and swelling in L>R lower extremities - Back Exam Back exam: NORMAL INSPECTION - Neurological Exam Neurological exam: Alert, CN II-XII Intact, Normal Gait, Reflexes Normal Additional comments: Patient is at baseline, which is delayed 2/2 autism - Psychiatric Exam Psychiatric exam: Normal Affect, Normal Mood - Skin Skin Exam: Dry, Intact, Normal Color, Warm Results - Vital Signs Recent Vital Signs: Last Vital Signs Temp 98.2 F 06/21/18 18:37 Pulse 71 06/21/18 18:37 Resp 18 06/21/18 18:37 BP 127/80 06/21/18 18:37 Pulse Ox 100 06/21/18 18:37 - Labs Result Diagrams: 06/21/18 17:05 06/21/18 17:05 Assessment & Plan - Assessment and Plan (Free Text) Assessment: Assessment: 67 yrs old female with PMhx of asthma, HTN, seizure, legally blind , autism, mood disorder, who was brought in to the ED by her caregiver for left lower leg cellulitis and failure of outpatient antibiotic treatment, now on IV antibiotics. Patient has now been readmitted for worsening cellulitis. ID consulted. Plan: LE Cellulitis - VSS, hemodynamically stable - Patient received Zosyn in ED - Restarted patient on probiotic Lactobacillus - f/u procalcitonin ordered in ED - f/u blood and urine cultures - ID Consult - Dr. Nunes - Pt to be started on Daptomycin 650 mg IV daily and Cefepime 1 g IVPB q8 [address] Dr. Rivera beginning tomorrow evening Pancytopenia WBC 4.0, RBC 3.47, Plt 172 leukopenia and PLT just below baseline likely 2/2 Zosyn-induced myelosuppresion NS @ 100 cc/hr, consider dilutional effects Normocytic Anemia H/H 10.4/32.7 no evidence of bleed, hemodynamically stable At baseline from earlier in year Will continue to monitor in AM labs Hx Asthma - Continue home Pulmicort, Albuterol Hx HTN -Losartan 25 Hx Seizures - Cont Keppra 1000 BID Hx Chronic Pain - Cont neurontin Hx Unspecified mood disorder Cont escitalopram, clonazepam Hx asthma C/w montelukast, albuterol, budesonide GI/DVT ppx: Pepcid 20 BID PO daily, Lovenox Patient seen, case examined, and plan discussed with Dr. Norris. Philip Quigley, PGY-1 <Ivon Norris N - Last Filed: 06/22/18 06:35> Results - Vital Signs Recent Vital Signs: Last Vital Signs Temp 97.6 F 06/21/18 23:56 Pulse 79 06/21/18 23:56 Resp 18 06/21/18 23:56 BP 146/71 06/21/18 23:56 Pulse Ox 100 06/21/18 18:37 - Labs Result Diagrams: 06/21/18 17:05 06/21/18 17:05
[2018-06-21] MEDS ORDERED: DAPTOmycin 500 mg Inj (Cubicin) IV SCH (21:15)
[2018-06-21] MEDS ORDERED: Albuterol 0.083% Inhal Sol (2.5 mg/3 mL) UD INH SCH (22:00)
[2018-06-21] MEDS: Cefepime 1gm in NS 100ml 1 GM/100 ML BAG IVPB SCH (23:55)
[2018-06-21] MEDS: Sodium Chloride 0.9% 1,000 ML IV SCH (23:56)
[2018-06-22 01:58] VITALS: BMI 42.5
[2018-06-22] MEDS ORDERED: Clindamycin 600mg/50ml D5W 600 MG/50 ML VIAL IVPB SCH (04:00)
[2018-06-22] MEDS: Cefepime 1gm in NS 100ml 1 GM/100 ML BAG IVPB SCH ×3 (05:54→21:49)
[2018-06-22] MEDS ORDERED: Pantoprazole 40 mg EC Tab PO SCH (06:00)
[2018-06-22 07:39] LABS: BASO # 0.04 K/mm3 (0.0-2.0); BASO % 0.9 % (0.0-3.0); EOS # 0.5 (0.0-0.7); EOS % 10.7 % (1.5-5.0); GRAN # 1.93 (1.4-6.5); GRAN % 45.1 % (50.0-68.0); HEMOGLOBIN 10.3 g/dL (12.0-16.0); LYMPH # 1.4 (1.2-3.4); LYMPH % 31.9 % (22.0-35.0); MEAN CELL VOLUME 92.2 fl (80.0-105.0); MEAN CORPUSCULAR HEMOGLOBIN 29.7 pg (25.0-35.0); MEAN CORPUSCULAR HGB CONC 32.2 g/dl (31.0-37.0); MEAN PLATELET VOLUME 10.7 fl (7.0-11.0); MONO # 0.5 (0.1-0.6); MONO % 11.4 % (1.0-6.0); RBC 3.47 10^6/uL (3.5-6.1); RED CELL DISTRIBUTION WIDTH 13.9 % (11.5-14.5); WHITE BLOOD COUNT 4.3 10^3/ul (4.5-11.0)
[2018-06-22] MEDS: Budesonide 0.5 mg/2 ml Inhal Susp UD IH SCH ×2 (07:42→20:15)
[2018-06-22 07:45] LABS: ALB/GLOB RATIO 1.1 (1.1-1.8); ALBUMIN 3.1 g/dL (3.0-4.8); ALT/SGPT 30 U/L (7-56); AST/SGOT 27 U/L (14-36); BLOOD UREA NITROGEN 25 mg/dL (7-21); CALCIUM 8.7 mg/dL (8.4-10.5); GFR AFRICAN-AMERICAN > 60; GFR NON-AFRICAN AMERICAN 55
[2018-06-22 08:21] LABS: IRON 55 ug/dL (45-180)
--- NOTE | 2018-06-22 08:25 | CARD ---
APPROVED REPORT Date of service: 06/21/2018 EKG Measurement Heart [id number] <Conclusion> Normal sinus rhythm Low voltage QRS Septal infarct, age undetermined Abnormal ECG
[2018-06-22 08:34] LABS: % IRON SATURATION 20 % (20-55); TOTAL IRON BINDING CAPACITY 280 ug/dL (265-497)
[2018-06-22] MEDS ORDERED: cefTRIAXone 1 gm 1 GM/100 ML BAG IVPB SCH (10:00)
[2018-06-22] MEDS ORDERED: Divalproex 500 mg ER (ONCE DAILY formulation) PO SCH (10:00)
[2018-06-22] MEDS: Cholecalciferol 1,000 INTLU TAB PO SCH (10:19)
[2018-06-22] MEDS: Enoxaparin 30 mg Syringe SC SCH ×2 (10:21→10:28)
[2018-06-22] MEDS: Lactobacillus Acidophilus 500 MU Cap PO SCH ×2 (10:29→17:32)
--- NOTE | 2018-06-22 14:22 | CP.PCM.PN ---
<Miller Stanley - Last Filed: 06/22/18 16:33> Subjective - Date & Time of Evaluation Date of Evaluation: 06/22/18 Time of Evaluation: 14:18 - Subjective Subjective: Miller Stanley D.O PGY-1, Internal Medicine progress note for Dr. David Patient was examined at bedside, no acute overnight events. Patient is resting comfortably in bed. She is refusing to answer any questions at this time. Patient's IV line came off and is refusing another IV insertion. Objective - Vital Signs/Intake and Output Vital Signs (last 24 hours): Temp Pulse Resp BP Pulse Ox 98.7 F 84 18 127/87 95 06/22/18 06:00 06/22/18 10:19 06/22/18 06:00 06/22/18 10:19 06/22/18 06:00 Intake and Output: 06/22/18 06/22/18 06:59 18:59 Intake Total 240 Output Total 1 Balance 239 - Medications Medications: Current Medications Albuterol Sulfate (Albuterol 0.083% Inhal Brittney (2.5 Mg/3 Ml) Ud) 2.5 mg INH RTID [facility] Atorvastatin Calcium (Lipitor) 10 mg PO DIN [facility] Budesonide (Pulmicort Respules) 0.5 mg IH BIDRESP [facility] Last Admin: 06/22/18 07:42 Dose: Not Given Cholecalciferol (Vitamin D) 1,000 intlu PO DAILY [facility] Last Admin: 06/22/18 10:19 Dose: 1,000 intlu Clonazepam (Klonopin) 1 mg PO BID [facility] PRN Reason: Protocol Last Admin: 06/22/18 10:20 Dose: 1 mg Enoxaparin Sodium (Lovenox) 30 mg SC DAILY [facility] PRN Reason: Protocol Last Admin: 06/22/18 10:28 Dose: Not Given Escitalopram Oxalate (Lexapro) 10 mg PO DAILY [facility] Last Admin: 06/22/18 10:19 Dose: 10 mg Famotidine (Pepcid) 20 mg PO BID [facility] Last Admin: 06/22/18 10:19 Dose: 20 mg Gabapentin (Neurontin) 300 mg PO TID [facility] PRN Reason: Protocol Last Admin: 06/22/18 10:20 Dose: 300 mg Hydrocortisone (Cortizone 1% Oint) 1 gm TOP BID [facility] Sodium Chloride (Sodium Chloride 0.9%) 1,000 mls @ 100 mls/hr IV .Q10H [facility] Last Admin: 06/21/18 23:56 Dose: Not Given Cefepime HCl (Maxipime 1gm) 1 gm in 100 mls @ 100 mls/hr IVPB Q8 [facility] PRN Reason: Protocol Stop: 06/30/18 22:01 Last Admin: 06/22/18 05:54 Dose: Not Given Daptomycin 650 mg/ Sodium (Chloride) 100 mls @ 200 mls/hr IV Q24H [facility] Stop: 06/30/18 21:31 Last Admin: 06/21/18 23:55 Dose: Not Given Lactobacillus Acidophilus (Bacid Acidophilus) 1 cap PO BID [facility] Last Admin: 06/22/18 10:29 Dose: 1 cap Levetiracetam (Keppra) 1,000 mg PO BID [facility] Last Admin: 06/22/18 10:19 Dose: 1,000 mg Losartan Potassium (Cozaar) 25 mg PO DAILY [facility] Last Admin: 06/22/18 10:19 Dose: 25 mg - Labs Labs: 06/22/18 07:00 06/22/18 07:00 PT 11.3 SECONDS (9.4-12.5) 06/21/18 17:05 INR 0.99 06/21/18 17:05 APTT 30.8 Seconds (25.1-36.5) 06/21/18 17:05 - Constitutional Appears: No Acute Distress - Head Exam Head Exam: ATRAUMATIC, NORMAL INSPECTION - Eye Exam Eye Exam: Normal appearance - ENT Exam ENT Exam: Mucous Membranes Moist - Respiratory Exam Respiratory Exam: Clear to Ausculation Bilateral. absent: Rales, Rhonchi, Wheezes, Respiratory Distress - Cardiovascular Exam Cardiovascular Exam: REGULAR RHYTHM, +S1, +S2. absent: Gallop, Rubs, Murmur - GI/Abdominal Exam Additional comments: Patient refused to be examined - Neurological Exam Additional comments: Patient refused to be examined - Psychiatric Exam Psychiatric exam: Normal Affect, Normal Mood - Skin Skin Exam: Dry, Intact, Warm Additional comments: increased warmth, erythema, and swelling in the left leg, approx 6 cm. No abscess. Assessment and Plan - Assessment and Plan (Free Text) Assessment: 67 yrs old female with PMhx of asthma, HTN, seizure, legally blind, autism, and mood disorder, who is admitted for failure of outpatient antibiotic treatment and is now being treated for worsening left leg cellulitis. Plan: LE cellulitis - Need to rule out venous stasis vs cellulitis - Lower extremity venous ultrasound ordered - VSS, hemodynamically stable - Patient received Zosyn in ED - c/w probiotic Lactobacillus - Procalcitonin: <0.05 - CRP: 17.9 - f/u blood and urine cultures - ID Consult - Dr. Nunes - Started keflex 500 PO Q8 - IV antibiotics held- patient's IV line came off and refused a new IV line to be put in Chronic pancytopenia - Patient is at baseline - likely 2/2 Zosyn-induced myelosuppresion vs dilutional effects - IVF discontinued- patient's IV line came off and refused a new IV line to be put in Normocytic Anemia - H/H 10.3/32.0 - no evidence of bleed, hemodynamically stable - At baseline from earlier in year - Will continue to monitor in AM labs Hx Asthma - Continue home Pulmicort, Albuterol Hx HTN -Losartan 25 Hx Seizures - Cont Keppra 1000 BID Hx Chronic Pain - Cont neurontin Hx Unspecified mood disorder - Cont escitalopram, clonazepam GI/DVT ppx: Pepcid 20 BID PO daily, Lovenox Patient seen, case examined, and plan discussed with <Lambert David - Last Filed: 06/22/18 17:12> Objective - Vital Signs/Intake and Output Vital Signs (last 24 hours): Temp Pulse Resp BP Pulse Ox 98.7 F 84 18 127/87 95 06/22/18 06:00 06/22/18 10:19 06/22/18 06:00 06/22/18 10:19 06/22/18 06:00 Intake and Output: 06/22/18 06/22/18 06:59 18:59 Intake Total 240 Output Total 1 Balance 239 - Medications Medications: Current Medications Albuterol Sulfate (Albuterol 0.083% Inhal Brittney (2.5 Mg/3 Ml) Ud) 2.5 mg INH RTID [facility] Atorvastatin Calcium (Lipitor) 10 mg PO DIN [facility] Budesonide (Pulmicort Respules) 0.5 mg IH BIDRESP [facility] Last Admin: 06/22/18 07:42 Dose: Not Given Cephalexin Monohydrate (Keflex) 500 mg PO Q8 [facility] PRN Reason: Protocol Cholecalciferol (Vitamin D) 1,000 intlu PO DAILY [facility] Last Admin: 06/22/18 10:19 Dose: 1,000 intlu Clonazepam (Klonopin) 1 mg PO BID [facility] PRN Reason: Protocol Last Admin: 06/22/18 10:20 Dose: 1 mg Enoxaparin Sodium (Lovenox) 30 mg SC DAILY [facility] PRN Reason: Protocol Last Admin: 06/22/18 10:28 Dose: Not Given Escitalopram Oxalate (Lexapro) 10 mg PO DAILY [facility] Last Admin: 06/22/18 10:19 Dose: 10 mg Famotidine (Pepcid) 20 mg PO BID [facility] Last Admin: 06/22/18 10:19 Dose: 20 mg Gabapentin (Neurontin) 300 mg PO TID [facility] PRN Reason: Protocol Last Admin: 06/22/18 14:42 Dose: Not Given Hydrocortisone (Cortizone 1% Oint) 1 gm TOP BID [facility] Last Admin: 06/22/18 15:51 Dose: 1 oin Cefepime HCl (Maxipime 1gm) 1 gm in 100 mls @ 100 mls/hr IVPB Q8 [facility] PRN Reason: Protocol Stop: 06/30/18 22:01 Last Admin: 06/22/18 16:03 Dose: Not Given Daptomycin 650 mg/ Sodium (Chloride) 100 mls @ 200 mls/hr IV Q24H [facility] Stop: 06/30/18 21:31 Last Admin: 06/21/18 23:55 Dose: Not Given Lactobacillus Acidophilus (Bacid Acidophilus) 1 cap PO BID [facility] Last Admin: 06/22/18 10:29 Dose: 1 cap Levetiracetam (Keppra) 1,000 mg PO BID [facility] Last Admin: 06/22/18 10:19 Dose: 1,000 mg Losartan Potassium (Cozaar) 25 mg PO DAILY [facility] Last Admin: 06/22/18 10:19 Dose: 25 mg - Labs Labs: 06/22/18 07:00 06/22/18 07:00 PT 11.3 SECONDS (9.4-12.5) 06/21/18 17:05 INR 0.99 06/21/18 17:05 APTT 30.8 Seconds (25.1-36.5) 06/21/18 17:05 Attending/Attestation - Attestation I have personally seen and examined this patient.: Yes I have fully participated in the care of the patient.: Yes I have reviewed all pertinent clinical information, including history, physical exam and plan: Yes Notes (Text): 06/22/18 17:09 67 year old female with past medical history of recurrent cellulitis, hypertension, autism, seizures and mood disordered who presented with lower extremity edema; rule out recurrent cellulitis vs chronic venous stasis. She was started on iv antibiotics, however iv line came out and she refused re- insertion. ID evaluation was appreciated and she is started on keflex for now. Will monitor for resonse. LE dopplers were negative for DVT. Overall prognosis is guarded given medication and treatment noncompliance. Lambert David MD Hospitalist.
--- NOTE | 2018-06-22 15:32 | CP.PCM.CON ---
History of Present Illness - History of Present Illness History of Present Illness: 67 year old female with PMH of seizure disorder, autism, mood disorder, morbid obesity with BMI 42 was [place] [facility] [place] of redness and swelling of the right lower extremity for the past 2 days. She has been on multiple courses of antibiotics for the past 1-2 months (courses of Vancomycin and Zosyn, Vancomycin and Cefepime, Clindamycin). The patient is not very cooperative currently and in fact pulled out her IV line. She denies fever or chills, denies pain in the legs. There is no note of vomiting, no diarrhea, no convulsions. Infectious Diseases consult is requested to further evaluate and manage. Review of Systems - Review of Systems All systems: reviewed and no additional remarkable complaints except (as per HPI ) Past Patient History - Infectious Disease Hx of Infectious Diseases: None - Tetanus Immunizations Tetanus Immunization: Unknown - Past Medical History & Family History Past Medical History?: Yes - Past Social History Smoking Status: Never Smoked - CARDIAC Hx Cardiac Disorders: Yes Hx Hypertension: Yes - PULMONARY Hx Chronic Obstructive Pulmonary Disease (COPD): Yes - NEUROLOGICAL Hx Neurological Disorder: Yes Hx Seizures: Yes - HEENT Hx HEENT Problems: Yes Hx Blind: Yes - RENAL Hx Chronic Kidney Disease: Yes - ENDOCRINE/METABOLIC Hx Endocrine Disorders: No - HEMATOLOGICAL/ONCOLOGICAL Hx Blood Disorders: No - INTEGUMENTARY Hx Dermatological Problems: Yes - MUSCULOSKELETAL/RHEUMATOLOGICAL Hx Musculoskeletal Disorders: Yes Hx Falls: No Hx Unsteady Gait: Yes - GASTROINTESTINAL Hx Gastrointestinal Disorders: Yes Hx Gastroesophageal Reflux: Yes - GENITOURINARY/GYNECOLOGICAL Hx Genitourinary Disorders: Yes Hx Incontinence: Yes - PSYCHIATRIC Hx Psychophysiologic Disorder: Yes Hx Anxiety: Yes Hx Depression: Yes Hx Substance Use: No Other/Comment: Autistic - SURGICAL HISTORY Hx Surgeries: No Meds Allergies/Adverse Reactions: Allergies Allergy/AdvReac Type Severity Reaction Status Date / Time carbamazepine [From Tegretol] Allergy SHORTNESS Verified 06/21/18 14:39 OF BREATH vancomycin Allergy RASH Verified 06/21/18 14:39 - Medications Medications: Current Medications Albuterol Sulfate (Albuterol 0.083% Inhal Brittney (2.5 Mg/3 Ml) Ud) 2.5 mg INH RTID [facility] Atorvastatin Calcium (Lipitor) 10 mg PO DIN [facility] Budesonide (Pulmicort Respules) 0.5 mg IH BIDRESP [facility] Cholecalciferol (Vitamin D) 1,000 intlu PO DAILY [facility] Clonazepam (Klonopin) 1 mg PO BID [facility] PRN Reason: Protocol Enoxaparin Sodium (Lovenox) 30 mg SC DAILY [facility] PRN Reason: Protocol Escitalopram Oxalate (Lexapro) 10 mg PO DAILY [facility] Famotidine (Pepcid) 20 mg PO BID [facility] Gabapentin (Neurontin) 300 mg PO TID [facility] PRN Reason: Protocol Hydrocortisone (Cortizone 1% Oint) 1 gm TOP BID [facility] Sodium Chloride (Sodium Chloride 0.9%) 1,000 mls @ 100 mls/hr IV .Q10H [facility] Last Admin: 06/21/18 23:56 Dose: Not Given Cefepime HCl (Maxipime 1gm) 1 gm in 100 mls @ 100 mls/hr IVPB Q8 [facility] PRN Reason: Protocol Stop: 06/30/18 22:01 Last Admin: 06/22/18 05:54 Dose: Not Given Daptomycin 650 mg/ Sodium (Chloride) 100 mls @ 200 mls/hr IV Q24H [facility] Stop: 06/30/18 21:31 Last Admin: 06/21/18 23:55 Dose: Not Given Lactobacillus Acidophilus (Bacid Acidophilus) 1 cap PO BID [facility] Levetiracetam (Keppra) 1,000 mg PO BID [facility] Losartan Potassium (Cozaar) 25 mg PO DAILY [facility] Physical Exam - Constitutional Appears: Chronically Ill - Head Exam Head Exam: NORMAL INSPECTION - Respiratory Exam Respiratory Exam: Decreased Breath Sounds - Cardiovascular Exam Cardiovascular Exam: +S1, +S2 - Extremities Exam Additional comments: right lower extremity with erythema, no tenderness noted, no open wounds, no bleeding, pitting edema present Results - Vital Signs Recent Vital Signs: Last Vital Signs Temp 97.6 F 06/21/18 23:56 Pulse 79 06/21/18 23:56 Resp 18 06/21/18 23:56 BP 146/71 06/21/18 23:56 Pulse Ox 100 06/21/18 18:37 - Labs Result Diagrams: 06/22/18 07:00 06/22/18 07:00 Assessment & Plan - Assessment and Plan (Free Text) Plan: Assessment consider venous stasis / lymphedema of the right lower extremity, R/O cellulitis seizure disorder autism mood disorder morbid obesity with BMI 42 Plan has been started on Daptomycin and Cefepime but patient pulled out her IV line - will put patient on Keflex and observe - there are no signs of sepsis - ultrasound of the legs does not show DVT will monitor clinically follow up blood cx
[2018-06-23] MEDS: Sodium Chloride 0.9% 1,000 ML IV SCH (02:16)
[2018-06-23] MEDS: Cefepime 1gm in NS 100ml 1 GM/100 ML BAG IVPB SCH ×3 (06:16→22:14)
[2018-06-23] MEDS: Budesonide 0.5 mg/2 ml Inhal Susp UD IH SCH ×2 (07:19→20:48)
[2018-06-23] MEDS: Cholecalciferol 1,000 INTLU TAB PO SCH (10:33)
[2018-06-23] MEDS: Lactobacillus Acidophilus 500 MU Cap PO SCH ×2 (10:33→17:25)
[2018-06-23] MEDS: Enoxaparin 30 mg Syringe SC SCH (10:33)
--- NOTE | 2018-06-23 12:42 | PN ---
Copied To: Rishabh Rivera MD Attending MD: Rishabh Rivera MD DATE: 06/23/2018 SUBJECTIVE: The patient is seen in bed, in no acute distress, nontoxic. PHYSICAL EXAMINATION: VITAL SIGNS: Temperature is 98, blood pressure is 108/60, respiratory rate of 20, heart rate of 70. HEENT: Unremarkable. NECK: Supple. LUNGS: Have decreased breath sounds. HEART: Normal S1, S2. ABDOMEN: . LABORATORY DATA: Reveals a white count of 4.3, hemoglobin of 10, platelets of 149. Chemistries reveal a BUN of 25, creatinine of 1. TSH is 6.41. The urinalysis is noted. Microbiology reveals the blood cultures are negative. ASSESSMENT AND PLAN: This is a 67-year-old female seen in 563, bed 1 with a history of seizures, autism, mood disorder, morbid obesity with body mass index of 42. Admitted with venous stasis, lymphedema of lower extremity and possible cellulitis and started on daptomycin and cefepime. The patient is a difficult patient, had pulled off her IV site. Currently, on Keflex and we will follow with you. Rishabh Rivera MD
--- NOTE | 2018-06-23 15:32 | CP.PCM.PN ---
<Miller Stanley - Last Filed: 06/23/18 15:28> Subjective - Date & Time of Evaluation Date of Evaluation: 06/23/18 Time of Evaluation: 15:29 - Subjective Subjective: Miller Stanley D.O PGY-1, Internal Medicine progress note for Dr. David Patient was examined at bedside, no acute overnight events. Patient is resting comfortably in bed and has no complaints at this time. Patient's IV line came off yesterday and is refusing another IV insertion. Objective - Vital Signs/Intake and Output Vital Signs (last 24 hours): Temp Pulse Resp BP Pulse Ox 98.2 F 70 20 108/58 L 96 06/23/18 08:12 06/23/18 08:12 06/23/18 08:12 06/23/18 08:12 06/23/18 08:12 - Medications Medications: Current Medications Albuterol Sulfate (Albuterol 0.083% Inhal Brittney (2.5 Mg/3 Ml) Ud) 2.5 mg INH RTID [facility] Budesonide (Pulmicort Respules) 0.5 mg IH BIDRESP [facility] Last Admin: 06/23/18 07:19 Dose: Not Given Cephalexin Monohydrate (Keflex) 500 mg PO Q8 [facility] PRN Reason: Protocol Last Admin: 06/23/18 14:23 Dose: 500 mg Cholecalciferol (Vitamin D) 1,000 intlu PO DAILY [facility] Last Admin: 06/23/18 10:33 Dose: 1,000 intlu Clonazepam (Klonopin) 1 mg PO BID [facility] PRN Reason: Protocol Last Admin: 06/23/18 10:33 Dose: 1 mg Enoxaparin Sodium (Lovenox) 30 mg SC DAILY [facility] PRN Reason: Protocol Last Admin: 06/23/18 10:33 Dose: 30 mg Escitalopram Oxalate (Lexapro) 10 mg PO DAILY [facility] Last Admin: 06/23/18 10:33 Dose: 10 mg Famotidine (Pepcid) 20 mg PO BID [facility] Last Admin: 06/23/18 10:34 Dose: 20 mg Gabapentin (Neurontin) 300 mg PO TID [facility] PRN Reason: Protocol Last Admin: 06/23/18 14:22 Dose: 300 mg Hydrocortisone (Cortizone 1% Oint) 1 gm TOP BID [facility] Last Admin: 06/23/18 10:39 Dose: 1 oin Cefepime HCl (Maxipime 1gm) 1 gm in 100 mls @ 100 mls/hr IVPB Q8 [facility] PRN Reason: Protocol Stop: 06/30/18 22:01 Last Admin: 06/23/18 06:16 Dose: Not Given Daptomycin 650 mg/ Sodium (Chloride) 100 mls @ 200 mls/hr IV Q24H [facility] Stop: 06/30/18 21:31 Last Admin: 06/22/18 21:48 Dose: Not Given Lactobacillus Acidophilus (Bacid Acidophilus) 1 cap PO BID [facility] Last Admin: 06/23/18 10:33 Dose: 1 cap Levetiracetam (Keppra) 1,000 mg PO BID [facility] Last Admin: 06/23/18 10:33 Dose: 1,000 mg Losartan Potassium (Cozaar) 25 mg PO DAILY [facility] Last Admin: 06/23/18 10:33 Dose: 25 mg - Labs Labs: 06/22/18 07:00 06/22/18 07:00 PT 11.3 SECONDS (9.4-12.5) 06/21/18 17:05 INR 0.99 06/21/18 17:05 APTT 30.8 Seconds (25.1-36.5) 06/21/18 17:05 - Constitutional Appears: No Acute Distress - Head Exam Head Exam: NORMAL INSPECTION, NORMOCEPHALIC - Eye Exam Eye Exam: Normal appearance - ENT Exam ENT Exam: Mucous Membranes Moist - Respiratory Exam Respiratory Exam: Clear to Ausculation Bilateral. absent: Rales, Rhonchi, Wheezes - Cardiovascular Exam Cardiovascular Exam: REGULAR RHYTHM, +S1, +S2. absent: Gallop, Rubs, Murmur - GI/Abdominal Exam GI & Abdominal Exam: Soft, Normal Bowel Sounds. absent: Tenderness - Extremities Exam Extremities Exam: absent: Calf Tenderness Additional comments: increased warmth, erythema, but swelling in the left leg has improved. No abscess. - Neurological Exam Neurological Exam: Alert, Awake - Psychiatric Exam Psychiatric exam: Normal Affect, Normal Mood - Skin Skin Exam: Dry, Intact, Normal Color, Warm Assessment and Plan - Assessment and Plan (Free Text) Assessment: 67 yrs old female with PMhx of asthma, HTN, seizure, legally blind, autism, and mood disorder, who is admitted for failure of outpatient antibiotic treatment and is now being treated for worsening left leg cellulitis. Plan: LE cellulitis-improving - Lower extremity venous ultrasound: no DVT - VSS, hemodynamically stable - Patient received Zosyn in ED - c/w probiotic Lactobacillus - Procalcitonin: <0.05 - CRP: 17.9 - f/u blood and urine cultures - ID Consult - Dr. Nunes - c/w keflex 500 PO Q8 day #1 of 7 Chronic pancytopenia - Patient is at baseline - Will continue to monitor Normocytic Anemia - patient refused blood work today - no evidence of bleed, hemodynamically stable - At baseline from earlier in year - Will continue to monitor in AM labs Hx Asthma - Continue home Pulmicort, Albuterol Hx HTN -Losartan 25 Hx Seizures - Cont Keppra 1000 BID Hx Chronic Pain - Cont neurontin Hx Unspecified mood disorder - Cont escitalopram, clonazepam GI/DVT ppx: Pepcid 20 BID PO daily, Lovenox Dispo: As per case management, they do not accept people over weekends because they do not have people to come and [facility] residential members. Patient seen, case examined, and plan discussed with <Lambert David - Last Filed: 06/24/18 07:36> Objective - Vital Signs/Intake and Output Vital Signs (last 24 hours): Temp Pulse Resp BP Pulse Ox 98.3 F 69 18 134/73 98 06/23/18 22:00 06/23/18 22:00 06/23/18 22:00 06/23/18 22:00 06/23/18 22:00 Intake and Output: 06/24/18 06/24/18 06:59 18:59 Intake Total 540 Balance 540 - Medications Medications: Current Medications Albuterol Sulfate (Albuterol 0.083% Inhal Brittney (2.5 Mg/3 Ml) Ud) 2.5 mg INH RTID [facility] Budesonide (Pulmicort Respules) 0.5 mg IH BIDRESP [facility] Last Admin: 06/24/18 07:20 Dose: Not Given Cephalexin Monohydrate (Keflex) 500 mg PO Q8 [facility] PRN Reason: Protocol Last Admin: 06/24/18 06:55 Dose: 500 mg Cholecalciferol (Vitamin D) 1,000 intlu PO DAILY [facility] Last Admin: 06/23/18 10:33 Dose: 1,000 intlu Clonazepam (Klonopin) 1 mg PO BID [facility] PRN Reason: Protocol Last Admin: 06/23/18 17:25 Dose: 1 mg Enoxaparin Sodium (Lovenox) 30 mg SC DAILY [facility] PRN Reason: Protocol Last Admin: 06/23/18 10:33 Dose: 30 mg Escitalopram Oxalate (Lexapro) 10 mg PO DAILY [facility] Last Admin: 06/23/18 10:33 Dose: 10 mg Famotidine (Pepcid) 20 mg PO BID [facility] Last Admin: 06/23/18 17:25 Dose: 20 mg Gabapentin (Neurontin) 300 mg PO TID [facility] PRN Reason: Protocol Last Admin: 06/23/18 17:25 Dose: 300 mg Hydrocortisone (Cortizone 1% Oint) 1 gm TOP BID [facility] Last Admin: 06/23/18 17:26 Dose: 1 oin Cefepime HCl (Maxipime 1gm) 1 gm in 100 mls @ 100 mls/hr IVPB Q8 [facility] PRN Reason: Protocol Stop: 06/30/18 22:01 Last Admin: 06/24/18 06:55 Dose: Not Given Daptomycin 650 mg/ Sodium (Chloride) 100 mls @ 200 mls/hr IV Q24H [facility] Stop: 06/30/18 21:31 Last Admin: 06/23/18 22:14 Dose: Not Given Lactobacillus Acidophilus (Bacid Acidophilus) 1 cap PO BID [facility] Last Admin: 06/23/18 17:25 Dose: 1 cap Levetiracetam (Keppra) 1,000 mg PO BID [facility] Last Admin: 06/23/18 17:25 Dose: 1,000 mg Losartan Potassium (Cozaar) 25 mg PO DAILY [facility] Last Admin: 06/23/18 10:33 Dose: 25 mg - Labs Labs: 06/22/18 07:00 06/22/18 07:00 PT 11.3 SECONDS (9.4-12.5) 06/21/18 17:05 INR 0.99 06/21/18 17:05 APTT 30.8 Seconds (25.1-36.5) 06/21/18 17:05 Attending/Attestation - Attestation I have personally seen and examined this patient.: Yes I have fully participated in the care of the patient.: Yes I have reviewed all pertinent clinical information, including history, physical exam and plan: Yes Notes (Text): 06/23/18 67 year old female with past medical history of recurrent cellulitis, hypertension, autism, seizures and mood disordered who presented with lower extremity edema; rule out recurrent cellulitis vs chronic venous stasis. She was started on iv antibiotics, however iv line came out and she refused re- insertion. ID is following. Patient os on po keflex because of no iv access. Cellulitis is improving. LE dopplers were negative for DVT. Overall prognosis is guarded given medication and treatment noncompliance. D/c planning Monday to residential. Lambert David MD Hospitalist.
[2018-06-24] MEDS: Cefepime 1gm in NS 100ml 1 GM/100 ML BAG IVPB SCH (06:55)
[2018-06-24] MEDS: Budesonide 0.5 mg/2 ml Inhal Susp UD IH SCH ×2 (07:20→19:50)
[2018-06-24] MEDS: Enoxaparin 30 mg Syringe SC SCH (10:03)
[2018-06-24] MEDS: Lactobacillus Acidophilus 500 MU Cap PO SCH ×3 (10:04→18:25)
[2018-06-24] MEDS: Cholecalciferol 1,000 INTLU TAB PO SCH (10:05)
--- NOTE | 2018-06-24 10:59 | CP.PCM.PN ---
<Miller Stanley - Last Filed: 06/24/18 11:35> Subjective - Date & Time of Evaluation Date of Evaluation: 06/24/18 Time of Evaluation: 10:59 - Subjective Subjective: Miller Stanley D.O PGY-1, Internal Medicine progress note for Dr. David Patient was examined at bedside, no acute overnight events. Patient is resting comfortably in bed and has no complaints at this time. Patient's IV line came off and is still refusing another IV insertion. Patient cannot be discharged to retirement until Monday as per window caser's note. Objective - Vital Signs/Intake and Output Vital Signs (last 24 hours): Temp Pulse Resp BP Pulse Ox 98.3 F 69 18 134/73 98 06/23/18 22:00 06/23/18 22:00 06/23/18 22:00 06/23/18 22:00 06/23/18 22:00 Intake and Output: 06/24/18 06/24/18 06:59 18:59 Intake Total 540 Balance 540 - Medications Medications: Current Medications Albuterol Sulfate (Albuterol 0.083% Inhal Brittney (2.5 Mg/3 Ml) Ud) 2.5 mg INH RTID [facility] Budesonide (Pulmicort Respules) 0.5 mg IH BIDRESP [facility] Last Admin: 06/24/18 07:20 Dose: Not Given Cephalexin Monohydrate (Keflex) 500 mg PO Q8 [facility] PRN Reason: Protocol Last Admin: 06/24/18 06:55 Dose: 500 mg Cholecalciferol (Vitamin D) 1,000 intlu PO DAILY [facility] Last Admin: 06/24/18 10:05 Dose: 1,000 intlu Clonazepam (Klonopin) 1 mg PO BID [facility] PRN Reason: Protocol Last Admin: 06/24/18 10:04 Dose: 1 mg Enoxaparin Sodium (Lovenox) 30 mg SC DAILY [facility] PRN Reason: Protocol Last Admin: 06/24/18 10:03 Dose: 30 mg Escitalopram Oxalate (Lexapro) 10 mg PO DAILY [facility] Last Admin: 06/24/18 10:04 Dose: 10 mg Famotidine (Pepcid) 20 mg PO BID [facility] Last Admin: 06/24/18 10:05 Dose: 20 mg Gabapentin (Neurontin) 300 mg PO TID [facility] PRN Reason: Protocol Last Admin: 06/24/18 10:08 Dose: 300 mg Hydrocortisone (Cortizone 1% Oint) 1 gm TOP BID [facility] Last Admin: 06/24/18 10:08 Dose: 1 oin Lactobacillus Acidophilus (Bacid Acidophilus) 1 cap PO BID [facility] Last Admin: 06/24/18 10:04 Dose: 1 cap Levetiracetam (Keppra) 1,000 mg PO BID [facility] Last Admin: 06/24/18 10:04 Dose: 1,000 mg Losartan Potassium (Cozaar) 25 mg PO DAILY [facility] Last Admin: 06/24/18 10:05 Dose: 25 mg - Labs Labs: 06/22/18 07:00 06/22/18 07:00 PT 11.3 SECONDS (9.4-12.5) 06/21/18 17:05 INR 0.99 06/21/18 17:05 APTT 30.8 Seconds (25.1-36.5) 06/21/18 17:05 - Constitutional Appears: No Acute Distress - Head Exam Head Exam: ATRAUMATIC, NORMAL INSPECTION - Eye Exam Eye Exam: Normal appearance - ENT Exam ENT Exam: Mucous Membranes Moist - Respiratory Exam Respiratory Exam: Clear to Ausculation Bilateral. absent: Rales, Rhonchi, Wheezes - Cardiovascular Exam Cardiovascular Exam: REGULAR RHYTHM, +S1, +S2. absent: Gallop, Rubs, Murmur - GI/Abdominal Exam GI & Abdominal Exam: Soft, Normal Bowel Sounds. absent: Tenderness - Extremities Exam Extremities Exam: absent: Calf Tenderness Additional comments: Left lower leg is mildly warm. Swelling and redness on the left leg has improved since yesterday. - Neurological Exam Neurological Exam: Alert, Awake - Psychiatric Exam Psychiatric exam: Normal Affect, Normal Mood - Skin Skin Exam: Dry, Intact, Normal Color, Warm Assessment and Plan - Assessment and Plan (Free Text) Assessment: 67 yrs old female with PMhx of asthma, HTN, seizure, legally blind, autism, and mood disorder, who is admitted for failure of outpatient antibiotic treatment and is now being treated for worsening left leg cellulitis. Plan: LE cellulitis-improving - Lower extremity venous ultrasound: no DVT - VSS, hemodynamically stable - c/w probiotic Lactobacillus - Procalcitonin: <0.05 - CRP: 17.9 - f/u blood and urine cultures - ID Consult - Dr. Nunes - c/w keflex 500 PO Q8 day #2 of 7 Asymptomatic UTI - Urine culture grew E. coli and K. pneumoniae - UA: Negative for nitrate, Leukocyte esterase, bacteria - No antibiotics indicated as per ID Chronic pancytopenia - Patient is at baseline - Will continue to monitor Normocytic Anemia - patient refused blood work - no evidence of bleed, hemodynamically stable - At baseline from earlier in year - Will continue to monitor in AM labs Hx Asthma - Continue home Pulmicort, Albuterol Hx HTN -Losartan 25 Hx Seizures - Cont Keppra 1000 BID Hx Chronic Pain - Cont neurontin Hx Unspecified mood disorder - Cont escitalopram, clonazepam GI/DVT ppx: Pepcid 20 BID PO daily, Lovenox Dispo: As per case management, they do not accept people over weekends because they do not have people to come and lemon pick[employer] retirement members. Plan to discharge on Monday to retirement. Patient seen, case examined, and plan discussed with <Lambert David - Last Filed: 06/24/18 12:15> Objective - Vital Signs/Intake and Output Vital Signs (last 24 hours): Temp Pulse Resp BP Pulse Ox 98.3 F 69 18 134/73 98 06/23/18 22:00 06/23/18 22:00 06/23/18 22:00 06/23/18 22:00 06/23/18 22:00 Intake and Output: 06/24/18 06/24/18 06:59 18:59 Intake Total 540 Balance 540 - Medications Medications: Current Medications Albuterol Sulfate (Albuterol 0.083% Inhal Brittney (2.5 Mg/3 Ml) Ud) 2.5 mg INH RTID [facility] Budesonide (Pulmicort Respules) 0.5 mg IH BIDRESP [facility] Last Admin: 06/24/18 07:20 Dose: Not Given Cephalexin Monohydrate (Keflex) 500 mg PO Q8 [facility] PRN Reason: Protocol Last Admin: 06/24/18 06:55 Dose: 500 mg Cholecalciferol (Vitamin D) 1,000 intlu PO DAILY [facility] Last Admin: 06/24/18 10:05 Dose: 1,000 intlu Clonazepam (Klonopin) 1 mg PO BID [facility] PRN Reason: Protocol Last Admin: 06/24/18 10:04 Dose: 1 mg Enoxaparin Sodium (Lovenox) 30 mg SC DAILY [facility] PRN Reason: Protocol Last Admin: 06/24/18 10:03 Dose: 30 mg Escitalopram Oxalate (Lexapro) 10 mg PO DAILY [facility] Last Admin: 06/24/18 10:04 Dose: 10 mg Famotidine (Pepcid) 20 mg PO BID [facility] Last Admin: 06/24/18 10:05 Dose: 20 mg Gabapentin (Neurontin) 300 mg PO TID [facility] PRN Reason: Protocol Last Admin: 06/24/18 10:08 Dose: 300 mg Hydrocortisone (Cortizone 1% Oint) 1 gm TOP BID [facility] Last Admin: 06/24/18 10:08 Dose: 1 oin Lactobacillus Acidophilus (Bacid Acidophilus) 1 cap PO BID [facility] Last Admin: 06/24/18 10:04 Dose: 1 cap Levetiracetam (Keppra) 1,000 mg PO BID [facility] Last Admin: 06/24/18 10:04 Dose: 1,000 mg Losartan Potassium (Cozaar) 25 mg PO DAILY [facility] Last Admin: 06/24/18 10:05 Dose: 25 mg - Labs Labs: 06/22/18 07:00 06/22/18 07:00 PT 11.3 SECONDS (9.4-12.5) 06/21/18 17:05 INR 0.99 06/21/18 17:05 APTT 30.8 Seconds (25.1-36.5) 06/21/18 17:05 Attending/Attestation - Attestation I have personally seen and examined this patient.: Yes I have fully participated in the care of the patient.: Yes I have reviewed all pertinent clinical information, including history, physical exam and plan: Yes Notes (Text): 06/24/18 12:12 67 year old female with past medical history of recurrent cellulitis, hypertension, autism, seizures and mood disordered who presented with lower extremity edema; rule out recurrent cellulitis vs chronic venous stasis. She was started on iv antibiotics, however iv line came out and she refused re- insertion. ID is following. Patient is on po keflex because of no iv access. LE dopplers were negative for DVT. Overall prognosis is guarded given medication and treatment noncompliance. However cellulitis has improved. UCx grew E coli and Klebsiella Pneumonia. However UA was negative and patient is asymptomatic. D/c planning tomorrow to retirement. Lambert David MD Hospitalist.
--- NOTE | 2018-06-24 12:41 | PN ---
Copied To: Rishabh Rivera MD Attending MD: Rishabh Rivera MD DATE: 06/24/2018 SUBJECTIVE: The patient is in bed, in no acute distress, nontoxic. PHYSICAL EXAMINATION: VITAL SIGNS: On exam, temperature is 98, blood pressure is 117/70, respiratory rate of 18. HEENT: Examination of HEENT is unremarkable. NECK: Supple. LUNGS: Have decreased breath sounds. HEART: Normal S1, S2. ABDOMEN: Soft, nontender. EXTREMITIES: Examination of the left leg, the erythema is much improved. LABORATORY DATA: Laboratory examination reveals E. coli and Klebsiella in the urine and is pansensitive. Blood cultures are negative. The patient is refusing IV access. The patient is currently on p.o. Keflex. ASSESSMENT AND PLAN: A 67-year-old female, who was seen in 562, bed 1 with a history of seizures, autism, mood disorder, morbid obesity, body mass index of 42 and blindness, does not want IV access and now with a left leg cellulitis, on Keflex and gram-negative elly and Escherichia coli and Klebsiella in the urine. Currently, on Keflex, currently responding. The patient is refusing IV access. We will continue the p.o. left lower extremity cellulitis in a patient with pancytopenia, anemia, asthma, hypertension, seizures, chronic pain. Possible discharge. Rishabh Rivera MD
[2018-06-25] MEDS: Budesonide 0.5 mg/2 ml Inhal Susp UD IH SCH ×2 (07:09→20:17)
[2018-06-25] MEDS: Cholecalciferol 1,000 INTLU TAB PO SCH (09:38)
[2018-06-25] MEDS: Lactobacillus Acidophilus 500 MU Cap PO SCH ×2 (09:38→17:37)
[2018-06-25] MEDS: Enoxaparin 30 mg Syringe SC SCH (09:44)
--- NOTE | 2018-06-25 16:11 | CP.PCM.PN ---
<Miller Stanley - Last Filed: 06/25/18 16:07> Subjective - Date & Time of Evaluation Date of Evaluation: 06/25/18 Time of Evaluation: 16:22 - Subjective Subjective: Miller Stanley D.O PGY-1, Internal Medicine progress note for Dr. Morel Patient was examined at bedside, no acute overnight events. Patient is resting comfortably in bed. Patient's is still refusing another IV insertion and daily blood draws. Patient was found to be hypotensive today, she is refusing to drink any fluids besides coffee but is eating all her meals. Objective - Vital Signs/Intake and Output Vital Signs (last 24 hours): Temp Pulse Resp BP Pulse Ox 97.6 F 75 18 88/55 L 95 06/25/18 07:48 06/25/18 11:32 06/25/18 07:48 06/25/18 11:32 06/25/18 07:48 Intake and Output: 06/25/18 06/25/18 06:59 18:59 Intake Total 1560 Balance 1560 - Medications Medications: Current Medications Albuterol Sulfate (Albuterol 0.083% Inhal Brittney (2.5 Mg/3 Ml) Ud) 2.5 mg INH RTID [facility] Budesonide (Pulmicort Respules) 0.5 mg IH BIDRESP [facility] Last Admin: 06/25/18 07:09 Dose: Not Given Cephalexin Monohydrate (Keflex) 500 mg PO Q8 [facility] PRN Reason: Protocol Last Admin: 06/25/18 14:00 Dose: 500 mg Cholecalciferol (Vitamin D) 1,000 intlu PO DAILY [facility] Last Admin: 06/25/18 09:38 Dose: 1,000 intlu Clonazepam (Klonopin) 1 mg PO BID [facility] PRN Reason: Protocol Last Admin: 06/25/18 09:38 Dose: 1 mg Enoxaparin Sodium (Lovenox) 30 mg SC DAILY [facility] PRN Reason: Protocol Last Admin: 06/25/18 09:44 Dose: Not Given Escitalopram Oxalate (Lexapro) 10 mg PO DAILY [facility] Last Admin: 06/25/18 09:38 Dose: 10 mg Famotidine (Pepcid) 20 mg PO BID [facility] Last Admin: 06/25/18 09:38 Dose: 20 mg Gabapentin (Neurontin) 300 mg PO TID [facility] PRN Reason: Protocol Last Admin: 06/25/18 13:59 Dose: 300 mg Hydrocortisone (Cortizone 1% Oint) 1 gm TOP BID [facility] Last Admin: 06/25/18 11:36 Dose: 1 oin Lactobacillus Acidophilus (Bacid Acidophilus) 1 cap PO BID [facility] Last Admin: 06/25/18 09:38 Dose: 1 cap Levetiracetam (Keppra) 1,000 mg PO BID [facility] Last Admin: 06/25/18 09:38 Dose: 1,000 mg Losartan Potassium (Cozaar) 25 mg PO DAILY [facility] Last Admin: 06/25/18 11:32 Dose: Not Given - Labs Labs: 06/22/18 07:00 06/22/18 07:00 PT 11.3 SECONDS (9.4-12.5) 06/21/18 17:05 INR 0.99 06/21/18 17:05 APTT 30.8 Seconds (25.1-36.5) 06/21/18 17:05 - Constitutional Appears: No Acute Distress - Head Exam Head Exam: ATRAUMATIC, NORMAL INSPECTION - Eye Exam Eye Exam: Normal appearance - Respiratory Exam Respiratory Exam: Clear to Ausculation Bilateral. absent: Rales (c), Rhonchi, Wheezes, Respiratory Distress - Cardiovascular Exam Cardiovascular Exam: REGULAR RHYTHM, +S1, +S2. absent: Gallop, Rubs, Murmur - GI/Abdominal Exam GI & Abdominal Exam: Soft, Normal Bowel Sounds. absent: Tenderness - Extremities Exam Extremities Exam: absent: Calf Tenderness Additional comments: Erythema on the left leg has improved since yesterday. - Neurological Exam Neurological Exam: Alert, Awake - Psychiatric Exam Psychiatric exam: Normal Affect, Normal Mood - Skin Skin Exam: Dry, Intact, Normal Color, Warm Assessment and Plan - Assessment and Plan (Free Text) Assessment: 67 yrs old female with PMhx of asthma, HTN, seizure, legally blind, autism, and mood disorder, who is admitted for failure of outpatient antibiotic treatment and is now being treated for worsening left leg cellulitis. Plan: LE cellulitis-improving - Lower extremity venous ultrasound: no DVT - C/w probiotic Lactobacillus - Procalcitonin: <0.05 - CRP: 17.9 - ID Consult - Dr. Nunes - C/w keflex 500 PO Q8 day #3 of 7 Asymptomatic UTI - Urine culture grew E. coli and K. pneumoniae - UA: Negative for nitrate, Leukocyte esterase, bacteria - No antibiotics indicated as per ID Chronic pancytopenia - Patient is at baseline - Will continue to monitor Normocytic Anemia - patient refused blood work - no evidence of bleed, hemodynamically stable - At baseline from earlier in year - Will continue to monitor in AM labs History of Asthma - Continue home Pulmicort, Albuterol prn History of HTN - C/w Losartan 25mg PO QD History of Seizures - C/w Keppra 1000 BID History of Chronic Pain - C/w neurontin 300mg PO TID History of unspecified mood disorder - C/w escitalopram 10mg PO QD, clonazepam 1mg PO BID GI/DVT ppx: Pepcid 20 BID PO daily, Lovenox Dispo: Patient will go to jail once discharged. Patient was hypotensive today, will delay discharge until she is hemodynamically stable. Patient seen, case examined, and plan discussed with Dr. Morel <Soco Morel - Last Filed: 06/25/18 21:22> Objective - Vital Signs/Intake and Output Vital Signs (last 24 hours): Temp Pulse Resp BP Pulse Ox 97.9 F 60 18 132/83 100 06/25/18 17:45 06/25/18 17:45 06/25/18 17:45 06/25/18 17:45 06/25/18 17:45 - Medications Medications: Current Medications Albuterol Sulfate (Albuterol 0.083% Inhal Brittney (2.5 Mg/3 Ml) Ud) 2.5 mg INH RTID [facility] Budesonide (Pulmicort Respules) 0.5 mg IH BIDRESP [facility] Last Admin: 06/25/18 20:17 Dose: Not Given Cephalexin Monohydrate (Keflex) 500 mg PO Q8 [facility] PRN Reason: Protocol Last Admin: 06/25/18 14:00 Dose: 500 mg Cholecalciferol (Vitamin D) 1,000 intlu PO DAILY [facility] Last Admin: 06/25/18 09:38 Dose: 1,000 intlu Clonazepam (Klonopin) 1 mg PO BID [facility] PRN Reason: Protocol Last Admin: 06/25/18 17:36 Dose: 1 mg Enoxaparin Sodium (Lovenox) 30 mg SC DAILY [facility] PRN Reason: Protocol Last Admin: 06/25/18 09:44 Dose: Not Given Escitalopram Oxalate (Lexapro) 10 mg PO DAILY [facility] Last Admin: 06/25/18 09:38 Dose: 10 mg Famotidine (Pepcid) 20 mg PO BID [facility] Last Admin: 06/25/18 17:37 Dose: 20 mg Gabapentin (Neurontin) 300 mg PO TID [facility] PRN Reason: Protocol Last Admin: 06/25/18 17:37 Dose: 300 mg Hydrocortisone (Cortizone 1% Oint) 1 gm TOP BID [facility] Last Admin: 06/25/18 17:37 Dose: 1 oin Lactobacillus Acidophilus (Bacid Acidophilus) 1 cap PO BID [facility] Last Admin: 06/25/18 17:37 Dose: 1 cap Levetiracetam (Keppra) 1,000 mg PO BID [facility] Last Admin: 06/25/18 17:36 Dose: 1,000 mg Losartan Potassium (Cozaar) 25 mg PO DAILY [facility] Last Admin: 06/25/18 11:32 Dose: Not Given - Labs Labs: 06/22/18 07:00 06/22/18 07:00 PT 11.3 SECONDS (9.4-12.5) 06/21/18 17:05 INR 0.99 06/21/18 17:05 APTT 30.8 Seconds (25.1-36.5) 06/21/18 17:05 Attending/Attestation - Attestation I have personally seen and examined this patient.: Yes I have fully participated in the care of the patient.: Yes I have reviewed all pertinent clinical information, including history, physical exam and plan: Yes Notes (Text): Patient seen and examined by me at 11:40AM. Case including HPI, physical exam, and assessment and plan discussed with resident. Agree with above with following additions/corrections. Patient is a 67 year old female with past medical history significant for asthma , seizure, autism, mood disorder, being legally blind presented to the emergency room with left leg redness. Unable to obtain history from patient secondary to autism and patient not answering questions appropriately. Patient afebrile. No new issues overnight per nurse. Physical exam: Gen: Awake and alert lying in bed in no acute distress HEENT: Normocephalic, atraumatic. Patient does not allow to examine other areas. Cardiovascular: Normal rhythm. Normal S1, S2. No murmurs, rubs, or gallops appreciated Pulmonary: Normal respiratory effort. No rhonchi, rales or wheezing appreciated. Gastrointestinal: Soft, nontender, nondistended, positive bowel sounds all 4 quadrants, no guarding. Musculoskeletal: Moves all extremities. slight erythema lower left leg above ankle and below knee. Central nervous system: Awake and alert Dermatologic: Skin warm and dry. Assessment and plan: Patient is a 67 year old female with past medical history significant for asthma, seizure, autism, mood disorder, being legally blind presented to the emergency room with left leg redness. 1. Left leg cellulitis. Patient to complete 5-7 days of keflex per ID. Patient refusing IV medications. Patient refusing IV line. Blood cultures with no growth. ID following, recommendations appreciated. 2. Hypotension. Patient with episodes of hypotension today. Discharge held. Patient's nurse encouraged to encourage patient to drink more water. Patient refusing IV line and IV fluids. Continue to monitor blood pressure 3. Positive urine culture. Urine culture positive for E. Coli and Klebsiella. Urinalysis shows no infection. Likely colonization. No treatment per ID. 4. Chronic pancytopenia/anemia. Unable to evaluate current lab values as patient has been refusing labs. 5. History of seizures. Continue Keppra 6. History of hypertension. Cozaar held today secondary to hypotension. Isolated reading today of hypotension. 7. History of Asthma. Continue albuterol nebs as needed. Continue pulmicort. Not in acute exacerbation 8. Autism/mood disorder. Continue Lexapro and klonopin
--- NOTE | 2018-06-25 19:44 | CP.PCM.PN ---
Subjective - Date & Time of Evaluation Date of Evaluation: 06/25/18 Time of Evaluation: 11:55 - Subjective Subjective: No fevers, no increased pain in the legs. Objective - Vital Signs/Intake and Output Vital Signs (last 24 hours): Temp Pulse Resp BP Pulse Ox 97.6 F 64 18 125/60 95 06/25/18 07:48 06/25/18 07:48 06/25/18 07:48 06/25/18 07:48 06/25/18 07:48 Intake and Output: 06/25/18 06/25/18 06:59 18:59 Intake Total 1560 Balance 1560 - Medications Medications: Current Medications Albuterol Sulfate (Albuterol 0.083% Inhal Brittney (2.5 Mg/3 Ml) Ud) 2.5 mg INH RTID [facility] Budesonide (Pulmicort Respules) 0.5 mg IH BIDRESP [facility] Last Admin: 06/25/18 07:09 Dose: Not Given Cephalexin Monohydrate (Keflex) 500 mg PO Q8 [facility] PRN Reason: Protocol Last Admin: 06/25/18 06:32 Dose: 500 mg Cholecalciferol (Vitamin D) 1,000 intlu PO DAILY [facility] Last Admin: 06/25/18 09:38 Dose: 1,000 intlu Clonazepam (Klonopin) 1 mg PO BID [facility] PRN Reason: Protocol Last Admin: 06/25/18 09:38 Dose: 1 mg Enoxaparin Sodium (Lovenox) 30 mg SC DAILY [facility] PRN Reason: Protocol Last Admin: 06/25/18 09:44 Dose: Not Given Escitalopram Oxalate (Lexapro) 10 mg PO DAILY [facility] Last Admin: 06/25/18 09:38 Dose: 10 mg Famotidine (Pepcid) 20 mg PO BID [facility] Last Admin: 06/25/18 09:38 Dose: 20 mg Gabapentin (Neurontin) 300 mg PO TID [facility] PRN Reason: Protocol Last Admin: 06/25/18 09:38 Dose: 300 mg Hydrocortisone (Cortizone 1% Oint) 1 gm TOP BID [facility] Last Admin: 06/24/18 17:44 Dose: 1 oin Lactobacillus Acidophilus (Bacid Acidophilus) 1 cap PO BID [facility] Last Admin: 06/25/18 09:38 Dose: 1 cap Levetiracetam (Keppra) 1,000 mg PO BID [facility] Last Admin: 06/25/18 09:38 Dose: 1,000 mg Losartan Potassium (Cozaar) 25 mg PO DAILY [facility] Last Admin: 06/24/18 10:05 Dose: 25 mg - Labs Labs: 06/22/18 07:00 06/22/18 07:00 PT 11.3 SECONDS (9.4-12.5) 06/21/18 17:05 INR 0.99 06/21/18 17:05 APTT 30.8 Seconds (25.1-36.5) 06/21/18 17:05 - Constitutional Appears: Chronically Ill - Head Exam Head Exam: NORMAL INSPECTION - Respiratory Exam Respiratory Exam: Decreased Breath Sounds - Cardiovascular Exam Cardiovascular Exam: +S1, +S2 - GI/Abdominal Exam GI & Abdominal Exam: Soft. absent: Tenderness - Extremities Exam Additional comments: left leg erythema slowly decreasing as well as swelling Assessment and Plan - Assessment and Plan (Free Text) Plan: Assessment consider venous stasis / lymphedema of the right lower extremity, R/O cellulitis seizure disorder autism mood disorder morbid obesity with BMI 42 Plan continue Keflex for another 5-7 days
[2018-06-26 07:49] VITALS: PULSE 66; RESP 20; TEMP 98.5; O2SAT 95
[2018-06-26] MEDS: Budesonide 0.5 mg/2 ml Inhal Susp UD IH SCH (08:00)
[2018-06-26] MEDS: Cholecalciferol 1,000 INTLU TAB PO SCH (10:19)
[2018-06-26] MEDS: Lactobacillus Acidophilus 500 MU Cap PO SCH (10:19)
[2018-06-26] MEDS: Enoxaparin 30 mg Syringe SC SCH (10:21)
[2018-06-26 10:23] VITALS: BP 114/50
--- NOTE | 2018-06-26 13:45 | CP.PCM.DIS ---
Provider - Provider Date of Admission: 06/21/18 19:33 Attending physician: Lambert David MD Time Spent in preparation of Discharge (in minutes): 45 Diagnosis - Discharge Diagnosis (1) Left leg cellulitis Status: Resolved Priority: Medium (2) Anemia Status: Chronic Priority: Medium (3) Asthma Status: Chronic Priority: Medium (4) HTN (hypertension) Status: Chronic Priority: Medium (5) Mood disorder Status: Chronic Priority: Medium (6) Seizure Status: Chronic Priority: Medium Hospital Course - Lab Results Lab Results: Most Recent Lab Values WBC 4.3 10^3/ul (4.5-11.0) L 06/22/18 07:00 RBC 3.47 10^6/uL (3.5-6.1) L 06/22/18 07:00 Hgb 10.3 g/dL (12.0-16.0) L 06/22/18 07:00 Hct 32.0 % (36.0-48.0) L 06/22/18 07:00 MCV 92.2 fl (80.0-105.0) 06/22/18 07:00 MCH 29.7 pg (25.0-35.0) 06/22/18 07:00 MCHC 32.2 g/dl (31.0-37.0) 06/22/18 07:00 RDW 13.9 % (11.5-14.5) 06/22/18 07:00 Plt Count 149 10^3/uL (120.0-450.0) 06/22/18 07:00 MPV 10.7 fl (7.0-11.0) 06/22/18 07:00 Gran % 45.1 % (50.0-68.0) L 06/22/18 07:00 Lymph % (Auto) 31.9 % (22.0-35.0) 06/22/18 07:00 [place] % (Auto) 11.4 % (1.0-6.0) H 06/22/18 07:00 Eos % (Auto) 10.7 % (1.5-5.0) H 06/22/18 07:00 Baso % (Auto) 0.9 % (0.0-3.0) 06/22/18 07:00 Gran # 1.93 (1.4-6.5) 06/22/18 07:00 Lymph # (Auto) 1.4 (1.2-3.4) 06/22/18 07:00 [place] # (Auto) 0.5 (0.1-0.6) 06/22/18 07:00 Eos # (Auto) 0.5 (0.0-0.7) 06/22/18 07:00 Baso # (Auto) 0.04 K/mm3 (0.0-2.0) 06/22/18 07:00 ESR 22 mm/hr (0.0-20.0) H 06/21/18 17:05 Retic Count 1.21 % (0.5-1.5) 06/22/18 07:50 PT 11.3 SECONDS (9.4-12.5) 06/21/18 17:05 INR 0.99 06/21/18 17:05 APTT 30.8 Seconds (25.1-36.5) 06/21/18 17:05 pO2 77 mm/Hg (30-55) H 06/21/18 17:05 VBG pH 7.33 (7.32-7.43) 06/21/18 17:05 VBG pCO2 60.0 (40-60) 06/21/18 17:05 VBG HCO3 31.6 mmol/l (21-28) H 06/21/18 17:05 VBG Total CO2 33.4 mmol.L (22-28) H 06/21/18 17:05 VBG O2 Sat (Calc) 95.6 % (40-65) H 06/21/18 17:05 VBG Base Excess 4.0 mmol/L (0.0-2.0) H 06/21/18 17:05 VBG Potassium 6.7 mmol/L (3.6-5.2) H* 06/21/18 17:05 Sodium 140.0 mmol/L (132-148) 06/21/18 17:05 Chloride 109.0 mmol/L (98-107) H 06/21/18 17:05 Glucose 130 mg/dl (65-105) H 06/21/18 17:05 Lactate 2.3 mmol/L (0.7-2.1) H 06/21/18 17:05 FiO2 21.0 % 06/21/18 17:05 Sodium 144 mmol/L (132-148) 06/22/18 07:00 Potassium 4.5 mmol/L (3.6-5.0) 06/22/18 07:00 Chloride 107 mmol/L (98-107) 06/22/18 07:00 Carbon Dioxide 29 mmol/L (21-33) 06/22/18 07:00 Anion Gap 12 (10-20) 06/22/18 07:00 BUN 25 mg/dL (7-21) H 06/22/18 07:00 Creatinine 1.0 mg/dl (0.7-1.2) 06/22/18 07:00 Est GFR ( Amer) > 60 06/22/18 07:00 Est GFR (Non-Af Amer) 55 06/22/18 07:00 Random Glucose 90 mg/dL (70-110) 06/22/18 07:00 Calcium 8.7 mg/dL (8.4-10.5) 06/22/18 07:00 Phosphorus 4.2 mg/dL (2.5-4.5) 06/21/18 17:05 Magnesium 2.2 mg/dL (1.7-2.2) 06/21/18 17:05 Iron 55 ug/dL (45-180) 06/22/18 07:50 TIBC 280 ug/dL (265-497) 06/22/18 07:50 % Saturation 20 % (20-55) 06/22/18 07:50 Total Bilirubin 0.4 mg/dL (0.2-1.3) 06/22/18 07:00 AST 27 U/L (14-36) 06/22/18 07:00 ALT 30 U/L (7-56) 06/22/18 07:00 Alkaline Phosphatase 49 U/L (38-126) 06/22/18 07:00 Troponin I < 0.01 ng/mL 06/21/18 17:05 C-Reactive Protein 17.90 mg/L (0.0-9.9) H 06/22/18 07:00 NT-Pro-B Natriuret Pep 500 pg/mL (0-450) H 06/21/18 17:05 Total Protein 5.9 g/dL (5.8-8.3) 06/22/18 07:00 Albumin 3.1 g/dL (3.0-4.8) 06/22/18 07:00 Globulin 2.8 gm/dL 06/22/18 07:00 Albumin/Globulin Ratio 1.1 (1.1-1.8) 06/22/18 07:00 Procalcitonin < 0.05 NG/ML (0.19-0.49) L 06/21/18 17:05 TSH 3rd Generation 6.41 mIU/mL (0.46-4.68) H 06/22/18 07:50 Venous Blood Potassium 6.7 mmol/L (3.6-5.2) H* 06/21/18 17:05 Urine Color Yellow (YELLOW) 06/21/18 18:30 Urine Appearance Sl cloudy (CLEAR) 06/21/18 18:30 Urine pH 6.0 (4.7-8.0) 06/21/18 18:30 Ur Specific [place] 1.015 (1.005-1.035) 06/21/18 18:30 Urine Protein Negative mg/dL (<30 mg/dL) 06/21/18 18:30 Urine Glucose (UA) Negative mg/dL (NEGATIVE) 06/21/18 18:30 Urine Ketones Negative mg/dL (NEGATIVE) 06/21/18 18:30 Urine Blood Small (NEGATIVE) H 06/21/18 18:30 Urine Nitrate Negative (NEGATIVE) 06/21/18 18:30 Urine Bilirubin Negative (NEGATIVE) 06/21/18 18:30 Urine Urobilinogen 0.2 E.U./dL (<1 E.U./dL) 06/21/18 18:30 Ur Leukocyte Esterase Negative [place]/uL (NEGATIVE) 06/21/18 18:30 Urine RBC 1 - 3 /hpf (0-2) 06/21/18 18:30 Urine WBC Negative /hpf (0-6) 06/21/18 18:30 Ur Epithelial Cells 0 - 2 /hpf (0-5) 06/21/18 18:30 - Hospital Course Hospital Course: Ms. Galan is a 67 year old female with PMhx of asthma, HTN, seizure, legally blind, autism, and mood disorder, who is admitted for failure of outpatient antibiotic treatment and is now being treated for worsening left leg cellulitis. Patient was initially started on Daptomycin and Cefepime but patient pulled out her IV line and refused another IV line to be put in. She was then started Keflex PO. She was also treated with pulmicort, klonopin, lovenox, albuterol, vitamin D, lexapro, gabapentin, pepcid, hydrocortisone cream , probiotics, keppra, and losartan. Blood culture was negative. Urine culture was positive for E coli and K pneumoniae. During the course of his hospital stay , he got an EKG that showed normal sinus rhythm at 80 bpm. Chest xray showed no active disease. Lower extremity venous duplex showed no DVT. Infectious disease (Dr. Nunes/Dr. Rivera) was consulted and recommended that patient to be started on Keflex PO 500mg TID for 7 days since she has no IV access and refusing to get another one. ID also recommended no treatment for her positive urine cultures as the urinalysis is negative for a UTI. Patient instructed to start new medications: Keflex 500mg three times daily for 4 days. Continue home medications upon discharge: Pulmicort 0.5mg inhaler twice daily, Singulair inhaler once daily, Albuterol inhaler as needed, Keppra 1000mg twice daily by mouth, Gabapentin 300mg three times daily by mouth, Lexapro 10mg once daily by mouth, Klonopin 1.5mg once in the morning and 1.0mg once in the evening, Losartan 40mg once daily. Patient was discharged with instruction for the correction staff on the correct way to take medications and to follow up with her primary doctor within 3-5 days of discharge, Dr. Ga. Patient was instructed to resume activity as tolerated. Discharge instructions for correction staff to take patient to the ED for worsening or newly concerning symptoms.Patient is now medically optimized for discharge to correction. Discharge Exam - Head Exam Head Exam: NORMAL INSPECTION - Eye Exam Eye Exam: Normal appearance - ENT Exam ENT Exam: Mucous Membranes Moist - Respiratory Exam Respiratory Exam: Clear to PA & Lateral. absent: Rales, Rhonchi, Wheezes, Respiratory Distress - Cardiovascular Exam Cardiovascular Exam: REGULAR RHYTHM, +S1, +S2. absent: Gallop, Rubs, Systolic Murmur - GI/Abdominal Exam GI & Abdominal Exam: Normal Bowel Sounds, Soft. absent: Tenderness - Extremities Exam Additional comments: No calf tenderness or pedal edema. Left leg with slight redness - Neurological Exam Neurological exam: Alert - Psychiatric Exam Psychiatric exam: Normal Affect, Normal Mood - Skin Skin Exam: Dry, Intact, Normal Color, Warm Discharge Plan - Discharge Medications Prescriptions: Cephalexin [cephalexin] 500 mg PO Q8 #21 cap Divalproex [Depakote ER] 500 mg PO BID #6 ter Lactobacillus Acidophilus [Bacid Acidophilus] 1 cap PO BID 7 Days #14 cap - Follow Up Plan Condition: STABLE Disposition: HOME/ ROUTINE Instructions: Autism Spectrum Disorder, Health Risks of Obesity, Cellulitis (DC ) Additional Instructions: 1. Please continue home medications: - Pulmicort 0.5mg inhaler twice daily - Singulair inhaler once daily - Albuterol inhaler as needed - Keppra 1000mg twice daily by mouth - Gabapentin 300mg three times daily by mouth - Lexapro 10mg once daily by mouth - Klonopin 1.5mg once in the morning and 1.0mg once in the evening - Losartan 40mg once daily - Depakote ER 500mg twice a day 2. Please start taking new medication: Keflex 500mg every eight hours daily for 4 days 3. Please follow up with your primary care doctor (Dr. Ga) within 3-5 days after discharge 4. You can return to day program as you wish 5. Return to the nearest emergency room for if symptoms return Referrals: Jose Ga MD [Family Provider] - Matty Nunes MD [Staff Provider] -
--- NOTE | 2018-06-26 14:45 | CP.PCM.PN ---
Subjective - Date & Time of Evaluation Date of Evaluation: 06/26/18 Time of Evaluation: 11:15 - Subjective Subjective: Comfortable in bed, no fevers. Objective - Vital Signs/Intake and Output Vital Signs (last 24 hours): Temp Pulse Resp BP Pulse Ox 98.5 F 66 20 114/50 L 95 06/26/18 07:48 06/26/18 07:48 06/26/18 07:48 06/26/18 10:22 06/26/18 07:48 Intake and Output: 06/26/18 06/26/18 06:59 18:59 Intake Total 620 Balance 620 - Medications Medications: Current Medications Albuterol Sulfate (Albuterol 0.083% Inhal Brittney (2.5 Mg/3 Ml) Ud) 2.5 mg INH RTID ANNE MARIE Budesonide (Pulmicort Respules) 0.5 mg IH BIDRESP ANNE MARIE Last Admin: 06/26/18 08:00 Dose: Not Given Cephalexin Monohydrate (Keflex) 500 mg PO Q8 ANNE MARIE PRN Reason: Protocol Last Admin: 06/26/18 13:20 Dose: 500 mg Cholecalciferol (Vitamin D) 1,000 intlu PO DAILY ANNE MARIE Last Admin: 06/26/18 10:19 Dose: 1,000 intlu Clonazepam (Klonopin) 1 mg PO BID ANNE MARIE PRN Reason: Protocol Last Admin: 06/26/18 10:21 Dose: 1 mg Enoxaparin Sodium (Lovenox) 30 mg SC DAILY ANNE MARIE PRN Reason: Protocol Last Admin: 06/26/18 10:21 Dose: Not Given Escitalopram Oxalate (Lexapro) 10 mg PO DAILY ANNE MARIE Last Admin: 06/26/18 10:19 Dose: 10 mg Famotidine (Pepcid) 20 mg PO BID ANNE MARIE Last Admin: 06/26/18 10:19 Dose: 20 mg Gabapentin (Neurontin) 300 mg PO TID ANNE MARIE PRN Reason: Protocol Last Admin: 06/26/18 10:21 Dose: 300 mg Hydrocortisone (Cortizone 1% Oint) 1 gm TOP BID ANNE MARIE Last Admin: 06/26/18 10:22 Dose: 1 oin Lactobacillus Acidophilus (Bacid Acidophilus) 1 cap PO BID ANNE MARIE Last Admin: 06/26/18 10:19 Dose: 1 cap Levetiracetam (Keppra) 1,000 mg PO BID ANNE MARIE Last Admin: 06/26/18 10:19 Dose: 1,000 mg Losartan Potassium (Cozaar) 25 mg PO DAILY ANNE MARIE Last Admin: 06/26/18 10:22 Dose: Not Given - Labs Labs: 06/22/18 07:00 06/22/18 07:00 PT 11.3 SECONDS (9.4-12.5) 06/21/18 17:05 INR 0.99 06/21/18 17:05 APTT 30.8 Seconds (25.1-36.5) 06/21/18 17:05 - Constitutional Appears: Chronically Ill - Head Exam Head Exam: NORMAL INSPECTION - Respiratory Exam Respiratory Exam: Decreased Breath Sounds - Cardiovascular Exam Cardiovascular Exam: +S1, +S2 - GI/Abdominal Exam GI & Abdominal Exam: Soft. absent: Tenderness Assessment and Plan - Assessment and Plan (Free Text) Plan: Assessment consider venous stasis / lymphedema of the right lower extremity, R/O cellulitis seizure disorder autism mood disorder morbid obesity with BMI 42 Plan continue Keflex for another 4-6 days
== END 2018-06-26 16:58 | disposition home or self-care (01) | DRG 603 ==
LOC: ED 14:36 → ERH 19:33 → 5RNO 21:56
PROVIDERS: ADMIT Hospitalist; ATTEND Internal Medicine
DX: L03.116 Cellulitis of left lower limb (principal); N17.9 Acute kidney failure, unspecified; D61.818 Other pancytopenia; F84.0 Autistic disorder; Z68.41 Body mass index [BMI] 40.0-44.9, adult; B96.1 Klebsiella pneumoniae [K. pneumoniae] as the cause of diseases classified elsewhere; B96.20 Unspecified Escherichia coli [E. coli] as the cause of diseases classified elsewhere; E66.01 Morbid (severe) obesity due to excess calories; F39 Unspecified mood [affective] disorder; G40.909 Epilepsy, unspecified, not intractable, without status epilepticus; G89.29 Other chronic pain; H54.8 Legal blindness, as defined in USA; I12.9 Hypertensive chronic kidney disease with stage 1 through stage 4 chronic kidney disease, or unspecified chronic kidney disease; N18.9 Chronic kidney disease, unspecified; I87.8 Other specified disorders of veins; I89.0 Lymphedema, not elsewhere classified; J44.9 Chronic obstructive pulmonary disease, unspecified; K21.9 Gastro-esophageal reflux disease without esophagitis; Z91.19 Patient's noncompliance with other medical treatment and regimen; Z91.14 Patient's other noncompliance with medication regimen; D64.9 Anemia, unspecified; Z88.1 Allergy status to other antibiotic agents; Z88.8 Allergy status to other drugs, medicaments and biological substances